=== PATIENT | female | born 1960 | race Caucasian/White ===

== ENCOUNTER → 2016-09-19 | Outpatient (CLI) | payer BC ==
[~2016-09-19] MED LIST: BUTACAP36 PO; CALC8.5C PO; CYAN100020 PO; FAMO20TA9 PO; LEVO75TA5 PO
--- NOTE | 2016-09-19 16:27 | MAMMOGRAPHY REPORT ---
BILATERAL DIGITAL SCREENING MAMMOGRAM TOMOSYNTHESIS WITH CAD: 09/19/2016 CLINICAL HISTORY: Routine screening. Patient has no complaints. TECHNIQUE: Breast tomosynthesis in addition to standard 2D mammography was performed. Current study was also evaluated with a Computer Aided Detection (CAD) system. COMPARISON: Comparison is made to exams dated: 09/17/2015 mammogram, 09/13/2014 ultrasound, 09/13/2014 mammogram, 03/30/2014 ultrasound, 03/30/2014 mammogram, and 09/12/2013 mammogram - [facility]. BREAST COMPOSITION: The tissue of both breasts is heterogeneously dense, which may obscure small ma sses. FINDINGS: No suspicious masses, calcifications, or areas of architectural distortion are noted in e ither breast. There has been no significant interval change compared to prior exams. Fluctuating be nign-appearing masses are again noted bilaterally, which likely represent cysts given that multiple cysts have been seen on prior ultrasound exams. Scattered bilateral benign appearing calcifications are also not significantly changed. IMPRESSION: ACR BI-RADS CATEGORY 2: BENIGN There is no mammographic evidence of malignancy. A 1 year screening mammogram is recommended. The p atient will receive written notification of the results. Approximately 10% of breast cancers are not detected with mammography. A negative mammographic repor t should not delay biopsy if a clinically suggestive mass is present. Daphne Crowley M.D. /:09/19/2016 16:07:55 Assembler Wire M[employer] Gate: Sherlyn Marquez, [facility] letter sent: Normal 1/2 BI-RADS Code: ACR BI-RADS Category 2: Benign
== END | disposition home or self-care (01) ==
LOC: C.MAMM 07:24
PROVIDERS: ATTEND Obstetrics & Gynecology
DX: Z12.31 Encounter for screening mammogram for malignant neoplasm of breast (principal)

== ENCOUNTER → 2017-02-24 | Outpatient (CLI) | payer BC | END | disposition home or self-care (01) | LOC: C.PAPS 17:59 | PROVIDERS: ATTEND Obstetrics & Gynecology | DX: Z01.419 Encounter for gynecological examination (general) (routine) without abnormal findings (principal) ==

== ENCOUNTER → 2017-09-24 | Outpatient (CLI) | payer OTHER ==
--- NOTE | 2017-09-24 13:44 | MAMMOGRAPHY REPORT ---
BILATERAL DIGITAL SCREENING MAMMOGRAM TOMOSYNTHESIS WITH CAD: 09/24/2017 CLINICAL HISTORY: Routine screening. Patient has no complaints. TECHNIQUE: Breast tomosynthesis in addition to standard 2D mammography was performed. Current study was also evaluated with a Computer Aided Detection (CAD) system. COMPARISON: Comparison is made to exams dated: 09/19/2016 mammogram, 09/17/2015 mammogram, 09/13/2014 u ltrasound, 09/13/2014 mammogram, 03/30/2014 ultrasound, and 03/30/2014 mammogram - [facility]. BREAST COMPOSITION: The tissue of both breasts is heterogeneously dense, which may obscure small mas ses. FINDINGS: No suspicious masses, calcifications, or areas of architectural distortion are noted in ei ther breast. There has been no significant interval change compared to prior exams. Scattered bilater al benign-appearing calcifications are not significantly changed. Circumscribed benign-appearing mas ses seen bilaterally are not significantly changed. IMPRESSION: ACR BI-RADS CATEGORY 2: BENIGN There is no mammographic evidence of malignancy. A 1 year screening mammogram is recommended. The pa tient will receive written notification of the results. Approximately 10% of breast cancers are not detected with mammography. A negative mammographic report should not delay biopsy if a clinically suggestive mass is present. Daphne Crowley M.D. /:09/24/2017 07:52:57 Loop Tacker: Elena EDWARDS(Xu)(Ramez), [facility] letter sent: Normal 1/2 BI-RADS Code: ACR BI-RADS Category 2: Benign
== END | disposition home or self-care (01) ==
LOC: C.MAMM 07:38
PROVIDERS: ATTEND Obstetrics & Gynecology
DX: Z12.31 Encounter for screening mammogram for malignant neoplasm of breast (principal)

== ENCOUNTER 2024-07-21 12:54 | Inpatient (IN) ==
[2024-07-21 13:47] LABS: iSTAT Creatinine 0.9 mg/dl (0.6-1.3); iSTAT Hemoglobin 14.3 g/dl (12.0-16.0); iSTAT Ionized Calcium 1.23 mmol/l (1.12-1.32); iSTAT Potassium 3.2 mmol/L (3.3-5.0)
[2024-07-21 13:50] LABS: Basophils # (auto) 0.03 K/uL (0.00-0.20); Basophils % (auto) 0.9 %; Eosinophils # (auto) 0.07 K/uL (0.00-0.50); Eosinophils % (auto) 2.2 %; Hemoglobin 13.9 g/dl (12.0-16.0); Immature Granulocytes # (auto) 0.01 K/uL (0.01-0.20); Immature Granulocytes % (auto) 0.3 %; Lymphocytes # (auto) 0.94 K/uL (1.20-3.40); Lymphocytes % (auto) 29.7 %; Mean Corpuscular Hemoglobin 31.3 pg (25.0-34.0); Mean Corpuscular Hgb Conc 33.1 g/dL (32.0-36.0); Mean Corpuscular Volume 94.6 fL (80.0-100.0); Mean Platelet Volume 9.8 fL (9.4-12.4); Monocytes # (auto) 0.36 K/uL (0.11-0.59); Monocytes % (auto) 11.4 %; Neutrophils # (auto) 1.75 K/uL (1.40-6.50); Neutrophils % (auto) 55.5 %; Platelet Count 181 K/uL (130-400); RDW Standard Deviation 45.3 fL (36.4-46.3); Red Blood Count 4.44 M/uL (4.20-5.40); White Blood Count 3.16 K/ul (4.8-10.8)
[2024-07-21] MEDS: OPTIRAY 320 100ml IV ONE (13:54)
[2024-07-21] MEDS: dexAMETHasone**PF** 10 MG/ML VIAL IV ONE (14:05)
[2024-07-21] MEDS: SODIUM CHLORIDE 0.9% 500 ML IV ONE (14:05)
[2024-07-21 14:07] LABS: Albumin Globulin Ratio 1.4 (0.9-2); BUN Creatinine Ratio 12.2 (10-20); Bilirubin,Total 0.4 mg/dl (0.2-1.0); Calcium 9.6 mg/dl (8.6-10.3); Creatinine Clr Calc Pharmacy 50.9 ml/min; Globulin 2.9 gm/dl (2.5-4.0); Magnesium 2.1 mg/dl (1.7-2.4); Potassium 3.4 mmol/L (3.5-5.1); Total Protein 6.9 gm/dl (6.0-8.3)
[2024-07-21 14:09] LABS: Troponin I High Sensitivity 3.8 pg/ml (0-14)
[2024-07-21 14:12] LABS: Prothrombin Time 10.7 Seconds (9.0-12.0)
--- NOTE | 2024-07-21 14:21 | CT Scan Report ---
CT OF THE CHEST WITH IV CONTRAST CLINICAL HISTORY: brain mets, eval for primary COMPARISON STUDY: No previous studies for comparison. TECHNIQUE: Following IV administration of 94 mL of Optiray, helical axial images of the chest were o btained. Sagittal and coronal reconstructions were viewed as well as maximal intensity projections o n an independent 3-D workstation. Automated exposure control was utilized for the study. A dose low ering technique was utilized adhering to the principles of ALARA. FINDINGS: Several mildly enlarged right hilar lymph nodes are present. Index right hilar lymph node on image 108 of 249 measures 1.4 x 1.2 cm. The size of the heart is normal there is no pericardial ef fusion. No pneumothorax or pleural effusion is present. There is no consolidation. There is a spicula gary 3.3 x 3.2 cm right upper lobe mass with several pleural tags. A 6 mm subpleural right middle lobe nodule on image 136 is also noted. There is no pneumothorax or pleural effusion. Multiple lytic lesi ons within the thoracic spine are noted. There is slight loss of height of the superior endplates of T6 and T10. No epidural extension of tumor is identified by CT. Please note that the CT of the abdome n and pelvis will be reported separately. IMPRESSION: 1. 3.3 x 3.2 cm spiculated right upper lobe mass consistent with a primary lung cancer. 2. Several mildly enlarged pathologic right hilar lymph nodes. 3. Multiple lytic thoracic spine metastases with subtle pathologic fractures of T6 and T10. ACT 112: Negative or not required by law. Electronically signed by: Wesley Kelly M.D. 07/21/2024 2:20 PM
--- NOTE | 2024-07-21 14:28 | CT Scan Report ---
CT head/brain wo con CLINICAL HISTORY: 64 years-old Female with brain mets. Intracranial metastasis. TECHNIQUE: Multiple axial CT images of the head were obtained without contrast. A dose lowering tech nique was utilized adhering to the principles of ALARA. CT DOSE: 1844.67 mGy.cm COMPARISON: Chest CT and brain MRI studies of same day FINDINGS: No large areas of acute intraparenchymal hemorrhage. No midline shift, hydrocephalus, acute territori al ischemia or abnormal extra-axial collection. Intracranial metastasis with surrounding vasogenic ed chung are better visualized on the same day brain MRI. The largest lesion is present in the inferior me dial right frontal lobe on image 7 series 2 measuring 1.6 cm . Scattered fluid calvarial metastasis. The paranasal sinuses, mastoid air cells, and middle ear cavities are clear. IMPRESSION: 1. Intracranial metastasis measuring up to 1.6 cm with mild surrounding vasogenic edema, better seen on the same-day brain MRI. 2. No midline shift, hydrocephalus or large intraparenchymal hemorrhage identified. 3. Foci of hemorrhage associated with the metastatic lesions better seen on MRI. 4. Lytic calvarial metastasis. ACT 112: Negative or not required by law. The above report was generated using voice recognition software. It may contain grammatical, syntax o r spelling errors. Electronically signed by: Bryn Rivas M.D. 07/21/2024 2:26 PM
--- NOTE | 2024-07-21 14:41 | CT Scan Report ---
ABDOMEN AND PELVIS CT WITH IV CONTRAST HISTORY: Lung cancer with metastatic disease. brain mets, eval for primary TECHNIQUE: Multiaxial CT images of the abdomen and pelvis were performed following the IV administrat ion of 94 cc of Optiray, A dose lowering technique was utilized adhering to the principles of ALARA. COMPARISON STUDY: Chest and head CT studies of same day FINDINGS: Chest CT is dictated separately. No pneumatosis or pneumoperitoneum. Unremarkable spleen, p ancreas, gallbladder and adrenal glands. Subcentimeter hypodense focus of the hepatic dome on image 1 6 series 6 is too small to characterize, likely benign. Similar-appearing lesion of the inferior righ t hepatic lobe on image 26 series 6 is indeterminate. Patency of the hepatic and portal veins. Mild cortical scarring of the mid pole left kidney. No hydronephrosis. The urinary bladder is within normal limits. Nonspecific heterogeneity of the uterus with apparent thickening of the fundal endomet rium measuring 7 mm. Possible fibroid of the uterine fundus. Atherosclerosis of the aorta. Nonspecifi c periportal lymph nodes measure up to approximately 10 mm. Distal esophageal wall thickening with small hiatal hernia. Colonic diverticulosis. Moderate colonic fecal retention. No bowel obstruction or bowel wall thickening. Noninflamed appendix. Scattered osteo lytic skeletal metastasis. Lumbar levoscoliosis. Subtle pathologic fractures noted at T10 and L1 with out significant vertebral body height loss. IMPRESSION: 1. Please refer to the same day chest CT for discussion of the primary bronchogenic carcinoma of the right upper lobe. 2. Nonspecific borderline enlarged periportal lymph nodes. 3. Multifocal osteolytic skeletal metastasis with subtle pathologic fractures at T10 and L1. No signi ficant vertebral body height loss or retropulsion. 4. Incidental findings as above. ACT 112: Negative or not required by law. The above report was generated using voice recognition software. It may contain grammatical, syntax o r spelling errors. Electronically signed by: Bryn Rivas M.D. 07/21/2024 2:40 PM
--- NOTE | 2024-07-21 15:11 | Emergency Department Note ---
Impression & Plan Metastasis to brain, Mass of right lung, Metastasis to bone, Vision changes, Daily headache ED Provider Note NAME: NATASHA WOODS AGE: 64 SEX: F : 1960 ARRIVES VIA: Walk-In INFORMANT: Patient ED PROVIDER(S): Guillermo Mcwilliams MD CHIEF COMPLAINT: Abnormal brain MRI, vision changes, referred. PLAN: Disposition: Admit MEDICAL DECISION MAKING: The patient is a pleasant 64-year-old woman with a past medical history of anxiety, GERD, hypothyroidism who presents to emergency department via walk-in coming by her referred by her PCP office after having outpatient MRI brain with and without contrast result with finalized report demonstrating metastatic lesions with vasogenic edema and some with hemorrhagic component but no midline shift. Appreciate report received from Dr. Wagner. Outpatient consult with Dr. Tra khan and recommended emergency department evaluation for CT imaging, IV steroids, admission for radiation oncology consultation and biopsy if primary site is identified and amenable. Patient's MRI of the brain was obtained in the setting of having a month of areas of peripheral vision loss where the patient had seen ophthalmology with unremarkable assessment per report and so MRI of the brain was obtained. The patient reports having a daily headache in the morning but that this is normal for her. Her was able to clarify that her headaches may have started in May as an estimate. She denies any headache at this time. She denies any imbalance, trouble speaking, extremity weakness or change in sensation. She is able to ambulate at baseline without difficulty. On evaluation patient is no distress, afebrile with stable vital signs. She appears clinically dry. There does appear to be subtle right eye superior- temporal field of vision deficit but otherwise no gross vision deficits noted. EOMI. No nystamgus. PEARRL. 5/5 strength and SILT x 4 extremities. Cerebellar function intact including [id number], alternating palms, [id number]-[id number]. IV fluid hydration and 10mg IV dexamethasone administered. EKG without overt acute ischemia. WBC 3.16K without neutrophilia or left shift. H/H and platelets within normal limits. Chemistry without metabolic acidosis. Potassium 3.4 and electrolytes otherwise unremarkable. Alk phos is mildly elevated in the 200s and LFTs otherwise unremarkable. Lipase is normal. CT of the head demonstrates recent identified intracranial metastases measuring up to 1.6 cm with mild surrounding vasogenic edema that is better seen on same- day MRI of the brain. No midline shift, hydrocephalus or large IPH. Foci of hemorrhage associated with metastatic lesions is better seen on MRI. Lytic calvarial metastases are also described. CT of the chest demonstrates a 3.3 x 3.2 spiculated right upper lobe mass consistent with primary lung cancer. Several mildly enlarged pathologic right hilar lymph nodes are noted. Multiple lytic thoracic spine metastases are present with subtle pathologic fracture of T6 and T10. CT abdomen pelvis describes borderline enlarged periportal lymph nodes. Case was discussed with MIRA Watson on-call. Appreciate consultation and recommendations. Agrees with plan in progress for admission per above. Case was discussed with ELEAZAR Montilla hospitalist, who will evaluate the patient for admission. Further management per admitting team. Triage Nursing notes reviewed and agree them. Prior/external medical records reviewed Vital Signs: reviewed Differential diagnosis: Infection, dehydration, metabolic abnormality, hypo/hyperglycemia, electrolyte disturbance, anemia, hypoxia, cardiac sources, intracerebral event, toxicologic, neurologic, as well as other pathologies. ER treatment provided: See below. Diagnostics interpreted by me: ECG: Normal sinus rhythm, 86 bpm, no ectopy. LVH, nonspecific ST and T wave abnormality, no overt ST elevation or depression, QTc 471, QRS 98. Cardiac Monitoring: An order for continuous cardiac monitoring was placed and demonstrated Normal sinus rhythm, 86 bpm, no ectopy. Laboratory studies: See below Imaging studies: See below Consultation(s): MIRA Watson Dr., [facility] hospitalist HPI: The patient is a pleasant 64-year-old woman with a past medical history of anxiety, GERD, hypothyroidism who presents to emergency department via walk-in coming by her referred by her PCP office after having outpatient MRI brain with and without contrast result with finalized report demonstrating metastatic lesions with vasogenic edema and some with hemorrhagic component but no midline shift. Appreciate report received from Dr. Wagner. Outpatient consult with Dr. Tra khan and recommended emergency department evaluation for CT imaging, IV steroids, admission for radiation oncology consultation and biopsy if primary site is identified and amenable. Patient's MRI of the brain was obtained in the setting of having a month of areas of peripheral vision loss where the patient had seen ophthalmology with unremarkable assessment per report and so MRI of the brain was obtained. The patient reports having a daily headache in the morning but that this is normal for her. Her was able to clarify that her headaches may have started in May as an estimate. She denies any headache at this time. She denies any imbalance, trouble speaking, extremity weakness or change in sensation. She is able to ambulate at baseline without difficulty. ROS: See above HPI for pertinent positives & negatives. A total of 10 systems reviewed and were otherwise negative. VITALS:See Below PHYSICAL EXAMINATION: GENERAL: Awake, alert, well-appearing, in no distress HENT: Normocephalic, atraumatic. Oropharynx with dry mucous membranes and otherwise unremarkable. EYES: Normal conjunctiva. Sclera non-icteric. EOMI. No nystamgus. PEARRL. Subtle right eye superior-temporal field of vision deficit but otherwise no gross vision deficits noted. NECK: Supple. No nuchal rigidity. FROM. No JVD. RESPIRATORY: Clear to auscultation. CARDIAC: Regular rate, normal rhythm. Extremities warm and well perfused. Pulses equal. ABDOMEN: Soft, non-distended. No tenderness to palpation. No rebound or guarding. No masses. MUSCULOSKELETAL: Chest examination reveals no tenderness. The back is symmetrical on inspection without obvious abnormality. There is no CVA tenderness to palpation. No joint edema. LOWER EXTREMITIES: Calves are equal size bilaterally and non-tender. No edema. No discoloration. NEURO: Face is symmetric. Speech is fluent. 5/5 strength and SILT x 4 extremities. Cerebellar function intact including bhroao-qq-[id number], alternating palms, zkvn-bj-nvtc. SKIN: No rash or jaundice noted. Guillermo Mcwilliams MD Past Med/Surg History Problem List Daily headache (Acute) Vision changes (Acute) Metastasis to bone (Acute) Mass of right lung (Acute) Metastasis to brain (Acute) Hyperglycemia Elevated LFTs Routine gynecological examination Hypothyroidism History of colon polyps Encounter for pre-operative examination Diverticulosis Esophageal reflux Hyperthyroidism Hyperlipidemia Leukopenia Migraine headache Postmenopause atrophic vaginitis B12 deficiency No pertinent past surgical history Medical History Osteoarthritis Hypothyroidism Migraine Hx of gastric ulcer REASON FOR DAILY PEPCID Anemia PT DENIES Surgical History History of esophagogastroduodenoscopy (EGD) History of colonoscopy History of tooth extraction Family History Other No family history of adverse response to anesthesia No pertinent family history Denies family history of Ovarian cancer Prostate cancer Diabetes Myocardial infarction Breast cancer Colorectal cancer Hypertension Social History Smoking Status: Never smoker Second Hand Exposure: No; Do You Dip or Chew Tobacco: No; Hx Alcohol Use: No Hx Substance Use: No Preferred Language: Citizen Of [place] Visual Impairment: No Limitations Hearing Ability: Normal Flatwork Presser Required: No Beliefs That Will Affect Care: None marital status: Current Living Situation: Spouse current occupational status: retired Feels Safe at Home: Yes Dental Care, Regularly: Yes Physical Activity Frequency: Does not Exercise Seatbelt Use: always Assistive Devices: Glasses Allergies Allergies Allergy/AdvReac Type Severity Reaction Status Date / Time No Known Allergies Allergy Verified 07/20/24 09:56 Home Meds Home Medications Medication Instructions Recorded Confirmed famotidine 20 mg tablet (Pepcid AC) 20 mg PO QAM 09/14/20 07/21/24 multivitamin 1 tab PO QAM 09/14/20 07/21/24 cholecalciferol (vitamin D3) 125 125 mcg PO QAM 06/04/21 07/21/24 mcg (5,000 unit) tablet (Vitamin D3) alprazolam 0.5 mg tablet (Xanax) 0.5 mg PO UD PRN procedure 07/21/24 07/21/24 levothyroxine 75 mcg tablet 75 mcg PO QAM 07/21/24 07/21/24 Previous Rx's Medication Instructions Recorded [id number] See Rx Instructions PO DAILY PRN 05/13/24 50 mg-325 mg-40 mg tablet pain #30 tabs fluticasone propionate 50 2 spray intranasal DAILY PRN 05/13/24 mcg/actuation nasal allergy symptoms #3 multiple units spray,suspension (Flonase Allergy Relief) Results & Data (ED) Vital Signs Vital Signs - 24 hr 07/21/24 13:05 07/21/24 15:00 07/21/24 15:00 Temperature 36.9 C Temperature Source Temporal Artery Scan Pulse Rate 91 H Pulse Rate [Finger] 89 Respiratory Rate 18 18 Respiratory Effort / Characteristics Non-Labored Spontaneous Non-Labored Spontaneous Respiratory Depth Normal Normal Respiratory Pattern Regular Blood Pressure 126/83 Blood Pressure [Right Arm] 127/86 Blood Pressure Mean 97 Blood Pressure Mean [Right Arm] 99 Pulse Oximetry 99 94 94 Oxygen Delivery Method Room Air Room Air Room Air Sepsis Recent Fever Within 48 Hours No Sepsis New/Unexplained Change in Mental Status No Sepsis Action Taken by Nursing No Action Required Laboratory Data Attestation: I reviewed the patient's lab results. 07/21/24 13:30 07/21/24 13:30 Lab Results 07/21/24 07/21/24 Range/Units 13:30 13:35 WBC 3.16 L (4.8-10.8) K/ul RBC 4.44 (4.20-5.40) M/uL Hgb 13.9 (12.0-16.0) g/dl POC Hgb 14.3 (12.0-16.0) g/dl Hct 42.0 (37.0-47.0) % POC Hct 42 (37-47) % MCV 94.6 (80.0-100.0) fL MCH 31.3 (25.0-34.0) pg MCHC 33.1 (32.0-36.0) g/dL RDW Std Deviation 45.3 (36.4-46.3) fL RDW Coeff of Melodie 13.0 (11.5-14.5) % Plt Count 181 (130-400) K/uL MPV 9.8 (9.4-12.4) fL Immature Gran % (Auto) 0.3 % Neut % (Auto) 55.5 % Lymph % (Auto) 29.7 % [place] % (Auto) 11.4 % Eos % (Auto) 2.2 % Baso % (Auto) 0.9 % Neut # (Auto) 1.75 (1.40-6.50) K/uL Lymph # (Auto) 0.94 L (1.20-3.40) K/uL [place] # (Auto) 0.36 (0.11-0.59) K/uL Eos # (Auto) 0.07 (0.00-0.50) K/uL Baso # (Auto) 0.03 (0.00-0.20) K/uL Immature Gran # (Auto) 0.01 (0.01-0.20) K/uL PT 10.7 (9.0-12.0) Seconds INR 1.0 (0.9-1.1) POC Sodium 141 (135-144) mmol/L Sodium 141 (136-145) mmol/L POC Potassium 3.2 L (3.3-5.0) mmol/L Potassium 3.4 L (3.5-5.1) mmol/L POC Chloride 102 (101-112) mmol/L Chloride 104 (98-107) mmol/L Carbon Dioxide 31 (21-32) mmol/L POC Total CO2 25 (24-31) mmol/L Anion Gap 6 (3-11) POC Anion Gap 18.0 (16-25) mmol/L POC BUN 11 (7-18) mg/dl BUN 11 (6-23) mg/dl Creatinine 0.90 (0.6-1.2) mg/dl POC Creatinine 0.9 (0.6-1.3) mg/dl Est Cr Clr Drug Dosing 50.9 ml/min eGFR 70.51 BUN/Creatinine Ratio 12.2 (10-20) Glucose 112 H (70-99(Fasting)) mg/dl POC Glucose (other) 111 H (70-99) mg/dl Calcium 9.6 (8.6-10.3) mg/dl POC Ioniz Calcium Jackie 1.23 (1.12-1.32) mmol/l Magnesium 2.1 (1.7-2.4) mg/dl Total Bilirubin 0.4 (0.2-1.0) mg/dl AST 36 (13-39) U/L ALT 39 (7-52) U/L Alkaline Phosphatase 221 H (34-104) U/L Troponin I High Sens 3.8 (0-14) pg/ml Total Protein 6.9 (6.0-8.3) gm/dl Albumin 4.0 (3.4-5.0) gm/dl Globulin 2.9 (2.5-4.0) gm/dl Albumin/Globulin Ratio 1.4 (0.9-2) Lipase 12 (11-82) U/L Administered Medications Discontinued Medications Dexamethasone Sodium Phosphate (DexamethasonePf 10 Mg/Ml Vial) 10 mg IV NOW ONE Stop: 07/21/24 13:16 Last Admin: 07/21/24 14:05 Dose: 10 mg Documented By: BRENDA Sodium Chloride (Nss) 500 mls @ 999 mls/hr IV .Q31M ONE Stop: 07/21/24 13:45 Last Infusion: 07/21/24 14:36 Dose: Infused Documented By: Admin: 07/21/24 14:05 Dose: 999 mls/hr Documented By: BRENDA Ioversol (Optiray 320 100ml) 94 ml IV ONCE ONE Stop: 07/21/24 13:55 Last Admin: 07/21/24 13:54 Dose: 94 ml Documented By: SAMPSON Potassium Chloride (Potassium Chloride Crtab 20 Meq Tabcr) 40 meq PO NOW STA Stop: 07/21/24 16:45 Last Admin: 07/21/24 17:11 Dose: 40 meq Documented By: BRENDA Imaging Data Radiologist's Impression: Abdomen/Pelvis CT 07/21/24 13:[address] WITH IV CONTRAST HISTORY: Lung cancer with metastatic disease. brain mets, eval for primary TECHNIQUE: Multiaxial CT images of the abdomen and pelvis were performed following the IV administration of 94 cc of Optiray, A dose lowering technique was utilized adhering to the principles of ALARA. COMPARISON STUDY: Chest and head CT studies of same day FINDINGS: Chest CT is dictated separately. No pneumatosis or pneumoperitoneum. Unremarkable spleen, pancreas, gallbladder and adrenal glands. Subcentimeter hypodense focus of the hepatic dome on image 16 series 6 is too small to characterize, likely benign. Similar-appearing lesion of the inferior right hepatic lobe on image 26 series 6 is indeterminate. Patency of the hepatic and portal veins. Mild cortical scarring of the mid pole left kidney. No hydronephrosis. The urinary bladder is within normal limits. Nonspecific heterogeneity of the uterus with apparent thickening of the fundal endometrium measuring 7 mm. Possible fibroid of the uterine fundus. Atherosclerosis of the aorta. Nonspecific periportal lymph nodes measure up to approximately 10 mm. Distal esophageal wall thickening with small hiatal hernia. Colonic diverticulosis. Moderate colonic fecal retention. No bowel obstruction or bowel wall thickening. Noninflamed appendix. Scattered osteolytic skeletal metastasis. Lumbar levoscoliosis. Subtle pathologic fractures noted at T10 and L1 without significant vertebral body height loss. IMPRESSION: 1. Please refer to the same day chest CT for discussion of the primary bronchogenic carcinoma of the right upper lobe. 2. Nonspecific borderline enlarged periportal lymph nodes. 3. Multifocal osteolytic skeletal metastasis with subtle pathologic fractures at T10 and L1. No significant vertebral body height loss or retropulsion. 4. Incidental findings as above. ACT 112: Negative or not required by law. The above report was generated using voice recognition software. It may contain grammatical, syntax or spelling errors. Electronically signed by: Bryn Rivas M.D. 07/21/2024 2:[address] 07/21/24 13:11 CT OF THE CHEST WITH IV CONTRAST CLINICAL HISTORY: brain mets, eval for primary COMPARISON STUDY: No previous studies for comparison. TECHNIQUE: Following IV administration of 94 mL of Optiray, helical axial images of the chest were obtained. Sagittal and coronal reconstructions were viewed as well as maximal intensity projections on an independent 3-D workstation. Automated exposure control was utilized for the study. A dose lowering technique was utilized adhering to the principles of ALARA. FINDINGS: Several mildly enlarged right hilar lymph nodes are present. Index right hilar lymph node on image 108 of 249 measures 1.4 x 1.2 cm. The size of the heart is normal there is no pericardial effusion. No pneumothorax or pleural effusion is present. There is no consolidation. There is a spiculated 3.3 x 3.2 cm right upper lobe mass with several pleural tags. A 6 mm subpleural right middle lobe nodule on image 136 is also noted. There is no pneumothorax or pleural effusion. Multiple lytic lesions within the thoracic spine are noted. There is slight loss of height of the superior endplates of T6 and T10. No epidural extension of tumor is identified by CT. Please note that the CT of the abdomen and pelvis will be reported separately. IMPRESSION: 1. 3.3 x 3.2 cm spiculated right upper lobe mass consistent with a primary lung cancer. 2. Several mildly enlarged pathologic right hilar lymph nodes. 3. Multiple lytic thoracic spine metastases with subtle pathologic fractures of T6 and T10. ACT 112: Negative or not required by law. Electronically signed by: Wesley Kelly M.D. 07/21/2024 2:[address] 07/21/24 13:14 CT head/brain wo con CLINICAL HISTORY: 64 years-old Female with brain mets. Intracranial metastasis. TECHNIQUE: Multiple axial CT images of the head were obtained without contrast. A dose lowering technique was utilized adhering to the principles of ALARA. CT DOSE: 1844.67 mGy.cm COMPARISON: Chest CT and brain MRI studies of same day FINDINGS: No large areas of acute intraparenchymal hemorrhage. No midline shift, hydrocephalus, acute territorial ischemia or abnormal extra-axial collection. Intracranial metastasis with surrounding vasogenic edema are better visualized on the same day brain MRI. The largest lesion is present in the inferior medial right frontal lobe on image 7 series 2 measuring 1.6 cm . Scattered fluid calvarial metastasis. The paranasal sinuses, mastoid air cells, and middle ear cavities are clear. IMPRESSION: 1. Intracranial metastasis measuring up to 1.6 cm with mild surrounding vasogenic edema, better seen on the same-day brain MRI. 2. No midline shift, hydrocephalus or large intraparenchymal hemorrhage identified. 3. Foci of hemorrhage associated with the metastatic lesions better seen on MRI. 4. Lytic calvarial metastasis. ACT 112: Negative or not required by law. The above report was generated using voice recognition software. It may contain grammatical, syntax or spelling errors. Electronically signed by: Bryn Rivas M.D. 07/21/2024 2:26 PM Discharge Plan Visit Data Chief Complaint: Visual Disturbance Stated Complaint: MRI THIS AM, LESIONS ON BRAIN, IMPAIRED VISION ED Provider: Guillermo Mcwilliams Discharge Problem: Metastasis to brain, Mass of right lung, Metastasis to bone, Vision changes, Daily headache Patient Disposition: Admitted As Inpatient Discharge Instructions Interventions: ED Discharge Assessment Last Done: 07/21/24 19:40
--- NOTE | 2024-07-21 15:50 | History & Physical Report ---
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 Otherwise has no focal deficits MRI outpatient showed multifocal lesions suspected for metastatic lesions with small amount of edema and hemorrhage CTA/P with evidence of suspected right lung primary. Lymphadenopathy is appreciated. Multiple spinal mets with associated pathologic fracture are noted. Oncology consulted, Dr. Santiago following. Reviewed findings by phone. Does have small amount of edema and hemorrhage however no mass effect and at rest she has no noticeable neurologic deficits at the bedside. Given this does not require emergent transfer or intervention, agree with steroid treatment and will continue steroids 4 mg q6h. Recommended MRI of whole spine for complete mets evaluation, C/T/L-spine ordered. Appreciate recommendations Pulmonology consulted for biopsy evaluation. Images reviewed, anticipate patient have bronchoscopic approach 07/22 n.p.o. at midnight. Anticipate patient will need radiation treatment for her brain metastasis. Radiation oncology consulted. Patient has no arrhythmogenic symptoms, has no focal deficits on admitting exam. Will follow on [facility] with neurochecks. No history of seizures. Presentation, imaging findings, and anticipated workup discussed with patient, her , and daughter at length at the bedside. In addition to review of above did discuss broad goals of care. Patient's and (2) Hypothyroidism: Plan: Continue Synthroid Plan Chronic stable issues: GERD: Pepcid/famotidine continued Hypothyroidism: Synthroid continued DVT prophylaxis: Pharmacal prophylaxis deferred pending endobronchial ultrasound and in the setting of a lots of metastatic hemorrhage. SCDs Diet: Regular, n.p.o. at midnight CODE STATUS: Full code Disposition: MSO History of Present Illness Primary Care Provider: MD Elise Magallanes her symptoms began with progressive small amounts of vision loss. She noticed she could not see words in some spots when reading. Was referred to Dr. Jenkins for an eye exam which was normal. Was recommended to have MRI to eval uate for stroke. MRI today had converning findings for brain lesions and was recommended to come into the emergency department for further testing. First noticed vision change in early May When she is not reading she does not notice any visual deficits or changes. Her reports beginning of May she has had much more word finding difficulty than usual. No confusion. No headaches. No fevers, chills, or sweats no chest pain, no chest pressure no cough, no shortness of breath Pt has been trying to lose weight before the winter, goal weight 132lbs. Currenly hitting her goal of 130. 135 several weeks ago. Dieting and walking every morning to do this. Denies unintentional weight loss. She reports some back and hip pain when caused her to stop walking as much in the last few weeks. She stopped walking about 2 weeks ago due to pain, started around 3 weeks prior to that. Endorses some mild but tolerable low back pain chronically. Reports this is intermittent and 'not all the time.' No falls or injuries. No hx heart or lung disease No tobacco product use, no etoh use. No secondary smoke exposure. No recreational drug use. NKDA. Takes pepcid for gerd, thryoid medicine levotyroxine 75mcg, d3, multivitamin, and an occasional B12 vitamin. No family history of cancer or blood clots Allergies Allergy/AdvReac Type Severity Reaction Status Date / Time No Known Allergies Allergy Verified 07/20/24 09:56 Home Medications Medication Instructions Recorded Confirmed Type famotidine 20 mg tablet (Pepcid AC) 20 mg PO QAM 09/14/20 07/21/24 History multivitamin 1 tab PO QAM 09/14/20 07/21/24 History cholecalciferol (vitamin D3) 125 125 mcg PO QAM 06/04/21 07/21/24 History mcg (5,000 unit) tablet (Vitamin D3) [id number] See Rx Instructions PO DAILY PRN 05/13/24 07/21/24 Rx 50 mg-325 mg-40 mg tablet pain #30 tabs fluticasone propionate 50 2 spray intranasal DAILY PRN 05/13/24 07/21/24 Rx mcg/actuation nasal allergy symptoms #3 multiple units spray,suspension (Flonase Allergy Relief) alprazolam 0.5 mg tablet (Xanax) 0.5 mg PO UD PRN procedure 07/21/24 07/21/24 History levothyroxine 75 mcg tablet 75 mcg PO QAM 07/21/24 07/21/24 History Past Med/Surg History Problem List Metastasis to brain Hyperglycemia Elevated LFTs Routine gynecological examination Hypothyroidism History of colon polyps Encounter for pre-operative examination Diverticulosis Esophageal reflux Hyperthyroidism Hyperlipidemia Leukopenia Migraine headache Postmenopause atrophic vaginitis B12 deficiency No pertinent past surgical history Medical History Osteoarthritis Hypothyroidism Migraine Hx of gastric ulcer REASON FOR DAILY PEPCID Anemia PT DENIES Surgical History History of esophagogastroduodenoscopy (EGD) History of colonoscopy History of tooth extraction Family History Other No family history of adverse response to anesthesia No pertinent family history Denies family history of Ovarian cancer Prostate cancer Diabetes Myocardial infarction Breast cancer Colorectal cancer Hypertension Social History Smoking Status: Never smoker Second Hand Exposure: No; Do You Dip or Chew Tobacco: No; Hx Alcohol Use: No Hx Substance Use: No Preferred Language: Qatari Visual Impairment: No Limitations Hearing Ability: Normal Director Employee Safety And Health Required: No Beliefs That Will Affect Care: None marital status: Current Living Situation: Spouse current occupational status: retired Feels Safe at Home: Yes Dental Care, Regularly: Yes Physical Activity Frequency: Does not Exercise Seatbelt Use: always Assistive Devices: Glasses Physical Exam Physical Exam: General: A&Ox3. NAD. Cooperative. HEENT: Atraumatic, normocephalic. Pupils equal and reactive to light and accommodation. Visual acuity grossly intact at the bedside. No significant peripheral or central field cut is appreciated at bedside exam. Vision and hearing are grossly intact at the bedside Pulm: CTAB A&P. -wheezes, -rales, -rhonchi. Symmetrical chest rise. No increased work of breathing. No respiratory distress. Cardiac: RRR, -mrg. Radial pulses intact and symmetrical. Abdominal: Nontender, nondistended, soft. BS present. Tool Repairer Bench strength, elbow flexion, ankle dorsiflexion/plantarflexion 5/5 bilaterally without asymmetry. Has Station soft touch in hands and feet intact and symmetrical. Results & Data Results & Data Vital Signs (Past 12 Hours) Vital Signs Temp Pulse Pulse Resp BP BP Pulse Ox 07/21/24 15:00 94 07/21/24 15:00 89 18 127/86 94 07/21/24 13:05 36.9 C 91 H 18 126/83 99 O2 Del Method 07/21/24 15:00 Room Air 07/21/24 15:00 Room Air 07/21/24 13:05 Room Air PG Care Time/CCT Total # of Minutes Spent Total Time Spent with Patient: Total time spent is greater than 50% in coordination of care (as documented) at patient's floor/unit and/or counseling patient: Coding Level of Care Code 54131 INT INP/OBS CARE 3/75MIN Diagnoses Metastasis to brain C79.31 Hypothyroidism E03.9
[2024-07-21] MEDS ORDERED: LORazepam 2 MG/1 ML VIAL IV PRN (16:35)
[2024-07-21] MEDS: POTASSIUM CHLORIDE CRTAB 20 MEQ TABCR PO STA (17:11)
[2024-07-21] MEDS: ACETAMINOPHEN 325 MG TAB PO PRN (20:55)
[2024-07-22] MEDS ORDERED: DEXAMETHASONE SOD INJ 4 MG/ML VIAL IV SCH
[2024-07-22] MEDS: GADOBUTROL 65ML VIAL IV ONE (00:19)
[2024-07-22] MEDS: dexAMETHasone 4 MG in SYRINGE 0 ML IV SCH (01:05)
--- NOTE | 2024-07-22 01:23 | Magnetic Resonance Report ---
EXAM: MR lumbar spine wo/w con CLINICAL HISTORY: dark spots in eyes since mid May. headaches. patient had brain MRI the morning of 07/21. patient has no spine complaints at this time. r/o metastatic disease. abnormal brain done 07/21. possible lung ca. used protocol labeled entire spine for mets. injected 6cc gadavist through existing iv uneventful at 0015. egfr 55.5 room 323-1. inpatient. 164 images TECHNIQUE: Multisequential and multiplanar images of the lumbar spine were submitted for review without and with contrast. COMPARISON: None. FINDINGS: The conus medullaris terminates at approximately L1 and demonstrates normal size and signal. Straightening of the lumbar spine is noted. Alignment of the lumbar spine is normal. Multiple, variable sized, enhancing T1 hypointense and STIR hyperintense lesions are noted involving all the lumbar and visualized thoracic and sacral vertebrae. Involvement of the posterior elements are also noted at few levels. All discs show degenerative changes. Marginal osteophytes, endplate irregularities, reduction in the disc heights are noted at multiple levels. L1-L2: No disc herniation. No central canal stenosis or neuroforaminal narrowing. L2-L3: No disc herniation. No central canal stenosis or neuroforaminal narrowing. L3-L4: Diffuse disc bulge is noted causing mild spinal canal, bilateral lateral recess and neural foraminal stenosis. L4-L5: Diffuse disc bulge is noted causing mild spinal canal, bilateral lateral recess and neural foraminal stenosis, more on right side. L5-S1: Left foraminal/extraforaminal protrusion is noted causing mild left lateral recess and neural foraminal stenosis. The visualized paraspinal soft tissues are grossly unremarkable. IMPRESSION: 1. Multiple, variable sized, enhancing lesions involving all lumbar and visualized thoracic and sacral vertebrae as described above. Likely metastases. 2. Degenerative changes as described above. 3. Posterior disc bulges at multiple levels the neural compression as described above. Electronically signed by Agusto Segovia 07-22-2024 01:22 AM
--- NOTE | 2024-07-22 01:43 | Magnetic Resonance Report ---
EXAM: MR cervical spine wo/w con CLINICAL HISTORY: dark spots in eyes since mid May. headaches. patient had brain MRI the morning of 07/21. patient has no spine complaints at this time. r/o metastatic disease. abnormal brain done 07/21. possible lung ca. used protocol labeled entire spine for mets. injected 6cc gadavist through existing iv uneventful at 0015. egfr 55.5 room 323-1. inpatient. 182 images TECHNIQUE: Multisequential and multiplanar images of the cervical spine were submitted for review with contrast. COMPARISON: None. FINDINGS: The normal cervical lordotic curvature is lost due to muscle spasm. Degenerative changes involving cervical spine in the form of multilevel marginal osteophytes, disc desiccation and facetal arthrosis. Mild retrolisthesis of C2 over C3, C3 over C4, C4 over C5 and C5 over C6 vertebra. The cord is normal in caliber and signal. There is no cerebellar ectopia. No abnormal bone marrow signal demonstrated throughout the cervical spine to suggest a fracture. T1 and T2 hypointense lesions seen in T2, T3 and T6 vertebral bodies, with enhancement post contrast. T1 and T2 hypointense lesion with enhancement also seen in spinous process of C3 vertebra.- likely metastatic. Approximately 9.3 x 3.8 mm size enhancing plaque like lesion is noted along the posterior part of thoracic spinal cord at the level of T4-T5 level. C2-C3: No disc herniation. No central canal stenosis or neuroforaminal narrowing. C3-C4: Diffuse disc bulge with uncovertebral arthrosis causes narrowing of right neural foramina and impinging right exiting nerve root. C4-C5: Diffuse disc bulge with peridiscal osteophyte causes narrowing of bilateral neural foramina and impinging bilateral exiting nerve root indenting ventral aspect of spinal cord. C5-C6: Diffuse disc bulge with left sided propensity and peridiscal osteophytes which indenting ventral thecal sac ventral aspect of cord and impinging left exiting nerve root. C6-C7: Disc osteophyte complex causing effacement of bilateral neural foramina and indenting bilateral exiting nerve root. C7-T1: No disc herniation. No central canal stenosis or neuroforaminal narrowing. The visualized paraspinal soft tissues are grossly unremarkable. IMPRESSION: 1. Cervical spondylosis changes with multilevel disc osteophyte complex and neural foraminal narrowing with nerve root impingement as described above. 2. Focal enhancing plaque like lesion is noted along the posterior part of thoracic spinal cord at the level of T4-T5 level. -Possibility of neoplastic lesion/metastasis. 3. T1 and T2 hypointense lesions seen in T2, T3 and T6 vertebral bodies, with enhancement post contrast. T1 and T2 hypointense lesion with enhancement also seen in spinous process of C3 vertebra.- likely metastatic. Electronically signed by Agusto Segovia 07-22-2024 01:42 AM
--- NOTE | 2024-07-22 02:01 | Magnetic Resonance Report ---
EXAM: MR thoracic spine wo/w con CLINICAL HISTORY: dark spots in eyes since mid May. headaches. patient had brain MRI the morning of 07/21. patient has no spine complaints at this time. r/o metastatic disease. abnormal brain done 07/21. possible lung ca. used protocol labeled entire spine for mets. injected 6cc gadavist through existing iv uneventful at 0015. egfr 55.5 room 323-1. inpatient. 173 images TECHNIQUE: Multisequential and multiplanar images of the thoracic spine were submitted for review with contrast. COMPARISON: None. FINDINGS: Nodular, intramedullary enhancing lesion of size 12 x 4.5 mm (CC x AP) is noted at T5/T6 vertebral levels. Cord edema is noted around the lesion. Nodular enhancement is noted along the surface of the distal spinal cord and conus medullaris. Multiple, variable sized, T1 hypointense, enhancing lesions are noted involving multiple thoracic vertebral bodies as well as their posterior elements. No pathological fracture is noted in the current study. Few of these are expansile in nature. The paravertebral soft tissues are unremarkable. 2.5 x 2.8 cm sized soft tissue is noted within the apical segment of the right upper lobe. Large perineural cyst of size 15 x 10 mm is noted at the right T6-T7 neural foramen. No significant disc bulge or compressive myelopathy changes secondary to disc bulges are noted involving the thoracic spinal cord. IMPRESSION: 1. Nodular, intramedullary enhancing lesion of size 12 x 4.5 mm (CC x AP) is noted at T5-T6 level. Cord edema is noted around the lesion. Findings likely suggestive of metastasis. 2. Nodular enhancement is noted along the surface of the distal spinal cord and conus medullaris. 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 3. Multiple, variable sized, enhancing lesions are noted involving multiple thoracic vertebrae as described, likely suggestive of metastasis. Electronically signed by Agusto Segovia 07-22-2024 02:01 AM
--- NOTE | 2024-07-22 05:36 | Electrocardiogram Report ---
Test Reason : Blood Pressure : */* mmHG Vent. Rate : 86 BPM Atrial Rate : 86 BPM P-R Int : 162 ms QRS Dur : 98 ms QT Int : 394 ms P-R-T Axes : 58 -8 42 degrees QTcB Int : 471 ms Normal sinus rhythm Moderate voltage criteria for LVH, may be normal variant ( R in aVL , [place] product ) Nonspecific ST and T wave abnormality Abnormal ECG When compared with ECG of 22-May-2021 12:31, Questionable change in QRS axis Confirmed by Robin Garcia ([id number]) on 07/22/2024 5:36:20 AM Referred By: Confirmed By: Robin Garcia
[2024-07-22] MEDS: LEVOTHYROXINE SODIUM 75 MCG TABLET PO SCH (06:07)
[2024-07-22 06:55] LABS: Hematocrit (blood only) 36.3 % (37.0-47.0); Hemoglobin 12.6 g/dl (12.0-16.0); Immature Granulocytes # (auto) 0.02 K/uL (0.01-0.20); Immature Granulocytes % (auto) 0.4 %; Lymphocytes # (auto) 0.58 K/uL (1.20-3.40); Lymphocytes % (auto) 10.9 %; Mean Corpuscular Hemoglobin 32.5 pg (25.0-34.0); Mean Corpuscular Hgb Conc 34.7 g/dL (32.0-36.0); Mean Corpuscular Volume 93.6 fL (80.0-100.0); Mean Platelet Volume 9.9 fL (9.4-12.4); Monocytes % (auto) 1.9 %; Neutrophils # (auto) 4.62 K/uL (1.40-6.50); Neutrophils % (auto) 86.8 %; Platelet Count 181 K/uL (130-400); RDW Coefficient of Variation 12.9 % (11.5-14.5); RDW Standard Deviation 44.1 fL (36.4-46.3); Red Blood Count 3.88 M/uL (4.20-5.40); White Blood Count 5.32 K/ul (4.8-10.8)
--- NOTE | 2024-07-22 07:16 | Pulmonary Consultation ---
Date of Consultation July 22, 2024 Assessment & Plan (1) Mass of right lung: (2) Metastasis to bone: Plan CT chest 07/21/2024 personally reviewed: Right upper lobe 3.2 cm x 3.3 cm lobulated nodule Right middle lobe peripheral 6 mm pulmonary nodule Minimal right hilar and subcarinal lymphadenopathy -- Right upper lobe mass with hilar lymphadenopathy 3.2 x 3.3 cm lobulated Patient is lifetime non-smoker but the probability of it being primary lung cancer with mets is high Bronchoscopy would be preferred for diagnostic approach as there is lower risk of pneumothorax and bleed Next option would be IR guided biopsy Recommend oncology as well as radiation oncology to be involved Plan: Metastatic disease, likely lung primary Does have mets to the brain, if the patient is deemed to be acceptable risk from anesthesia then we will proceed with bronchoscopy today All questions and queries of the patient were answered in depth PT/INR within normal limit, platelets within normal limit Patient will ultimately need a palliative care consult, I do think she is overwhelmed with the information as she was having no complaints other than blurry vision and living a normal life. Please note the above document was generated using voice recognition software. It may contain grammatical, syntax or spelling errors.Any formal questions or concerns about the content, text or information contained within the body of this dictation should be directly addressed to the provider for clarification. History of Present Illness Attending Physician: Dick Downing MD History of Present Illness 64-year-old female present to the hospital for changes in the vision, had an MRI of the brain as an outpatient which showed lesions and she came to the ER Past medical history: Hypothyroidism Pulmonary consulted for lung mass At the time of examination patient was not in any respiratory distress. Other than the blurry vision she denied any issues No shortness of breath, no chest pain No back pain No numbness or tingling sensation anywhere. No fever or chills in the recent past Denies any cough No dysuria or diarrhea. Denies any history of lung cancer in the family. Please make note patient was emotional at the end of the visit after giving her all the explanation. Emotional support was given to the patient Social history: Lifetime non-smoker Allergies Allergy/AdvReac Type Severity Reaction Status Date / Time No Known Allergies Allergy Verified 07/20/24 09:56 Home Medications Medication Instructions Recorded Confirmed Type famotidine 20 mg tablet (Pepcid AC) 20 mg PO QAM 09/14/20 07/21/24 History multivitamin 1 tab PO QAM 09/14/20 07/21/24 History cholecalciferol (vitamin D3) 125 125 mcg PO QAM 06/04/21 07/21/24 History mcg (5,000 unit) tablet (Vitamin D3) [id number] See Rx Instructions PO DAILY PRN 05/13/24 07/21/24 Rx 50 mg-325 mg-40 mg tablet pain #30 tabs fluticasone propionate 50 2 spray intranasal DAILY PRN 05/13/24 07/21/24 Rx mcg/actuation nasal allergy symptoms #3 multiple units spray,suspension (Flonase Allergy Relief) alprazolam 0.5 mg tablet (Xanax) 0.5 mg PO UD PRN procedure 07/21/24 07/21/24 History levothyroxine 75 mcg tablet 75 mcg PO QAM 07/21/24 07/21/24 History Patient History Medical History Osteoarthritis Hypothyroidism Migraine Hx of gastric ulcer REASON FOR DAILY PEPCID Anemia PT DENIES Surgical History History of esophagogastroduodenoscopy (EGD) History of colonoscopy History of tooth extraction Family History Other No family history of adverse response to anesthesia No pertinent family history Denies family history of Ovarian cancer Prostate cancer Diabetes Myocardial infarction Breast cancer Colorectal cancer Hypertension Social History Smoking Status: Never smoker Second Hand Exposure: No; Do You Dip or Chew Tobacco: No; Hx Alcohol Use: No Hx Substance Use: No Preferred Language: Ukrainian Communication Ability: Effective Visual Impairment: No Limitations Hearing Ability: Normal Scrap Crane Operator Required: No Beliefs That Will Affect Care: None marital status: Current Living Situation: Spouse current occupational status: retired Other Information That Helps Us Care for You: No Feels Safe at Home: Yes Safety Concerns: Feels Safe At This Time Dental Care, Regularly: Yes Physical Activity Frequency: Does not Exercise Seatbelt Use: always Assistive Devices: Glasses Review of Systems 2 Review of Systems: All systems reviewed & are unremarkable except as noted in HPI & below Physical Exam 2 Physical Exam: Constitutional: No acute distress HEENT: EOMI, PERRLA Respiratory system: Good air entry bilaterally, no wheeze, no rhonchi, no crackles CVS: S1-S2 positive, no murmurs or gallops Abdomen: Soft, nontender, nondistended, positive bowel sounds x4 Extremities: +2 pulses bilaterally radialis/ dorsalis pedis, no cyanosis, no edema Neuro: Awake alert oriented x3, cranial nerves II through XII grossly intact Psych: Normal mood and affect G/U: No Munoz Skin: no rashes, warm and dry Lymphatic: no cervical or axillary lymphadenopathy Results & Data Results & Data Vital Signs (Past 12 Hours) Vital Signs Temp Pulse Resp BP Pulse Ox O2 Del Method 07/21/24 20:56 37 C 90 17 128/85 96 Room Air 07/21/24 19:36 91 H 18 135/82 95 Room Air Laboratory Results 07/22/24 06:33 PG Care Time/CCT Total # of Minutes Spent Total Time Spent with Patient: Total time spent is greater than 50% in coordination of care (as documented) at patient's floor/unit and/or counseling patient: [place] [address] INT INP/OBS CARE 3/75MIN Patient Type New Diagnoses Mass of right lung R91.8 Metastasis to bone C79.51
[2024-07-22 07:38] LABS: BUN Creatinine Ratio 21.2 (10-20); Calcium 9.3 mg/dl (8.6-10.3); Creatinine Clr Calc Pharmacy 53.9 ml/min; Potassium 4.1 mmol/L (3.5-5.1)
[2024-07-22] MEDS: CHOLECALCIFEROL 125 MCG (5,000 UNITS) TAB PO SCH (08:05)
--- NOTE | 2024-07-22 09:28 | Hospitalist Progress Note ---
Date of Service July 22, 2024 Assessment & Plan (1) Metastatic lung cancer (metastasis from lung to other site): (2) Hypothyroidism: (3) Metastasis to bone: (4) Metastasis to brain: (5) Vision changes: Plan: 1) Metastatic lung cancer: Right Upper lobe spiculated mass with multiple mets to brain and spines. Presented with visual changes; spots of vision loss, no other deficit. No family history, lifelong non smoker No pain per patient; Acetaminophen/ Ativan PRN ongoing. Vitals: Stable Lab work : PT/INR, Platelets: WNL, CBC/CMP: WNL Imaging: MRI Brain: Multifocal lesions suspected for metastatic lesions. CT Chest: Right upper lobe 3.2 cm x 3.3 cm lobulated nodule Right middle lobe peripheral 6 mm pulmonary nodule Minimal right hilar and subcarinal lymphadenopathy CT Spine: Multiple spinal mets from cervical to sacral spine. Oncology: Recs steroid; Dexamethasone 4 mg q6h. Pulmonology: Recs IR guided biopsy Patient emotional after our conversation; supported emotionally. She sounds motivated after counselling She will need radiation at some point Radiation Onc: Plan for whole brain EBRT on Out-patient basis May start her first session this Thursday. Medical Oncology: Pending (2) Hypothyroidism TSH: 3.6 Continue Synthroid Plan DVT prophylaxis: Pharmacal prophylaxis deferred pending endobronchial ultrasound and in the setting of a lots of metastatic hemorrhage. SCDs Diet: n.p.o. since midnight CODE STATUS: Full code Disposition: Med/Surg Admission and Anticipated Discharge Date Admission Date: July 21, 2024 Supervising Physician Co-Signing Physician Notes I personally examined the patient and verified all [place] points of history and exam, discussed case, and agree with decision making with Dr Peña see discharge summary Subjective 64 years with P/M/H of hypothyroidism, B12 deficiency and colonic polyp, admitted here for Metastatic Lung cancer (Multiple mets to Brain and spinal cord), here for IV steroids and pulmonology evaluation for Bronchoscopy and guided biopsy. She endorses vision problem since early May, mentions she noticed missing some words in between reading book, along with random black spots. Visited her PCP first, she was said she was fine on external exam and referred to Oph doc. Oph did examine her eye, said it was fine on exam however suggested MRI, which she did yesterday. She was advised to visit ED after MRI and hence she is here. She mentions some hip pain on right side and back pain, which she supposed to be because of Osteoarthitis No SOB, Chest pain, cough, unintentional weight loss, no weakness She can walk around and runs on daily basis as well. She does not feel overall weak either, no headache, no fever, no LOC. No family history of lung cancer and she is a lifelong non smoker This AM Elise says she is fine. Her sleep was broken last night because of transfer, imaging and all. She seems motivated with sound state of mind. She shared she is living with family with her and daughter together. She retired from [employer] Review of Systems Review of Systems: As per HPI Physical Exam Physical Exam: Constitutional: Well appearing, No acute distress. HEENT: Atraumatic, Normocephalic, No conjunctival injection. External ocular movement normal. CVS: S1 S2 no murmur, Regular Rhythm, no LE edema Respiratory: Decreased air entry on left middle lung. No rhonchi, wheezes, or crackles. No increased work of breathing GI: Soft, Nondistended, Nontender, Normal Bowel sounds + MSK: No gross deformities noted Skin: Warm, Dry, No rashes Neuro: Alert, Oriented to TPP, No Focal deficit Psych: Mood and Affect congruent, Cooperative on exam Results & Data Results & Data Vital Signs (Past 12 Hours) Vital Signs Temp Pulse Resp BP Pulse Ox O2 Del Method 07/22/24 07:45 37.4 C 90 17 142/89 H 95 Room Air Resident Activity Tracking Resident Involvement: Resident Care Provided Care Provided: Adult Hospital Medicine
[2024-07-22] MEDS ORDERED: PROPOFOL IV EMULSION 10 MG/ML 20 ML VIAL IV ONE (11:03)
[2024-07-22] MEDS ORDERED: LIDOCAINE 2% 2 ML VIAL/AMP(20MG/ML) INFIL ONE (11:03)
[2024-07-22] MEDS ORDERED: fentaNYL citrate PF 100 MCG/2 ML VIAL ONE ×2 (11:03→14:04)
[2024-07-22] MEDS ORDERED: ONDANSETRON INJ 2 MG/ML 2 ML VIAL ONE (11:03)
[2024-07-22] MEDS ORDERED: MIDAZOLAM HCL 1 MG/ML 2ML VIAL ONE (11:03)
[2024-07-22] MEDS ORDERED: DEXAMETHASONE SOD INJ 4 MG/ML VIAL ONE (11:03)
[2024-07-22] MEDS ORDERED: ROCURONIUM BROMIDE 10 MG/ML 5 ML VIAL IV ONE (11:06)
--- NOTE | 2024-07-22 11:15 | Radiation OncologyConsultation ---
Date of Consultation July 22, 2024 Assessment & Plan (1) Metastasis to brain: Plan Assessment: Ms. Schumacher is a 64-year-old female with no smoking history who now presents with likely metastatic lung cancer to bone and brain. The patient initially presented with neurologic symptoms including blurry vision. The patient did present to the emergency room and was admitted for further workup and evaluation. The patient did have an MRI of the brain which does show wid espread metastatic disease including leptomeningeal enhancement. The patient is scheduled to undergo a bronchoscopy by Dr. Bright today to establish a tissue diagnosis. I have been asked to evaluate the patient regarding the role of radiation therapy. Treatment Options: 1. Palliative whole brain radiation therapy. 2. The supportive care. Recommendation: Whole brain radiation therapy. 10 fractions. Plan: 1. Confirm preliminary tissue diagnosis after bronchoscopy complete. Molecular diagnostic studies may need to be completed as per medical oncology. 2. Plan for whole brain radiation therapy to start next week. Patient could start treatment on Thursday given adjusted treatment schedule for holidays. Agueda ent can be treated in the outpatient setting. 3. CT simulation for treatment planning for radiation therapy. Patient will be brought down for simulation today. 4. Patient should remain on dexamethasone patient should remain on dexamethasone in the outpatient setting. 5. Continue staging workup in the outpatient setting including PET/CT scan. 6. Medical oncology consultation pending. 7. Palliative care consultation in the inpatient or outpatient setting would be beneficial for the patient. 8. Patient and family encouraged to call us with any further questions or concerns. Rationale/Explanation of Treatment: I explained the indications, alternatives, benefits, risks and side effects of external beam radiation therapy. I explain the most common side effects including but not limited to skin erythema, skin break down, hair loss, radiation necrosis, fatigue, short-term memory loss, decreased neurocognitive performance, cerebral edema, hearing loss, damage to cochlea structures, seizures, damage to vision, loss of sensory and or motor function. I explained the treatment planning process and what to expect before during and after treatment. History of Present Illness Attending Physician: Dao Booker DO History of Present Illness May to July 2024. Patient has dark spots in her vision. 07/21/2024. Patient presents emergency room due to changes in vision. Patient admitted to hospital for further workup and evaluation. 07/21/2024. MRI brain. 1. Numerous enhancing parenchymal lesions which measure up to 1.6 cm with mild associated vasogenic edema. The findings are consistent with metastatic disease, several of which are hemorrhagic with a small amount of blood products. Oncology consultation is recommended. 2. 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 3. Several enhancing calvarial metastases. 07/21/2024. CT chest. 1. 3.3 x 3.2 cm spiculated right upper lobe mass consistent with a primary lung cancer. 2. Several mildly enlarged pathologic right hilar lymph nodes. 3. Multiple lytic thoracic spine metastases with subtle pathologic fractures of T6 and T10. 07/21/2024. CT of abdomen/pelvis. 1. Please refer to the same day chest CT for discussion of the primary bronchogenic carcinoma of the right upper lobe. 2. Nonspecific borderline enlarged periportal lymph nodes. 3. Multifocal osteolytic skeletal metastasis with subtle pathologic fractures at T10 and L1. No significant vertebral body height loss or retropulsion. 4. Incidental findings as above. 07/21/2024. CT head without contrast. 1. Intracranial metastasis measuring up to 1.6 cm with mild surrounding vasogenic edema, better seen on the same-day brain MRI. 2. No midline shift, hydrocephalus or large intraparenchymal hemorrhage identified. 3. Foci of hemorrhage associated with the metastatic lesions better seen on MRI. 4. Lytic calvarial metastasis. 07/21/2024. MRI cervical spine. 1. Cervical spondylosis changes with multilevel disc osteophyte complex and neural foraminal narrowing with nerve root impingement as described above. 2. Focal enhancing plaque like lesion is noted along the posterior part of thoracic spinal cord at the level of T4-T5 level. -Possibility of neoplastic lesion/metastasis. 3. T1 and T2 hypointense lesions seen in T2, T3 and T6 vertebral bodies, with enhancement post contrast. T1 and T2 hypointense lesion with enhancement also seen in spinous process of C3 vertebra.- likely metastatic. 07/21/2024. MRI thoracic spine. 1. Nodular, intramedullary enhancing lesion of size 12 x 4.5 mm (CC x AP) is noted at T5-T6 level. Cord edema is noted around the lesion. Findings likely suggestive of metastasis. 2. Nodular enhancement is noted along the surface of the distal spinal cord and conus medullaris. 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 3. Multiple, variable sized, enhancing lesions are noted involving multiple thoracic vertebrae as described, likely suggestive of metastasis. 07/21/2024. MRI of lumbar spine. 1. Multiple, variable sized, enhancing lesions involving all lumbar and visualized thoracic and sacral vertebrae as described above. Likely metastases. 2. Degenerative changes as described above. 3. Posterior disc bulges at multiple levels the neural compression as described above. 07/22/2024. Pulmonary consultation. Dr. Bright. Recommendation is to proceed with biopsy to confirm tissue diagnosis. 07/22/2024. Radiation oncology consultation. Complete staging workup. Recommend palliative whole brain radiation therapy. Allergies Allergy/AdvReac Type Severity Reaction Status Date / Time No Known Allergies Allergy Verified 07/20/24 09:56 Home Medications Medication Instructions Recorded Confirmed Type famotidine 20 mg tablet (Pepcid AC) 20 mg PO QAM 09/14/20 07/21/24 History multivitamin 1 tab PO QAM 09/14/20 07/21/24 History cholecalciferol (vitamin D3) 125 125 mcg PO QAM 06/04/21 07/21/24 History mcg (5,000 unit) tablet (Vitamin D3) [id number] See Rx Instructions PO DAILY PRN 05/13/24 07/21/24 Rx 50 mg-325 mg-40 mg tablet pain #30 tabs fluticasone propionate 50 2 spray intranasal DAILY PRN 05/13/24 07/21/24 Rx mcg/actuation nasal allergy symptoms #3 multiple units spray,suspension (Flonase Allergy Relief) alprazolam 0.5 mg tablet (Xanax) 0.5 mg PO UD PRN procedure 07/21/24 07/21/24 History levothyroxine 75 mcg tablet 75 mcg PO QAM 07/21/24 07/21/24 History Patient History Medical History Osteoarthritis Hypothyroidism Migraine Hx of gastric ulcer REASON FOR DAILY PEPCID Anemia PT DENIES Surgical History History of esophagogastroduodenoscopy (EGD) History of colonoscopy History of tooth extraction Family History Other No family history of adverse response to anesthesia No pertinent family history Denies family history of Ovarian cancer Prostate cancer Diabetes Myocardial infarction Breast cancer Colorectal cancer Hypertension Social History Smoking Status: Never smoker Second Hand Exposure: No; Do You Dip or Chew Tobacco: No; Hx Alcohol Use: No Hx Substance Use: No Preferred Language: Sinhala Communication Ability: Effective Visual Impairment: No Limitations Hearing Ability: Normal Liquid [employer] Operator Required: No Beliefs That Will Affect Care: None marital status: Current Living Situation: Spouse current occupational status: retired Feels Safe at Home: Yes Dental Care, Regularly: Yes Physical Activity Frequency: Does not Exercise Seatbelt Use: always Assistive Devices: Glasses Radiation History Diagnosis: 07/2024. Unknown primary. Metastatic cancer. Favor lung primary. Treatment: None so far. Review of Systems Review of Systems: Patient has difficulty with word finding. Patient also has some difficulty with vision as well. She complains of blurry vision. She denies any significant headaches. Physical Exam Constitutional: WD/WN, vitals as above Psychiatric: A+Ox3, euthymic affect Time Spent Attending I spent 20 minutes in preparation for this consultation including reviewing all the clinical records, reviewing laboratory studies, pathology reports and imaging results. I spent 30 minutes with direct face to face interaction with the patient and/or family including performing a physical exam and answering all questions. I spent 20 minutes documenting this patient's visit. PG Care Time/CCT Total # of Minutes Spent Total Time Spent with Patient: Total time spent is greater than 50% in coordination of care (as documented) at patient's floor/unit and/or counseling patient: [place] [address] IN/OBS CONSULT LVL 5,80M Patient Type New History Problem Focused Exam Problem Focused Medical Decision Making Low Complexity Diagnoses Metastasis to brain C79.31
--- NOTE | 2024-07-22 11:48 | Anesthesiology Consultation ---
Date of Service July 22, 2024 Assessment & Plan Chart Review Chart Review: Acceptable Risk for Surgery and Patient NOT seen in Pre Admission Testing Consults Requested none ASA ASA4 Proposed Anesthesia Anesthesia Type: General History Surgery Operation Date: 07/22/24 08:20 Proposed Procedures p Robotic Navigational Bronchoscopy - Marco Antonio Bright MD, [facility] s Endobronchial Ultrasound - Marco Antonio Bright MD, [facility] Height/Weight Height: 5 ft 3 in Weight: 60.9 kg Allergies Allergy/AdvReac Type Severity Reaction Status Date / Time No Known Allergies Allergy Verified 07/20/24 09:56 Medications Home Medications Medication Instructions Recorded Confirmed Last Taken famotidine 20 mg tablet (Pepcid AC) 20 mg PO QAM 09/14/20 07/21/24 07/21/24 multivitamin 1 tab PO QAM 09/14/20 07/21/24 07/21/24 cholecalciferol (vitamin D3) 125 125 mcg PO QAM 06/04/21 07/21/24 07/21/24 mcg (5,000 unit) tablet (Vitamin D3) [id number] See Rx Instructions PO DAILY PRN 05/13/24 07/21/24 Unknown 50 mg-325 mg-40 mg tablet pain #30 tabs fluticasone propionate 50 2 spray intranasal DAILY PRN 05/13/24 07/21/24 Unknown mcg/actuation nasal allergy symptoms #3 multiple units spray,suspension (Flonase Allergy Relief) alprazolam 0.5 mg tablet (Xanax) 0.5 mg PO UD PRN procedure 07/21/24 07/21/24 07/21/24 levothyroxine 75 mcg tablet 75 mcg PO QAM 07/21/24 07/21/24 07/21/24 Active Medications Generic Name Dose Route Start Last Admin Trade Name Freq PRN Reason Stop Dose Admin Acetaminophen 650 mg 07/21/24 16:35 07/22/24 06:06 Acetaminophen 325 Mg Tab PO 08/20/24 16:34 650 mg Q4H PRN Administration Pain or Fever Dexamethasone 4 mg/ Syringe 1 mls @ 1 mls/min 07/22/24 00:00 07/22/24 06:07 IV 08/21/24 00:00 1 mls/min Q6H ROQUE Administration Levothyroxine Sodium 75 mcg 07/22/24 06:30 07/22/24 06:07 Levothyroxine Sodium 75 Mcg Tablet PO 08/21/24 06:29 75 mcg DAILYBB ROQUE Administration Vitamin D 125 mcg 07/22/24 09:00 07/22/24 08:05 Cholecalciferol 125 Mcg (5,000 Units) Tab PO 08/21/24 08:59 125 mcg QAM ROQUE Administration Past Medical History Medical History Osteoarthritis Hypothyroidism Migraine Hx of gastric ulcer REASON FOR DAILY PEPCID Anemia PT DENIES Lung cancer w/ metastases to brain,abdomen and spine Exercise / Class Metabolic Activity II 4-5 Yardwork/Stairs/Walk up hill Past Family History Family History Other No family history of adverse response to anesthesia No pertinent family history Denies family history of Ovarian cancer Prostate cancer Diabetes Myocardial infarction Breast cancer Colorectal cancer Hypertension Past Surgical History Surgical History History of esophagogastroduodenoscopy (EGD) History of colonoscopy History of tooth extraction Past Anesthesia History No Hx of Anesthesia Complications and No Family Hx of Anesthesia Complications History of PONV No Hx of PONV and No Hx of Motion Sickness Social History Smoking Status: Never smoker Do You Dip or Chew Tobacco: No Hx Alcohol Use: No Hx Substance Use: No substance use type: does not use Physical Exam Vital Signs Last Vital Signs Temp 37.4 C 07/22/24 07:45 Pulse 90 07/22/24 07:45 Resp 17 07/22/24 07:45 BP 142/89 H 07/22/24 07:45 Pulse Ox 95 07/22/24 07:45 O2 Del Method Room Air 07/22/24 07:45 Testing Laboratory Results 07/22/24 06:33 07/22/24 06:33 PT 10.7 Seconds (9.0-12.0) 07/21/24 13:30 INR 1.0 (0.9-1.1) 07/21/24 13:30 Electrocardiogram Date: 07/21/24 Findings: + NSR @ (@ 86), + LVH and + NSST changes
[2024-07-22] MEDS ORDERED: FLUMAZENIL 0.1 MG/1 ML 10 ML VIAL IV PRN (13:15)
[2024-07-22] MEDS ORDERED: LABETALOL HCL IV 5 MG/ML 20ML IV PRN (13:15)
[2024-07-22] MEDS ORDERED: fentaNYL citrate PF 100 MCG/2 ML VIAL IV PRN (13:15)
[2024-07-22] MEDS ORDERED: ATROPINE SULFATE 0.1 MG/ML 10ML SYR IV PRN (13:15)
[2024-07-22] MEDS ORDERED: ePHEDrine sulfate 50 MG/ML AMP IV PRN (13:15)
[2024-07-22] MEDS ORDERED: PROMETHAZINE HCL 6.25 MG in SODIUM CHLORIDE 0.9% 50 ML IV PRN (13:15)
[2024-07-22] MEDS ORDERED: ONDANSETRON INJ 2 MG/ML 2 ML VIAL IV PRN (13:15)
[2024-07-22] MEDS ORDERED: NALOXONE HCL 0.4 MG/1 ML VIAL/CARP IV PRN (13:15)
[2024-07-22] MEDS: DEXAMETHASONE SOD INJ 4 MG/ML VIAL IV ONE ×2 (14:00→16:15)
[2024-07-22] MEDS ORDERED: PHENYLEPHRINE HCL 10 MG/ML VIAL ONE (14:11)
[2024-07-22] MEDS ORDERED: SUGAMMADEX SODIUM 200 MG/2 ML VIAL IV ONE (14:27)
--- NOTE | 2024-07-22 15:17 | Procedure Note ---
Procedure Note: Bronchoscopy Procedure PREOPERATIVE DIAGNOSIS: Right upper lobe mass with mediastinal lymphadenopathy POSTOPERATIVE DIAGNOSIS: Right upper lobe mass with mediastinal lymphadenopathy, preliminary diagnosis adenocarcinoma PROCEDURE PERFORMED: Flexible fiberoptic bronchoscopy with bronchoalveolar lavage, transbronchial biopsies and navigational bronc with EBUS COMPLICATIONS: None. INDICATION: Rule out malignancy PROCEDURE: After obtaining an informed consent, the patient was brought to the OR. The patient had appropriate oxygen, blood pressure, heart rate, and respiratory rate monitoring applied and monitored continuously throughout the procedure. Sedation was managed by anesthesia, please refer to the notes The trachea appeared normal.The bronchoscope was then advanced through the frederick, which was sharp. The scope was then advanced into the right main stem which showed main bifurcation but the posterior segment had a small apical entrance. The entrance of the posterior segment seem to be narrow. There was shiny lobulated nodule at the entrance of the apical segment, each segment, subsegement in the right upper lobe, right middle lobe and right lower lobe were visualized. Minimal amount of clear secretion which was suctioned out. The bronchoscope was subsequently withdrawn and advanced into the left mainstem. Again, each segment and subsegment was well visualized. No specific masses or other lesions were identified throughout the tracheobronchial tree on the left. There was minimal amount of clear secretion which was suctioned out Flexible bronchoscope was withdrawn and galaxy robotic bronc was introduced The bronchoscope was navigated with the help of the software. When the scope was to the proximity of 2.5 cm TiLT was initiated. Under the guidance of fluoroscopy as well as TiLT multiple needle biopsies were taken. CHIOMA was positive for adenocarcinoma This was followed by total of 7 transbronchial forceps biopsy, rapid onsite was positive for adenocarcinoma Robotic bronchoscope was discontinued and EBUS was introduced Station 7, station 10R were visualized Station 10R: 3 passes with multiple sweeps, positive for adenocarcinoma Station 7: 3 passes with multiple sweeps EBUS was withdrawn and flexible bronchoscope was reintroduced The bronchoscope was then wedged in the right upper lobe, apical and posterior segment and bronchoalveolar lavage samples were obtained. 120 ml of saline was instilled and 40 ml of fluid was aspirated back.The bronchoscope was withdrawn and the area was suctioned clear. Minimal hemorrhage was identified and suctioned clear without difficulty. The bronchoscope was then withdrawn to the mainstem. The area was suctioned clear. The bronchoscope was then withdrawn. The patient tolerated the procedure well without evidence of desaturation or complications. Bronchoalveolar lavage samples were sent for cell count and cytology. Transbronchial biopsies were sent for pathology. Recommendations: Follow-up cytology and pathology Follow-up chest x-ray Please note the above document was generated using voice recognition software. It may contain grammatical, syntax or spelling errors.Any formal questions or concerns about the content, text or information contained within the body of this dictation should be directly addressed to the provider for clarification. [facility] [place] Codes (Charges) Pulmonary/Thoracic Procedure 1: Pulmonary and Thoracic: 99187 Navigational Bronchoscopy Procedure 2: Pulmonary and Thoracic: 48643 Bronchoscopy w/ needle bx Procedure 3: Pulmonary and Thoracic: 01036 Bronchoscopy w/ transbronchial lung bx Procedure 4: Pulmonary and Thoracic: 22642 Dx bronchoscopy/BAL Procedure 5: Pulmonary and Thoracic: 95720 Bronchoscopy, w/EBUS 1 or 2 mediastinal
--- NOTE | 2024-07-22 15:43 | XRay Report ---
XR chest 1V portable CLINICAL HISTORY: Post Bronchoscopy COMPARISON STUDY: Chest CT July 21, 2024. FINDINGS: There is no pneumothorax status post bronchoscopy. The right upper lobe mass is again noted . Cardiomediastinal silhouette is stable. There is no radiographic evidence for pulmonary edema. IMPRESSION: 1. No pneumothorax status post bronchoscopy. 2. Right upper lobe mass, as shown on prior chest CT. ACT 112: Negative or not required by law. Electronically signed by: Wesley Kelly M.D. 07/22/2024 3:41 PM
--- NOTE | 2024-07-22 15:59 | Anesthesiology Progress Note ---
Date of Service July 22, 2024 Anesthesia Post Procedure Vital Signs Vital Signs: Temp Pulse Pulse Resp BP Pulse Ox O2 Del Method 07/22/24 15:55 95 H 16 130/85 96 Nasal Cannula 07/22/24 15:45 36.8 C 94 H 18 133/72 94 Nasal Cannula 07/22/24 15:35 92 H 16 125/83 95 Oxymask 07/22/24 15:25 90 16 122/85 96 Oxymask 07/22/24 15:17 36.1 C L 96 H 18 129/87 97 Oxymask 07/22/24 13:05 36.8 C 85 20 144/93 H 98 Room Air 07/22/24 07:45 37.4 C 90 17 142/89 H 95 Room Air 07/21/24 20:56 37 C 90 17 128/85 96 Room Air 07/21/24 19:36 91 H 18 135/82 95 Room Air 07/21/24 17:00 98 H 18 141/100 H 98 Room Air O2 Flow Rate 07/22/24 15:55 2 07/22/24 15:45 2 07/22/24 15:35 4 07/22/24 15:25 8 07/22/24 15:17 10 07/22/24 13:05 07/22/24 07:45 07/21/24 20:56 07/21/24 19:36 07/21/24 17:00 Pain Intensity Head: Pain Intensity: 5 Transfer of Care Handoff Completed per policy Notes Mental Status: alert / awake / arousable Patient Amnestic to Procedure: Yes Nausea / Vomiting: adequately controlled Pain: adequately controlled Airway Patency, RR, SpO2: stable & adequate BP & HR: stable & adequate Hydration State: stable & adequate Anesthetic Complications: no major complications apparent
--- NOTE | 2024-07-22 16:52 | Oncology Consultation ---
Date of Consultation July 22, 2024 Assessment & Plan (1) Metastatic lung cancer (metastasis from lung to other site): She obviously needs a tissue diagnosis, will recommend a biopsy, biopsy can be obtained either from the lung or any of the skeletal foci to confirm that she has metastatic cancer. the patient underwent a bronchoscopy on 07/21/2024, positive for adenocarcinoma. She will need further workup on discharge including a PET CT scan, next generation gene sequencing, institution of palliative systemic therapy (2) Metastasis to brain: . I see that my radiation oncology colleagues are already on board, given the multifocality nature of her disease she may be a candidate for whole brain radiation therapy. she is already been started on dexamethasone, no clear-cut symptoms of vasogenic edema/mass effect Plan Thank you for this interesting oncological consult. Medical oncology will continue to follow the patient make appropriate recommendations. History of Present Illness Reason for Consultation: intracranial metastatic disease ? brain mets Attending Physician: Dao Booker, DO History of Present Illness Brain MRI, 07/21/2024: IMPRESSION: 1. Numerous enhancing parenchymal lesions which measure up to 1.6 cm with mild associated vasogenic edema. The findings are consistent with metastatic disease, several of which are hemorrhagic with a small amount of blood products. Oncology consultation is recommended. 2. 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 3. Several enhancing calvarial metastases. CT chest abdomen pelvis, 07/21/2024: IMPRESSION: 1. Please refer to the same day chest CT for discussion of the primary bronchogenic carcinoma of the right upper lobe. 2. Nonspecific borderline enlarged periportal lymph nodes. 3. Multifocal osteolytic skeletal metastasis with subtle pathologic fractures at T10 and L1. No significant vertebral body height loss or retropulsion. 4. Incidental findings as above. CT chest, 07/21/2024: 1. 3.3 x 3.2 cm spiculated right upper lobe mass consistent with a primary lung cancer. 2. Several mildly enlarged pathologic right hilar lymph nodes. 3. Multiple lytic thoracic spine metastases with subtle pathologic fractures of T6 and T10. cervical spine MRI, 07/21/2024: IMPRESSION: 1. Cervical spondylosis changes with multilevel disc osteophyte complex and neural foraminal narrowing with nerve root impingement as described above. 2. Focal enhancing plaque like lesion is noted along the posterior part of thoracic spinal cord at the level of T4-T5 level. -Possibility of neoplastic lesion/metastasis. 3. T1 and T2 hypointense lesions seen in T2, T3 and T6 vertebral bodies, with enhancement post contrast. T1 and T2 hypointense lesion with enhancement also seen in spinous process of C3 vertebra.- likely metastatic. lumbar spine MRI, 07/21/2024: IMPRESSION: 1. Multiple, variable sized, enhancing lesions involving all lumbar and visualized thoracic and sacral vertebrae as described above. Likely metastases. 2. Degenerative changes as described above. 3. Posterior disc bulges at multiple levels the neural compression as described above. thoracic spine MRI, 07/21/2024: IMPRESSION: 1. Nodular, intramedullary enhancing lesion of size 12 x 4.5 mm (CC x AP) is noted at T5-T6 level. Cord edema is noted around the lesion. Findings likely suggestive of metastasis. 2. Nodular enhancement is noted along the surface of the distal spinal cord and conus medullaris. 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 3. Multiple, variable sized, enhancing lesions are noted involving multiple thoracic vertebrae as described, likely suggestive of metastasis. patient is a very pleasant 64-year-old woman who recently noted small amount of vision loss, subsequently had a brain MRI, recommended intracranial lesions. She was evaluated by Dr. Wagner from internal medicine who recommended evaluation in the ER. Her brain MRI revealed multiple intracranial lesions, CT of the chest abdomen pelvis as well as MRI spine reveals multiple likely metastatic foci. Medical oncology has been consulted to assist in management of this patient with possible lung cancer with mets to the brain as there is a 3.3 x 3.2 cm spiculated right upper lobe mass. Of note the patient is a never smoker Allergies Allergy/AdvReac Type Severity Reaction Status Date / Time No Known Allergies Allergy Verified 07/20/24 09:56 Home Medications Medication Instructions Recorded Confirmed Type famotidine 20 mg tablet (Pepcid AC) 20 mg PO QAM 09/14/20 07/21/24 History multivitamin 1 tab PO QAM 09/14/20 07/21/24 History cholecalciferol (vitamin D3) 125 125 mcg PO QAM 06/04/21 07/21/24 History mcg (5,000 unit) tablet (Vitamin D3) [id number] See Rx Instructions PO DAILY PRN 05/13/24 07/21/24 Rx 50 mg-325 mg-40 mg tablet pain #30 tabs fluticasone propionate 50 2 spray intranasal DAILY PRN 05/13/24 07/21/24 Rx mcg/actuation nasal allergy symptoms #3 multiple units spray,suspension (Flonase Allergy Relief) alprazolam 0.5 mg tablet (Xanax) 0.5 mg PO UD PRN procedure 07/21/24 07/21/24 History levothyroxine 75 mcg tablet 75 mcg PO QAM 07/21/24 07/21/24 History Patient History Medical History Osteoarthritis Hypothyroidism Migraine Hx of gastric ulcer REASON FOR DAILY PEPCID Anemia PT DENIES Surgical History History of esophagogastroduodenoscopy (EGD) History of colonoscopy History of tooth extraction Family History Other No family history of adverse response to anesthesia No pertinent family history Denies family history of Ovarian cancer Prostate cancer Diabetes Myocardial infarction Breast cancer Colorectal cancer Hypertension Social History Smoking Status: Never smoker Second Hand Exposure: No; Do You Dip or Chew Tobacco: No; Hx Alcohol Use: No Hx Substance Use: No Preferred Language: Nigerian Communication Ability: Effective Visual Impairment: No Limitations Hearing Ability: Normal Compliance Mgr Required: No Beliefs That Will Affect Care: None marital status: Current Living Situation: Spouse current occupational status: retired Other Information That Helps Us Care for You: No Feels Safe at Home: Yes Safety Concerns: Feels Safe At This Time Dental Care, Regularly: Yes Physical Activity Frequency: Does not Exercise Seatbelt Use: always Assistive Devices: None Review of Systems Review of Systems: All systems reviewed & are unremarkable except as noted in HPI & below Constitutional: as per Subjective / HPI Eyes: as per Subjective / HPI Ear, Nose, Mouth, Throat: as per Subjective / HPI Respiratory: as per Subjective / HPI Cardiovascular: as per Subjective / HPI Gastrointestinal: as per Subjective / HPI Genitourinary: as per Subjective / HPI Musculoskeletal: as per Subjective / HPI Integumentary: as per Subjective / HPI Neurologic: as per Subjective / HPI Physical Exam Constitutional: WD/WN, vitals as above Eyes: PERRL, conjunctivae normal, anicteric sclerae ENMT: external ear and nose normal, oropharynx normal Neck: trachea midline, no thyromegaly Respiratory: normal respiratory effort, lungs clear to auscultation Cardiovascular: RRR, no murmur, no edema Gastrointestinal (Abdomen): normal bowel sounds, soft, nontender, no hepatosplenomegaly Musculoskeletal: no cyanosis or clubbing, extremities motor strength 5/5 Skin: no rashes, warm and dry Neurologic: patellar DTR's 2+ bilat, sensation intact Results & Data Vital Signs (Past 12 Hours) Vital Signs Temp Pulse Pulse Resp BP Pulse Ox O2 Del Method 07/22/24 16:37 36.6 C 97 H 138/88 95 Nasal Cannula 07/22/24 16:05 36.8 C 97 H 16 130/81 92 Nasal Cannula 07/22/24 16:04 Other 07/22/24 15:55 95 H 16 130/85 96 Nasal Cannula 07/22/24 15:45 36.8 C 94 H 18 133/72 94 Nasal Cannula 07/22/24 15:35 92 H 16 125/83 95 Oxymask 07/22/24 15:25 90 16 122/85 96 Oxymask 07/22/24 15:17 36.1 C L 96 H 18 129/87 97 Oxymask 07/22/24 13:05 36.8 C 85 20 144/93 H 98 Room Air 07/22/24 07:45 37.4 C 90 17 142/89 H 95 Room Air O2 Flow Rate 07/22/24 16:37 1 07/22/24 16:05 2 07/22/24 16:04 07/22/24 15:55 2 07/22/24 15:45 2 07/22/24 15:35 4 07/22/24 15:25 8 07/22/24 15:17 10 07/22/24 13:05 07/22/24 07:45
[2024-07-22 17:07] LABS: Fluid Mono/Macrophage 83 %; Lymphocyte Body Fluid Man 4 %; Neutrophil Body Fluid Man 13 %
[2024-07-22 18:06] VITALS: O2SAT 94
--- NOTE | 2024-07-22 18:42 | Billing Data ---
Date of Service July 22, 2024 Coding Level of Care Code 47730 IN/OBS DISCH 30 MIN/LESS
--- NOTE | 2024-07-22 18:45 | Billing Data ---
Date of Service July 22, 2024 Coding Level of Care Code 27555 IN/OBS DISCH 30 MIN/LESS
--- NOTE | 2024-07-22 18:45 | Discharge Summary ---
Discharge Summary Date of Service July 22, 2024 Principal Dx & Hospital Course #1 = Principal Diagnosis (1) Metastatic lung cancer (metastasis from lung to other site): (2) Hypothyroidism: (3) Metastasis to bone: (4) Metastasis to brain: (5) Vision changes: 1) Metastatic lung cancer: CT with lung mass - bronch/bx done, pathology pending, Dr Dutta oncology saw pt in house and will arrange f/u for chemo/immunotherapy as path dictates MRIs with numerous brain/spine mets -> dexamethasone, XRT (Dr Michael) to start this weekend; anticipate ability to wean dexamethasone as XRT improves [employer] mets -pt feeling ok/recovered from bronch well and would like to go home - safe/stable for home -extensive discussion with pt/, d/w medical oncology in the room with pt/ as well Notes For Next Care Provider Medication Changes From Visit dexamethasone 4mg qid for now, wean as directed per radiation oncology Admission HPI Per Admitting Provider Elise granado her symptoms began with progressive small amounts of vision loss. She noticed she could not see words in some spots when reading. Was referred to Dr. Jenkins for an eye exam which was normal. Was recommended to have MRI to evaluate for stroke. MRI today had converning findings for brain lesions and was recommended to come into the emergency department for further testing. First noticed vision change in early May When she is not reading she does not notice any visual deficits or changes. Her reports beginning of May she has had much more word finding difficulty than usual. No confusion. No headaches. No fevers, chills, or sweats no chest pain, no chest pressure no cough, no shortness of breath Pt has been trying to lose weight before the winter, goal weight 132lbs. Currenly hitting her goal of 130. 135 several weeks ago. Dieting and walking every morning to do this. Denies unintentional weight loss. She reports some back and hip pain when caused her to stop walking as much in the last few weeks. She stopped walking about 2 weeks ago due to pain, started around 3 weeks prior to that. Endorses some mild but tolerable low back pain chronically. Reports this is intermittent and 'not all the time.' No falls or injuries. No hx heart or lung disease No tobacco product use, no etoh use. No secondary smoke exposure. No recreational drug use. NKDA. Takes pepcid for gerd, thryoid medicine levotyroxine 75mcg, d3, multivitamin, and an occasional B12 vitamin. No family history of cancer or blood clots Discharge Exam aao pleasant [place] heent nc at mmm breathing unlabored no accessory muscles good effort skin no rashes no pallor or icterus Updated Medication List Medication Instructions Recorded Confirmed Type famotidine 20 mg tablet (Pepcid AC) 20 mg PO QAM 09/14/20 07/21/24 History multivitamin 1 tab PO QAM 09/14/20 07/21/24 History cholecalciferol (vitamin D3) 125 125 mcg PO QAM 06/04/21 07/21/24 History mcg (5,000 unit) tablet (Vitamin D3) [id number] See Rx Instructions PO DAILY PRN 05/13/24 07/21/24 Rx 50 mg-325 mg-40 mg tablet pain #30 tabs fluticasone propionate 50 2 spray intranasal DAILY PRN 05/13/24 07/21/24 Rx mcg/actuation nasal allergy symptoms #3 multiple units spray,suspension (Flonase Allergy Relief) alprazolam 0.5 mg tablet (Xanax) 0.5 mg PO UD PRN procedure 07/21/24 07/21/24 History levothyroxine 75 mcg tablet 75 mcg PO QAM 07/21/24 07/21/24 History dexamethasone 4 mg tablet 4 mg PO QID #120 tabs 07/22/24 Rx Hospital Stay Data Consultations 07/21/24 15:53 ED Decision to Admit Stat 07/21/24 16:35 Consult Oncology Routine Consult Pulmonology Routine Consult Radiation Oncology Routine Procedures Performed Operation Date: 07/22/24 08:20 Actual Procedures p Robotic Navigational Bronchoscopy(Not Applicable) - [facility] Endobronchial Ultrasound, transbronchial needle aspiration, transbronchial biopsy with fluoroscopy(Not Applicable) - Marco Antonio Bright MD, [facility] Diagnostic Imagining Performed 07/21/24 13:11 CT abd pelvis IV con only Stat CT chest diagnostic w con Stat 07/21/24 13:14 CT head/brain wo con Stat 07/21/24 16:47 MR cervical spine wo/w con Routine MR lumbar spine wo/w con Routine MR thoracic spine wo/w con Routine 07/22/24 [place] bronchoscopy Routine 07/22/24 12:15 CT guide rad therapy head Routine Pending Results Patient Have Any Pending Studies at Discharge: Yes (pathology report on biopsy) Discharge Instructions Given to Patient (Per Discharging Provider) new diagnosis lung cancer -unfortunately everything fits with a new diagnosis of stage 4 adenocarcinoma of the lung -the biopsy has been done by the bronchoscopy today - and the pathology findings (that will take about a week to fully come back) will be what helps Dr Dutta (medical oncology) determine what best to do as far as treatment (chemotherapy, immunotherapy, etc) -Dr Michael in radiation oncology will start treatment for the brain metastases this weekend -for now we'll have you on steroids, dexamethasone 4mg four times a day, to reduce swelling around the metastases; as treatment progresses, Dr Michael will direct you on weaning down the steroid dosing (so as we discussed, i'm sending the Rx as though you'll be on it 4 times a day indefinitely but that's absolutely not the case - it's just since i won't be able to predict the weaning i'm sending it like that so you're not left hanging/run out/etc) track your nutrition and make sure you're always at goal -- the math we did at the bedside together calculates a "basal energy expenditure" (base number of calories you need to "break even") of about 1200 calories a day, ideally get to 1500 calories. basically track it the same way you have been doing with nutrasystem, but "do it backwards" (ie nutrasystem would want you to come in lower than your calorie target, but to keep you from getting weaker/wasting away we'll want you to get to the target or higher every day) -there is a benefit in a cancer journey to eating more plant based diet, but at the same time, in my experience, it's more important for someone to get to their calorie goal at all than to eat healthier foods and not get to goal (ie i'd rather see you get to 1500 calories with Boost and ice cream than get to 900 calories of fish and broccoli) -stay well hydrated as well - target 60-80 ounces of fluid a day, plus about another 5-10 ounces per hour of exercise. if you end up being treated with a chemotherapy course of treatment, i'd also recommend going for more like 80-100 ounces the day or two before chemo follow up with your PCP about once a month as well. as we discussed, the oncologist are great at what they do, but your PCP will then be able to be laser focused on the things that happen as part of a cancer journey - making sure you're not getting malnourished/dehydrated, looking after bad symptoms like pain/nausea, following/helping if there's any depression/etc Total Time Total Time Spent Total Time Spent (In Minutes): <30
[2024-07-22 19:08] VITALS: BP 135/83; PULSE 88; RESP 18; TEMP 98.6
== END 2024-07-22 19:45 | disposition home or self-care (01) | DRG 166 ==
LOC: ED 12:54 → 3E 16:37 → SUATTDRO 16:37 → 3E 19:40

== ENCOUNTER 2024-08-18 15:36 | Inpatient (IN) ==
--- NOTE | 2024-08-18 15:44 | ED Triage Note ---
Date of Service August 18, 2024 Provider in Triage Author: Anisa Haines History of Present Illness This patient was briefly evaluated while in triage. An abbreviated physical exam was performed. This patient is a 64-year-old Female, history of lung cancer, who was referred t o the ED for evaluation of a possible bowel perforation. The patient underwent a PET scan approximately 2 hours prior to arrival. The patient currently denies any discomfort, including abdominal pain, nausea, fever or chills. Vital signs does show a hypotension of 89/58, and tachycardia 124 bpm. The patient is not febrile or hypoxic. Physical Exam CONSTITUTIONAL: Healthy and well nourished. Alert and oriented X 3. HEENT: Normocephalic, atraumatic. Pupils equal, round and reactive. NECK: Full active range of motion without discomfort. LYMPHATICS: No cervical chain adenopathy. RESPIRATORY: Clear to auscultation bilaterally with no wheezing, crackles, rhonchi or stridor. CARDIOVASCULAR: Regular rate and rhythm with no murmurs, rubs or gallops. GASTROINTESTINAL: Bowel sounds present in all quadrants. Patient has generalized abdominal tenderness to palpation. MUSCULOSKELETAL: Full range of motion of all joints without discomfort. INTEGUMENTARY: No rash or other significant dermatologic conditions noted. HEMATOLOGIC: No ecchymosis or petechiae. PSYCHIATRIC: Positive affect. NEUROLOGIC: No focal neurologic deficits noted. Initial orders for labs and / or imaging were placed and patient was placed in the waiting area until a bed is available. Please see further documentation for the full ED course.
--- NOTE | 2024-08-18 16:03 | Emergency Department Note ---
Impression & Plan Pneumoperitoneum, Perforated bowel, Elevated lactic acid level ED Provider Note HISTORY OF PRESENT ILLNESS: Patient is a 64-year-old female presenting with abdominal pain. Patient had a PET scan earlier today as workup for her lung cancer and was called today that her PET scan showed concern for bowel perforation and she is to present to the emergency department. Patient reports has been having intermittent abdominal pain for the last 5 days but worse in the last 48 hours. Denies any history of abdominal surgery. She is currently diagnosed with lung cancer and just finished radiation therapy on 08/08/2024. She is getting prepared to start chemotherapy. Denies any fevers. Denies any significant nausea or vomiting. Locates the pain diffusely across her abdomen. ROS: as above PHYSICAL EXAM: Constitutional: Patient appears in no acute distress. HENT: Head: Normocephalic and atraumatic. Eyes: EOMI, PERRL Mouth/Throat: Mucous membranes moist. Neck: Trachea midline. Neck supple. Cardiovascular: Tachycardic with regular rhythm. No murmurs, rubs or gallops. Intact distal pulses. Pulmonary/Chest: No respiratory distress. Breath sounds clear and equal bilaterally. No wheezes or rales. Abdominal: Abdomen soft, no rebound or guarding. Diffuse TTP Musculoskeletal: No edema, tenderness or deformity noted. Skin: Warm and dry. No rash, erythema, pallor or cyanosis Psychiatric: Appropriate mood and affect for situation. Neurological: Alert and keenly responsive. CN II-XII grossly intact, moving all extremities equally and fully. MDM: - Vitals signs showed hypotension and tachycardia. IV access was obtained and patient given 1 L normal saline and empirically started on IV Zosyn for her PET scan imaging showing free air in the abdomen. Patient's blood pressure improved with antibiotics and fluid resuscitation. - History obtained via patient. History as above. - Chronic conditions affecting care: showed metastatic adenocarcinoma of lung (mets to brain and lungs); hypothyroidism - Differential diagnoses include, but are not limited to: small bowel obstruction; perforated bowel; UTI; sepsis - Order placed for continuous cardiac monitoring. At this time, monitor showed rate of 107 bpm with normal sinus rhythm, per my interpretation. - External medical records reviewed. Pulmonary office visit note dated 08/16/2024 was reviewed. Patient follows in their clinic for her metastatic lung cancer. - EKG interpreted by myself showed normal sinus rhythm. Rate tachycardic at 114 bpm. QT 296. No acute ischemic changes. - PET scan from earlier today was reviewed and showed findings compatible with perforated hollow viscus with the air and fluid-filled collections within the lower abdominal and pelvic mesentery. Noted to have dilated air and fluid- filled small bowel loops which may represent ileus versus small bowel obstruction. - Discussed case with general surgeon personal secretary, Dr. Conteh, at 15:45. Plans to come see patient. Initially requested CT scan of abdomen/pelvis, but reviewed PET scan imaging and cancelled CT request. Did recommend that IR at a tertiary care facility be consulted to see if the patient's pathology is amendable to percutaneous drainage. - Laboratory workup interpreted by myself normal WBC; normal PT/INR; hyponatremia (Na 134); elevated anion gap (12); elevated BUN (46); elevated lactate (2.8); hyperglycemia (glucose 215); elevated troponin (14.5); normal lipase - CXR negative for pneumoperitoneum - Discussed case with IR at [facility], Dr. Redd, at 18:31. Delay in contacting the IR provider, given that she was in a case. When she was able to call back at 1831, she reports that this case would not be amendable to IR drainage and that the patient's perforated hollow viscus would need to be addressed by general surgery. - Discussed IR's recommendations again with Dr. Conteh at 18:39. Recommended that the patient have a Munoz catheter, an NG tube placed and patient be admitted to medicine. Will plan for OR when or staff can be organized. - Discussion was had with sample case porter about patient's case and need for admission - Hospitalist, Dr. Ramey, consulted for admission after operating room. He requested the patient also receive a dose of daptomycin which was ordered. - Patient admitted [facility] for further evaluation and management. I have personally spent 36 minutes of critical care time in the direct management of this patient. This includes bedside care, interpretation of diagnostic studies, and testing, discussion with consultants, patient, and family members, and other required patient management activities. This 36 minutes is in excess of all separately billable procedures. ASSESSMENT AND PLAN: Diagnosis: Pneumoperitoneum; perforated bowel; elevated lactic acid Plan: to OR then admit Past Med/Surg History Problem List Elevated lactic acid level (Acute) Perforated bowel (Acute) Pneumoperitoneum (Acute) Hyperglycemia Elevated LFTs Routine gynecological examination Hypothyroidism History of colon polyps Encounter for pre-operative examination Diverticulosis Esophageal reflux Hyperthyroidism Hyperlipidemia Leukopenia Migraine headache Postmenopause atrophic vaginitis B12 deficiency No pertinent past surgical history Medical History (Updated 08/18/24 @ 19:25 by Anisa Haines MD) Free intraperitoneal air Metastatic lung cancer (metastasis from lung to other site) Daily headache Vision changes Metastasis to bone Mass of right lung Metastasis to brain Osteoarthritis Hypothyroidism Migraine Hx of gastric ulcer REASON FOR DAILY PEPCID Anemia PT DENIES Surgical History History of esophagogastroduodenoscopy (EGD) History of colonoscopy History of tooth extraction Family History Other No family history of adverse response to anesthesia No pertinent family history Denies family history of Ovarian cancer Prostate cancer Diabetes Myocardial infarction Breast cancer Colorectal cancer Hypertension Social History Smoking Status: Former smoker Second Hand Exposure: No; Do You Dip or Chew Tobacco: No; Hx Alcohol Use: No Hx Substance Use: No Preferred Language: Mongolian Communication Ability: Effective Visual Impairment: No Limitations Hearing Ability: Normal [place] Required: No Beliefs That Will Affect Care: None marital status: Current Living Situation: Spouse current occupational status: retired Feels Safe at Home: Yes Dental Care, Regularly: Yes Physical Activity Frequency: Does not Exercise Seatbelt Use: always Assistive Devices: None Allergies Allergies Allergy/AdvReac Type Severity Reaction Status Date / Time No Known Allergies Allergy Verified 08/12/24 09:40 Home Meds Home Medications Medication Instructions Recorded Confirmed famotidine 20 mg tablet (Pepcid AC) 20 mg PO QAM 09/14/20 08/18/24 multivitamin 1 tab PO QAM 09/14/20 08/18/24 cholecalciferol (vitamin D3) 125 125 mcg PO QAM 06/04/21 08/18/24 mcg (5,000 unit) tablet (Vitamin D3) levothyroxine 75 mcg tablet 75 mcg PO QAM 07/21/24 08/18/24 dexamethasone 4 mg tablet 4 mg PO UD 08/18/24 08/18/24 Previous Rx's Medication Instructions Recorded eztzyvosiq-zimmuzjypxsjd-pxyibffe See Rx Instructions PO DAILY PRN 05/13/24 50 mg-325 mg-40 mg tablet pain #30 tabs fluticasone propionate 50 2 spray intranasal DAILY PRN 05/13/24 mcg/actuation nasal allergy symptoms #3 multiple units spray,suspension (Flonase Allergy Relief) omeprazole 20 mg capsule,delayed 20 mg PO DAILY #30 caps 07/24/24 release Results & Data (ED) Vital Signs Vital Signs - 24 hr 08/18/24 15:40 08/18/24 15:59 08/18/24 16:18 Temperature 36.4 C L Temperature Source Temporal Artery Scan Pulse Rate 124 H Pulse Rate [Apical] 107 H Respiratory Rate 14 17 Respiratory Effort / Characteristics Non-Labored Respiratory Depth Normal Blood Pressure 89/58 L Blood Pressure [Right Arm] 125/97 Blood Pressure Mean 68 Blood Pressure Mean [Right Arm] 106 Pulse Oximetry 96 93 95 Oxygen Delivery Method Room Air Room Air Room Air Sepsis Recent Fever Within 48 Hours No Sepsis New/Unexplained Change in Mental Status N/A Sepsis Action Taken by Nursing Physician Notified 08/18/24 16:32 08/18/24 17:30 08/18/24 18:00 Temperature Temperature Source Pulse Rate 102 H Pulse Rate [Apical] 101 H 108 H Respiratory Rate 18 15 Respiratory Effort / Characteristics Respiratory Depth Blood Pressure Blood Pressure [Right Arm] 119/85 109/80 Blood Pressure Mean Blood Pressure Mean [Right Arm] 96 89 Pulse Oximetry 95 95 Oxygen Delivery Method Room Air Room Air Sepsis Recent Fever Within 48 Hours Sepsis New/Unexplained Change in Mental Status Sepsis Action Taken by Nursing Laboratory Data 08/18/24 16:04 08/18/24 16:04 Lab Results 08/18/24 Range/Units 16:04 WBC 10.58 (4.8-10.8) K/ul RBC 4.53 (4.20-5.40) M/uL Hgb 14.4 (12.0-16.0) g/dl Hct 42.5 (37.0-47.0) % MCV 93.8 (80.0-100.0) fL MCH 31.8 (25.0-34.0) pg MCHC 33.9 (32.0-36.0) g/dL RDW Std Deviation 49.2 H (36.4-46.3) fL RDW Coeff of Melodie 14.4 (11.5-14.5) % Plt Count 228 (130-400) K/uL MPV 10.4 (9.4-12.4) fL Immature Gran % (Auto) 2.2 % Neut % (Auto) 93.2 % Lymph % (Auto) 3.0 % [place] % (Auto) 1.3 % Eos % (Auto) 0.2 % Baso % (Auto) 0.1 % Neut # (Auto) 9.86 H (1.40-6.50) K/uL Lymph # (Auto) 0.32 L (1.20-3.40) K/uL [place] # (Auto) 0.14 (0.11-0.59) K/uL Eos # (Auto) 0.02 (0.00-0.50) K/uL Baso # (Auto) 0.01 (0.00-0.20) K/uL Immature Gran # (Auto) 0.23 H (0.01-0.20) K/uL Absolute Nucleated RBC 0.03 (0.00-0.12) K/uL Nucleated RBC % (auto) 0.3 % Toxic Granulation 2+ Toxic Vacuolation 1+ Dohle Bodies 1+ PT 11.0 (9.0-12.0) Seconds INR 1.0 (0.9-1.1) Sodium 134 L (136-145) mmol/L Potassium 5.1 (3.5-5.1) mmol/L Chloride 101 (98-107) mmol/L Carbon Dioxide 21 (21-32) mmol/L Anion Gap 12 H (3-11) BUN 46 H (6-23) mg/dl Creatinine 0.79 (0.6-1.2) mg/dl Est Cr Clr Drug Dosing 57.9 ml/min eGFR 82.45 BUN/Creatinine Ratio 58.2 H (10-20) Glucose 215 H (70-99(Fasting)) mg/dl Lactate 2.8 H* (0.4-2.0) mmol/L Calcium 9.6 (8.6-10.3) mg/dl Total Bilirubin 1.2 H (0.2-1.0) mg/dl AST 19 (13-39) U/L ALT 48 (7-52) U/L Alkaline Phosphatase 192 H (34-104) U/L Troponin I High Sens 14.5 H (0-14) pg/ml Total Protein 6.1 (6.0-8.3) gm/dl Albumin 2.9 L (3.4-5.0) gm/dl Globulin 3.2 (2.5-4.0) gm/dl Albumin/Globulin Ratio 0.9 (0.9-2) Lipase 3 L (11-82) U/L Administered Medications Discontinued Medications Sodium Chloride (Nss) 1,000 mls @ 999 mls/hr IV .Q1H1M ONE Stop: 08/18/24 16:44 Last Infusion: 08/18/24 18:24 Dose: Infused Documented By: Admin: 08/18/24 16:15 Dose: 999 mls/hr Documented By: FABIAN Piperacillin Sod/Tazobactam Sod (Zosyn) 4.5 gm in 100 mls @ 200 mls/hr IV NOW ONE; Protocol Stop: 08/18/24 16:13 Last Infusion: 08/18/24 16:48 Dose: Infused Documented By: Admin: 08/18/24 16:18 Dose: 200 mls/hr Documented By: FABIAN Imaging Data Radiologist's Impression: Chest X-Ray 08/18/24 15:44 EXAM: X-ray chest one-view portable CLINICAL HISTORY: Concern for free air in abdomen PRIORS: Chest radiograph 07/22/2024, chest CT 07/21/2024 TECHNIQUE: AP upright chest FINDINGS: The chest is well-expanded. No subdiaphragmatic gas. The right upper lobe mass is less conspicuous on today's examination measuring approximately 3.5 cm allowing for its irregular shape. No airspace consolidation, effusion or congestive changes. Heart size is normal. No pneumothorax. Trachea is patent. Osseous structures demonstrate no acute abnormality. No radiopaque foreign body. IMPRESSION: No subdiaphragmatic gas identified on the current examination. Electronically signed by Dora Simms 08-18-2024 5:42 PM Discharge Plan Visit Data Chief Complaint: Abnormal Labs/Diagnostic Testing Stated Complaint: SCAN SHOWED A BOWEL PERFERATION ED Provider: Anisa Haines Discharge Problem: Pneumoperitoneum, Perforated bowel, Elevated lactic acid level Forms Stand Alone Forms: My [facility] [employer] Prescriptions Prescriptions: No Action [id number]-nhzyocobxvddu-[id number] 50-325-40 mg tablet See Rx Instructions PO DAILY PRN (Reason: pain) Qty: 30 0RF Rx Instructions: 1-2 tablets PO daily PRN; fluticasone propionate [Flonase Allergy Relief] 50 mcg/actuation spray,suspension 2 spray intranasal DAILY PRN (Reason: allergy symptoms) Qty: 3 3RF Rx Instructions: administer into each nostril omeprazole 20 mg capsule,delayed release(DR/EC) 20 mg PO DAILY Qty: 30 2RF famotidine [Pepcid AC] 20 mg tablet 20 mg PO QAM multivitamin Tablet 1 tab PO QAM cholecalciferol (vitamin D3) [Vitamin D3] 125 mcg (5,000 unit) Tablet 125 mcg PO QAM levothyroxine 75 mcg tablet 75 mcg PO QAM Patient Comments: QAM dexamethasone 4 mg tablet 4 mg PO UD Rx Instructions: original: 4 mg po qid. per they're weaning her off medication. Referrals Referrals: Pro,Manjit Fischer MD [Primary Care Provider] -
[2024-08-18] MEDS: SODIUM CHLORIDE 0.9% 1,000 ML IV ONE (16:15)
[2024-08-18] MEDS: PIPERACILLIN/TAZOBACTAM 4.5 GM/100 ML BAG IV ONE (16:18)
--- NOTE | 2024-08-18 16:24 | Surgery Consultation ---
Date of Consultation August 18, 2024 Assessment & Plan (1) Free intraperitoneal air: This is a 64yF with a recent diagnosis of lung cancer dx'd in july with mets to the brain & bones, HLD, h/o gastric ulcer years ago, who presents to the [facility] ED on 08/18/24 after undergoing a PET scan today that shows confirm of free air in the abdomen. Report showed findings compatible with perforated hollow viscus with air and fluid filled collections within the lower abdominal and pelvic mese ntery. This is associated with an ileus vs SBO. Patient reports she does note pain in her bilateral abdomen over the past week. She thinks maybe it has gotten worse over the last week. She said it is intermittent and comes and goes based on her movements. Eating does not make it better nor worse. She recently completed radiation to the brain and has not yet started chemotherapy. PET scan performed today for general evaluation. She denies much appetite lately, but did eat some eggs this AM. Cannot recall the last time she's passed gas or had a BM. Denies fevers/chills, CP/SOB, lightheadedness or dizziness. Feels a little bloated. No prior abdominal surgical history. Was diagnosed with a gastric ulcer many years ago by EGD, but this does not feel the same to her. She feels better lying flat. Today's blood work is pending. Her vitals show she is tachycardic to the 120s' with last documented BP 89/58, afebrile. Abdomen is distended in the lower portions with bilateral tenderness to palpation, more firm and tender in the right lower regions. Given patient's history/exam/imaging it is concerning for an intraabdominal perforation of some sort. This seems to have been brewing over the last week and patient came in to the hospital from home after PET/CT was formally read. For now we recommend stabilizing the patient with IVF and starting IV abx. We will be by in short order to evaluate the patient with the surgeon to determine whether or not patient will have emergent surgery vs consider transfer to tertiary center for consideration of percutaneous drainage given significant oncologic history. Supervising Physician Co-Signing Physician Notes I have seen and examined this patient with the surgical team. Pt with perforated viscus. This is not drainable and the patient will be taken to the OR for laparoscopy, possible laparotomy. The details of the procedure have been explained to her including the risks and benefits. Consent has been obtained. Awaiting OR availability. NGT, Munoz IVF, IV abx. She received a 4.5 gram dose of Zosyn at 1648. History of Present Illness History of Present Illness This is a 64yF with a recent diagnosis of lung cancer dx'd in july with mets to the brain & bones, HLD, h/o gastric ulcer years ago, who presents to the [facility] ED on 08/18/24 after undergoing a PET scan today that shows confirm of free air in the abdomen. Report showed findings compatible with perforated hollow viscus with air and fluid filled collections within the lower abdominal and pelvic mesentery. This is associated with an ileus vs SBO. Patient reports she does note pain in her bilateral abdomen over the past week. She thinks maybe it has gotten worse over the last week. She said it is intermittent and comes and goes based on her movements. Eating does not make it better nor worse. She recently completed radiation to the brain and has not yet started chemotherapy. PET scan performed today for general evaluation. She denies much appetite lately, but did eat some eggs this AM. Cannot recall the last time she's passed gas or had a BM. Denies fevers/chills, CP/SOB, lightheadedness or dizziness. Feels a little bloated. No prior abdominal surgical history. Was diagnosed with a gastric ulcer many years ago by EGD, but this does not feel the same to her. She feels better lying flat. Allergies Allergy/AdvReac Type Severity Reaction Status Date / Time No Known Allergies Allergy Verified 08/12/24 09:40 Home Medications Medication Instructions Recorded Confirmed Type famotidine 20 mg tablet (Pepcid AC) 20 mg PO QAM 09/14/20 08/18/24 History multivitamin 1 tab PO QAM 09/14/20 08/18/24 History cholecalciferol (vitamin D3) 125 125 mcg PO QAM 06/04/21 08/18/24 History mcg (5,000 unit) tablet (Vitamin D3) [id number]-mfvagiqv See Rx Instructions PO DAILY PRN 05/13/24 08/18/24 Rx 50 mg-325 mg-40 mg tablet pain #30 tabs fluticasone propionate 50 2 spray intranasal DAILY PRN 05/13/24 08/18/24 Rx mcg/actuation nasal allergy symptoms #3 multiple units spray,suspension (Flonase Allergy Relief) levothyroxine 75 mcg tablet 75 mcg PO QAM 07/21/24 08/18/24 History omeprazole 20 mg capsule,delayed 20 mg PO DAILY #30 caps 07/24/24 08/18/24 Rx release dexamethasone 4 mg tablet 4 mg PO UD 08/18/24 08/18/24 History Patient History Medical History (Updated 08/18/24 @ 19:25 by Anisa Haines MD) Free intraperitoneal air Metastatic lung cancer (metastasis from lung to other site) Daily headache Vision changes Metastasis to bone Mass of right lung Metastasis to brain Osteoarthritis Hypothyroidism Migraine Hx of gastric ulcer REASON FOR DAILY PEPCID Anemia PT DENIES Surgical History History of esophagogastroduodenoscopy (EGD) History of colonoscopy History of tooth extraction Family History Other No family history of adverse response to anesthesia No pertinent family history Denies family history of Ovarian cancer Prostate cancer Diabetes Myocardial infarction Breast cancer Colorectal cancer Hypertension Social History Smoking Status: Former smoker Second Hand Exposure: No; Do You Dip or Chew Tobacco: No; Hx Alcohol Use: No Hx Substance Use: No Preferred Language: Cameroonian Communication Ability: Effective Visual Impairment: No Limitations Hearing Ability: Normal Marketing Finance 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: No Beliefs That Will Affect Care: None marital status: Current Living Situation: Spouse current occupational status: retired Feels Safe at Home: Yes Dental Care, Regularly: Yes Physical Activity Frequency: Does not Exercise Seatbelt Use: always Assistive Devices: None Review of Systems Constitutional: + anorexia; no fever and no chills Respiratory: no dyspnea Cardiovascular: no chest pain Gastrointestinal: + abdominal pain and + bloating; no naus ea, no vomiting and no constipation Genitourinary: no problem reported Physical Exam Physical Exam: awake, alert, no obvious distress Respiratory: normal respiratory effort (on room air) Cardiovascular: Rate/Rhythm: + tachycardic Gastrointestinal (Abdomen): Inspection/Auscultation: + abdomen distended Percussion/Palpation: + abdomen tender (tender across bilateral lower abdomen) Results & Data Vital Signs (Past 12 Hours) Vital Signs Temp Pulse Resp BP Pulse Ox O2 Del Method 08/18/24 15:59 93 Room Air 08/18/24 15:40 97.5 F L 124 H 14 89/58 L 96 Room Air Diagnostic Findings PET/CT HISTORY: Metastatic lung cancer with spiculated 3.3 cm right upper lobe mass and enlarged lymph nodes. NON SMALL CELL LUNG CANCER TECHNIQUE: PET/CT was performed from the base of the skull through the pelvis following the intravenous administration of 13.61 mCi of F18-FDG. Non-contrast CT imaging was performed over the same range without breath-hold for attenuation correction of PET images and anatomic correlation, but not for primary interpretation as it is not of standard diagnostic quality. COMPARISON: MRI spine studies from 07/21/2024, CT chest, abdomen and pelvis 07/21/2024 FINDINGS: HEAD AND NECK: Intracranial metastasis redemonstrated, better seen on comparison brain MRI. There is mildly increased tracer uptake within the left temporal calvarial lesion, SUV max of 4.5. Subcentimeter right cervical chain lymph node on image 70 of series 117 demonstrates mildly increased tracer uptake with SUV max of 2.1. CHEST: Spiculated mass of the right upper lobe previously measured at 3.3 cm and measures similar in size and is hypermetabolic, SUV max of 6.4. Metastatic right hilar lymph nodes are stable in size with SUV max measuring up to 6.5. Metastatic subcarinal lymph node, SUV max of 4.3. Nonspecific mildly increased tracer uptake within the mid to distal esophagus. No pleural effusion. Ectasia of the ascending thoracic aorta, 3.7 cm. ABDOMEN/PELVIS: Small hiatal hernia. Small amount of upper abdominal pneumoperitoneum. Air and fluid filled collections within the lower abdominal and pelvic mesentery include a 10 cm collection on image 249 with a 7.4 cm fluid-filled collection within the right hemipelvis on image 259. Air is also noted within the space of Retzius. Colonic diverticulosis without acute diverticulitis. Dilated air and fluid-filled loops of small bowel are noted measuring up to 4.3 cm with transition to narrow loops of bowel noted near the aforementioned fluid collections. There is increased tracer uptake within the mid to lower abdominal mesentery associated with the fluid collections, SUV max measuring up to 7.0. Mild endometrial thickening. Small volume of abdominal pelvic ascites. No hydronephrosis. MUSCULOSKELETAL: Multifocal diffuse mixed osteolytic and osteoblastic skeletal metastasis redemonstrated with increased tracer uptake within the lesions measuring up to approximately 5-6. No definite acute pathologic fracture identified. IMPRESSION: 1. Findings compatible with perforated hollow viscus with air and fluid filled collections within the lower abdominal and pelvic mesentery. None of these are amenable to a percutaneous drainage at this time. Urgent surgical consultation advised. 2. Dilated air and fluid-filled small bowel loops may represent a reactive ileus secondary to the aforementioned perforation or may represent a small bowel obstruction. 3. Primary bronchogenic carcinoma of the right upper lobe demonstrates hypermetabolic activity. 4. Metastatic mediastinal and right hilar lymphadenopathy. 5. Diffuse osteolytic skeletal metastasis. 6. Intracranial metastatic lesions are better seen on the comparison brain MRI. Findings were discussed with Dr. Santiago on 08/18/2024 at 3:20 PM. ACT 112: Negative or not required by law. Dictated: 08/18/2024 2:18 PM Transcribed: 08/18/2024 3:21 PM Derrick [id number] [id number] Electronically signed by: Bryn Rivas M.D. 08/18/2024 3:28 PM PG Care Time/CCT Total # of Minutes Spent Total Time Spent with Patient: Total time spent is greater than 50% in coordination of care (as documented) at patient's floor/unit and/or counseling patient: Coding Level of Care Code 98863 OP VST NEW MOD 45 MIN Diagnoses Free intraperitoneal air K66.8
[2024-08-18 16:40] LABS: Albumin Globulin Ratio 0.9 (0.9-2); Albumin Level 2.9 gm/dl (3.4-5.0); BUN Creatinine Ratio 58.2 (10-20); Bilirubin,Total 1.2 mg/dl (0.2-1.0); Calcium 9.6 mg/dl (8.6-10.3); Creatinine Clr Calc Pharmacy 57.9 ml/min; Globulin 3.2 gm/dl (2.5-4.0); Potassium 5.1 mmol/L (3.5-5.1); Total Protein 6.1 gm/dl (6.0-8.3)
[2024-08-18 16:47] LABS: Troponin I High Sensitivity 14.5 pg/ml (0-14)
[2024-08-18 16:55] LABS: Hematocrit (blood only) 42.5 % (37.0-47.0); Hemoglobin 14.4 g/dl (12.0-16.0); Mean Corpuscular Hemoglobin 31.8 pg (25.0-34.0); Mean Corpuscular Hgb Conc 33.9 g/dL (32.0-36.0); Mean Corpuscular Volume 93.8 fL (80.0-100.0); Mean Platelet Volume 10.4 fL (9.4-12.4); Nucleated RBC # (auto) 0.03 K/uL (0.00-0.12); Nucleated RBC % (auto) 0.3 %; Platelet Count 228 K/uL (130-400); RDW Coefficient of Variation 14.4 % (11.5-14.5); RDW Standard Deviation 49.2 fL (36.4-46.3); Red Blood Count 4.53 M/uL (4.20-5.40); White Blood Count 10.58 K/ul (4.8-10.8)
[2024-08-18 17:02] LABS: Basophils # (auto) 0.01 K/uL (0.00-0.20); Basophils % (auto) 0.1 %; Dohle Bodies 1+; Eosinophils # (auto) 0.02 K/uL (0.00-0.50); Eosinophils % (auto) 0.2 %; Immature Granulocytes # (auto) 0.23 K/uL (0.01-0.20); Immature Granulocytes % (auto) 2.2 %; Lymphocytes # (auto) 0.32 K/uL (1.20-3.40); Monocytes # (auto) 0.14 K/uL (0.11-0.59); Monocytes % (auto) 1.3 %; Neutrophils # (auto) 9.86 K/uL (1.40-6.50); Neutrophils % (auto) 93.2 %; Toxic Granulation 2+; Toxic Vacuolation 1+
--- NOTE | 2024-08-18 17:42 | XRay Report ---
EXAM: X-ray chest one-view portable CLINICAL HISTORY: Concern for free air in abdomen PRIORS: Chest radiograph 07/22/2024, chest CT 07/21/2024 TECHNIQUE: AP upright chest FINDINGS: The chest is well-expanded. No subdiaphragmatic gas. The right upper lobe mass is less conspicuous on today's examination measuring approximately 3.5 cm allowing for its irregular shape. No airspace consolidation, effusion or congestive changes. Heart size is normal. No pneumothorax. Trachea is patent. Osseous structures demonstrate no acute abnormality. No radiopaque foreign body. IMPRESSION: No subdiaphragmatic gas identified on the current examination. Electronically signed by Dora Simms 08-18-2024 5:42 PM
--- NOTE | 2024-08-18 19:09 | Anesthesiology Consultation ---
Date of Service August 18, 2024 Assessment & Plan (1) Encounter for pre-operative examination: Chart Review Chart Review: Acceptable Risk for Surgery (emergent) and Patient NOT seen in Pre Admission Testing Consults Requested none History Surgery Operation Date: 08/18/24 20:00 Proposed Procedures p Exploratory Laparotomy - Aaron Conteh DO Height/Weight Height: 5 ft 3 in Weight: 57.4 kg Allergies Allergy/AdvReac Type Severity Reaction Status Date / Time No Known Allergies Allergy Verified 08/12/24 09:40 Medications Home Medications Medication Instructions Recorded Confirmed Last Taken famotidine 20 mg tablet (Pepcid AC) 20 mg PO QAM 09/14/20 08/18/24 08/18/24 multivitamin 1 tab PO QAM 09/14/20 08/18/24 08/18/24 cholecalciferol (vitamin D3) 125 125 mcg PO QAM 06/04/21 08/18/24 08/18/24 mcg (5,000 unit) tablet (Vitamin D3) [id number] See Rx Instructions PO DAILY PRN 05/13/24 08/18/24 Unknown 50 mg-325 mg-40 mg tablet pain #30 tabs fluticasone propionate 50 2 spray intranasal DAILY PRN 05/13/24 08/18/24 Unknown mcg/actuation nasal allergy symptoms #3 multiple units spray,suspension (Flonase Allergy Relief) levothyroxine 75 mcg tablet 75 mcg PO QAM 07/21/24 08/18/24 08/18/24 omeprazole 20 mg capsule,delayed 20 mg PO DAILY #30 caps 07/24/24 08/18/24 Unknown release dexamethasone 4 mg tablet 4 mg PO UD 08/18/24 08/18/24 Unknown Active Medications Generic Name Dose Route Start Last Admin Trade Name Freq PRN Reason Stop Dose Admin Daptomycin 325 mg/ Syringe 6.5 mls @ 3.25 mls/min 08/18/24 19:30 08/18/24 20:30 IV 08/22/24 19:29 3.25 mls/min Q24H ROQUE Administration Protocol Past Medical History Medical History Free intraperitoneal air Metastatic lung cancer (metastasis from lung to other site) Daily headache Vision changes Metastasis to bone Mass of right lung Metastasis to brain Osteoarthritis Hypothyroidism Migraine Hx of gastric ulcer REASON FOR DAILY PEPCID Anemia PT DENIES Exercise / Class Metabolic Activity II 4-5 Yardwork/Stairs/Walk up hill Past Family History Family History Other No family history of adverse response to anesthesia No pertinent family history Denies family history of Ovarian cancer Prostate cancer Diabetes Myocardial infarction Breast cancer Colorectal cancer Hypertension Past Surgical History Surgical History History of esophagogastroduodenoscopy (EGD) History of colonoscopy History of tooth extraction Social History Smoking Status: Former smoker Do You Dip or Chew Tobacco: No Hx Alcohol Use: No Hx Substance Use: No substance use type: does not use Physical Exam Vital Signs Last Vital Signs Temp 36.4 C L 08/18/24 15:40 Pulse 105 H 08/18/24 20:32 Resp 18 08/18/24 20:00 BP 128/94 08/18/24 20:00 Pulse Ox 95 08/18/24 20:00 O2 Del Method Room Air 08/18/24 20:00 Testing Laboratory Results 08/18/24 16:04 08/18/24 16:04 PT 11.0 Seconds (9.0-12.0) 08/18/24 16:04 INR 1.0 (0.9-1.1) 08/18/24 16:04 Electrocardiogram Date: 08/18/24 Findings: + ST @ (114) Sinus tachycardia. Possible LAE. Borderline LVH. Chest X-Ray Date: 08/18/24 EXAM: X-ray chest one-view portable CLINICAL HISTORY: Concern for free air in abdomen PRIORS: Chest radiograph 07/22/2024, chest CT 07/21/2024 TECHNIQUE: AP upright chest FINDINGS: The chest is well-expanded. No subdiaphragmatic gas. The right upper lobe mass is less conspicuous on today's examination measuring approximately 3.5 cm allowing for its irregular shape. No airspace consolidation, effusion or congestive changes. Heart size is normal. No pneumothorax. Trachea is patent. Osseous structures demonstrate no acute abnormality. No radiopaque foreign body. IMPRESSION: No subdiaphragmatic gas identified on the current examination. Other Testing 07/21/24: CT head/brain wo con CLINICAL HISTORY: 64 years-old Female with brain mets. Intracranial metastasis. TECHNIQUE: Multiple axial CT images of the head were obtained without contrast. A dose lowering technique was utilized adhering to the principles of ALARA. CT DOSE: 1844.67 mGy.cm COMPARISON: Chest CT and brain MRI studies of same day FINDINGS: No large areas of acute intraparenchymal hemorrhage. No midline shift, hydrocephalus, acute territorial ischemia or abnormal extra-axial collection. Intracranial metastasis with surrounding vasogenic edema are better visualized on the same day brain MRI. The largest lesion is present in the inferior medial right frontal lobe on image 7 series 2 measuring 1.6 cm . Scattered fluid calvarial metastasis. The paranasal sinuses, mastoid air cells, and middle ear cavities are clear. IMPRESSION: 1. Intracranial metastasis measuring up to 1.6 cm with mild surrounding vasogenic edema, better seen on the same-day brain MRI. 2. No midline shift, hydrocephalus or large intraparenchymal hemorrhage identified. 3. Foci of hemorrhage associated with the metastatic lesions better seen on MRI. 4. Lytic calvarial metastasis. - PET scan from earlier today was reviewed and showed findings compatible with perforated hollow viscus with the air and fluid-filled collections within the lower abdominal and pelvic mesentery. Noted to have dilated air and fluid- filled small bowel loops which may represent ileus versus small bowel obstruction.
[2024-08-18] MEDS ORDERED: ALBUMIN HUMAN 5% 12.5 GM/250 ML VIAL IV ONE (19:35)
[2024-08-18] MEDS: DAPTOmycin 325 MG in SYRINGE 0 ML IV SCH (20:30)
[2024-08-18] MEDS ORDERED: fentaNYL citrate PF 100 MCG/2 ML VIAL ONE (21:08)
[2024-08-18] MEDS ORDERED: LIDOCAINE 2% 2 ML VIAL/AMP(20MG/ML) INFIL ONE (21:12)
[2024-08-18] MEDS ORDERED: PROPOFOL IV EMULSION 10 MG/ML 20 ML VIAL IV ONE (21:12)
[2024-08-18] MEDS ORDERED: ONDANSETRON INJ 2 MG/ML 2 ML VIAL ONE ×2 (21:12→21:48)
[2024-08-18] MEDS ORDERED: DEXAMETHASONE SOD INJ 4 MG/ML VIAL ONE (21:12)
[2024-08-18] MEDS ORDERED: SUCCINYLCHOLINE 100MG/5ML SYR IV ONE (21:12)
[2024-08-18] MEDS ORDERED: ROCURONIUM BROMIDE 10 MG/ML 5 ML VIAL IV ONE (21:12)
[2024-08-18] MEDS ORDERED: ETOMIDATE 2 MG/ML 20 ML VIAL IV ONE (21:13)
[2024-08-18] MEDS ORDERED: PROMETHAZINE HCL 6.25 MG in SODIUM CHLORIDE 0.9% 50 ML IV PRN (21:21)
[2024-08-18] MEDS ORDERED: ATROPINE SULFATE 0.1 MG/ML 10ML SYR IV PRN (21:21)
[2024-08-18] MEDS ORDERED: HYDROmorphone INJ 1 MG/ML SYRINGE IV PRN (21:21)
[2024-08-18] MEDS ORDERED: ACETAMINOPHEN 1000 MG/100 ML IV IV ONE (21:59)
[2024-08-18] MEDS ORDERED: SUGAMMADEX SODIUM 200 MG/2 ML VIAL IV ONE (21:59)
--- NOTE | 2024-08-18 23:52 | XRay Report ---
Exam(s): XR CXR 1 VIEW EXAM: XR Chest, 1 View CLINICAL HISTORY: Reason for exam: s/p NGT placement. TECHNIQUE: Frontal view of the chest. COMPARISON: No relevant prior studies available. FINDINGS: Nasogastric tube is noted with its tip in the region of the stomach. Lungs: There is a 3 cm nodule noted at the right lung apex.. Pleural space: No pleural effusion is seen. No pneumothorax. Heart: Heart is normal in size.. Mediastinum: There is uncoiling of thoracic aorta.. IMPRESSION: Nasogastric tube is noted with its tip in the region of the stomach. Electronically signed by: Julián Quarles MD 08/18/24 23:51 PM
[2024-08-19] MEDS ORDERED: fentaNYL citrate PF 100 MCG/2 ML VIAL ONE (00:02)
[2024-08-19] MEDS: BUPIVACAINE/EPINEPHRINE 0.5% MPF 1:200,000 30 ML VIAL ONE (00:13)
[2024-08-19] MEDS: FLOSEAL HEMOSTATIC MATRIX 5ML TOP ONE (00:13)
--- NOTE | 2024-08-19 00:58 | Anesthesiology Progress Note ---
Date of Service August 19, 2024 Anesthesia Post Procedure Vital Signs Vital Signs: Temp Pulse Pulse Resp BP BP Pulse Ox 08/19/24 00:52 36.7 C 101 H 18 116/78 94 08/19/24 00:42 36.8 C 101 H 16 115/74 95 08/18/24 20:32 105 H 08/18/24 20:00 108 H 18 128/94 95 08/18/24 18:00 108 H 15 109/80 95 08/18/24 17:30 101 H 18 119/85 95 08/18/24 16:32 102 H 08/18/24 16:18 107 H 17 125/97 95 08/18/24 15:59 93 08/18/24 15:40 36.4 C L 124 H 14 89/58 L 96 O2 Del Method 08/19/24 00:52 Room Air 08/19/24 00:42 Room Air 08/18/24 20:32 08/18/24 20:00 Room Air 08/18/24 18:00 Room Air 08/18/24 17:30 Room Air 08/18/24 16:32 08/18/24 16:18 Room Air 08/18/24 15:59 Room Air 08/18/24 15:40 Room Air Transfer of Care Handoff Completed per policy Notes Mental Status: alert / awake / arousable and participated in evaluation Patient Amnestic to Procedure: Yes Nausea / Vomiting: adequately controlled Pain: adequately controlled Airway Patency, RR, SpO2: stable & adequate BP & HR: stable & adequate Hydration State: stable & adequate Anesthetic Complications: no major complications apparent and Pt Satisfied with anesthetic care
--- NOTE | 2024-08-19 01:00 | Operative Report ---
PG Post Operative Report Pre & Post Diagnosis Operation Date: 08/18/24 20:00 Pre-Op Diagnosis: Free intraperitoneal air Post-Op Diagnosis: Free intraperitoneal fluid collection I identified the patient and participated in the time-out.: Yes Procedure Operation Date: 08/18/24 20:00 Actual Procedures p Diagnostic laparoscopy, laparoscopic appendectomy, intra-abdominal and pelvic washout (Not Applicable) - Aaron Conteh DO Surgeon Aaron Conteh DO Pharmacovigilance Specialist YEN Brock Estimated Blood Loss 20 Findings See Below Abscess Specimens Appendix Drains 19F DAVID drain Anesthesia Type General Complications None Indications Pneumoperitoneum with intra-abdominal fluid collections Description of Procedure The patient was brought back to the operating room and placed on the operating table in supine position. She was connected to cardiac and oxygen monitoring, supplemental O2 was provided and SCDs were applied to bilateral lower extremities. The patient was administered general anesthesia and a secure airway was established. The abdomen was prepped and draped in typical sterile fashion and a timeout was conducted. Local anesthetic was used anesthetize the skin and subcutaneous tissues prior to all incisions. All incisions were made with an 11 blade. Intra-abdominal access was gained at the supraumbilical region under direct visualization and an 11 mm trocar was inserted. CO2 insufflation was initiated and pneumoperitoneum was established to a goal pressure 15 mmHg. A 5 mm laparoscope was inserted initially inspecting the upper abdomen. A distended but normal-appearing gallbladder was seen at the right upper quadrant. There was then yellow purulent fluid over the superior fold between the liver and the gallbladder. This was suctioned away. The surrounding tissues were very soft, without fibrinous exudate or other purulent fluid and no inflammation. The stomach and transverse colon were inspected. These tissues were not compromised at all. As the camera was maneuvered towards the lower abdomen, fibrinous exudate began to be encountered over the bowels. A distended loop of bowel ran down the middle of the abdomen and this was becoming adhesed to the anterior abdominal wall. This was gently mobilized using gentle blunt dissection with the laparoscope. Seeing as though this extended towards the deep pelvis, two 5 mm trocars were inserted under direct visualization along the left lower quadrant and suprapubic area. The OR table was positioned and Trendelenburg and left side down. The bowel was carefully mobilized this was adhesed to several other loops of bowel at the anterior aspect of the abdomen including along the cecum and more heavily into the pelvis behind the uterus. As additional mobilized cessation took place, thick purulent fluid was finally encountered along the right lower quadrant. This was captured for culture. A copious amount of thick purulent greenish-yellow purulent fluid was suctioned away from this area. As more bowel was mobilized, inspection continued to the pelvis where additional thick purulent fluid was encountered behind and inferior to the right ovary and extending deep into the pelvis. There were no perforations of bowel identified. Copious amounts of purulent fluid was suctioned away from the pelvis. The bowel was inspected in this area. There was overall secondary inflammation over the bowels without any specific firm areas or areas suspicious for perforation on any of the bowel loops. The cecum was eventually mobilized. The cecum was heavily filled with compressible stool. There were no perforations of the cecum. A short and very thickened appendix was identified extending to the retrocecal area. The associated mesoappendix was also very thickened. The appendix was further mobilized to for inspection. While the appendix did appear to be significantly thickened with inflammation, there was no perforation identified. The mesoappendix was transected using a LigaSure. There was bleeding of the fatty tissue surrounding the this area. A 5 mm clip was used to control this. The base of the appendix was cleared and was normal very different from the mid to distal appendix. The appendix was then ligated and transected from the base of the cecum using a purple loaded, 45 mm Endo KAREN stapler. The appendix was placed in an Endo Catch bag and removed. The appendix was then placed in a label container sent to pathology for further analysis. There was mild bloody oozing of the serosal tissues immediately adjacent to the transection line. This would not be amenable to clipping or cautery based on its association to the cecum. The area was irrigated copiously and inspected for bleeding. The bleeding seemed to cease but was easily re- exacerbated with inspection and testing with suction. The small amount of oozing subsided again on its own. At this point the area was treated with Floseal. The remainder of the abdomen was copiously irrigated and the irrigant was suctioned away. The irrigant had run a very clear. A 19 [place] DAVID drain was inserted which extended deep into the pelvis posterior to the uterus and towards the right lower quadrant. The OR table was returned to the neutral position. An additional irrigant was suctioned away from the right upper, right lower quadrants and the pelvis. The DAVID drain was secured in place with Nylon suture. The fascia at the supraumbilical incision was closed with 0-Vicryl suture. The deep dermis was approximated with 2-0 Vicryl suture. Subcuticular 4-0 Monocryl sutures were placed at the supraumbilical and LLQ incisions. The abdomen was wiped clean with a saline soaked lap pad and dried. A drain sponge was placed around the DAVID drain site. Dermabond was used at the two remaining incision sites. An abdominal binder was placed. The patient tolerated the procedure very well. She was awakened from anesthesia, the secure airway was removed and she was transferred to recovery in stable condition. I attest to the content of the Intraoperative Record and any orders documented therein. Any exceptions are noted below.
--- NOTE | 2024-08-19 01:13 | History & Physical Report ---
Date of Service August 19, 2024 Assessment & Plan (1) Free intraperitoneal air: (2) Perforated bowel: (3) Pneumoperitoneum: (4) Mass of right lung: (5) Hx of gastric ulcer: (6) Elevated lactic acid level: Plan Perforated bowel/free intraperitoneal air/pneumoperitoneum- N.p.o. Status post NSS 1 L bolus in ED Patient was relatively hypotensive with lowest blood pressure 89/58 preoperatively, responded to IV fluids Taken emergently to the OR, admission postsurgery to medical telemetry Continue daptomycin IV and Zosyn IV begun in the ED Acetaminophen 1 g IV every 8 hours as needed for mild pain or fever Dilaudid 0.25 mg IV every 3 hours as needed for moderate pain Dilaudid 0.5 mg IV every 3 hours as needed for severe pain Zofran 4 mg IV every 6 hours as needed NSS at 125 mL/h x 2 L Lung cancer with metastases- Status post whole brain radiation therapy Systemic chemotherapy with carboplatin, pemetrexed and pembrolizumab Following with oncology Dr. Dutta Status post navigational bronchoscopy 07/22/2024 Has been on dexamethasone 4 mg p.o. 4 times daily If Declining blood pressure, would start stress dose hydrocortisone 100 mg IV every 8 hours GERD/history of gastric ulcer- Pantoprazole 40 mg IV daily History of Present Illness Chief Complaint: The patient had a PET scan earlier in the day, as workup for her lung cancer, and had been called that there was concern for a bowel perforation and was advised to come to the emergency department for assessment. Primary Care Provider: Manjit Davis MD The patient is a 64-year-old female with a past medical history including hypothyroidism, GERD, hyperlipidemia, migraine, B12 deficiency, lung cancer, and outpatient testing concerning for possible bowel perforation. Further imaging in the ED this evening showed pneumoperitoneum, perforated bowel, elevated lactic acid, and leukocytosis. Patient was taken emergently to the OR by Dr. Conteh, with plans to admit to medical telemetry postsurgery. Allergies Allergy/AdvReac Type Severity Reaction Status Date / Time No Known Allergies Allergy Verified 08/12/24 09:40 Home Medications Medication Instructions Recorded Confirmed Type famotidine 20 mg tablet (Pepcid AC) 20 mg PO QAM 09/14/20 08/18/24 History multivitamin 1 tab PO QAM 09/14/20 08/18/24 History cholecalciferol (vitamin D3) 125 125 mcg PO QAM 06/04/21 08/18/24 History mcg (5,000 unit) tablet (Vitamin D3) [id number] See Rx Instructions PO DAILY PRN 05/13/24 08/18/24 Rx 50 mg-325 mg-40 mg tablet pain #30 tabs fluticasone propionate 50 2 spray intranasal DAILY PRN 05/13/24 08/18/24 Rx mcg/actuation nasal allergy symptoms #3 multiple units spray,suspension (Flonase Allergy Relief) levothyroxine 75 mcg tablet 75 mcg PO QAM 07/21/24 08/18/24 History omeprazole 20 mg capsule,delayed 20 mg PO DAILY #30 caps 07/24/24 08/18/24 Rx release dexamethasone 4 mg tablet 4 mg PO UD 08/18/24 08/18/24 History Past Med/Surg History Problem List Hx of gastric ulcer REASON FOR DAILY PEPCID Mass of right lung Free intraperitoneal air Elevated lactic acid level (Acute) Perforated bowel (Acute) Pneumoperitoneum (Acute) Hyperglycemia Elevated LFTs Routine gynecological examination Hypothyroidism History of colon polyps Encounter for pre-operative examination Diverticulosis Esophageal reflux Hyperthyroidism Hyperlipidemia Leukopenia Migraine headache Postmenopause atrophic vaginitis B12 deficiency No pertinent past surgical history Medical History Free intraperitoneal air Metastatic lung cancer (metastasis from lung to other site) Daily headache Vision changes Metastasis to bone Mass of right lung Metastasis to brain Osteoarthritis Hypothyroidism Migraine Hx of gastric ulcer REASON FOR DAILY PEPCID Anemia PT DENIES Surgical History History of esophagogastroduodenoscopy (EGD) History of colonoscopy History of tooth extraction Family History Other No family history of adverse response to anesthesia No pertinent family history Denies family history of Ovarian cancer Prostate cancer Diabetes Myocardial infarction Breast cancer Colorectal cancer Hypertension Social History Smoking Status: Unknown if ever smoked Second Hand Exposure: No; Do You Dip or Chew Tobacco: No; Hx Alcohol Use: No Hx Substance Use: No Preferred Language: Croatian Communication Ability: Effective Visual Impairment: No Limitations Hearing Ability: Normal 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 Beliefs That Will Affect Care: None marital status: Current Living Situation: Spouse current occupational status: retired Feels Safe at Home: Yes Dental Care, Regularly: Yes Physical Activity Frequency: Does not Exercise Seatbelt Use: always Assistive Devices: Glasses and Walker Review of Systems Review of Systems: The patient denies chest pain, palpitations, lower extremity swelling, sore throat, fevers, chills, sweats, blood in urine or stool, dysuria, urinary frequency or urgency, lightheadedness, dizziness, headache, memory loss, loss of consciousness, imbalance, focal weakness, numbness or tingling in arms or legs, or night sweats. The review of systems is otherwise negative other than for that already noted above, and at least 10 systems have been reviewed. Physical Exam Physical Exam: The patient is awake, alert, oriented, normocephalic and atraumatic, lying in bed and in no acute distress. HEENT--PERRL, EOMI, mucous membranes and oropharynx dry. Neck--supple. No JVD. No bruits. Thyroid normal, trachea midline, no adenopathy. Heart--normal S1 and S2. No murmurs, rubs or gallops. Lungs--clear bilaterally, no respiratory distress, no accessory muscle use. Abdomen--decreased bowel sounds and soft. Mildly distended and tympanitic. Mildly tender Extremities--no cyanosis or clubbing. No edema. Dermatologic--normal skin turgor, normal color, no abnormal lymph nodes, no rash. Neurologic--cranial nerves II through XII grossly intact. Rheumatologic--normal range of motion. Psychiatric--normal affect. Results & Data Results & Data Vital Signs (Past 12 Hours) Vital Signs Temp Pulse Pulse Resp BP BP Pulse Ox 08/19/24 01:02 36.9 C 100 H 16 119/78 94 08/19/24 00:52 36.7 C 101 H 18 116/78 94 08/19/24 00:42 36.8 C 101 H 16 115/74 95 08/18/24 20:32 105 H 08/18/24 20:00 108 H 18 128/94 95 08/18/24 18:00 108 H 15 109/80 95 08/18/24 17:30 101 H 18 119/85 95 08/18/24 16:32 102 H 08/18/24 16:18 107 H 17 125/97 95 08/18/24 15:59 93 08/18/24 15:40 36.4 C L 124 H 14 89/58 L 96 O2 Del Method 08/19/24 01:02 Room Air 08/19/24 00:52 Room Air 08/19/24 00:42 Room Air 08/18/24 20:32 08/18/24 20:00 Room Air 08/18/24 18:00 Room Air 08/18/24 17:30 Room Air 08/18/24 16:32 08/18/24 16:18 Room Air 08/18/24 15:59 Room Air 08/18/24 15:40 Room Air Laboratory Results Laboratory Results WBC 10.58 K/ul (4.8-10.8) 08/18/24 16:04 RBC 4.53 M/uL (4.20-5.40) 08/18/24 16:04 Hgb 14.4 g/dl (12.0-16.0) 08/18/24 16:04 Hct 42.5 % (37.0-47.0) 08/18/24 16:04 MCV 93.8 fL (80.0-100.0) 08/18/24 16:04 MCH 31.8 pg (25.0-34.0) 08/18/24 16:04 MCHC 33.9 g/dL (32.0-36.0) 08/18/24 16:04 RDW Std Deviation 49.2 fL (36.4-46.3) H 08/18/24 16:04 RDW Coeff of Melodie 14.4 % (11.5-14.5) 08/18/24 16:04 Plt Count 228 K/uL (130-400) 08/18/24 16:04 MPV 10.4 fL (9.4-12.4) 08/18/24 16:04 Immature Gran % (Auto) 2.2 % 08/18/24 16:04 Neut % (Auto) 93.2 % 08/18/24 16:04 Lymph % (Auto) 3.0 % 08/18/24 16:04 [place] % (Auto) 1.3 % 08/18/24 16:04 Eos % (Auto) 0.2 % 08/18/24 16:04 Baso % (Auto) 0.1 % 08/18/24 16:04 Neut # (Auto) 9.86 K/uL (1.40-6.50) H 08/18/24 16:04 Lymph # (Auto) 0.32 K/uL (1.20-3.40) L 08/18/24 16:04 [place] # (Auto) 0.14 K/uL (0.11-0.59) 08/18/24 16:04 Eos # (Auto) 0.02 K/uL (0.00-0.50) 08/18/24 16:04 Baso # (Auto) 0.01 K/uL (0.00-0.20) 08/18/24 16:04 Immature Gran # (Auto) 0.23 K/uL (0.01-0.20) H 08/18/24 16:04 Absolute Nucleated RBC 0.03 K/uL (0.00-0.12) 08/18/24 16:04 Nucleated RBC % (auto) 0.3 % 08/18/24 16:04 Toxic Granulation 2+ 08/18/24 16:04 Toxic Vacuolation 1+ 08/18/24 16:04 Dohle Bodies 1+ 08/18/24 16:04 PT 11.0 Seconds (9.0-12.0) 08/18/24 16:04 INR 1.0 (0.9-1.1) 08/18/24 16:04 Sodium 134 mmol/L (136-145) L 08/18/24 16:04 Potassium 5.1 mmol/L (3.5-5.1) 08/18/24 16:04 Chloride 101 mmol/L (98-107) 08/18/24 16:04 Carbon Dioxide 21 mmol/L (21-32) 08/18/24 16:04 Anion Gap 12 (3-11) H 08/18/24 16:04 BUN 46 mg/dl (6-23) H 08/18/24 16:04 Creatinine 0.79 mg/dl (0.6-1.2) 08/18/24 16:04 Est Cr Clr Drug Dosing 57.9 ml/min 08/18/24 16:04 eGFR 82.45 08/18/24 16:04 BUN/Creatinine Ratio 58.2 (10-20) H 08/18/24 16:04 Glucose 215 mg/dl (70-99(Fasting)) H 08/18/24 16:04 POC Glucose 168 mg/dl (70-99) H 08/19/24 01:52 Lactate 2.8 mmol/L (0.4-2.0) H* 08/18/24 16:04 Calcium 9.6 mg/dl (8.6-10.3) 08/18/24 16:04 Total Bilirubin 1.2 mg/dl (0.2-1.0) H 08/18/24 16:04 AST 19 U/L (13-39) 08/18/24 16:04 ALT 48 U/L (7-52) 08/18/24 16:04 Alkaline Phosphatase 192 U/L (34-104) H 08/18/24 16:04 Troponin I High Sens 14.5 pg/ml (0-14) H 08/18/24 16:04 Total Protein 6.1 gm/dl (6.0-8.3) 08/18/24 16:04 Albumin 2.9 gm/dl (3.4-5.0) L 08/18/24 16:04 Globulin 3.2 gm/dl (2.5-4.0) 08/18/24 16:04 Albumin/Globulin Ratio 0.9 (0.9-2) 08/18/24 16:04 Lipase 3 U/L (11-82) L 08/18/24 16:04 Impressions Chest X-Ray 08/18/24 20:08 Exam(s): XR CXR 1 VIEW EXAM: XR Chest, 1 View CLINICAL HISTORY: Reason for exam: s/p NGT placement. TECHNIQUE: Frontal view of the chest. COMPARISON: No relevant prior studies available. FINDINGS: Nasogastric tube is noted with its tip in the region of the stomach. Lungs: There is a 3 cm nodule noted at the right lung apex.. Pleural space: No pleural effusion is seen. No pneumothorax. Heart: Heart is normal in size.. Mediastinum: There is uncoiling of thoracic aorta.. IMPRESSION: Nasogastric tube is noted with its tip in the region of the stomach. Electronically signed by: Julián Quarles MD 08/18/24 23:51 PM Code Status & VTE Plan Code Status Full code VTE Prophylaxis Plan VTE Prophylaxis will be ordered: Yes PG Care Time/CCT Total # of Minutes Spent Total Time Spent with Patient: Total time spent is greater than 50% in coordination of care (as documented) at patient's floor/unit and/or counseling patient: Coding Level of Care Code 68491 INT INP/OBS CARE 3/75MIN Diagnoses Free intraperitoneal air K66.8 Perforated bowel K63.1 Mass of right lung R91.8 Hx of gastric ulcer Z87.11 Elevated lactic acid level R79.89
[2024-08-19] MEDS ORDERED: ONDANSETRON INJ 2 MG/ML 2 ML VIAL IV PRN ×2 (01:41)
[2024-08-19] MEDS ORDERED: ACETAMINOPHEN 1,000 MG/100 ML VIAL IV PRN ×2 (01:41)
[2024-08-19] MEDS ORDERED: HYDROmorphone INJ 0.5 MG/0.5 ML SYR IV PRN ×2 (01:41)
[2024-08-19] MEDS ORDERED: SODIUM CHLORIDE 0.9% 1,000 ML IV SCH (01:41)
[2024-08-19] MEDS: PHENYLEPHRINE HCL 25 MG/250 ML NSS IV ONE (01:56)
[2024-08-19] MEDS: SODIUM CHLORIDE 0.9% 1,000 ML IV SCH (02:00)
[2024-08-19 02:07] LABS: Appearance Urine Cloudy (Clear); Bacteria Urine Automated 4+ (None Seen); Bilirubin Urine 1+ (Negative); Blood Urine Trace (Negative); Calcium Oxalate Crystals Urine Present (None Prsent); Cast Urine Automated >20 /lpf (0-2); Color Urine Dark Yellow; Glucose Urine UA Negative (Negative); Hyaline Casts Urine Present /lpf (None Presnt); Ketones Urine Negative (Negative); Leukocyte Esterase Urine Trace (Negative); Nitrite Urine Positive (Negative); Protein Urine 1+ (Negative); Specific Gravity Urine 1.025 (1.000-1.030); Urobilinogen Urine Positive (Negative); pH Urine 5.5 (4.5-7.5)
[2024-08-19] MEDS: PIPERACILLIN/TAZOBACTAM 4.5 GM/100 ML BAG IV SCH (02:28)
[2024-08-19 05:22] LABS: Albumin Level 2.2 gm/dl (3.4-5.0); BUN Creatinine Ratio 52.5 (10-20); Bilirubin,Total 1.5 mg/dl (0.2-1.0); Calcium 7.7 mg/dl (8.6-10.3); Creatinine Clr Calc Pharmacy 77.6 ml/min; Globulin 2.3 gm/dl (2.5-4.0); Potassium 3.8 mmol/L (3.5-5.1); Total Protein 4.5 gm/dl (6.0-8.3)
[2024-08-19 05:25] LABS: Hematocrit (blood only) 32.3 % (37.0-47.0); Hemoglobin 10.7 g/dl (12.0-16.0); Mean Corpuscular Hemoglobin 31.8 pg (25.0-34.0); Mean Corpuscular Hgb Conc 33.1 g/dL (32.0-36.0); Mean Corpuscular Volume 96.1 fL (80.0-100.0); Mean Platelet Volume 10.2 fL (9.4-12.4); Nucleated RBC # (auto) 0.02 K/uL (0.00-0.12); Nucleated RBC % (auto) 0.3 %; Platelet Count 189 K/uL (130-400); RDW Coefficient of Variation 14.5 % (11.5-14.5); RDW Standard Deviation 50.4 fL (36.4-46.3); Red Blood Count 3.36 M/uL (4.20-5.40); White Blood Count 6.34 K/ul (4.8-10.8)
[2024-08-19 05:33] LABS: Basophils # (auto) 0.07 K/uL (0.00-0.20); Basophils % (auto) 1.1 %; Eosinophils # (auto) 0.01 K/uL (0.00-0.50); Eosinophils % (auto) 0.2 %; Immature Granulocytes # (auto) 0.24 K/uL (0.01-0.20); Immature Granulocytes % (auto) 3.8 %; Lymphocytes % (auto) 3.2 %; Monocytes # (auto) 0.08 K/uL (0.11-0.59); Monocytes % (auto) 1.3 %; Neutrophils # (auto) 5.74 K/uL (1.40-6.50); Neutrophils % (auto) 90.4 %; Polychromasia 1+; Toxic Granulation 1+
[2024-08-19] MEDS: PANTOprazole 40 MG/10 ML SYR IV SCH ×2 (09:37→21:36)
--- NOTE | 2024-08-19 19:20 | Hospitalist Progress Note ---
Date of Service August 19, 2024 Assessment & Plan (1) Pneumoperitoneum: Plan: s/p diagnostic laparoscopy, laparoscopic appendectomy, intra-abdominal and pelvic washout (multiple purulent fluid collections found during the surgery) - by Dr Conteh source for free air not found no gastric perforation or bowel perforation discovered appendix was inflamed during the surgery, and there was a portion of small bowel that was adhesed (adhesions taken down) defer management to gen surg (NG tube, diet initiation, etc) cont pain meds, IV fluids, etc. 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, spine, lymph nodes s/p whole brain radiation is on dexamethasone 4mg QID at home resume such IV did receive 8mg of stress dose dexamethasone vernell-operatively high risk of DVT - add DVT Proph when ok with gen surg Admission and Anticipated Discharge Date Admission Date: August 19, 2024 Subjective events of last 12-24 hours noted patient resting comfortably in bed c/o mild abd discomfort but no vomiting or nausea she did confirm she indeed takes dexamethasone 4mg QID but that she was about to start to taper it soon as outpatient Physical Exam Physical Exam: gen - looks very tired, but NAD head - alopecia mouth - MM dry nose - NG tube in place neck - no JVD heart - tachy, s1 s2 lungs - CTA b/l abd - abd binder in place; distended; BS+ but reduced; drain in place ext - no edema, pulses 2+ b/l feet Results & Data Results & Data Vital Signs (Past 12 Hours) Vital Signs Temp Pulse Pulse Resp BP BP Pulse Ox 08/19/24 15:00 36.5 C 103 H 18 103/71 94 08/19/24 11:44 37.1 C 08/19/24 11:21 106 H 22 95 08/19/24 11:10 111/75 08/19/24 10:57 105 H 23 95 08/19/24 08:20 36.8 C 08/19/24 08:00 08/19/24 08:00 111/69 08/19/24 07:41 101 H O2 Del Method 08/19/24 15:00 Room Air 08/19/24 11:44 08/19/24 11:21 08/19/24 11:10 08/19/24 10:57 08/19/24 08:20 08/19/24 08:00 Room Air 08/19/24 08:00 08/19/24 07:41 Laboratory Results Microbiology 08/18/24 22:02 Abdomen Gram Stain - Final 08/18/24 22:02 Abdomen Aerobic and Anaerobic Culture - Pending 08/19/24 01:40 Urine,Clean Catch Urine Culture - Pending Labs 08/18/24 08/19/24 08/19/24 16:04 01:38 01:40 WBC 10.58 RBC 4.53 Hgb 14.4 Hct 42.5 MCV 93.8 MCH 31.8 MCHC 33.9 RDW Std Deviation 49.2 H RDW Coeff of Melodie 14.4 Plt Count 228 MPV 10.4 Immature Gran % (Auto) 2.2 Neut % (Auto) 93.2 Lymph % (Auto) 3.0 [place] % (Auto) 1.3 Eos % (Auto) 0.2 Baso % (Auto) 0.1 Neut # (Auto) 9.86 H Lymph # (Auto) 0.32 L [place] # (Auto) 0.14 Eos # (Auto) 0.02 Baso # (Auto) 0.01 Immature Gran # (Auto) 0.23 H Absolute Nucleated RBC 0.03 Nucleated RBC % (auto) 0.3 Toxic Granulation 2+ Toxic Vacuolation 1+ Dohle Bodies 1+ Polychromasia PT 11.0 INR 1.0 Sodium 134 L Potassium 5.1 Chloride 101 Carbon Dioxide 21 Anion Gap 12 H BUN 46 H Creatinine 0.79 Est Cr Clr Drug Dosing 57.9 eGFR 82.45 BUN/Creatinine Ratio 58.2 H Glucose 215 H POC Glucose Lactate 2.8 H* Calcium 9.6 Total Bilirubin 1.2 H AST 19 ALT 48 Alkaline Phosphatase 192 H Troponin I High Sens 14.5 H Total Protein 6.1 Albumin 2.9 L Globulin 3.2 Albumin/Globulin Ratio 0.9 Lipase 3 L Urine Color Dark Yellow Urine Appearance Cloudy A Urine pH 5.5 Ur Specific [place] 1.025 Urine Protein 1+ H Urine Glucose (UA) Negative Urine Ketones Negative Urine Blood Trace H Urine Nitrite Positive A Urine Bilirubin 1+ H Urine Urobilinogen Positive H Ur Leukocyte Esterase Trace H Urine WBC (Auto) 6-10 H Urine RBC (Auto) 3-5 H U Hyaline Cast (Auto) >20 H U Epithel Cells (Auto) 6-10 H Urine Bacteria (Auto) 4+ H Calcium Oxalate Crystal Present A Hyaline Casts Present A Nasal Screen MRSA (PCR) Negative 08/19/24 08/19/24 01:52 04:14 WBC 6.34 RBC 3.36 L Hgb 10.7 L D Hct 32.3 L MCV 96.1 MCH 31.8 MCHC 33.1 RDW Std Deviation 50.4 H RDW Coeff of Melodie 14.5 Plt Count 189 MPV 10.2 Immature Gran % (Auto) 3.8 Neut % (Auto) 90.4 Lymph % (Auto) 3.2 [place] % (Auto) 1.3 Eos % (Auto) 0.2 Baso % (Auto) 1.1 Neut # (Auto) 5.74 Lymph # (Auto) 0.20 L [place] # (Auto) 0.08 L Eos # (Auto) 0.01 Baso # (Auto) 0.07 Immature Gran # (Auto) 0.24 H Absolute Nucleated RBC 0.02 Nucleated RBC % (auto) 0.3 Toxic Granulation 1+ Toxic Vacuolation Dohle Bodies Polychromasia 1+ PT INR Sodium 138 Potassium 3.8 D Chloride 110 H Carbon Dioxide 19 L Anion Gap 9 BUN 31 H Creatinine 0.59 L Est Cr Clr Drug Dosing 77.6 eGFR 99.33 BUN/Creatinine Ratio 52.5 H Glucose 189 H POC Glucose 168 H Lactate Calcium 7.7 L Total Bilirubin 1.5 H AST 15 ALT 28 Alkaline Phosphatase 140 H Troponin I High Sens Total Protein 4.5 L D Albumin 2.2 L Globulin 2.3 L Albumin/Globulin Ratio 1.0 Lipase Urine Color Urine Appearance Urine pH Ur Specific [place] Urine Protein Urine Glucose (UA) Urine Ketones Urine Blood Urine Nitrite Urine Bilirubin Urine Urobilinogen Ur Leukocyte Esterase Urine WBC (Auto) Urine RBC (Auto) U Hyaline Cast (Auto) U Epithel Cells (Auto) Urine Bacteria (Auto) Calcium Oxalate Crystal Hyaline Casts Nasal Screen MRSA (PCR) PG Care Time/CCT Total # of Minutes Spent Total Time Spent with Patient: Total time spent is greater than 50% in coordination of care (as documented) at patient's floor/unit and/or counseling patient: Coding Level of Care Code None Diagnoses Pneumoperitoneum K66.8 Hypothyroidism E03.9 Hx of gastric ulcer Z87.11 Metastatic lung cancer (metastasis from lung to other site) C34.90
[2024-08-19] MEDS: dexAMETHasone 4 MG in SYRINGE 0 ML IV SCH (21:39)
--- NOTE | 2024-08-20 05:36 | Surgery Progress Note ---
Date of Service August 20, 2024 Assessment & Plan (1) Free intraperitoneal air: Plan: Patient is status post exploratory laparoscopy, appendectomy, and abdominal washout on 08/18/2024 (postop day #2) Surgical pathology is pending Continue analgesics as needed Provide antiemetics as needed As patient is n.p.o., she will require intravenous fluids for hydration which have been reordered Check a.m. labs when available Continue antibiotics in form of daptomycin and Zosyn Increase activity/mobilize as able Maintain NG tubewill consider removing once patient has some return of bowel function The patient's labs are stable this morning consideration may be given to initiating DVT prophylaxis as above. doing very well denies pain or nausea zero out of ngt..will remove and allow some clears OOB Admission and Anticipated Discharge Date Admission Date: August 19, 2024 Subjective Patient is currently resting comfortably in bed. She notes her pain is well- controlled. She denies any nausea or vomiting. She has not passed any flatus or had any bowel movement since surgery. She denies shortness of breath. I discussed with nursing staff attending the patient did not note any immediate concerns at this time or any issues overnight. Physical Exam Gastrointestinal (Abdomen): Abdomen is soft and nondistended. Bowel sounds are hypoactive. Surgical incisions are clean, dry, and intact without signs of infection. NG tube is in place. Patient also has a DAVID drain in place which is draining serosanguineous fluid. Results & Data Vital Signs (Past 12 Hours) Vital Signs Temp Pulse Pulse Resp BP Pulse Ox O2 Del Method 08/20/24 03:14 36.6 C 98 H 18 112/76 95 Room Air 08/19/24 22:38 36.6 C 101 H 16 108/73 94 Room Air 08/19/24 21:50 93 H 08/19/24 20:10 Room Air 08/19/24 19:28 36.8 C 101 H 18 109/74 94 Room Air PG Care Time/CCT Total # of Minutes Spent Total Time Spent with Patient: Total time spent is greater than 50% in coordination of care (as documented) at patient's floor/unit and/or counseling patient: Coding Level of Care Code 34473 Post Operative Follow-Up Diagnoses Free intraperitoneal air K66.8
[2024-08-20] MEDS: SODIUM CHLORIDE 0.9% 1,000 ML IV SCH (07:06)
[2024-08-20 07:31] LABS: Hematocrit (blood only) 31.7 % (37.0-47.0); Hemoglobin 10.3 g/dl (12.0-16.0); Mean Corpuscular Hemoglobin 31.4 pg (25.0-34.0); Mean Corpuscular Hgb Conc 32.5 g/dL (32.0-36.0); Mean Corpuscular Volume 96.6 fL (80.0-100.0); Platelet Count 225 K/uL (130-400); RDW Coefficient of Variation 14.8 % (11.5-14.5); RDW Standard Deviation 51.9 fL (36.4-46.3); Red Blood Count 3.28 M/uL (4.20-5.40); White Blood Count 8.81 K/ul (4.8-10.8)
[2024-08-20 07:35] LABS: Basophils # (auto) 0.09 K/uL (0.00-0.20); Dohle Bodies 1+; Eosinophils # (auto) 0.02 K/uL (0.00-0.50); Eosinophils % (auto) 0.2 %; Immature Granulocytes % (auto) 7.9 %; Lymphocytes % (auto) 2.3 %; Monocytes # (auto) 0.14 K/uL (0.11-0.59); Monocytes % (auto) 1.6 %; Neutrophils # (auto) 7.66 K/uL (1.40-6.50); Toxic Granulation 1+
[2024-08-20 07:38] LABS: Albumin Globulin Ratio 0.9 (0.9-2); Albumin Level 2.2 gm/dl (3.4-5.0); BUN Creatinine Ratio 38.6 (10-20); Bilirubin,Total 0.6 mg/dl (0.2-1.0); Calcium 8.1 mg/dl (8.6-10.3); Creatinine Clr Calc Pharmacy 86.9 ml/min; Globulin 2.5 gm/dl (2.5-4.0); Magnesium 2.1 mg/dl (1.7-2.4); Potassium 3.6 mmol/L (3.5-5.1); Total Protein 4.7 gm/dl (6.0-8.3)
--- NOTE | 2024-08-20 07:45 | Electrocardiogram Report ---
Test Reason : Blood Pressure : */* mmHG Vent. Rate : 114 BPM Atrial Rate : 114 BPM P-R Int : 126 ms QRS Dur : 88 ms QT Int : 296 ms P-R-T Axes : 43 -8 59 degrees QTcB Int : 407 ms Sinus tachycardia Possible Left atrial enlargement Minimal voltage criteria for LVH, may be normal variant ( [place] product ) Borderline ECG When compared with ECG of 21-Jul-2024 13:25, Nonspecific T wave abnormality, improved in Anterior leads Confirmed by Robin Garcia ([id number]) on 08/20/2024 7:44:40 AM Referred By: Confirmed By: Robin Garcia
[2024-08-20 07:51] LABS: Thyroid Stimulating Hormone 0.897 uIu/ml (0.300-4.500)
[2024-08-20] MEDS: HEPARIN SOD 5,000 UNIT/0.5 ML VIAL SQ SCH (16:17)
--- NOTE | 2024-08-20 18:19 | Hospitalist Progress Note ---
Date of Service August 20, 2024 Assessment & Plan (1) Pneumoperitoneum: Plan: s/p diagnostic laparoscopy, laparoscopic appendectomy, intra-abdominal and pelvic washout (multiple purulent fluid collections found during the surgery) - by Dr Conteh - POD #1 stable from gen surg standpoint source for free air was not found during the operation --> no gastric perforation or bowel perforation discovered appendix was inflamed during the surgery, and there was a portion of small bowel that was adhesed (adhesions taken down) NG tube discontinued today clear liquid diet initiated cont pain meds, IV fluids, etc. 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, spine, lymph nodes s/p whole brain radiation is on dexamethasone 4mg QID at home --> continue such IV did receive 8mg of stress dose dexamethasone vernell-operatively Plan DVT proph - add heparin 5000 SC TID PT/OT evals requested Admission and Anticipated Discharge Date Admission Date: August 19, 2024 Subjective lying comfortably in bed NG tube was removed by gen surg earlier today and clear liquids begun tolerated the clears without N/V minimal abd pain denies dyspnea she got OOB to chair today and she felt weak Review of Systems Review of Systems: CV - no orthopnea, no chest pain pulm - no dyspnea GI - denies flatus or stool Physical Exam Physical Exam: gen - looks better today, pleasant, NAD mouth - MMM nose - NG tube has been d/c neck - no JVD heart - RRR, s1 s2, no murmur lungs - CTA b/l abd - abd binder in place; distended; BS+ but reduced; drain in place ext - no edema, pulses 2+ b/l feet Results & Data Results & Data Vital Signs (Past 12 Hours) Vital Signs Temp Pulse Pulse Resp BP Pulse Ox O2 Del Method 08/20/24 15:13 36.4 C L 104 H 20 115/78 96 Room Air 08/20/24 14:00 98 H 08/20/24 11:30 36.7 C 92 H 18 132/80 95 Room Air 08/20/24 07:47 Room Air 08/20/24 07:36 36.4 C L 91 H 18 124/82 95 Room Air 08/20/24 07:00 93 H Laboratory Results Laboratory Results - last 24 hr 08/20/24 06:09 WBC 8.81 RBC 3.28 L Hgb 10.3 L Hct 31.7 L MCV 96.6 MCH 31.4 MCHC 32.5 RDW Std Deviation 51.9 H RDW Coeff of Melodie 14.8 H Plt Count 225 MPV 10.0 Immature Gran % (Auto) 7.9 Neut % (Auto) 87.0 Lymph % (Auto) 2.3 [place] % (Auto) 1.6 Eos % (Auto) 0.2 Baso % (Auto) 1.0 Neut # (Auto) 7.66 H Lymph # (Auto) 0.20 L [place] # (Auto) 0.14 Eos # (Auto) 0.02 Baso # (Auto) 0.09 Immature Gran # (Auto) 0.70 H Toxic Granulation 1+ Dohle Bodies 1+ Sodium 142 Potassium 3.6 Chloride 112 H Carbon Dioxide 19 L Anion Gap 11 BUN 22 Creatinine 0.57 L Est Cr Clr Drug Dosing 86.9 eGFR 100.16 BUN/Creatinine Ratio 38.6 H Glucose 162 H Calcium 8.1 L Magnesium 2.1 Total Bilirubin 0.6 D AST 12 L ALT 21 Alkaline Phosphatase 150 H Total Protein 4.7 L Albumin 2.2 L Globulin 2.5 Albumin/Globulin Ratio 0.9 TSH 0.897 PG Care Time/CCT Total # of Minutes Spent Total Time Spent with Patient: Total time spent is greater than 50% in coordination of care (as documented) at patient's floor/unit and/or counseling patient: Coding Level of Care Code 04482 SUB INP/OBS CARE 2/35MIN Diagnoses Pneumoperitoneum K66.8 Hypothyroidism E03.9 Hx of gastric ulcer Z87.11 Metastatic lung cancer (metastasis from lung to other site) C34.90
[2024-08-21] MEDS: HEPARIN SOD 5,000 UNIT/0.5 ML VIAL SQ SCH (01:22)
--- NOTE | 2024-08-21 05:30 | Surgery Progress Note ---
Date of Service August 21, 2024 Assessment & Plan (1) Free intraperitoneal air: Plan: Patient is status post exploratory laparoscopy, appendectomy, and abdominal washout on 08/18/2024 (postop day #3) Surgical pathology is pending Provide analgesics as needed Continue antiemetics as needed Diet was advanced to clear liquid yesterday which patient tolerated. Continue IV fluids until certain oral intake will be adequate Continue antibiotics in form of daptomycin and Zosyn As nursing staff noted patient is markedly weak requiring assistance of 2PT and OT evaluations have been requested/ordered; will continue to mobilize as able Check a.m. labs when available Subcutaneous heparin has been added for DVT prophylaxis as above. doing well. minimal pain. drain serous requesting more to eat...will advance to full liquids. recovery nicely Admission and Anticipated Discharge Date Admission Date: August 19, 2024 Subjective Patient is resting in bedside chair at the time of my interview this morning. She notes her pain is well-controlled. She notes that she has tolerated clear liquids without exacerbating abdominal pain or any nausea or vomiting. She denies shortness of breath I discussed with the nurse attending to the patient and they note/confirm above that there are no issues overnight but they did note the patient appears markedly weak and was requiring the assistance of 2 people to get out of bed to chair. Physical Exam Gastrointestinal (Abdomen): Abdomen is soft and nondistended. There is minimal pain with palpation. Her incisions are clean, dry, and intact. DAVID drain is draining serous/straw-colored fluid. Results & Data Vital Signs (Past 12 Hours) Vital Signs Temp Pulse Pulse Pulse Resp BP Pulse Ox 08/21/24 03:25 36.8 C 79 79 16 116/81 97 08/21/24 00:00 36.6 C 81 18 124/78 94 08/20/24 22:44 08/20/24 21:45 85 08/20/24 20:00 36.6 C 86 18 130/84 96 O2 Del Method 08/21/24 03:25 Room Air 08/21/24 00:00 Room Air 08/20/24 22:44 Room Air 08/20/24 21:45 08/20/24 20:00 Room Air PG Care Time/CCT Total # of Minutes Spent Total Time Spent with Patient: Total time spent is greater than 50% in coordination of care (as documented) at patient's floor/unit and/or counseling patient: Coding Level of Care Code 77239 Post Operative Follow-Up Diagnoses Free intraperitoneal air K66.8
[2024-08-21] MEDS: LEVOTHYROXINE SODIUM 75 MCG TABLET PO SCH (06:25)
[2024-08-21 07:16] LABS: Hematocrit (blood only) 29.9 % (37.0-47.0); Mean Corpuscular Hemoglobin 32.1 pg (25.0-34.0); Mean Corpuscular Hgb Conc 33.4 g/dL (32.0-36.0); Mean Corpuscular Volume 95.8 fL (80.0-100.0); Mean Platelet Volume 9.9 fL (9.4-12.4); Platelet Count 243 K/uL (130-400); RDW Coefficient of Variation 14.7 % (11.5-14.5); RDW Standard Deviation 51.2 fL (36.4-46.3); Red Blood Count 3.12 M/uL (4.20-5.40); White Blood Count 10.29 K/ul (4.8-10.8)
[2024-08-21 07:33] LABS: BUN Creatinine Ratio 36.2 (10-20); Creatinine Clr Calc Pharmacy 105.4 ml/min; Potassium 3.4 mmol/L (3.5-5.1)
[2024-08-21 07:36] LABS: ANC (manual) 9.26 K/uL (1.4-6.5); Lymphocytes % (manual) 1 %; Metamyelocytes # (manual) 0.62 K/uL (0-0); Metamyelocytes % (manual) 6 %; Monocytes # (manual) 0.21 K/uL (0.11-0.59); Monocytes % (manual) 2 %; Myelocytes % (manual) 1 %; Neutrophils # (manual) 9.26 K/uL (1.40-6.50); Neutrophils % (manual) 90 %
[2024-08-21 07:38] LABS: Toxic Granulation 1+
[2024-08-21] MEDS: FAMOTIDINE 20 MG TAB PO SCH (08:28)
[2024-08-21] MEDS: CHOLECALCIFEROL 125 MCG (5,000 UNITS) TAB PO SCH (08:28)
[2024-08-21] MEDS: MULTIVITAMIN TAB PO SCH (08:28)
[2024-08-21] MEDS: POTASSIUM CHLORIDE 10 MEQ TABCR PO SCH (08:35)
--- NOTE | 2024-08-21 13:14 | Hospitalist Progress Note ---
Date of Service August 21, 2024 Assessment & Plan (1) Pneumoperitoneum: Plan: s/p diagnostic laparoscopy, laparoscopic appendectomy, intra-abdominal and pelvic washout (multiple purulent fluid collections found during the surgery) - by Dr Conteh - POD #2 stable from gen surg standpoint and progressing nicely source for free air was not found during the operation --> no gastric perforation or bowel perforation discovered appendix was inflamed during the surgery, and there was a portion of small bowel that was adhesed (adhesions taken down) NG tube discontinued 08/20 clear liquid diet started 08/20 full liquids to start today cont pain meds cont IV zosyn (2) Intra-abdominal fluid collection: Plan: infected fluid collections found intra-operatively intra-op culture has grown e.coli along with klebsiella e.coli is pansensitive sensi's pending for klebsiella cont IV zosyn can likely stop daptomycin if enterococcus or MRSA is not found (3) Hypothyroidism: Plan: TSH wnl cont synthroid (4) Hx of gastric ulcer: Plan: noted no gastric abnormalities found during the surgery cont PPI IV twice daily - can possibly convert to PO PPI tomorrow if still tolerating PO cont pepcid (5) Metastatic lung cancer (metastasis from lung to other site): Plan: 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, spine, lymph nodes s/p whole brain radiation is on dexamethasone 4mg QID at home --> continue such IV did receive 8mg of stress dose dexamethasone vernell-operatively (6) UTI (urinary tract infection): Plan: 2nd e.coli, pansensitive zosyn will suffice Plan DVT proph - heparin 5000 SC TID Mild hypokalemia - replace repeat BMP with mag in am PT/OT evals requested OT eval done today - rehab advised will update family later today can d/c tele move to med/surg Admission and Anticipated Discharge Date Admission Date: August 19, 2024 Subjective tele overnight wnl patient denies abd pain +flatus no stool yet however no nausea/emesis tolerating clears advanced to full liquids by gen surg today denies new complaints she admits to feeling very weak, however Review of Systems Review of Systems: cv - no cp, no orthopnea pulm - no dyspnea, no cough GI - no pain/nausea/emesis - quev[place] in place Physical Exam Physical Exam: gen - looks well, in good spirits; pleasant, NAD mouth - MMM, no thrush neck - no JVD heart - RRR, s1 s2, no murmur lungs - CTA b/l abd - abd binder in place; distension mildly improved; BS+ and improved today; drain in place ext - no edema, pulses 2+ b/l feet Results & Data Results & Data Vital Signs (Past 12 Hours) Vital Signs Temp Pulse Pulse Pulse Resp BP Pulse Ox 08/21/24 11:18 36.3 C L 74 18 129/87 95 08/21/24 08:30 08/21/24 07:34 36.7 C 72 16 133/86 96 08/21/24 07:00 71 08/21/24 03:25 36.8 C 79 79 16 116/81 97 O2 Del Method 08/21/24 11:18 Room Air 08/21/24 08:30 Room Air 08/21/24 07:34 Room Air 08/21/24 07:00 08/21/24 03:25 Room Air Laboratory Results Laboratory Results - last 24 hr 08/21/24 06:38 WBC 10.29 RBC 3.12 L Hgb 10.0 L Hct 29.9 L MCV 95.8 MCH 32.1 MCHC 33.4 RDW Std Deviation 51.2 H RDW Coeff of Melodie 14.7 H Plt Count 243 MPV 9.9 Neutrophils % (Manual) 90 Lymphocytes % (Manual) 1 Monocytes % (Manual) 2 Metamyelocytes % (Man) 6 Myelocytes % (Man) 1 Neutrophils # (Manual) 9.26 H Total Absolute Neuts 9.26 H Lymphocytes # (Manual) 0.10 L Total Abs Lymphocytes 0.10 L Monocytes # (Manual) 0.21 Metamyelocytes # (Man) 0.62 H Myelocytes # (Manual) 0.10 H Toxic Granulation 1+ Sodium 139 Potassium 3.4 L Chloride 110 H Carbon Dioxide 24 Anion Gap 5 BUN 17 Creatinine 0.47 L Est Cr Clr Drug Dosing 105.4 eGFR 104.93 BUN/Creatinine Ratio 36.2 H Glucose 198 H Calcium 8.0 L Diagnostic Findings Microbiology 08/18/24 22:02 Abdomen Gram Stain - Final 08/18/24 22:02 Abdomen Aerobic and Anaerobic Culture - Preliminary Escherichia coli Klebsiella oxytoc/Quinn ornith 08/19/24 01:40 Urine,Clean Catch Urine Culture - Final Escherichia coli PG Care Time/CCT Total # of Minutes Spent Total Time Spent with Patient: Total time spent is greater than 50% in coordination of care (as documented) at patient's floor/unit and/or counseling patient: Coding Level of Care Code 63236 SUB INP/OBS CARE 2/35MIN Diagnoses Pneumoperitoneum K66.8 Intra-abdominal fluid collection R18.8 Hypothyroidism E03.9 Hx of gastric ulcer Z87.11 Metastatic lung cancer (metastasis from lung to other site) C34.90 UTI (urinary tract infection) N39.0
[2024-08-21] MEDS ORDERED: HYDROCODONE/ACETAMOPHEN 5/325MG TAB PO PRN (14:39)
[2024-08-22 06:23] LABS: Hematocrit (blood only) 28.3 % (37.0-47.0); Hemoglobin 9.7 g/dl (12.0-16.0); Mean Corpuscular Hemoglobin 32.3 pg (25.0-34.0); Mean Corpuscular Hgb Conc 34.3 g/dL (32.0-36.0); Mean Corpuscular Volume 94.3 fL (80.0-100.0); Mean Platelet Volume 9.8 fL (9.4-12.4); Nucleated RBC # (auto) 0.03 K/uL (0.00-0.12); Nucleated RBC % (auto) 0.3 %; Platelet Count 250 K/uL (130-400); RDW Coefficient of Variation 14.2 % (11.5-14.5); RDW Standard Deviation 49.1 fL (36.4-46.3)
[2024-08-22 06:37] LABS: BUN Creatinine Ratio 32.6 (10-20); Calcium 8.1 mg/dl (8.6-10.3); Creatinine Clr Calc Pharmacy 107.7 ml/min; Magnesium 1.9 mg/dl (1.7-2.4); Potassium 3.6 mmol/L (3.5-5.1)
--- NOTE | 2024-08-22 08:50 | Surgery Progress Note ---
Date of Service August 22, 2024 Assessment & Plan (1) Free intraperitoneal air: Plan: Patient is status post exploratory laparoscopy, appendectomy, and abdominal washout on 08/18/2024 (postop day #4) VSS advanced to low fiber , denies n/v Continue antibiotics PT and OT , OOB as able. May benefit from rehab on d/c DAVID drain serous Admission and Anticipated Discharge Date Admission Date: August 19, 2024 Supervising Physician Co-Signing Physician Notes Advance to low fiber diet Keep drain in place until discharge Tentatively plan on discharge tomorrow from a surgical standpoint Subjective denies n/v , pain, cp , sob +weakness Review of Systems Constitutional: no fever and no chills Respiratory: no dyspnea Cardiovascular: no chest pain Gastrointestinal: no abdominal pain, no nausea and no vomiting Musculoskeletal: + muscle weakness Psychiatric: no confusion Physical Exam Constitutional: cooperative and comfortable; no acute distress Respiratory: normal respiratory effort and able to speak in complete sentences; no respiratory distress Cardiovascular: Rate/Rhythm: regular rate Gastrointestinal (Abdomen): Inspection/Auscultation: + abdominal surgical incision (dermabond CDI ) and + abdominal surgical drain present Psychiatric: Orientation: alert and oriented x 3 Results & Data Vital Signs (Past 12 Hours) Vital Signs Temp Pulse Resp BP BP Pulse Ox O2 Del Method 08/22/24 07:31 98.6 F 79 18 135/82 95 Room Air 08/21/24 23:44 97.9 F 85 20 128/76 95 Room Air 08/21/24 23:17 Room Air Results CBC w Diff Results: RBC 3.00 M/uL (4.20-5.40) L 08/22/24 WBC 9.90 K/ul (4.8-10.8) 08/22/24 Hgb 9.7 g/dl (12.0-16.0) L 08/22/24 Hct 28.3 % (37.0-47.0) L 08/22/24 MCV 94.3 fL (80.0-100.0) 08/22/24 MCH 32.3 pg (25.0-34.0) 08/22/24 MCHC 34.3 g/dL (32.0-36.0) 08/22/24 RDW Standard Deviation 49.1 fL (36.4-46.3) H 08/22/24 RDW Coefficient of Variation 14.2 % (11.5-14.5) 08/22/24 Plt Count 250 K/uL (130-400) 08/22/24 MPV 9.8 fL (9.4-12.4) 08/22/24 Nucleated Red Blood Cells % (auto) 0.3 % 08/22 Nucleated RBC Absolute Count (auto) 0.03 K/uL (0.00-0.12) 1 10/23/23 Neutrophils (%) (Auto) 87.0 % 08/20/24 Lymphocytes (%) (Auto) 2.3 % 08/20/24 Monocytes # (Auto) 0.14 K/uL (0.11-0.59) 08/20/24 Eosinophils # (Auto) 0.02 K/uL (0.00-0.50) 08/20/24 Immature Granulocyte % (Auto) 7.9 % 08/20/24 Neutrophils # (Auto) 7.66 K/uL (1.40-6.50) H 08/20/24 Lymphocytes # (Auto) 0.20 K/uL (1.20-3.40) L 08/20/24 Monocytes # (Auto) 0.14 K/uL (0.11-0.59) 08/20/24 Eosinophils # (Auto) 0.02 K/uL (0.00-0.50) 08/20/24 Basophils # (Auto) 0.09 K/uL (0.00-0.20) 08/20/24 Immature Granulocyte # (Auto) 0.70 K/uL (0.01-0.20) H 08/20 ANC 9.26 K/uL (1.4-6.5) H 08/21/24 ALC 0.10 K/uL (1.2-3.4) L 08/21/24 Neutrophils % (Manual) 90 % 08/21/24 Lymphocytes % (Manual) 1 % 08/21/24 Monocytes % (Manual) 2 % 08/21/24 Metamyelocytes % (manual) 6 % 08/21/24 Myelocytes % (Manual) 1 % 08/21/24 Neutrophils # (Manual) 9.26 K/uL (1.40-6.50) H 08/21/24 Lymphocytes # (Manual) 0.10 K/uL (1.2-3.4) L 08/21/24 Monocytes # (Manual) 0.21 K/uL (0.11-0.59) 08/21/24 Metamyelocytes # (Manual) 0.62 K/uL (0-0) H 08/21/24 Myelocytes # (Manual) 0.10 K/uL (0-0) H 08/21/24 Polychromasia 1+ 08/19/24 Toxic Granulation 1+ 08/21/24 Toxic Vacuolation 1+ 08/18/24 Dohle Bodies 1+ 08/20/24 PG Care Time/CCT Total # of Minutes Spent Total Time Spent with Patient: Total time spent is greater than 50% in coordination of care (as documented) at patient's floor/unit and/or counseling patient: Coding Level of Care Code 03181 Post Operative Follow-Up Diagnoses Free intraperitoneal air K66.8
[2024-08-22] MEDS: LANTUS PER UNIT CHARGE SQ SCH (08:53)
--- NOTE | 2024-08-22 10:16 | Hospitalist Progress Note ---
Date of Service August 22, 2024 Assessment & Plan (1) Peritonitis: Plan: patient presented after outpatient imaging showed signs of macroperforation and multiple intra-abdominal fluid collections along with bowel dilatation she was admitted and brought immediately to the OR by Dr Conteh there was gross purulence in the abdomen - see below peritonitis is resolved exact etiology of this episode is uncertain (2) Pneumoperitoneum: Plan: s/p diagnostic laparoscopy, laparoscopic appendectomy, intra-abdominal and pelvic washout (multiple purulent fluid collections found during the surgery) - by Dr Conteh - POD #3 stable from gen surg standpoint and progressing nicely source for free air was not found during the operation --> no gastric perforation or bowel perforation discovered appendix was inflamed during the surgery, and there was a portion of small bowel that was adhesed (adhesions taken down) however there was no perforation of the appendix either NG tube discontinued 08/20 clear liquid diet started 08/20 full liquids 08/21 low fiber 08/22 cont pain meds cont IV zosyn for e.coli & klebsiella along with anaerobes growing from intra-op peritoneal fluid culture (3) Intra-abdominal fluid collection: Plan: infected fluid collections found intra-operatively intra-op culture has grown e.coli along with klebsiella - latter sensitivities pending e.coli is pansensitive cont IV zosyn can stop daptomycin - no enterococcus or MRSA has grown on culture (4) Periappendicitis: Plan: pathology resulted from her appendectomy path c/w periappendicitis (see path report) (5) Hypothyroidism: Plan: TSH wnl cont synthroid (6) Hx of gastric ulcer: Plan: noted no gastric abnormalities found during the surgery cont PPI wwice daily - can convert to PO PPI from IV cont pepcid (7) Metastatic lung cancer (metastasis from lung to other site): Plan: 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, spine, lymph nodes s/p whole brain radiation had been on dexamethasone 4mg QID at home in the midst of her vasogenic edema & whole brain radiation was tapering in the weeks leading up to admission - had been weaned down to BID dosing received 8mg of stress dose dexamethasone vernell-operatively then 4mg QID IV will cut to 4mg TID today would use 4mg TID for a few days, then resume BID dosing thereafter, and then continue taper per previous outpatient instruction (8) UTI (urinary tract infection): Plan: 2nd e.coli, pansensitive zosyn will more than suffice (9) Prediabetes: Plan: a1c 6% in 07/2024 with ongoing steroid use and perioperative stress her BSGs have been high add lantus add novolog SSI hopefully at discharge will not need any therapy Plan DVT proph - heparin 5000 SC TID Mild hypokalemia - replaced and resolved would continue K supplement for a few more days then stop PT/OT evals -- both advising rehab patient agreeable to rehab updated 08/21 by phone progressing Admission and Anticipated Discharge Date Admission Date: August 19, 2024 Subjective patient w/o any new complaints although she was very tearful during the visit today admits to ongoing weakness and she is agreeable to rehab to get stronger no abd pain or N/V tolerating full liquids - diet to be advanced by gen surg today +flatus no stool yet no dyspnea she reports her steroids had been weaned recently; a couple of weeks ago she went from QID to TID dosing; did such for a week and right before admission had been down to BID dosing she was going to do BID for 1 week, then QD for 1 week, then off Review of Systems Review of Systems: cv - no chest pain pulm - no dyspnea Physical Exam Physical Exam: gen - looks well, pleasant, NAD mouth - MMM, no thrush neck - no JVD heart - RRR, s1 s2, no murmur lungs - CTA b/l abd - abd binder in place; distension again improved; BS+; drain in place ext - no edema, pulses 2+ b/l feet Results & Data Results & Data Vital Signs (Past 12 Hours) Vital Signs Temp Pulse Resp BP BP Pulse Ox O2 Del Method 08/22/24 07:31 37.0 C 79 18 135/82 95 Room Air 08/21/24 23:44 36.6 C 85 20 128/76 95 Room Air 08/21/24 23:17 Room Air Laboratory Results Laboratory Results - last 24 hr 08/21/24 08/21/24 08/22/24 16:49 20:11 05:59 WBC 9.90 RBC 3.00 L Hgb 9.7 L Hct 28.3 L MCV 94.3 MCH 32.3 MCHC 34.3 RDW Std Deviation 49.1 H RDW Coeff of Melodie 14.2 Plt Count 250 MPV 9.8 Absolute Nucleated RBC 0.03 Nucleated RBC % (auto) 0.3 Sodium 138 Potassium 3.6 Chloride 106 Carbon Dioxide 24 Anion Gap 8 BUN 15 Creatinine 0.46 L Est Cr Clr Drug Dosing 107.7 eGFR 105.47 BUN/Creatinine Ratio 32.6 H Glucose 182 H POC Glucose 168 H 216 H Calcium 8.1 L Magnesium 1.9 08/22/24 07:45 WBC RBC Hgb Hct MCV MCH MCHC RDW Std Deviation RDW Coeff of Melodie Plt Count MPV Absolute Nucleated RBC Nucleated RBC % (auto) Sodium Potassium Chloride Carbon Dioxide Anion Gap BUN Creatinine Est Cr Clr Drug Dosing eGFR BUN/Creatinine Ratio Glucose POC Glucose 153 H Calcium Magnesium PG Care Time/CCT Total # of Minutes Spent Total Time Spent with Patient: Total time spent is greater than 50% in coordination of care (as documented) at patient's floor/unit and/or counseling patient: Coding Level of Care Code 05197 SUB INP/OBS CARE 3/50MIN Diagnoses Peritonitis K65.9 Pneumoperitoneum K66.8 Intra-abdominal fluid collection R18.8 Periappendicitis K37 Hypothyroidism E03.9 Hx of gastric ulcer Z87.11 Metastatic lung cancer (metastasis from lung to other site) C34.90 UTI (urinary tract infection) N39.0 Prediabetes R73.03
[2024-08-22] MEDS: dexAMETHasone 4 MG in SYRINGE 0 ML IV SCH (14:03)
[2024-08-22] MEDS: PANTOprazole 40 MG TAB PO SCH (20:37)
[2024-08-23] MEDS ORDERED: DEXTROSE 50% 50 ML SYRINGE IV PRN (05:00)
[2024-08-23] MEDS ORDERED: GLUCAGON FOR INJ 1 MG VIAL SQ PRN (05:00)
[2024-08-23] MEDS ORDERED: CARBOHYDRATES FOR HYPOGLYCEMIA PO PRN (05:00)
[2024-08-23] MEDS ORDERED: GLUCOSE 10 TAB/TUBE PO PRN (05:00)
[2024-08-23] MEDS ORDERED: GLUCOSE 40% GEL 15 GM TUBE PO PRN (05:00)
[2024-08-23 06:25] LABS: BUN Creatinine Ratio 28.6 (10-20); Calcium 8.5 mg/dl (8.6-10.3); Creatinine Clr Calc Pharmacy 88.5 ml/min; Potassium 3.5 mmol/L (3.5-5.1)
[2024-08-23] MEDS: INSULIN ASPART PER UNIT CHARGE SC SCH (09:06)
--- NOTE | 2024-08-23 12:00 | Surgery Progress Note ---
Date of Service August 23, 2024 Assessment & Plan (1) Free intraperitoneal air: Plan: Patient is status post exploratory laparoscopy, appendectomy, and abdominal washout on 08/18/2024 (postop day #5) VSS tolerating diet , +BM Continue antibiotics for next 2 weeks PT and OT , OOB as able. May benefit from rehab on d/c DAVID drain serous 115ml /24hr. keep until less then 30ml in 24 hr , may need to be discharged with drain. Stable for discharge from surgical standpoint f/u office 1 week pt seen with Dr. Marshall Admission and Anticipated Discharge Date Admission Date: August 19, 2024 Supervising Physician Co-Signing Physician Notes She is doing well and tolerating diet had a bowel movement She has been afebrile and pain has been controlled Her drain still putting out too much to remove at this point She is stable for discharge with p.o. antibiotics for 10 to 14 days with the drain in place He should follow-up in the clinic next week to assess drain removal Surgical sign off at this time, please call with any questions or concerns Subjective +Bm today no pain Review of Systems Constitutional: no fever and no chills Respiratory: no dyspnea Cardiovascular: no chest pain Gastrointestinal: no abdominal pain, no nausea and no vomiting Musculoskeletal: + muscle weakness Psychiatric: no confusion Physical Exam Constitutional: cooperative and comfortable; no acute distress Respiratory: normal respiratory effort and able to speak in complete sentences; no respiratory distress Cardiovascular: Rate/Rhythm: regular rate Gastrointestinal (Abdomen): Inspection/Auscultation: + abdominal surgical incision (dermabond CDI ) and + abdominal surgical drain present Psychiatric: Orientation: alert and oriented x 3 Results & Data Vital Signs (Past 12 Hours) Vital Signs Temp Pulse Resp BP Pulse Ox O2 Del Method 08/23/24 07:55 98.1 F 86 16 122/76 94 Room Air PG Care Time/CCT Total # of Minutes Spent Total Time Spent with Patient: Total time spent is greater than 50% in coordination of care (as documented) at patient's floor/unit and/or counseling patient: Coding Level of Care Code 55983 Post Operative Follow-Up Diagnoses Free intraperitoneal air K66.8
--- NOTE | 2024-08-23 14:38 | Hospitalist Progress Note ---
Date of Service August 23, 2024 Assessment & Plan (1) Peritonitis: Plan: patient presented after outpatient imaging showed signs of macroperforation and multiple intra-abdominal fluid collections along with bowel dilatation she was admitted and brought immediately to the OR by Dr Conteh there was gross purulence in the abdomen - see below peritonitis is resolved exact etiology of this episode is uncertain for today 08/23: I discussed the plan of care with Dr. Marshall and the RN at the bedside appropriate for discharge from the surgical standpoint however she remains too weak we will either need to get stronger to go home or may need rehab stay I will continue her pip-tazo through tonight which will give her 5 days of IV antibiotics then transition to oral Augmentin for 10-14 more days as discussed with Dr. Marshall. I am erring on a longer course of antibiotics because of her chronic steroids which cause immunosuppression he says the drain should remain in place today because the output is too high, is possible she may need to go home with it, follow-up with Dr. Nery Valentine next week today will change her dexamethasone back to oral, 4 mg twice daily change DVT prophylaxis to enoxaparin once daily for comfort (2) Pneumoperitoneum: Plan: s/p diagnostic laparoscopy, laparoscopic appendectomy, intra-abdominal and pelvic washout (multiple purulent fluid collections found during the surgery) - by Dr Conteh - POD #3 stable from gen surg standpoint and progressing nicely source for free air was not found during the operation --> no gastric perforation or bowel perforation discovered appendix was inflamed during the surgery, and there was a portion of small bowel that was adhesed (adhesions taken down) however there was no perforation of the appendix either NG tube discontinued 08/20 clear liquid diet started 08/20 full liquids 08/21 low fiber 08/22 cont pain meds cont IV zosyn for e.coli & klebsiella along with anaerobes growing from intra-op peritoneal fluid culture (3) Intra-abdominal fluid collection: Plan: infected fluid collections found intra-operatively intra-op culture has grown e.coli along with klebsiella - latter sensitivities pending e.coli is pansensitive cont IV zosyn (4) Periappendicitis: Plan: pathology resulted from her appendectomy path c/w periappendicitis (see path report) (5) Hypothyroidism: Plan: TSH wnl cont synthroid (6) Hx of gastric ulcer: Plan: noted no gastric abnormalities found during the surgery cont PPI wwice daily - can convert to PO PPI from IV cont pepcid (7) Metastatic lung cancer (metastasis from lung to other site): Plan: 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, spine, lymph nodes s/p whole brain radiation had been on dexamethasone 4mg QID at home in the midst of her vasogenic edema & whole brain radiation was tapering in the weeks leading up to admission - had been weaned down to BID dosing received stress dose dexamethasone vernell-operatively changed to 4 mg p.o. twice daily at this time (8) UTI (urinary tract infection): Plan: 2nd e.coli, pansensitive zosyn will more than suffice (9) Prediabetes: Plan: a1c 6% in 07/2024 with ongoing steroid use and perioperative stress her BSGs have been high add lantus add novolog SSI hopefully at discharge will not need any therapy Plan DVT proph - heparin 5000 SC TID Mild hypokalemia - replaced and resolved would continue K supplement for a few more days then stop PT/OT evals -- both advising rehab patient agreeable to rehab updated 08/21 by phone progressing Admission and Anticipated Discharge Date Admission Date: August 19, 2024 Subjective Elise is doing well she is tolerating a low fiber diet and she had a bowel movement today she denies any abdominal pain she still has abdominal drain, RN reports she is quite weak requiring 1-2 person assistance Physical Exam 2 Physical Exam: PHYSICAL EXAMINATION Last 24h vital signs reviewed, see documentation in flowsheet General: comfortable appearing, no distress HEENT: Normocephalic, atraumatic, pupils round and equal, sclerae anicteric, no conjunctival injection, moist mucus membranes Lungs: Normal respiratory effort. Clear to auscultation bilaterally. No RRW Heart: Regular rate and rhythm, no murmurs. No JVD Abdomen: Soft, nontender, nondistended. Bowel sounds present. DAVID drain mid abdomen with serosanguineous drainage Extremities: Warm, dry, well-perfused. No extremity edema. Neuro: Alert and oriented x 4, face symmetric, moves 4 extremities well Psych: Normal affect and behavior Results & Data Results & Data Vital Signs (Past 12 Hours) Vital Signs Temp Pulse Resp BP Pulse Ox O2 Del Method 08/23/24 07:55 98.1 F 86 16 122/76 94 Room Air Laboratory Results 08/22/24 05:59 08/23/24 05:52 PG Care Time/CCT Total # of Minutes Spent Total Time Spent with Patient: Total time spent is greater than 50% in coordination of care (as documented) at patient's floor/unit and/or counseling patient: Coding Level of Care Code 01005 SUB INP/OBS CARE 2/35MIN Diagnoses Peritonitis K65.9 Pneumoperitoneum K66.8 Intra-abdominal fluid collection R18.8 Periappendicitis K37 Hypothyroidism E03.9 Hx of gastric ulcer Z87.11 Metastatic lung cancer (metastasis from lung to other site) C34.90 UTI (urinary tract infection) N39.0 Prediabetes R73.03
[2024-08-23] MEDS: dexAMETHasone 4 MG TAB PO SCH (17:16)
[2024-08-24] MEDS: ENOXAPARIN INJ 40 MG/0.4 ML SYR SQ SCH (08:00)
--- NOTE | 2024-08-24 15:35 | Hospitalist Progress Note ---
Date of Service August 24, 2024 Assessment & Plan (1) Peritonitis: Plan: patient presented after outpatient imaging showed signs of macroperforation and multiple intra-abdominal fluid collections along with bowel dilatation she was admitted and brought immediately to the OR by Dr Conteh there was gross purulence in the abdomen - see below peritonitis is resolved remains on abx exact etiology of this episode uncertain (2) Pneumoperitoneum: Plan: s/p diagnostic laparoscopy, laparoscopic appendectomy, intra-abdominal and pelvic washout (multiple purulent fluid collections found during the surgery) - by Dr Conteh - POD #4 stable from gen surg standpoint source for free air was not found during the operation --> no gastric perforation or bowel perforation discovered appendix was inflamed during the surgery, and there was a portion of small bowel that was adhesed (adhesions taken down) however there was no perforation of the appendix either NG tube discontinued 08/20 clear liquid diet started 08/20 full liquids 08/21 low fiber 08/22 -- tolerating such +stools & flatus had been on IV zosyn for e.coli & klebsiella along with anaerobes as seen on intra-op peritoneal fluid culture now over to augmentin plan 14 days of Rx in total today is day #6 of abx (3) Intra-abdominal fluid collection: Plan: infected fluid collections found intra-operatively intra-op culture with e.coli along with klebsiella; today the lab reported clostridial cadaveris as well e.coli is pansensitive klebsiella with some resistance but sensitive to augmentin augmentin should cover the clostridial cadaveris plan 14 days in total if IV/PO abx today is day #6 of abx (4) Periappendicitis: Plan: pathology resulted from her appendectomy path c/w periappendicitis (see path report) (5) Hypothyroidism: Plan: TSH wnl cont synthroid (6) Hx of gastric ulcer: Plan: noted no gastric abnormalities found during the surgery cont PPI twice daily cont pepcid (7) Metastatic lung cancer (metastasis from lung to other site): Plan: 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, spine, lymph nodes s/p whole brain radiation had been on dexamethasone 4mg QID at home in the midst of her vasogenic edema & whole brain radiation was tapering in the weeks leading up to admission - had been weaned down to BID dosing received 8mg of stress dose dexamethasone vernell-operatively then 4mg QID IV then 4mg TID IV now back to dexamethasone 4mg BID plan to wean the dexamethasone over another couple of weeks (8) UTI (urinary tract infection): Plan: 2nd e.coli, pansensitive zosyn now augmentin will suffice (9) Prediabetes: Plan: a1c 6% in 07/2024 with ongoing steroid use and perioperative stress her BSGs have been high cont lantus tighten novolog SSI - add carb coverage 1:20 hopefully at discharge will not need any therapy Plan DVT proph - heparin 5000 SC TID Mild hypokalemia - replaced and resolved would continue K supplement for a nother 1-2 more days then stop repeat BMP am PT/OT evals -- both advising rehab patient agreeable to rehab updated 08/21 by phone progressing very nicely Admission and Anticipated Discharge Date Admission Date: August 19, 2024 Subjective patient denies any abd pain, nausea, or emesis +flatus +stool no dyspnea no chest pain is willing to go to rehab post-d/c eating is fair Review of Systems Review of Systems: cv - no chest pain pulm - no dyspnea or cough - [place] out, voiding w/o difficulty Physical Exam Physical Exam: gen - looks well, pleasant, NAD, resting comfortably in bed mouth - MMM, no thrush neck - no JVD heart - RRR, s1 s2, no murmur lungs - CTA b/l abd - abd binder in place; distension resolving; nontender; BS+; drain in place ext - no edema, pulses 2+ b/l feet Results & Data Results & Data Vital Signs (Past 12 Hours) Vital Signs Temp Pulse Resp BP Pulse Ox O2 Del Method 08/24/24 14:50 36.5 C 88 18 103/69 94 Room Air 08/24/24 08:42 Room Air 08/24/24 07:30 36.7 C 89 18 116/75 95 Room Air Laboratory Results Laboratory Results - last 24 hr 08/23/24 08/23/24 08/24/24 16:53 20:30 07:50 POC Glucose 181 H 216 H 96 08/24/24 12:07 POC Glucose 207 H PG Care Time/CCT Total # of Minutes Spent Total Time Spent with Patient: Total time spent is greater than 50% in coordination of care (as documented) at patient's floor/unit and/or counseling patient: Coding Level of Care Code 71666 SUB INP/OBS CARE 235MIN Diagnoses Peritonitis K65.9 Pneumoperitoneum K66.8 Intra-abdominal fluid collection R18.8 Periappendicitis K37 Hypothyroidism E03.9 Hx of gastric ulcer Z87.11 Metastatic lung cancer (metastasis from lung to other site) C34.90 UTI (urinary tract infection) N39.0 Prediabetes R73.03
[2024-08-24] MEDS: AMOXICILLIN/CLAVULANATE 875 MG TAB PO SCH (17:38)
[2024-08-25 07:13] LABS: BUN Creatinine Ratio 31.7 (10-20); Calcium 8.7 mg/dl (8.6-10.3); Creatinine Clr Calc Pharmacy 76.3 ml/min; Potassium 4.2 mmol/L (3.5-5.1)
--- NOTE | 2024-08-25 13:45 | Hospitalist Progress Note ---
Date of Service August 25, 2024 Assessment & Plan (1) Peritonitis: Plan: 64 y/o woman who was admitted after outpatient imaging showed signs of macroperforation/pneumoperitoneum and multiple intra-abdominal fluid collections along with bowel dilatation. Went immediately to the OR and there was gross purulence in the abdomen. She is immunosuppressed because of chronic steroids for brain metastases. 08/18/24 - diagnostic laparoscopy, laparoscopic appendectomy, intra-abdominal and pelvic washout (multiple purulent fluid collections found during the surgery) - by Dr Conteh source for free air was not found during the operation --> no gastric perforation or bowel perforation discovered appendix was inflamed during the surgery, and there was a portion of small bowel that was adhesed (adhesions taken down) however there was no perforation of the appendix either. Pathology report from [facility] specimen - no perforation visible, cw periappendicitis. had been on IV zosyn for e.coli & klebsiella along with anaerobes (clostridia cadaveris) as seen on intra-op peritoneal fluid culture, changed to augmentin 08/24 plan 14 days of Rx in total still with DAVID drain mid abdomen, may have to discharge with drain. May remove when output <30 mL/24h. Last 24 output a little higher than that (2) Hypothyroidism: Plan: TSH wnl cont synthroid (3) Hx of gastric ulcer: Plan: noted no gastric abnormalities found during the surgery cont PPI twice daily cont pepcid (4) Metastatic lung cancer (metastasis from lung to other site): Plan: 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, spine, lymph nodes s/p whole brain radiation had been on dexamethasone 4mg QID at home in the midst of her vasogenic edema & whole brain radiation was tapering in the weeks leading up to admission - had been weaned down to BID dosing. Given stress dose steroids earlier in admission. continue dexamethasone 4mg BID plan to wean the dexamethasone over another couple of weeks (5) UTI (urinary tract infection): Plan: 2nd e.coli, pansensitive, treated with appropriate ABX (6) Prediabetes: Plan: a1c 6% in 07/2024 with ongoing steroid use and perioperative stress her BSGs have been high cont lantus tighten novolog SSI - added carb coverage 1:20 -reviewed BG 08/25, at goal Plan DVT proph - heparin 5000 SC TID Mild hypokalemia - replaced and resolved. Potassium 4.2 today would continue K supplement for a nother 1-2 more days then stop PT/OT manfred -- both advising rehab patient agreeable to rehab updated 08/21 by phone Admission and Anticipated Discharge Date Admission Date: August 19, 2024 Subjective Doing well, no abdominal pain, drain still in place, moved her bowels today and eating well without nausea Remains physically weak Physical Exam 2 Physical Exam: PHYSICAL EXAMINATION Last 24h vital signs reviewed, see documentation in flowsheet General: comfortable appearing, no distress HEENT: Normocephalic, atraumatic, pupils round and equal, sclerae anicteric, no conjunctival injection, moist mucus membranes Lungs: Normal respiratory effort. Clear to auscultation bilaterally. No RRW Heart: Regular rate and rhythm, no murmurs. No JVD Abdomen: Soft, nontender, nondistended. Bowel sounds present. drain with small amt serous drainage, lap incision sites healing well cdi no erythema Extremities: Warm, dry, well-perfused. No extremity edema. Neuro: Alert and oriented x 4, face symmetric, moves 4 extremities well Psych: Normal affect and behavior Results & Data Results & Data Vital Signs (Past 12 Hours) Vital Signs Temp Pulse Pulse Resp BP Pulse Ox O2 Del Method 08/25/24 11:05 97.7 F 92 H 18 127/82 95 Room Air 08/25/24 07:14 97.9 F 88 18 120/85 94 Room Air Laboratory Results 08/22/24 05:59 08/25/24 05:47 PG Care Time/CCT Total # of Minutes Spent Total Time Spent with Patient: Total time spent is greater than 50% in coordination of care (as documented) at patient's floor/unit and/or counseling patient: Coding Level of Care Code 93682 SUB INP/OBS CARE 2/35MIN Diagnoses Peritonitis K65.9 Hypothyroidism E03.9 Hx of gastric ulcer Z87.11 Metastatic lung cancer (metastasis from lung to other site) C34.90 UTI (urinary tract infection) N39.0 Prediabetes R73.03
--- NOTE | 2024-08-26 13:49 | Hospitalist Progress Note ---
Date of Service August 26, 2024 Assessment & Plan (1) Peritonitis: Plan: 64 y/o woman who was admitted after outpatient imaging showed signs of macroperforation/pneumoperitoneum and multiple intra-abdominal fluid collections along with bowel dilatation. Went immediately to the OR and there was gross purulence in the abdomen. She is immunosuppressed because of chronic steroids for brain metastases. 08/18/24 - diagnostic laparoscopy, laparoscopic appendectomy, intra-abdominal and pelvic washout (multiple purulent fluid collections found during the surgery) - by Dr Conteh source for free air was not found during the operation --> no gastric perforation or bowel perforation discovered appendix was inflamed during the surgery, and there was a portion of small bowel that was adhesed (adhesions taken down) however there was no perforation of the appendix either. Pathology report from [facility] specimen - no perforation visible, cw periappendicitis. initially on pip-tazo, e.coli & klebsiella along with anaerobes (clostridia cadaveris) as seen on intra-op peritoneal fluid culture, changed to augmentin 08/24 plan 14 days of Rx in total still with DAVID drain mid abdomen, may have to discharge with drain. May remove when output <30 mL/24h. Last 24 output 35 mL. Incisions healing well. Eating and moving bowels. Remains afebrile. follow up with Dr. 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 Given stress dose steroids earlier in admission. continue dexamethasone 4mg BID plan to wean the dexamethasone over another couple of weeks (5) UTI (urinary tract infection): Plan: 2nd e.coli, pansensitive, treated with appropriate ABX (6) Prediabetes: Plan: a1c 6% in 07/2024 with ongoing steroid use and perioperative stress her BSGs have been high cont lantus tighten novolog SSI - added carb coverage 1:20 BG at goal 08/26 Plan DVT proph - heparin 5000 SC TID Mild hypokalemia - replaced and resolved. stop K supplement PT/OT manfred -- both advising rehab patient agreeable to rehab updated in room 08/26 Admission and Anticipated Discharge Date Admission Date: August 19, 2024 Subjective denies abdominal pain and nausea, tolerating diet, now having BMs no shortness of breath remains very weak Physical Exam 2 Physical Exam: PHYSICAL EXAMINATION Last 24h vital signs reviewed, see documentation in flowsheet General: awake, in bed, visiting HEENT: Normocephalic, atraumatic, pupils round and equal, sclerae anicteric, no conjunctival injection, moist mucus membranes Lungs: Normal respiratory effort. Clear to auscultation bilaterally. No RRW Heart: Regular rate and rhythm, no murmurs. No JVD Abdomen: Soft, nontender, nondistended. Bowel sounds present. DAVID with serous drainage, lap incisions cdi no drainage or erythema Extremities: Warm, dry, well-perfused. No extremity edema. Neuro: Alert and oriented x 4, face symmetric, moves 4 extremities well Psych: Normal affect and behavior Results & Data Results & Data Vital Signs (Past 12 Hours) Vital Signs Temp Pulse Resp BP Pulse Ox O2 Del Method 08/26/24 07:33 98.1 F 92 H 20 111/76 95 Room Air Laboratory Results 08/22/24 05:59 08/25/24 05:47 PG Care Time/CCT Total # of Minutes Spent Total Time Spent with Patient: Total time spent is greater than 50% in coordination of care (as documented) at patient's floor/unit and/or counseling patient: Coding Level of Care Code 59225 SUB INP/OBS CARE 2/35MIN Diagnoses Peritonitis K65.9 Hypothyroidism E03.9 Hx of gastric ulcer Z87.11 Metastatic lung cancer (metastasis from lung to other site) C34.90 UTI (urinary tract infection) N39.0 Prediabetes R73.03
[2024-08-27] MEDS: PANTOprazole 40 MG TAB PO SCH (10:17)
--- NOTE | 2024-08-27 15:42 | Hospitalist Progress Note ---
Date of Service August 27, 2024 Assessment & Plan (1) Peritonitis: Plan: 64 y/o woman who was admitted after outpatient imaging showed signs of macroperforation/pneumoperitoneum and multiple intra-abdominal fluid collections along with bowel dilatation. Went immediately to the OR and there was gross purulence in the abdomen. She is immunosuppressed because of chronic steroids for brain metastases. 08/18/24 - diagnostic laparoscopy, laparoscopic appendectomy, intra-abdominal and pelvic washout (multiple purulent fluid collections found during the surgery) - by Dr Conteh source for free air was not found during the operation --> no gastric perforation or bowel perforation discovered appendix was inflamed during the surgery, and there was a portion of small bowel that was adhesed (adhesions taken down) however there was no perforation of the appendix either. Pathology report from [facility] specimen - no perforation visible, cw periappendicitis. initially on pip-tazo, e.coli & klebsiella along with anaerobes (clostridia cadaveris) as seen on intra-op peritoneal fluid culture, changed to augmentin 08/24 plan 14 days of Rx in total DAVID output 10 mg last 24h. I pulled drain 08/27 Incisions healing well. Eating and moving bowels. Remains afebrile. follow up with Dr. 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 Given stress dose steroids earlier in admission. continue dexamethasone 4mg BID plan to wean the dexamethasone over another couple of weeks (5) UTI (urinary tract infection): Plan: 2nd e.coli, pansensitive, treated with appropriate ABX (6) Prediabetes: Plan: a1c 6% in 07/2024 with ongoing steroid use and perioperative stress her BSGs have been high cont lantus tighten novolog SSI - added carb coverage 1:20 reviewed BG, at goal today Plan DVT proph - enox 40 mg Mild hypokalemia - replaced and resolved. stop K supplement AM BMP PT/OT evals -- both advising rehab patient agreeable to rehab updated in room 08/26 Admission and Anticipated Discharge Date Admission Date: August 19, 2024 Subjective doing fine, no abdominal pain or nausea remains weak Physical Exam 2 Physical Exam: PHYSICAL EXAMINATION Last 24h vital signs reviewed, see documentation in flowsheet General: awake alert ate all of breakfast HEENT: Normocephalic, atraumatic, pupils round and equal, sclerae anicteric, no conjunctival injection, moist mucus membranes Lungs: Normal respiratory effort. Clear to auscultation bilaterally. No RRW Heart: Regular rate and rhythm, no murmurs. No JVD Abdomen: Soft, nontender, nondistended. Bowel sounds present. DAVID with minimal serous drainage in bulb, lap incisions cdi no drainage or erythema - unchaged Extremities: Warm, dry, well-perfused. No extremity edema. Neuro: Alert and oriented x situation, answers direct questions, face symmetric, moves 4 extremities well Psych: Normal affect and behavior Results & Data Results & Data Vital Signs (Past 12 Hours) Vital Signs Temp Pulse Resp BP Pulse Ox O2 Del Method 08/27/24 11:15 97.5 F L 87 16 111/76 96 Room Air 08/27/24 07:30 97.9 F 84 16 108/75 97 Room Air Laboratory Results 08/22/24 05:59 08/25/24 05:47 PG Care Time/CCT Total # of Minutes Spent Total Time Spent with Patient: Total time spent is greater than 50% in coordination of care (as documented) at patient's floor/unit and/or counseling patient: Coding Level of Care Code 78265 SUB INP/OBS CARE 2/35MIN Diagnoses Peritonitis K65.9 Hypothyroidism E03.9 Hx of gastric ulcer Z87.11 Metastatic lung cancer (metastasis from lung to other site) C34.90 UTI (urinary tract infection) N39.0 Prediabetes R73.03
[2024-08-28 07:29] LABS: Hematocrit (blood only) 33.8 % (37.0-47.0); Hemoglobin 11.4 g/dl (12.0-16.0); Mean Corpuscular Hemoglobin 32.2 pg (25.0-34.0); Mean Corpuscular Hgb Conc 33.7 g/dL (32.0-36.0); Mean Corpuscular Volume 95.5 fL (80.0-100.0); Mean Platelet Volume 9.6 fL (9.4-12.4); Nucleated RBC # (auto) 0.03 K/uL (0.00-0.12); Nucleated RBC % (auto) 0.3 %; Platelet Count 299 K/uL (130-400); RDW Coefficient of Variation 14.7 % (11.5-14.5); RDW Standard Deviation 50.4 fL (36.4-46.3); Red Blood Count 3.54 M/uL (4.20-5.40); White Blood Count 10.79 K/ul (4.8-10.8)
[2024-08-28 07:49] LABS: BUN Creatinine Ratio 47.2 (10-20); Calcium 8.6 mg/dl (8.6-10.3); Creatinine Clr Calc Pharmacy 86.4 ml/min
--- NOTE | 2024-08-28 14:16 | Hospitalist Progress Note ---
Date of Service August 28, 2024 Assessment & Plan (1) Peritonitis: Plan: 64 y/o woman who was admitted after outpatient imaging showed signs of macroperforation/pneumoperitoneum and multiple intra-abdominal fluid collections along with bowel dilatation. Went immediately to the OR and there was gross purulence in the abdomen. She is immunosuppressed because of chronic steroids for brain metastases. 08/18/24 - diagnostic laparoscopy, laparoscopic appendectomy, intra-abdominal and pelvic washout (multiple purulent fluid collections found during the surgery) - by Dr Conteh source for free air was not found during the operation --> no gastric perforation or bowel perforation discovered appendix was inflamed during the surgery, and there was a portion of small bowel that was adhesed (adhesions taken down) however there was no perforation of the appendix either. Pathology report from [facility] specimen - no perforation visible, cw periappendicitis. initially on pip-tazo, e.coli & klebsiella along with anaerobes (clostridia cadaveris) as seen on intra-op peritoneal fluid culture, changed to augmentin 08/24 surgeon recommended 10-14 days of augmentin following the course of IV antibiotics (end date 09/02 thru 09/07) DAVID - pulled drain 08/27 Incisions healing well. Eating and moving bowels. Remains afebrile. Reviewed CBC this morning WBC 10 and Hg increased. BMP unremakable nl Cr and lytes follow up with Dr. 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 Given stress dose steroids earlier in admission. continue dexamethasone 4mg BID plan to wean the dexamethasone over another couple of weeks (5) UTI (urinary tract infection): Plan: 2nd e.coli, pansensitive, treated with appropriate ABX (6) Prediabetes: Plan: a1c 6% in 07/2024 with ongoing steroid use and perioperative stress her BSGs have been high cont lantus tighten novolog SSI - added carb coverage 1:20 reviewed BG, at goal 08/28 Plan DVT proph - enox 40 mg Mild hypokalemia - replaced and resolved. Potassium normal today without supplement last few days PT/OT manfred -- both advising rehab patient agreeable to rehab updated in room 08/26 Admission and Anticipated Discharge Date Admission Date: August 19, 2024 Subjective Elise continues to do well no abdominal pain no nausea moving her bowels eating well Physical Exam 2 Physical Exam: PHYSICAL EXAMINATION Last 24h vital signs reviewed, see documentation in flowsheet General: awake and just finished visiting with a friend HEENT: Normocephalic, atraumatic, pupils round and equal, sclerae anicteric, no conjunctival injection, moist mucus membranes Lungs: Normal respiratory effort. Clear to auscultation bilaterally. No RRW Heart: Regular rate and rhythm, no murmurs. No JVD Abdomen: Soft, nontender, nondistended. Bowel sounds present. lower abdominal dressing clean dry and intact Extremities: Warm, dry, well-perfused. No extremity edema. Neuro: Alert and oriented x situation, answers direct questions, face symmetric, moves 4 extremities well Psych: Normal affect and behavior Results & Data Results & Data Vital Signs (Past 12 Hours) Vital Signs Temp Pulse Resp BP Pulse Ox O2 Del Method 08/28/24 07:24 98.1 F 83 16 118/74 95 Room Air Laboratory Results 08/28/24 06:38 08/28/24 06:38 PG Care Time/CCT Total # of Minutes Spent Total Time Spent with Patient: Total time spent is greater than 50% in coordination of care (as documented) at patient's floor/unit and/or counseling patient: Coding Level of Care Code 19340 SUB INP/OBS CARE 2/35MIN Diagnoses Peritonitis K65.9 Hypothyroidism E03.9 Hx of gastric ulcer Z87.11 Metastatic lung cancer (metastasis from lung to other site) C34.90 UTI (urinary tract infection) N39.0 Prediabetes R73.03
[2024-08-28] MEDS: ACETAMINOPHEN 500 MG TAB PO PRN (20:45)
--- NOTE | 2024-08-29 08:22 | Communication Note ---
<Statement entered by Aaron Conteh, DO - 08/29/24 18:50> This case was discussed with the surgical PA and I agree with this plan Date of Service: August 29, 2024 Patient seen/examined this AM. Tolerating diet. Pain controlled. Abdomen soft, non tender. Incisions c/d/i. DAVID drain has been removed over the weekend. Continue dry gauze/tape dressing and change daily until incision is healed and no longer leaking fluid. Pt is awaiting placement. May follow up with Dr. Carlitos Valentine in 1-2 weeks time.
--- NOTE | 2024-08-29 17:50 | Hospitalist Progress Note ---
Date of Service August 29, 2024 Assessment & Plan (1) Peritonitis: Plan: 64 y/o woman who was admitted after outpatient imaging showed signs of macroperforation/pneumoperitoneum and multiple intra-abdominal fluid collections along with bowel dilatation. Went immediately to the OR and there was gross purulence in the abdomen. She is immunosuppressed because of chronic steroids for brain metastases. 08/18/24 - diagnostic laparoscopy, laparoscopic appendectomy, intra-abdominal and pelvic washout (multiple purulent fluid collections found during the surgery) - by Dr Conteh source for free air was not found during the operation --> no gastric perfora tion or bowel perforation discovered appendix was inflamed during the surgery, and there was a portion of small bowel that was adhesed (adhesions taken down) however there was no perforation of the appendix either. Pathology report from [facility] specimen - no perforation visible, cw periappendicitis. initially on pip-tazo, e.coli & klebsiella along with anaerobes (clostridia cadaveris) as seen on intra-op peritoneal fluid culture, changed to augmentin 08/24 surgeon recommended 10-14 days of augmentin following the course of IV antibiotics (end date 09/02 thru 09/07) DAVID - pulled drain 08/27 Incisions healing well. Eating and moving bowels. Remains afebrile. follow up with Dr. Conteh in 1-2 weeks Elise continues to do well and at this time is awaiting placement at inpatient rehab or SNF rehab, not strong enough to return home physically yet (2) Hypothyroidism: Plan: TSH wnl cont synthroid (3) Hx of gastric ulcer: Plan: noted no gastric abnormalities found during the surgery cont PPI twice daily cont pepcid (4) Metastatic lung cancer (metastasis from lung to other site): Plan: 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, spine, lymph nodes s/p whole brain radiation had been on dexamethasone 4mg QID at home in the midst of her vasogenic edema & whole brain radiation was tapering in the weeks leading up to admission - had been weaned down to BID dosing. Given stress dose steroids earlier in admission. continue dexamethasone 4mg BID plan to wean the dexamethasone over another couple of weeks (5) UTI (urinary tract infection): Plan: 2nd e.coli, pansensitive, treated with appropriate ABX (6) Prediabetes: Plan: a1c 6% in 07/2024 with ongoing steroid use and perioperative stress her BSGs have been high cont lantus / aspart reviewed BG, at goal 08/29 Plan DVT proph - enox 40 mg Mild hypokalemia - replaced and resolved. Potassium normal today without supplement last few days PT/OT manfred -- both advising rehab patient agreeable to rehab updated in room 08/26 Admission and Anticipated Discharge Date Admission Date: August 19, 2024 Subjective doing fine and no new issues no abdominal pain eating well moving bowels, remains very weak feels a little bit better Physical Exam Physical Exam: PHYSICAL EXAMINATION Last 24h vital signs reviewed, see documentation in flowsheet General: awake and alert lying in bed HEENT: Normocephalic, atraumatic, pupils round and equal, sclerae anicteric, no conjunctival injection, moist mucus membranes Lungs: Normal respiratory effort. Clear to auscultation bilaterally. No RRW Heart: Regular rate and rhythm, no murmurs. No JVD Abdomen: Soft, nontender, nondistended. Bowel sounds present. midline lower abdomen drain site has crusted over, no erythema no drainage on the dressing. other laparoscopy sites healing well Extremities: Warm, dry, well-perfused. No extremity edema. Neuro: Alert and oriented x situation, answers direct questions, face symmetric, moves 4 extremities well Psych: Normal affect and behavior Results & Data Results & Data Vital Signs (Past 12 Hours) Vital Signs Temp Pulse Resp BP Pulse Ox O2 Del Method 08/29/24 14:55 98.6 F 89 16 114/77 97 Room Air 08/29/24 07:23 98.4 F 93 H 16 107/72 96 Room Air PG Care Time/CCT Total # of Minutes Spent Total Time Spent with Patient: Total time spent is greater than 50% in coordination of care (as documented) at patient's floor/unit and/or counseling patient: Coding Level of Care Code 85132 SUB INP/OBS CARE 09/24MIN Diagnoses Peritonitis K65.9 Hypothyroidism E03.9 Hx of gastric ulcer Z87.11 Metastatic lung cancer (metastasis from lung to other site) C34.90 UTI (urinary tract infection) N39.0 Prediabetes R73.03
--- NOTE | 2024-08-30 08:20 | Hospitalist Progress Note ---
Date of Service August 30, 2024 Assessment & Plan (1) Peritonitis: Plan: 64 y/o woman who was admitted after outpatient imaging showed signs of macroperforation/pneumoperitoneum and multiple intra-abdominal fluid collections along with bowel dilatation. Went immediately to the OR and there was gross purulence in the abdomen. Immunosuppressed because of chronic steroids for brain metastases. s/p diagnostic laparoscopy, laparoscopic appendectomy, intra-abdominal and pelvic washout (multiple purulent fluid collections found during the surgery) - by Dr Conteh on 08/18/24 -source for free air was not found during the operation --> no gastric perforation or bowel perforation discovered -appendix was inflamed during the surgery, and there was a portion of small bowel that was adhesed (adhesions taken down) however there was no perforation of the appendix either. Pathology report from [facility] specimen - no perforation visible, cw periappendicitis. Zosyn IV initially Cx from OR w/ e.coli & klebsiella along with anaerobes (clostridia cadaveris) Changed to augmentin 08/24 -surgeon recommended 10-14 days of augmentin following the course of IV antibiotics (end date 09/02 thru 09/07) DAVID pulled 08/27 Incision healing, eating/drinking and moving bowels. Afebrile. Surgery f/u [facility] 1-2 weeks PPI increased to BID given hx gastric ulcer and on prednisone for metastatic disease as well as lovenox sq for DVT prophylaxis. continue pepcid. Electrolytes/hypokalemia stable. Mag wnl >2 Dispo: wanting rehab, still reporting too weak to return home but improving daily with therapy. CM following and ref to [facility] in place, [facility] denied. 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 Given stress dose steroids earlier in admission. continue dexamethasone 4mg BID plan to wean the dexamethasone over another couple of weeks (5) UTI (urinary tract infection): Plan: 2nd e.coli, pansensitive, treated with appropriate ABX (6) Prediabetes: Plan: a1c 6% in 07/2024 with ongoing steroid use and perioperative stress her BSGs have been high cont lantus / aspart, monitor BSGs - acceptable Plan DVT proph - Lovenox SQ as above PT/OT rec rehab, CM following and [facility] ref in place. Dc when bed available planned Admission and Anticipated Discharge Date Admission Date: August 19, 2024 Subjective Eval this morning, just got done working with therapy. Ambulation 70ft x 2 , little winded following but improving daily. DIscussed pain, reports under control. No increased abdominal pain. [facility] denied but ref to [facility] in place. Discussed if continued improvement if wanting to go home vs rehab and she reports feeling her legs too weak to go home at this point/still wanting to pursue rehab at this time. Physical Exam 2 Physical Exam: General: 64yo female sitting up in bed, just got done working with rehab, fatigued appearing but reporting improving HEENT: hair loss from chemo, mm improved, trachea midline Resp: even/unlabored, 96% on RA CV: incisions look well, scant crusting, no overt tenderness/guarding Psych: alert to person/place, cooperative with exam Results & Data Results & Data Vital Signs (Past 12 Hours) Vital Signs Temp Pulse Resp BP Pulse Ox O2 Del Method 08/30/24 07:09 36.5 C 86 16 102/67 96 Room Air Laboratory Results 08/30/24 08:33 08/30/24 08:33 Mag 2.1 PG Care Time/CCT Total # of Minutes Spent Total Time Spent with Patient: Total time spent is greater than 50% in coordination of care (as documented) at patient's floor/unit and/or counseling patient: Coding Level of Care Code 72790 SUB INP/OBS CARE 2/35MIN Diagnoses Peritonitis K65.9 Hypothyroidism E03.9 Hx of gastric ulcer Z87.11 Metastatic lung cancer (metastasis from lung to other site) C34.90 UTI (urinary tract infection) N39.0 Prediabetes R73.03
[2024-08-30 09:26] LABS: BUN Creatinine Ratio 41.5 (10-20); Calcium 8.6 mg/dl (8.6-10.3); Creatinine Clr Calc Pharmacy 86.4 ml/min; Magnesium 2.1 mg/dl (1.7-2.4); Potassium 3.7 mmol/L (3.5-5.1)
[2024-08-30 09:34] LABS: Hematocrit (blood only) 35.4 % (37.0-47.0); Hemoglobin 11.7 g/dl (12.0-16.0); Mean Corpuscular Hemoglobin 31.8 pg (25.0-34.0); Mean Corpuscular Hgb Conc 33.1 g/dL (32.0-36.0); Mean Corpuscular Volume 96.2 fL (80.0-100.0); Mean Platelet Volume 9.6 fL (9.4-12.4); Nucleated RBC # (auto) 0.03 K/uL (0.00-0.12); Nucleated RBC % (auto) 0.3 %; Platelet Count 269 K/uL (130-400); RDW Coefficient of Variation 15.1 % (11.5-14.5); Red Blood Count 3.68 M/uL (4.20-5.40); White Blood Count 10.74 K/ul (4.8-10.8)
[2024-08-30] MEDS: PANTOprazole 40 MG TAB PO SCH (20:19)
--- NOTE | 2024-08-31 08:02 | Hospitalist Progress Note ---
Date of Service August 31, 2024 Assessment & Plan (1) Peritonitis: Plan: 64 y/o woman who was admitted after outpatient imaging showed signs of macroperforation/pneumoperitoneum and multiple intra-abdominal fluid collections along with bowel dilatation. Went immediately to the OR and there was gross purulence in the abdomen. Immunosuppressed because of chronic steroids for brain metastases. s/p diagnostic laparoscopy, laparoscopic appendectomy, intra-abdominal and pelvic washout (multiple purulent fluid collections found during the surgery) - by Dr Conteh on 08/18/24 -source for free air was not found during the operation --> no gastric perforation or bowel perforation discovered -appendix was inflamed during the surgery, and there was a portion of small bowel that was adhesed (adhesions taken down) however there was no perforation of the appendix either. Pathology report from [facility] specimen - no perforation visible, cw periappendicitis. Zosyn IV initially Cx from OR w/ e.coli & klebsiella along with anaerobes (clostridia cadaveris) Changed to augmentin 08/24 -surgeon recommended 10-14 days of Augmentin following the course of IV antibiotics (end date 09/02 thru 09/07) DAVID pulled 08/27 Incision healing, eating/drinking and moving bowels. Afebrile. PPI to BID given hx gastric ulcer on prednisone for metastatic disease and Lovenox SQ for DVT proph Surgery f/u [facility] 1-2 weeks Dispo: wanting rehab, still reporting too weak to return home but improving daily with therapy. CM following and ref to [facility] in place, [facility] denied. 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 Given stress dose steroids earlier in admission. continue dexamethasone 4mg BID plan to wean the dexamethasone over another couple of weeks (5) UTI (urinary tract infection): Plan: 2nd e.coli, pansensitive, treated with appropriate ABX (6) Prediabetes: Plan: a1c 6% in 07/2024 with ongoing steroid use and perioperative stress her BSGs have been high cont lantus / aspart, monitor BSGs - acceptable Plan DVT proph - Lovenox SQ as above PT/OT rec rehab, CM following and [facility] ref in place. Dc when bed available planned Admission and Anticipated Discharge Date Admission Date: August 19, 2024 Supervising Physician Co-Signing Physician Notes The patient was not seen by me. The chart was reviewed. Case discussed with YEN Monson. Agree with assessment and plan Subjective Eval this morning, feeling well. Ate 100% of breakfast. No significant abdominal pain. Incisions healing well. No fever/chills, denies CP/SOB, 97% on RA. No nausea/vomiting. Reports feeling stronger little by little everyday, still wait for rehab. Ref to [facility] in place, CM following. Questions/concerns addressed at this time. Physical Exam 2 Physical Exam: General: 64yo female sitting up in bed, appears improved just got done working with rehab, fatigued appearing but reporting improving HEENT: hair loss from chemo, mm improved, trachea midline Resp: even/unlabored, no obvious wheezing/rales, on RA CV: incisions look well, abdomen soft/no overt tenderness/guarding or rebound Psych: alert to person/place, cooperative with exam Results & Data Results & Data Vital Signs (Past 12 Hours) Vital Signs Temp Pulse Resp BP Pulse Ox O2 Del Method 08/31/24 07:06 36.7 C 84 16 120/81 97 Room Air Laboratory Results 08/30/24 08:33 08/30/24 08:33 PG Care Time/CCT Total # of Minutes Spent Total Time Spent with Patient: Total time spent is greater than 50% in coordination of care (as documented) at patient's floor/unit and/or counseling patient: Coding Level of Care Code 61359 SUB INP/OBS CARE 09/24MIN Diagnoses Peritonitis K65.9 Hypothyroidism E03.9 Hx of gastric ulcer Z87.11 Metastatic lung cancer (metastasis from lung to other site) C34.90 UTI (urinary tract infection) N39.0 Prediabetes R73.03
--- NOTE | 2024-09-01 18:36 | Hospitalist Progress Note ---
Date of Service September 01, 2024 Assessment & Plan (1) Peritonitis: Plan: 64 y/o woman who was admitted after outpatient imaging showed signs of macroperforation/pneumoperitoneum and multiple intra-abdominal fluid collections along with bowel dilatation. Went immediately to the OR and there was gross purulence in the abdomen. Immunosuppressed because of chronic steroids for brain metastases. S/p diagnostic laparoscopy, laparoscopic appendectomy, intra-abdominal and pelvic washout (multiple purulent fluid collections found during the surgery) - by Dr Conteh on 08/18/24 - Source for free air was not found during the operation, no gastric perforation or bowel perforation discovered - Appendix was inflamed during the surgery, and there was a portion of small bowel that was adhesed (adhesions taken down) - Pathology report from appendix specimen --> no perforation visible, consistent with periappendicitis. Zosyn IV initially Cultures from OR w/ e.coli & klebsiella along with anaerobes (clostridia cadaveris) Initially treated with Zosyn IV, downgraded to Augmentin p.o. with last day of treatment on 09/07/2024 per discussion with surgeon Incision healing, eating/drinking and moving bowels. Afebrile. PPI to BID given hx gastric ulcer on prednisone for metastatic disease and Lovenox SQ for DVT proph Surgery f/u [facility] 1-2 weeks Dispo: wanting rehab, still reporting too weak to return home but improving daily with therapy. 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 Given stress dose steroids earlier in admission. continue dexamethasone 4mg BID plan to wean the dexamethasone over another couple of weeks (5) UTI (urinary tract infection): Plan: 2nd e.coli, pansensitive, treated with appropriate ABX (6) Prediabetes: Plan: a1c 6% in 07/2024 with ongoing steroid use and perioperative stress her BSGs have been high cont lantus / aspart, monitor BSGs - acceptable Plan DVT proph - Lovenox SQ as above PT/OT rec rehab, CM following and [facility] ref in place. Dc when bed available planned Admission and Anticipated Discharge Date Admission Date: August 19, 2024 Subjective Patient seen and evaluated at bedside. She is in good spirits. She reports she had a bowel movement today. She notes a good appetite and is sleeping well at night. She denies nausea, vomiting, abdominal pain. We discussed continuing to wait for rehab placement. She denies any acute complaints at this time. Physical Exam Physical Exam: General: No acute distress, nondiaphoretic, well-developed, well-nourished. Skin: The skin was without rashes, erythema, edema, or bruising. Cardiac: Regular rate and rhythm without murmurs gallops or rubs. Pulm: Clear to auscultation bilaterally without wheezes, rales or rhonchi. No respiratory distress. 96% on room air. Abdominal: Soft, nontender, nondistended. Bowel sounds present. Laparoscopy sites healing well. Neuro: A&O x2 (person and place). No focal neurological deficits. Results & Data Results & Data Vital Signs (Past 12 Hours) Vital Signs Temp Pulse Resp BP Pulse Ox O2 Del Method 09/01/24 14:06 97.7 F 76 16 111/74 96 Room Air 09/01/24 07:33 98.1 F 83 16 124/81 95 Room Air PG Care Time/CCT Total # of Minutes Spent Total Time Spent with Patient: Total time spent is greater than 50% in coordination of care (as documented) at patient's floor/unit and/or counseling patient: Coding Level of Care Code 25708 SUB INP/OBS CARE 09/24MIN Diagnoses Peritonitis K65.9 Hypothyroidism E03.9 Hx of gastric ulcer Z87.11 Metastatic lung cancer (metastasis from lung to other site) C34.90 UTI (urinary tract infection) N39.0 Prediabetes R73.03
[2024-09-02] MEDS ORDERED: PHARMACY GLYCEMIC MGMT CONSULT PRN (17:10)
--- NOTE | 2024-09-02 17:13 | Hospitalist Progress Note ---
Date of Service September 02, 2024 Assessment & Plan (1) Peritonitis: Plan: 64 y/o woman who was admitted after outpatient imaging showed signs of macroperforation/pneumoperitoneum and multiple intra-abdominal fluid collections along with bowel dilatation. Went immediately to the OR and there was gross purulence in the abdomen. Immunosuppressed because of chronic steroids for brain metastases. S/p diagnostic laparoscopy, laparoscopic appendectomy, intra-abdominal and pelvic washout (multiple purulent fluid collections found during the surgery) - by Dr Conteh on 08/18/24 - Source for free air was not found during the operation, no gastric perforation or bowel perforation discovered - Appendix was inflamed during the surgery, and there was a portion of small bowel that was adhesed (adhesions taken down) - Pathology report from appendix specimen --> no perforation visible, consistent with periappendicitis. Zosyn IV initially Cultures from OR w/ e.coli & klebsiella along with anaerobes (clostridia cadaveris) Initially treated with Zosyn IV, downgraded to Augmentin p.o. with last day of treatment on 09/07/2024 per discussion with surgeon Incision healing, eating/drinking and moving bowels. Afebrile. PPI to BID given hx gastric ulcer on prednisone for metastatic disease and Lovenox SQ for DVT proph Surgery f/u [facility] 1-2 weeks Dispo: wanting rehab, still reporting too weak to return home but improving daily with therapy. 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 Given stress dose steroids earlier in admission. continue dexamethasone 4mg BID plan to wean the dexamethasone over another couple of weeks (5) UTI (urinary tract infection): Plan: 2nd e.coli, pansensitive, treated with appropriate ABX (6) Prediabetes: Plan: a1c 6% in 07/2024 with ongoing steroid use and perioperative stress her BSGs have been high pharmacy glycemic consult placed Plan Discussed discharge planning with case management Consulted pharmacy glycemic management DVT proph - Lovenox SQ Dispo: Discharged to [facility] for 09/05/2024 CODE STATUS: Full code Admission and Anticipated Discharge Date Admission Date: August 19, 2024 Subjective Patient seen and evaluated bedside. She has no acute complaints at this time. She reports eating, drinking, and sleeping well. We discussed that she has been accepted to [facility] on 09/05/2024. Physical Exam Physical Exam: General: No acute distress, nondiaphoretic, well-developed, well-nourished. Skin: The skin was without rashes, erythema, edema, or bruising. Cardiac: Well-perfused, regular rate in the 80s. Pulm: Normal respiratory effort. 97% on room air. Abdominal: Laparoscopy sites healing well. Neuro: A&O x2 (person and place). No focal neurological deficits. Results & Data Results & Data Vital Signs (Past 12 Hours) Vital Signs Temp Pulse Resp BP Pulse Ox O2 Del Method 09/02/24 14:17 98.6 F 82 17 107/74 97 Room Air 09/02/24 07:17 98.1 F 82 16 112/76 95 Room Air Laboratory Results Reviewed POC glucoses - elevated PG Care Time/CCT Total # of Minutes Spent Total Time Spent with Patient: Total time spent is greater than 50% in coordination of care (as documented) at patient's floor/unit and/or counseling patient: Coding Level of Care Code 85765 SUB INP/OBS CARE 3/50MIN Diagnoses Peritonitis K65.9 Hypothyroidism E03.9 Hx of gastric ulcer Z87.11 Metastatic lung cancer (metastasis from lung to other site) C34.90 UTI (urinary tract infection) N39.0 Prediabetes R73.03
--- NOTE | 2024-09-03 14:07 | Pharmacy Report ---
Pharmacy Glycemic Short Note 2 - Date of Service September 03, 2024 - Glycemic Short BSG Results (Last 24 hours): 09/02/24 09/02/24 09/03/24 16:26 20:14 08:23 POC Glucose 242 H 138 H 117 H 09/03/24 12:10 POC Glucose 124 H OUTPATIENT ANTIDIABETIC REGIMEN: * None - diet controlled pre-diabetes HbA1c: * 6% (07/21/24) ASSESSMENT: * 64 yo F admitted on 08/18/24 secondary to perforated viscous. Pharmacy has been consulted to assist with inpatient glycemic management. Patient is a pre- diabetic as an outpatient. Please refer to outpatient regimen and most recent HbA1c above. * Patient has been on dexamethasone for some time now secondary to metastatic lung cancer. Was on 4 mg PO QID at home which has been reduced to 4 mg PO BID at our facility since 08/23/24. * Steroid-induced hyperglycemia is likely the cause of pharmacy consult last evening. Hospitalist had patient on 5 units of basal daily as well as Novolog with CF 50 and CR 20 with goal range of 120-160. Some BSGs were creeping up into the 200s over the last 48 hours. * Fasting BSG today is 117 mg/dL. Will continue with current basal dosing for now. * Novolog was tightened last evening when consult came in. Goal range was tightened as well. Will tighten CF and CR further this AM to help with steroid-induced hyperglycemia. PLAN FOR INPATIENT GLYCEMIC CONTROL: * Basal insulin * Lantus 5 units SC daily * Bolus insulin * NovoLog per scale ACHS or Q6hrs while NPO * Goal Range: Low 110 mg/dL - High 140 mg/dL * Correction Factor: 30 mg/dL/unit * Nutritional / Prandial insulin per carb ratio of 1 unit per 10 grams CHO consumed
--- NOTE | 2024-09-03 17:45 | Hospitalist Progress Note ---
Date of Service September 03, 2024 Assessment & Plan (1) Peritonitis: Plan: 64 y/o woman who was admitted after outpatient imaging showed signs of macroperforation/pneumoperitoneum and multiple intra-abdominal fluid collections along with bowel dilatation. Went immediately to the OR and there was gross purulence in the abdomen. Immunosuppressed because of chronic steroids for brain metastases. S/p diagnostic laparoscopy, laparoscopic appendectomy, intra-abdominal and pelvic washout (multiple purulent fluid collections found during the surgery) - by Dr Conteh on 08/18/24 - Source for free air was not found during the operation, no gastric perforation or bowel perforation discovered - Appendix was inflamed during the surgery, and there was a portion of small bowel that was adhesed (adhesions taken down) - Pathology report from appendix specimen --> no perforation visible, consistent with periappendicitis. Zosyn IV initially Cultures from OR w/ e.coli & klebsiella along with anaerobes (clostridia cadaveris) Initially treated with Zosyn IV, downgraded to Augmentin p.o. with last day of treatment on 09/07/2024 per discussion with surgeon Incision healing, eating/drinking and moving bowels. Afebrile. PPI to BID given hx gastric ulcer on prednisone for metastatic disease and Lovenox SQ for DVT proph Surgery f/u [facility] 1-2 weeks Dispo: wanting rehab, still reporting too weak to return home but improving daily with therapy. CM following and ref to [facility] in place, [facility] denied (2) Hypothyroidism: Plan: TSH wnl cont synthroid (3) Hx of gastric ulcer: Plan: noted no gastric abnormalities found during the surgery cont PPI twice daily, review was on once daily inpatient and given on lovenox for dvt proph will increase to BID and has been continued cont Pepcid (4) Metastatic lung cancer (metastasis from lung to other site): Plan: 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, spine, lymph nodes s/p whole brain radiation had been on dexamethasone 4mg QID at home in the midst of her vasogenic edema & whole brain radiation was tapering in the weeks leading up to admission - had been weaned down to BID dosing. Given stress dose steroids earlier in admission. continue dexamethasone 4mg BID plan to wean the dexamethasone over another couple of weeks (5) UTI (urinary tract infection): Plan: 2nd e.coli, pansensitive, treated with appropriate ABX (6) Prediabetes: Plan: a1c 6% in 07/2024 with ongoing steroid use and perioperative stress her BSGs have been high pharmacy glycemic consult placed Plan DVT proph - Lovenox SQ Dispo: Discharged to [facility] plan for 09/05/2024 CODE STATUS: Full code Admission and Anticipated Discharge Date Admission Date: August 19, 2024 Subjective Patient seen and evaluated at bedside. She had some concerns regarding the transition to rehab. I answered her questions to the best my ability, but informed her to ask case management if she still has further questions. No acute medical complaints or concerns at this time. Physical Exam Physical Exam: General: No acute distress, nondiaphoretic, well-developed, well-nourished. Skin: The skin was without rashes, erythema, edema, or bruising. Cardiac: Well-perfused, regular rate in the 80s. Pulm: Normal respiratory effort. 97% on room air. Abdominal: Laparoscopy sites healing well. Neuro: A&O x2 (person and place). No focal neurological deficits. Results & Data Results & Data Vital Signs (Past 12 Hours) Vital Signs Temp Pulse Resp BP Pulse Ox O2 Del Method 09/03/24 15:50 97.3 F L 81 18 113/79 95 Room Air 09/03/24 07:30 97.9 F 70 18 114/76 96 Room Air Laboratory Results Reviewed POC glucoses PG Care Time/CCT Total # of Minutes Spent Total Time Spent with Patient: Total time spent is greater than 50% in coordination of care (as documented) at patient's floor/unit and/or counseling patient: Coding Level of Care Code 79620 SUB INP/OBS CARE 09/24MIN Diagnoses Peritonitis K65.9 Hypothyroidism E03.9 Hx of gastric ulcer Z87.11 Metastatic lung cancer (metastasis from lung to other site) C34.90 UTI (urinary tract infection) N39.0 Prediabetes R73.03
--- NOTE | 2024-09-04 08:37 | Hospitalist Progress Note ---
Date of Service September 04, 2024 Assessment & Plan (1) Peritonitis: Plan: 64 y/o woman who was admitted after outpatient imaging showed signs of macroperforation/pneumoperitoneum and multiple intra-abdominal fluid collections along with bowel dilatation. Went immediately to the OR and there was gross purulence in the abdomen. Immunosuppressed because of chronic steroids for brain metastases. S/p diagnostic laparoscopy, laparoscopic appendectomy, intra-abdominal and pelvic washout (multiple purulent fluid collections found during the surgery) - by Dr Conteh on 08/18/24 - Source for free air was not found during the operation, no gastric perforation or bowel perforation discovered - Appendix was inflamed during the surgery, and there was a portion of small bowel that was adhesed (adhesions taken down) - Pathology report from appendix specimen --> no perforation visible, consistent with periappendicitis. Cultures from OR w/ e.coli & klebsiella along with anaerobes (clostridia cadaveris) Initially treated with Zosyn IV, downgraded to Augmentin p.o. with last day of treatment on 09/07/2024 per discussion with surgeon Incision healing, eating/drinking and moving bowels. Afebrile. PPI to BID given hx gastric ulcer on prednisone for metastatic disease and Lovenox SQ for DVT proph Surgery f/u [facility] 1-2 weeks Dispo: Accepted at [facility], anticipate discharge there on 09/05/24 (2) Hypothyroidism: Plan: TSH wnl cont synthroid (3) Hx of gastric ulcer: Plan: noted no gastric abnormalities found during the surgery cont PPI twice daily, review was on once daily inpatient and given on lovenox for dvt proph will increase to BID and has been continued cont Pepcid (4) Metastatic lung cancer (metastasis from lung to other site): Plan: 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, spine, lymph nodes s/p whole brain radiation had been on dexamethasone 4mg QID at home in the midst of her vasogenic edema & whole brain radiation was tapering in the weeks leading up to admission - had been weaned down to BID dosing. Given stress dose steroids earlier in admission. continue dexamethasone 4mg BID plan to wean the dexamethasone over another couple of weeks (5) UTI (urinary tract infection): Plan: 2nd e.coli, pansensitive, treated with appropriate ABX (6) Prediabetes: Plan: a1c 6% in 07/2024 with ongoing steroid use and perioperative stress her BSGs have been high pharmacy glycemic consult placed Plan Updated at bedside DVT proph - Lovenox SQ Dispo: Discharge to [facility] planned for 09/05/2024 CODE STATUS: Full code Admission and Anticipated Discharge Date Admission Date: August 19, 2024 Subjective Patient seen and evaluated at bedside with her present. She has no acute complaints or concerns at this time. Anticipate discharge to [facility] tomorrow, 09/05/2024. Physical Exam Physical Exam: General: No acute distress, nondiaphoretic, well-developed, well-nourished. Skin: The skin was without rashes, erythema, edema, or bruising. Cardiac: Well-perfused, regular rate in the 80s. Pulm: Normal respiratory effort. 96% on room air. Abdominal: Laparoscopy sites healing well. Neuro: A&O x2 (person and place). No focal neurological deficits. Results & Data Results & Data Vital Signs (Past 12 Hours) Vital Signs Temp Pulse Pulse Resp BP Pulse Ox O2 Del Method 09/04/24 07:59 97.9 F 74 18 126/85 96 Room Air 09/04/24 07:30 98.2 F 75 18 114/78 96 Room Air 09/03/24 22:04 98.2 F 77 14 114/77 96 Room Air Laboratory Results Reviewed POC glucoses PG Care Time/CCT Total # of Minutes Spent Total Time Spent with Patient: Total time spent is greater than 50% in coordination of care (as documented) at patient's floor/unit and/or counseling patient: Coding Level of Care Code 39028 SUB INP/OBS CARE 2/35MIN Diagnoses Peritonitis K65.9 Hypothyroidism E03.9 Hx of gastric ulcer Z87.11 Metastatic lung cancer (metastasis from lung to other site) C34.90 UTI (urinary tract infection) N39.0 Prediabetes R73.03
[2024-09-04] MEDS: LANTUS PER UNIT CHARGE SQ SCH (08:52)
--- NOTE | 2024-09-04 13:54 | Pharmacy Report ---
Pharmacy Glycemic Short Note 2 - Date of Service September 04, 2024 - Glycemic Short BSG Results (Last 24 hours): 09/03/24 09/03/24 09/03/24 16:58 17:00 20:42 POC Glucose 394 H* 203 H 133 H 09/04/24 09/04/24 07:47 11:59 POC Glucose 134 H 102 H OUTPATIENT ANTIDIABETIC REGIMEN: * None - diet controlled pre-diabetes HbA1c: * 6% (07/21/24) ASSESSMENT: 09/04: * Elise received 19 units of insulin yesterday, 5 basal + 14 bolus. BSGs were: 126-059-004-133 mg/dL. * Fasting BSG increased to 134 mg/dL. Increased basal this AM. * Had tightened Novolog parameters yesterday morning. Lunchtime BSG trended down below goal to 102 mg/dL today. Will loosen carb ratio. 09/03: * 64 yo F admitted on 08/18/24 secondary to perforated viscous. Pharmacy has been consulted to assist with inpatient glycemic management. Patient is a pre- diabetic as an outpatient. Please refer to outpatient regimen and most recent HbA1c above. * Patient has been on dexamethasone for some time now secondary to metastatic lung cancer. Was on 4 mg PO QID at home which has been reduced to 4 mg PO BID at our facility since 08/23/24. * Steroid-induced hyperglycemia is likely the cause of pharmacy consult last evening. Hospitalist had patient on 5 units of basal daily as well as Novolog with CF 50 and CR 20 with goal range of 120-160. Some BSGs were creeping up into the 200s over the last 48 hours. * Fasting BSG today is 117 mg/dL. Will continue with current basal dosing for now. * Novolog was tightened last evening when consult came in. Goal range was tightened as well. Will tighten CF and CR further this AM to help with steroid-induced hyperglycemia. PLAN FOR INPATIENT GLYCEMIC CONTROL: * Basal insulin * Lantus 8 units SC daily * Bolus insulin * NovoLog per scale ACHS or Q6hrs while NPO * Goal Range: Low 110 mg/dL - High 140 mg/dL * Correction Factor: 30 mg/dL/unit * Nutritional / Prandial insulin per carb ratio of 1 unit per 12 grams CHO consumed
[2024-09-05 08:43] VITALS: BP 104/71; RESP 18; TEMP 98.4; O2SAT 96
[2024-09-05 10:43] VITALS: PULSE 78
--- NOTE | 2024-09-05 18:49 | Discharge Summary ---
Discharge Summary Date of Service September 05, 2024 Principal Dx & Hospital Course #1 = Principal Diagnosis (1) Peritonitis: 64 y/o woman who was admitted after outpatient imaging showed signs of macroperforation/pneumoperitoneum and multiple intra-abdominal fluid collections along with bowel dilatation. Went immediately to the OR and there was gross purulence in the abdomen. Immunosuppressed because of chronic steroids for brain metastases. S/p diagnostic laparoscopy, laparoscopic appendectomy, intra-abdominal and pelvic washout (multiple purulent fluid collections found during the surgery) - by Dr Conteh on 08/18/24 - Source for free air was not found during the operation, no gastric perforation or bowel perforation discovered - Appendix was inflamed during the surgery, and there was a portion of small bowel that was adhesed (adhesions taken down) - Pathology report from appendix specimen --> no perforation visible, consistent with periappendicitis. Cultures from OR w/ e.coli & klebsiella along with anaerobes (clostridia cada veris) Initially treated with Zosyn IV, downgraded to Augmentin p.o. with last day of treatment on 09/07/2024 per discussion with surgeon Incision healing, eating/drinking and moving bowels. Afebrile. 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 Given stress dose steroids earlier in admission. continue dexamethasone 4mg BID plan to wean the dexamethasone over another couple of weeks (5) UTI (urinary tract infection): 2nd e.coli, pansensitive, treated with appropriate ABX (6) Prediabetes: a1c 6% in 07/2024, no diabetic regimen at home with ongoing steroid use and perioperative stress her BSGs have been high discharged on Lantus 8 units daily; suspect will not need insulin after weaned off steroids Plan Discharged to [facility] 09/05/2024 CODE STATUS: Full code Notes For Next Care Provider Monitor blood sugars, adjust diabetic regimen as needed Medication Changes From Visit Augmentin through 09/07/2024 Lantus 8 units daily Admission HPI Per Admitting Provider The patient is a 64-year-old female with a past medical history including hypothyroidism, GERD, hyperlipidemia, migraine, B12 deficiency, lung cancer, and outpatient testing concerning for possible bowel perforation. Further imaging in the ED this evening showed pneumoperitoneum, perforated bowel, elevated lactic acid, and leukocytosis. Patient was taken emergently to the OR by Dr. Conteh, with plans to admit to medical telemetry postsurgery. Discharge Exam General: No acute distress, nondiaphoretic, well-developed, well-nourished. Skin: The skin was without rashes, erythema, edema, or bruising. Cardiac: Well-perfused, regular rate in the 80s. Pulm: Normal respiratory effort. 96% on room air. Abdominal: Laparoscopy sites healing well. Neuro: A&O x2 (person and place). No focal neurological deficits. Discharge Plan Discharge Items Patient Disposition: Transfer Detention Fac Reason For Visit: BOWEL PERFORATION Discharge Diagnosis: Perforated bowel with peritonitis Activity: Per Instructions section Lifting: No more than 10 pounds Exercise/Sports: Wait until after follow-up appointment Non-emergency contact: Surgeon Call non-emergency contact if: you have any medication questions, your symptoms worsen, your temperature is above 101.5, your wound has increased redness, your wound has increased drainage and your wound pain has increased Follow-up/Referrals: Pro,Manjit Fischer MD [Primary Care Provider] - aAron Conteh DO [Physician] - (call office for follow up in 1 week for check up and drain removal) Diet: Carb Consistent or DM2 and Low Fiber Addtl Attending Provider Instructions: Mrs. Schumacher, You were admitted to the hospital after outpatient imaging showed signs of bowel perforation and multiple intra-abdominal fluid collections. You had extensive abdominal surgery with Dr. Conteh on 08/18/2024. You have recovered well from surgery. Your blood sugars have been elevated, though your A1c was 6.0% which is indicative of prediabetes. However, due to the steroids your blood sugars have been more elevated. You have been covered Upon discharge from the hospital: * Continue taking Augmentin (oral antibiotic) twice daily with meals until 09/07/2024. * Follow a low fiber diet and advance as tolerated. * Continue Lantus (insulin glargine) 8 units daily. This is a long-acting insulin. Monitor your blood sugars and bring these results to your PCP appointment. * Continue your other home medications as prescribed. * Follow general surgery's recommendations listed below. * Follow-up with general surgery outpatient as scheduled. * Follow-up with your PCP in 1-2 weeks. It was a pleasure taking care of you while you were in the hospital, Amber Barrios PA-C Addtl Email Developer Provider Instructions: FROM GENERAL SURGERY: You have surgical glue called dermabond on your surgical site incisions. You may shower with this on. This will tend to come off within a couple of weeks. Do not pick at it. Please care for your DAVID drain as you have been instructed prior to discharge from the hospital. Empty drain 2-3x/daily and record output, bring a log with you to the office. Otherwise keep drain to bulb suction. Continue all of your antibiotics as directed. Pending Studies at Discharge: No Stand-Alone Forms: My [facility] Skilled Items Patient informed of condition?: Yes DNR: No Discharge Level of Care: Acute rehab Communicable Disease: No Discharge Prognosis: Stable Lines: None Urinary Catheter: No Medications and DC Order Prescriptions: New amoxicillin-pot clavulanate 875-125 mg Tablet 1 tab PO BIDM Qty: 4 0RF insulin glargine [Lantus Solostar U-100 Insulin] 100 unit/mL (3 mL) insulin pen 8 unit subcut DAILY Qty: 15 0RF Continued ahjobgyumj-bdxpymudgiden-gscz 50-325-40 mg tablet See Rx Instructions PO DAILY PRN (Reason: pain) Qty: 30 0RF Rx Instructions: 1-2 tablets PO daily PRN; fluticasone propionate [Flonase Allergy Relief] 50 mcg/actuation spray,suspension 2 spray intranasal DAILY PRN (Reason: allergy symptoms) Qty: 3 3RF Rx Instructions: administer into each nostril omeprazole 20 mg capsule,delayed release(DR/EC) 20 mg PO DAILY Qty: 30 2RF famotidine [Pepcid AC] 20 mg tablet 20 mg PO QAM multivitamin Tablet 1 tab PO QAM cholecalciferol (vitamin D3) [Vitamin D3] 125 mcg (5,000 unit) Tablet 125 mcg PO QAM levothyroxine 75 mcg tablet 75 mcg PO QAM Patient Comments: QAM Changed dexamethasone 4 mg tablet 4 mg PO UD Qty: 0 0RF Rx Instructions: original: 4 mg po qid. Currently taking 4 mg BID. Continue to wean off over next few weeks Discharge Orders: Discharge Order (Routine); Ordered 09/05/24 Ordered By: Amber Barrios Admission Data Admit Date/Time: 08/19/24 01:08 Attending Provider: Dick Downing Admit Provider: Boom Ramey Primary Care Provider: Manjit Davis Other Providers: Araon Conteh; Boom Ramey; [facility]; [facility] Other Interventions: Discharge Summary Assessment (RN) Last Done: 09/05/24 10:41 Hospital Stay Data Consultations 08/18/24 19:03 Consult General Surgery Stat 08/18/24 19:04 ED Decision to Admit Stat Procedures Performed Operation Date: 08/18/24 20:00 Actual Procedures p Diagnostic laparoscopy, laparoscopic appendectomy, intra-abdominal and pelvic washout (Not Applicable) - Aaron Conteh, DO Pending Results Patient Have Any Pending Studies at Discharge: No Discharge Instructions Given to Patient (Per Discharging Provider) Mrs. Schumacher, David were admitted to the hospital after outpatient imaging showed signs of bowel perforation and multiple intra-abdominal fluid collections. You had extensive abdominal surgery with Dr. Conteh on 08/18/2024. You have recovered well from surgery. Your blood sugars have been elevated, though your A1c was 6.0% which is indicative of prediabetes. However, due to the steroids your blood sugars have been more elevated. You have been covered Upon discharge from the hospital: * Continue taking Augmentin (oral antibiotic) twice daily with meals until 09/07/2024. * Follow a low fiber diet and advance as tolerated. * Continue Lantus (insulin glargine) 8 units daily. This is a long-acting insulin. Monitor your blood sugars and bring these results to your PCP appointment. * Continue your other home medications as prescribed. * Follow general surgery's recommendations listed below. * Follow-up with general surgery outpatient as scheduled. * Follow-up with your PCP in 1-2 weeks. It was a pleasure taking care of you while you were in the hospital, Amber Barrios PA-C Total Time Total Time Spent Total Time Spent (In Minutes): Greater than 30 minutes spent completing this discharge process including direct patient care, medication reconciliation, documentation, review of labs and images, and coordination of care. Coding Level of Care Code 02940 INP/OBS DISCH >30 MIN Diagnoses Peritonitis K65.9 Hypothyroidism E03.9 Hx of gastric ulcer Z87.11 Metastatic lung cancer (metastasis from lung to other site) C34.90 UTI (urinary tract infection) N39.0 Prediabetes R73.03
== END 2024-09-05 11:07 | DRG 397 ==
LOC: ED 15:36 → OR 20:55 → 1E 08-19 01:08 → SUATTDRO 08-19 01:08 → 2N 08-19 14:48 → 3N 08-28 12:34

== ENCOUNTER 2024-11-22 15:40 | Inpatient (IN) ==
--- NOTE | 2024-11-22 16:45 | Emergency Department Note ---
Impression & Plan Seizure-like activity, Generalized weakness, Acute hypokalemia ED Provider Note HISTORY OF PRESENT ILLNESS: Patient is a 64-year-old female presenting with seizure-like activity. provides history. Reports that earlier this afternoon while trying to get the patient to the bathroom he tried to lift her up and she started having a episode in which she got very stiff and shaky. She states her whole body stiffened up and she seemed to shake and her torso and he had to get her back on the bed. Reports is loss of her whole 60 seconds. States that the patient was able to converse with him afterwards. He states that patient has a history of lung cancer with metastases to the brain. She has never had an episode like this before. Patient reports she remembers the episode. Patient denies any recent head injuries. No recent in the last week. No recent fevers. Denies any nausea or vomiting. She is on Eliquis. Patient denies any recent fevers. Denies any chest pain or shortness of breath. reports that the patient recently had a primary care provider visit and was prescribed sertraline for her depression. Reports that she just took her first dose of this yesterday. ROS: as above PHYSICAL EXAM: Constitutional: Patient appears in no acute distress. HENT: Head: Normocephalic and atraumatic. Eyes: EOMI, PERRL Mouth/Throat: Mucous membranes moist. Neck: Trachea midline. Neck supple. Cardiovascular: RRR, No murmurs, rubs or gallops. Intact distal pulses. Pulmonary/Chest: No respiratory distress. Breath sounds clear and equal bilaterally. No wheezes or rales. Abdominal: Abdomen soft, no tenderness, rebound or guarding. Musculoskeletal: No edema, tenderness or deformity noted. Skin: Warm and dry. No rash, erythema, pallor or cyanosis Psychiatric: Appropriate mood and affect for situation. Neurological: Alert and keenly responsive. CN II-XII grossly intact, moving all extremities equally and fully. MDM: - Vitals signs stable - History obtained via patient. History as above. - Chronic conditions affecting care: Metastatic lung cancer; HTN; HLD; hypothyroidism - Differential diagnoses include, but are not limited to: CVA; intracranial hemorrhage; ACS; pneumonia; viral syndrome; electrolyte abnormality; pneumonia - Order placed for continuous cardiac monitoring. At this time, monitor showed rate of 87 bpm with normal sinus rhythm, per my interpretation. - External medical records reviewed. Primary care visit note dated 11/20/2024 was reviewed. Patient was seen for protein and calorie malnutrition. She was started on sertraline for situational depression. - EKG image interpreted by myself showed normal sinus rhythm. Rate 91 bpm. QT 384. No acute ischemic changes. - Laboratory workup interpreted by myself showed normal WBC; normal INR; slight hypokalemia (K 3.2); hyponatremia (Na 134); normal creatinine; hypocalcemia (Ca 8.1); normal lipase; normal troponin - Viral respiratory panel negative - CXR image reviewed by myself is negative for pneumonia, per my interpretation. - CT head wo contrast negative for acute pathology - Discussed case with patient and her at bedside. reports concern about taking the patient home, given her weakness and he is the primary implementation consultant. Will discuss case with hospitalist service. - Discussion was had with casey saw operator about patient's case and need for admission - Hospitalist consulted for admission - Patient admitted to [facility] hospitalist service for further evaluation and management. ASSESSMENT AND PLAN: Diagnosis: Seizure-like activity; generalized weakness; acute hypokalemia Plan: Admit Past Med/Surg History Problem List Acute hypokalemia (Acute) Generalized weakness (Acute) Seizure-like activity (Acute) Situational depression Prediabetes Metastatic lung cancer (metastasis from lung to other site) Hx of gastric ulcer REASON FOR DAILY PEPCID Mass of right lung Hyperglycemia Elevated LFTs Routine gynecological examination Hypothyroidism History of colon polyps Diverticulosis Esophageal reflux Hyperthyroidism Hyperlipidemia Leukopenia Migraine headache Postmenopause atrophic vaginitis B12 deficiency No pertinent past surgical history Medical History Peritonitis Periappendicitis UTI (urinary tract infection) Intra-abdominal fluid collection Perforated bowel Pneumoperitoneum Free intraperitoneal air Daily headache Vision changes Metastasis to bone Metastasis to brain Osteoarthritis Hypothyroidism Migraine Anemia Surgical History History of laparoscopic appendectomy (08/19/24) History of esophagogastroduodenoscopy (EGD) History of colonoscopy History of tooth extraction Family History Other No family history of adverse response to anesthesia No pertinent family history Denies family history of Ovarian cancer Prostate cancer Diabetes Myocardial infarction Breast cancer Colorectal cancer Hypertension Social History Smoking Status: Never smoker Second Hand Exposure: No; Do You Dip or Chew Tobacco: No; Hx Alcohol Use: No Hx Substance Use: No Preferred Language: Yoruba Communication Ability: Effective Visual Impairment: No Limitations Hearing Ability: Normal Professor Of Biochemistry Required: No Beliefs That Will Affect Care: None marital status: Current Living Situation: Spouse current occupational status: retired Feels Safe at Home: Yes Dental Care, Regularly: Yes Physical Activity Frequency: Does not Exercise Seatbelt Use: always Assistive Devices: Walker Allergies Allergies Allergy/AdvReac Type Severity Reaction Status Date / Time No Known Allergies Allergy Verified 11/22/24 17:40 Home Meds Home Medications Medication Instructions Recorded Confirmed famotidine 20 mg tablet (Pepcid AC) 20 mg PO QAM 09/14/20 11/22/24 multivitamin 1 tab PO QAM 09/14/20 11/22/24 cholecalciferol (vitamin D3) 125 125 mcg PO QAM 06/04/21 11/22/24 mcg (5,000 unit) tablet (Vitamin D3) levothyroxine 75 mcg tablet 75 mcg PO QAM 07/21/24 11/22/24 apixaban 5 mg tablet (Eliquis) 5 mg PO BID 11/16/24 11/22/24 calcium 250 mg (citrate)-magnesium 2 tab PO DAILY 11/16/24 11/22/24 40 mg-D3 125 unit chewable tablet memantine 5 mg tablet 10 mg PO BID 11/16/24 11/22/24 omeprazole 20 mg capsule,delayed 20 mg PO DAILY 11/16/24 11/22/24 release osimertinib 80 mg tablet (Tagrisso) 80 mg PO DAILY 11/16/24 11/22/24 [id number] 1 - 2 tab PO DAILY PRN pain 11/22/24 11/22/24 50 mg-325 mg-40 mg tablet Previous Rx's Medication Instructions Recorded fluticasone propionate 50 2 spray intranasal DAILY PRN 05/13/24 mcg/actuation nasal allergy symptoms #3 multiple units spray,suspension (Flonase Allergy Relief) mirtazapine 15 mg tablet 15 mg PO DAILY #30 tabs 11/21/24 sertraline 50 mg tablet 50 mg PO DAILY #30 tabs 11/21/24 Results & Data (ED) Vital Signs Vital Signs - 24 hr 11/22/24 15:46 11/22/24 15:49 11/22/24 16:47 Temperature 36.5 C Temperature Source Oral Pulse Rate 92 H 78 89 Respiratory Rate 15 15 16 Respiratory Effort / Characteristics Non-Labored Respiratory Depth Normal Respiratory Pattern Regular Blood Pressure 106/83 103/83 98/78 L Blood Pressure Mean 94 89 82 Pulse Oximetry 100 99 100 Oxygen Delivery Method Room Air Sepsis Recent Fever Within 48 Hours No Sepsis New/Unexplained Change in Mental Status No Sepsis Action Taken by Nursing No Action Required 11/22/24 17:13 11/22/24 17:56 11/22/24 21:35 Temperature Temperature Source Pulse Rate 89 87 Respiratory Rate Respiratory Effort / Characteristics Respiratory Depth Respiratory Pattern Blood Pressure Blood Pressure Mean Pulse Oximetry 100 Oxygen Delivery Method Room Air Sepsis Recent Fever Within 48 Hours Sepsis New/Unexplained Change in Mental Status Sepsis Action Taken by Nursing Laboratory Data 11/22/24 16:11 11/22/24 16:11 Lab Results 11/22/24 11/22/24 Range/Units 16:11 17:08 WBC 5.36 (4.8-10.8) K/ul RBC 3.46 L (4.20-5.40) M/uL Hgb 11.1 L (12.0-16.0) g/dl Hct 34.2 L (37.0-47.0) % MCV 98.8 (80.0-100.0) fL MCH 32.1 (25.0-34.0) pg MCHC 32.5 (32.0-36.0) g/dL RDW Std Deviation 57.2 H (36.4-46.3) fL RDW Coeff of Melodie 15.8 H (11.5-14.5) % Plt Count 346 (130-400) K/uL MPV 10.2 (9.4-12.4) fL Immature Gran % (Auto) 0.4 % Neut % (Auto) 79.6 % Lymph % (Auto) 11.4 % Gibson % (Auto) 8.0 % Eos % (Auto) 0.4 % Baso % (Auto) 0.2 % Neut # (Auto) 4.27 (1.40-6.50) K/uL Lymph # (Auto) 0.61 L (1.20-3.40) K/uL Gibson # (Auto) 0.43 (0.11-0.59) K/uL Eos # (Auto) 0.02 (0.00-0.50) K/uL Baso # (Auto) 0.01 (0.00-0.20) K/uL Immature Gran # (Auto) 0.02 (0.01-0.20) K/uL PT 12.1 H (9.0-12.0) Seconds INR 1.1 (0.9-1.1) Sodium 134 L (136-145) mmol/L Potassium 3.2 L (3.5-5.1) mmol/L Chloride 99 (98-107) mmol/L Carbon Dioxide 29 (21-32) mmol/L Anion Gap 6 (3-11) BUN 33 H (6-23) mg/dl Creatinine 0.70 (0.6-1.2) mg/dl Est Cr Clr Drug Dosing 65.4 ml/min eGFR 95.32 BUN/Creatinine Ratio 47.1 H (10-20) Glucose 146 H (70-99(Fasting)) mg/dl Calcium 8.1 L (8.6-10.3) mg/dl Magnesium 1.9 (1.7-2.4) mg/dl Total Bilirubin 0.4 (0.2-1.0) mg/dl AST 16 (13-39) U/L ALT 21 (7-52) U/L Alkaline Phosphatase 363 H (34-104) U/L Troponin I High Sens 6.1 (0-14) pg/ml Total Protein 5.1 L (6.0-8.3) gm/dl Albumin 2.4 L (3.4-5.0) gm/dl Globulin 2.7 (2.5-4.0) gm/dl Albumin/Globulin Ratio 0.9 (0.9-2) Lipase 17 (11-82) U/L Adenovirus (PCR) Not Detected (NotDetected) B. pertussis DNA (PCR) Not Detected (NotDetected) B.parapertussis DNA PCR Not Detected (NotDetected) C. pneumoniae DNA (PCR) Not Detected (NotDetected) Coronavirus OC43 (PCR) Not Detected (NotDetected) Coronavirus HKU1 (PCR) Not Detected (NotDetected) Coronavirus 229E (PCR) Not Detected (NotDetected) SARS-CoV-2 (PCR) Not Detected (NotDetected) Coronavirus NL63 (PCR) Not Detected (NotDetected) Human Metapneumovir PCR Not Detected (NotDetected) Influenza Type A (PCR) Not Detected (NotDetected) Influenza Type B (PCR) Not Detected (NotDetected) M. pneumoniae (PCR) Not Detected (NotDetected) Parainfluenza 1 (PCR) Not Detected (NotDetected) Parainfluenza 2 (PCR) Not Detected (NotDetected) Parainfluenza 3 (PCR) Not Detected (NotDetected) Parainfluenza 4 (PCR) Not Detected (NotDetected) RSV (PCR) Not Detected (NotDetected) Entero/Rhino (PCR) Not Detected (NotDetected) Imaging Data Radiologist's Impression: Head CT 11/22/24 15:55 EXAMINATION: Head CT without CLINICAL HISTORY: Seizure, history of cancer with brain mets PRIORS: Brain MRI 11/09/2024 TECHNIQUE: Contiguous axial images were obtained through the head without the use of intravenous contrast. Sagittal and coronal reformations are supplied. FINDINGS: Age appropriate parenchymal volume is noted. [place]-white differentiation is preserved. No edema or midline shift. Allowing for noncontrast enhanced technique, no large mass or vasogenic edema. No midline shift. Diffuse periventricular deep white matter lucency representing small vessel occlusive disease. No intra-axial or extra-axial hemorrhage. Ventricles are normal in size and configuration. Brainstem and cerebellum have a normal appearance. Calvarium unremarkable. Paranasal sinuses and mastoid air cells are well-pneumatized. Globes are intact. No retrobulbar abnormality. IMPRESSION: No CT evidence of an acute intracranial abnormality. Electronically signed by Dora Simms 11-22-2024 5:28 PM Chest X-Ray 11/22/24 15:56 INDICATION: Seizure. TECHNIQUE: Frontal radiograph of the chest. COMPARISON: None. FINDINGS: The cardiomediastinal silhouette and pulmonary vasculature appear within normal limits. Right upper lobe mass appears unchanged. No infiltrate, pleural effusion or pneumothorax. No acute osseous abnormality evident. IMPRESSION: No acute cardiopulmonary process.Right upper lobe mass appears unchanged. Electronically signed by Doc Sharp 11-22-2024 5:23 PM Discharge Plan Visit Data Chief Complaint: Seizure Stated Complaint: Seizure ED Provider: Anisa Haines Discharge Problem: Seizure-like activity, Generalized weakness, Acute hypokalemia Forms Stand Alone Forms: My [facility] [place] Prescriptions Prescriptions: No Action omeprazole 20 mg capsule,delayed release(DR/EC) 20 mg PO DAILY Ca citrate-mag citrate-vit D3 250 mg-40 mg- 125 unit tablet,chewable 2 tab PO DAILY Tagrisso 80 mg tablet 80 mg PO DAILY memantine 5 mg tablet 10 mg PO BID Eliquis 5 mg tablet 5 mg PO BID fluticasone propionate [Flonase Allergy Relief] 50 mcg/actuation spray,suspension 2 spray intranasal DAILY PRN (Reason: allergy symptoms) Qty: 3 3RF Rx Instructions: administer into each nostril famotidine [Pepcid AC] 20 mg tablet 20 mg PO QAM multivitamin Tablet 1 tab PO QAM mirtazapine 15 mg tablet 15 mg PO DAILY Qty: 30 0RF sertraline 50 mg tablet 50 mg PO DAILY Qty: 30 2RF Rx Instructions: ORDERED 11/21/24, NOT SURE IF STARTED YET. start with 1/2 tablet daily for 2 weeks, then increase to one tablet daily. cholecalciferol (vitamin D3) [Vitamin D3] 125 mcg (5,000 unit) Tablet 125 mcg PO QAM [id number]-[id number] 50-325-40 mg tablet 1 - 2 tab PO DAILY PRN (Reason: pain) Rx Instructions: 1-2 tablets PO daily PRN; levothyroxine 75 mcg tablet 75 mcg PO QAM Patient Comments: QAM Referrals Referrals: Pro,Manjit Fischer MD [Primary Care Provider] -
[2024-11-22 17:00] LABS: Albumin Globulin Ratio 0.9 (0.9-2); Albumin Level 2.4 gm/dl (3.4-5.0); BUN Creatinine Ratio 47.1 (10-20); Bilirubin,Total 0.4 mg/dl (0.2-1.0); Calcium 8.1 mg/dl (8.6-10.3); Creatinine Clr Calc Pharmacy 65.4 ml/min; Globulin 2.7 gm/dl (2.5-4.0); Magnesium 1.9 mg/dl (1.7-2.4); Potassium 3.2 mmol/L (3.5-5.1); Total Protein 5.1 gm/dl (6.0-8.3)
[2024-11-22 17:07] LABS: Troponin I High Sensitivity 6.1 pg/ml (0-14)
[2024-11-22 17:10] LABS: INR 1.1 (0.9-1.1); Prothrombin Time 12.1 Seconds (9.0-12.0)
--- NOTE | 2024-11-22 17:24 | XRay Report ---
INDICATION: Seizure. TECHNIQUE: Frontal radiograph of the chest. COMPARISON: None. FINDINGS: The cardiomediastinal silhouette and pulmonary vasculature appear within normal limits. Right upper lobe mass appears unchanged. No infiltrate, pleural effusion or pneumothorax. No acute osseous abnormality evident. IMPRESSION: No acute cardiopulmonary process.Right upper lobe mass appears unchanged. Electronically signed by Doc Sharp 11-22-2024 5:23 PM
--- NOTE | 2024-11-22 17:29 | CT Scan Report ---
EXAMINATION: Head CT without CLINICAL HISTORY: Seizure, history of cancer with brain mets PRIORS: Brain MRI 11/09/2024 TECHNIQUE: Contiguous axial images were obtained through the head without the use of intravenous contrast. Sagittal and coronal reformations are supplied. FINDINGS: Age appropriate parenchymal volume is noted. [place]-white differentiation is preserved. No edema or midline shift. Allowing for noncontrast enhanced technique, no large mass or vasogenic edema. No midline shift. Diffuse periventricular deep white matter lucency representing small vessel occlusive disease. No intra-axial or extra-axial hemorrhage. Ventricles are normal in size and configuration. Brainstem and cerebellum have a normal appearance. Calvarium unremarkable. Paranasal sinuses and mastoid air cells are well-pneumatized. Globes are intact. No retrobulbar abnormality. IMPRESSION: No CT evidence of an acute intracranial abnormality. Electronically signed by Dora Simms 11-22-2024 5:28 PM
[2024-11-22 17:51] LABS: Basophils # (auto) 0.01 K/uL (0.00-0.20); Basophils % (auto) 0.2 %; Eosinophils # (auto) 0.02 K/uL (0.00-0.50); Eosinophils % (auto) 0.4 %; Hematocrit (blood only) 34.2 % (37.0-47.0); Hemoglobin 11.1 g/dl (12.0-16.0); Immature Granulocytes # (auto) 0.02 K/uL (0.01-0.20); Immature Granulocytes % (auto) 0.4 %; Lymphocytes # (auto) 0.61 K/uL (1.20-3.40); Lymphocytes % (auto) 11.4 %; Mean Corpuscular Hemoglobin 32.1 pg (25.0-34.0); Mean Corpuscular Hgb Conc 32.5 g/dL (32.0-36.0); Mean Corpuscular Volume 98.8 fL (80.0-100.0); Mean Platelet Volume 10.2 fL (9.4-12.4); Monocytes # (auto) 0.43 K/uL (0.11-0.59); Neutrophils # (auto) 4.27 K/uL (1.40-6.50); Neutrophils % (auto) 79.6 %; Platelet Count 346 K/uL (130-400); RDW Coefficient of Variation 15.8 % (11.5-14.5); RDW Standard Deviation 57.2 fL (36.4-46.3); Red Blood Count 3.46 M/uL (4.20-5.40); White Blood Count 5.36 K/ul (4.8-10.8)
[2024-11-22 18:45] LABS: Adenovirus PCR Not Detected (NotDetected); Bordetella parapertussis PCR Not Detected (NotDetected); Bordetella pertussis PCR Not Detected (NotDetected); Chlamydia pneumoniae PCR Not Detected (NotDetected); Coronavirus 229E PCR Not Detected (NotDetected); Coronavirus CoV-2 (COVID19)PCR Not Detected (NotDetected); Coronavirus HKU1 PCR Not Detected (NotDetected); Coronavirus NL63 PCR Not Detected (NotDetected); Coronavirus OC43PCR Not Detected (NotDetected); Human Metapneumovirus PCR Not Detected (NotDetected); Influenza A PCR Not Detected (NotDetected); Influenza B PCR Not Detected (NotDetected); Mycoplasma pneumoniae PCR Not Detected (NotDetected); Parainfluenza Virus 1 PCR Not Detected (NotDetected); Parainfluenza Virus 2 PCR Not Detected (NotDetected); Parainfluenza Virus 3 PCR Not Detected (NotDetected); Parainfluenza Virus 4 PCR Not Detected (NotDetected); Respiratory Syncytial VirusPCR Not Detected (NotDetected); Rhinovirus/Enterovirus PCR Not Detected (NotDetected)
--- NOTE | 2024-11-22 23:07 | History & Physical Report ---
Date of Service November 22, 2024 Assessment & Plan (1) Pulmonary embolism and infarction: (2) Acute hypokalemia: (3) Seizure-like activity: (4) Metastatic lung cancer (metastasis from lung to other site): (5) Mass of right lung: Plan The patient is a 64-year-old female with past medical history including situational depression, prediabetes, metastatic lung cancer to brain, history of gastric ulcer, right upper lung mass, hypothyroidism, GERD, hyperlipidemia, migraine and B12 deficiency.The patient was brought to the emergency department due to witnessed seizure-like activity by her , as he was trying to get the patient to the bathroom, attempting to lift her up and she started to get very stiff and shaky. He reports that she continues to be somewhat confused at this time in the ED, and is not back to what he considers her baseline. He reports the entire episode lasted about 60 seconds. She has known history of lung cancer with metastases to brain, and has a PET/CT scheduled for 11/24. She has undergone radiation therapy with Dr. Michael, and MRI from 11/01 is noted improvement in brain metastases. She has not had any previous history of seizures or seizure-like activity. The has also reported concerns regarding patient having increasing heart rate and intermittently low blood pressure at the same time. He notes that she had been started on Eliquis for right lower extremity DVT about 2 weeks ago, and has been faithful about taking the Eliquis. Did her tachycardia and borderline blood pressure, we then ordered a CTA PE protocol, which showed filling defect within the left pulmonary artery, right upper lobe pulmonary artery and left upper lobe pulmonary artery branch, indicating acute thromboembolism. The spiculated mass in the right upper lobe was neoplastic in etiology reduced in size. Sclerotic lesion seen in multiple thoracic vertebrae likely metastatic, increased as compared to prior study. A patch of peripheral groundglass opacities with noted anterior segment left upper lobe, considered an evolving infarct. #Pulmonary embolism and infarction/right lower extremity DVT history from 11/01/2024- Patient had reportedly been on Eliquis for 2 weeks. Due to symptoms of tachycardia and borderline blood pressure, CTA PE protocol was ordered, with results showing new PEs/PIs Will hold Eliquis at this time Start heparin low-dose no bolus. DVT study from 11/01 was only of right lower extremity Will leave up to oncology as to whether to repeat and perform study of both lower extremities Consult Dr. Dutta Consult vascular surgery Dr. Lino for consideration of IVC filter #Metastatic lung cancer to brain and other sites- Patient has a PET/CT scheduled for 11/24 Most recent MRI brain from 11/09/2024. Status post radiotherapy and compared to the last MRI study dated 07/21/2024 the current examination reveals: No hyperacute or acute infarctions could be detected. Imaging features consistent with the consequences of small vessel disease. The comparison is consistent with a remarkable reduction of the number and size of the previously noted metastatic nodules, which is consistent with a good response to therapy and current residual metastatic deposits. Multiple microbleeds. Consult medical oncology Dr. Dutta Consult radiation oncology Dr. Michael Continue osimertinib #Electrolyte disturbances- Potassium 3.2 on admission Placed on NSS + KCl 20 mill equivalents at 100 mL/h x 2 L Magnesium 1.9 on admission Give magnesium sulfate 1 g IV Patient has had an issue with low calcium, per her , negating some treatments that she has scheduled. Calcium 8.1 with albumin not completely correctable. Give calcium gluconate 1 g IV #Hypotension- Given albumin 50 g IV IV fluids as noted above #Seizure-like activity- CT head without acute findings Unable to order MRI due to unavailability of MRI We will leave further evaluation such as EEG and MRI of brain up to oncology Of note, respiratory [employer] testing negative Chronic medical conditions: Hypothyroidism-continue levothyroxine GERD-continue famotidine and omeprazole/pantoprazole History of Present Illness Chief Complaint: The patient was brought to the emergency department due to witnessed seizure- like activity by her , as he was trying to get the patient to the bathroom, attempting to lift her up and she started to get very stiff and shaky. He reports that she continues to be somewhat confused at this time in the ED, and is not back to what he considers her baseline. He reports the entire episode lasted about 60 seconds. She has known history of lung cancer with metastases to brain, and has a PET/CT scheduled for 11/24. She has undergone radiation therapy with Dr. Michael, and MRI from 11/01 is noted improvement in brain metastases. She has not had any previous history of seizures or seizure-like activity. Primary Care Provider: Manjit Davis MD The patient is a 64-year-old female with past medical history including situational depression, prediabetes, metastatic lung cancer to brain, history of gastric ulcer, right upper lung mass, hypothyroidism, GERD, hyperlipidemia, migraine and B12 deficiency.The patient was brought to the emergency department due to witnessed seizure-like activity by her , as he was trying to get the patient to the bathroom, attempting to lift her up and she started to get very stiff and shaky. He reports that she continues to be somewhat confused at this time in the ED, and is not back to what he considers her baseline. He reports the entire episode lasted about 60 seconds. She has known history of lung cancer with metastases to brain, and has a PET/CT scheduled for 11/24. She has undergone radiation therapy with Dr. Michael, and MRI from 11/01 is noted improvement in brain metastases. She has not had any previous history of seizures or seizure-like activity. The has also reported concerns regarding patient having increasing heart rate and intermittently low blood pressure at the same time. He notes that she had been started on Eliquis for right lower extremity DVT about 2 weeks ago, and has been faithful about taking the Eliquis. Did her tachycardia and borderline blood pressure, we then ordered a CTA PE protocol, which showed filling defect within the left pulmonary artery, right upper lobe pulmonary artery and left upper lobe pulmonary artery branch, indicating acute thromboembolism. The spiculated mass in the right upper lobe was neoplastic in etiology reduced in size. Sclerotic lesion seen in multiple thoracic vertebrae likely metastatic, increased as compared to prior study. A patch of peripheral groundglass opacities with noted anterior segment left upper lobe, considered an evolving infarct. Allergies Allergy/AdvReac Type Severity Reaction Status Date / Time No Known Allergies Allergy Verified 11/22/24 17:40 Home Medications Medication Instructions Recorded Confirmed Type famotidine 20 mg tablet (Pepcid AC) 20 mg PO QAM 09/14/20 11/22/24 History multivitamin 1 tab PO QAM 09/14/20 11/22/24 History cholecalciferol (vitamin D3) 125 125 mcg PO QAM 06/04/21 11/22/24 History mcg (5,000 unit) tablet (Vitamin D3) fluticasone propionate 50 2 spray intranasal DAILY PRN 05/13/24 11/22/24 Rx mcg/actuation nasal allergy symptoms #3 multiple units spray,suspension (Flonase Allergy Relief) levothyroxine 75 mcg tablet 75 mcg PO QAM 07/21/24 11/22/24 History apixaban 5 mg tablet (Eliquis) 5 mg PO BID 11/16/24 11/22/24 History calcium 250 mg (citrate)-magnesium 2 tab PO DAILY 11/16/24 11/22/24 History 40 mg-D3 125 unit chewable tablet memantine 5 mg tablet 10 mg PO BID 11/16/24 11/22/24 History omeprazole 20 mg capsule,delayed 20 mg PO DAILY 11/16/24 11/22/24 History release osimertinib 80 mg tablet (Tagrisso) 80 mg PO DAILY 11/16/24 11/22/24 History mirtazapine 15 mg tablet 15 mg PO DAILY #30 tabs 11/21/24 11/22/24 Rx sertraline 50 mg tablet 50 mg PO DAILY #30 tabs 11/21/24 11/22/24 Rx xzgsjsdnid-ijkqxgtzjhuub-hibvofrp 1 - 2 tab PO DAILY PRN pain 11/22/24 11/22/24 History 50 mg-325 mg-40 mg tablet Past Med/Surg History Problem List Pulmonary embolism and infarction Acute hypokalemia (Acute) Generalized weakness (Acute) Seizure-like activity (Acute) Situational depression Prediabetes Metastatic lung cancer (metastasis from lung to other site) Hx of gastric ulcer REASON FOR DAILY PEPCID Mass of right lung Hyperglycemia Elevated LFTs Routine gynecological examination Hypothyroidism History of colon polyps Diverticulosis Esophageal reflux Hyperthyroidism Hyperlipidemia Leukopenia Migraine headache Postmenopause atrophic vaginitis B12 deficiency No pertinent past surgical history Medical History Peritonitis Periappendicitis UTI (urinary tract infection) Intra-abdominal fluid collection Perforated bowel Pneumoperitoneum Free intraperitoneal air Daily headache Vision changes Metastasis to bone Metastasis to brain Osteoarthritis Hypothyroidism Migraine Anemia Surgical History History of laparoscopic appendectomy (08/19/24) History of esophagogastroduodenoscopy (EGD) History of colonoscopy History of tooth extraction Family History Other No family history of adverse response to anesthesia No pertinent family history Denies family history of Ovarian cancer Prostate cancer Diabetes Myocardial infarction Breast cancer Colorectal cancer Hypertension Social History Smoking Status: Unknown if ever smoked Second Hand Exposure: No; Do You Dip or Chew Tobacco: No; Tobacco Cessation Education Requested by Patient: No Hx Alcohol Use: No Hx Substance Use: No Preferred Language: Polish Communication Ability: Effective Visual Impairment: No Limitations Hearing Ability: Normal Pacu Rn Required: No Beliefs That Will Affect Care: None marital status: Current Living Situation: Spouse current occupational status: retired Other Information That Helps Us Care for You: No Feels Safe at Home: Yes Safety Concerns: Feels Safe At This Time Dental Care, Regularly: Yes Physical Activity Frequency: Does not Exercise Seatbelt Use: always Assistive Devices: Glasses and Walker Review of Systems Review of Systems: Information is primarily supplied by the , as the patient was having issues with significant fatigue, and was intermittently confused. Physical Exam Physical Exam: The patient is awake, intermittently confused, noted weight loss, normocephalic and atraumatic, lying in bed and in no acute distress. HEENT--PERRL, EOMI, mucous membranes and oropharynx mildly dry. Neck--supple. No JVD. No bruits. Thyroid normal, trachea midline, no adenopathy. Heart--normal S1 and S2. No murmurs, rubs or gallops. Lungs--clear bilaterally, no respiratory distress, no accessory muscle use. Abdomen--normal bowel sounds and soft. Nontender. Nondistended, no hernias or masses, no organomegaly. Extremities--no cyanosis or clubbing. Lower extremities with 1+ pitting edema Dermatologic--normal skin turgor, normal color, no abnormal lymph nodes, no rash. Neurologic--cranial nerves II through XII grossly intact. Rheumatologic--limited exam due to fatigue and confusion Psychiatric-- intermittently confused. Results & Data Results & Data Vital Signs (Past 12 Hours) Vital Signs Temp Pulse Resp BP Pulse Ox O2 Del Method 11/22/24 21:35 87 11/22/24 17:56 89 11/22/24 17:13 100 Room Air 11/22/24 16:47 89 16 98/78 L 100 11/22/24 15:49 36.5 C 78 15 103/83 99 Room Air 11/22/24 15:46 92 H 15 106/83 100 Laboratory Results Laboratory Results WBC 5.36 K/ul (4.8-10.8) 11/22/24 16:11 RBC 3.46 M/uL (4.20-5.40) L 11/22/24 16:11 Hgb 11.1 g/dl (12.0-16.0) L 11/22/24 16:11 Hct 34.2 % (37.0-47.0) L 11/22/24 16:11 MCV 98.8 fL (80.0-100.0) 11/22/24 16:11 MCH 32.1 pg (25.0-34.0) 11/22/24 16:11 MCHC 32.5 g/dL (32.0-36.0) 11/22/24 16:11 RDW Std Deviation 57.2 fL (36.4-46.3) H 11/22/24 16:11 RDW Coeff of Melodie 15.8 % (11.5-14.5) H 11/22/24 16:11 Plt Count 346 K/uL (130-400) 11/22/24 16:11 MPV 10.2 fL (9.4-12.4) 11/22/24 16:11 Immature Gran % (Auto) 0.4 % 11/22/24 16:11 Neut % (Auto) 79.6 % 11/22/24 16:11 Lymph % (Auto) 11.4 % 11/22/24 16:11 [place] % (Auto) 8.0 % 11/22/24 16:11 Eos % (Auto) 0.4 % 11/22/24 16:11 Baso % (Auto) 0.2 % 11/22/24 16:11 Neut # (Auto) 4.27 K/uL (1.40-6.50) 11/22/24 16:11 Lymph # (Auto) 0.61 K/uL (1.20-3.40) L 11/22/24 16:11 [place] # (Auto) 0.43 K/uL (0.11-0.59) 11/22/24 16:11 Eos # (Auto) 0.02 K/uL (0.00-0.50) 11/22/24 16:11 Baso # (Auto) 0.01 K/uL (0.00-0.20) 11/22/24 16:11 Immature Gran # (Auto) 0.02 K/uL (0.01-0.20) 11/22/24 16:11 PT 12.1 Seconds (9.0-12.0) H 11/22/24 16:11 INR 1.1 (0.9-1.1) 11/22/24 16:11 Sodium 134 mmol/L (136-145) L 11/22/24 16:11 Potassium 3.2 mmol/L (3.5-5.1) L 11/22/24 16:11 Chloride 99 mmol/L (98-107) 11/22/24 16:11 Carbon Dioxide 29 mmol/L (21-32) 11/22/24 16:11 Anion Gap 6 (3-11) 11/22/24 16:11 BUN 33 mg/dl (6-23) H 11/22/24 16:11 Creatinine 0.70 mg/dl (0.6-1.2) 11/22/24 16:11 Est Cr Clr Drug Dosing 65.4 ml/min 11/22/24 16:11 eGFR 95.32 11/22/24 16:11 BUN/Creatinine Ratio 47.1 (10-20) H 11/22/24 16:11 Glucose 146 mg/dl (70-99(Fasting)) H 11/22/24 16:11 Calcium 8.1 mg/dl (8.6-10.3) L 11/22/24 16:11 Magnesium 1.9 mg/dl (1.7-2.4) 11/22/24 16:11 Total Bilirubin 0.4 mg/dl (0.2-1.0) 11/22/24 16:11 AST 16 U/L (13-39) 11/22/24 16:11 ALT 21 U/L (7-52) 11/22/24 16:11 Alkaline Phosphatase 363 U/L (34-104) H 11/22/24 16:11 Troponin I High Sens 6.1 pg/ml (0-14) 11/22/24 16:11 Total Protein 5.1 gm/dl (6.0-8.3) L 11/22/24 16:11 Albumin 2.4 gm/dl (3.4-5.0) L 11/22/24 16:11 Globulin 2.7 gm/dl (2.5-4.0) 11/22/24 16:11 Albumin/Globulin Ratio 0.9 (0.9-2) 11/22/24 16:11 Lipase 17 U/L (11-82) 11/22/24 16:11 Adenovirus (PCR) Not Detected (NotDetected) 11/22/24 17:08 B. pertussis DNA (PCR) Not Detected (NotDetected) 11/22/24 17:08 B.parapertussis DNA PCR Not Detected (NotDetected) 11/22/24 17:08 C. pneumoniae DNA (PCR) Not Detected (NotDetected) 11/22/24 17:08 Coronavirus OC43 (PCR) Not Detected (NotDetected) 11/22/24 17:08 Coronavirus HKU1 (PCR) Not Detected (NotDetected) 11/22/24 17:08 Coronavirus 229E (PCR) Not Detected (NotDetected) 11/22/24 17:08 SARS-CoV-2 (PCR) Not Detected (NotDetected) 11/22/24 17:08 Coronavirus NL63 (PCR) Not Detected (NotDetected) 11/22/24 17:08 Human Metapneumovir PCR Not Detected (NotDetected) 11/22/24 17:08 Influenza Type A (PCR) Not Detected (NotDetected) 11/22/24 17:08 Influenza Type B (PCR) Not Detected (NotDetected) 11/22/24 17:08 M. pneumoniae (PCR) Not Detected (NotDetected) 11/22/24 17:08 Parainfluenza 1 (PCR) Not Detected (NotDetected) 11/22/24 17:08 Parainfluenza 2 (PCR) Not Detected (NotDetected) 11/22/24 17:08 Parainfluenza 3 (PCR) Not Detected (NotDetected) 11/22/24 17:08 Parainfluenza 4 (PCR) Not Detected (NotDetected) 11/22/24 17:08 RSV (PCR) Not Detected (NotDetected) 11/22/24 17:08 Entero/Rhino (PCR) Not Detected (NotDetected) 11/22/24 17:[address] 11/22/24 15:55 EXAMINATION: Head CT without CLINICAL HISTORY: Seizure, history of cancer with brain mets PRIORS: Brain MRI 11/09/2024 TECHNIQUE: Contiguous axial images were obtained through the head without the use of intravenous contrast. Sagittal and coronal reformations are supplied. FINDINGS: Age appropriate parenchymal volume is noted. [place]-white differentiation is preserved. No edema or midline shift. Allowing for noncontrast enhanced technique, no large mass or vasogenic edema. No midline shift. Diffuse periventricular deep white matter lucency representing small vessel occlusive disease. No intra-axial or extra-axial hemorrhage. Ventricles are normal in size and configuration. Brainstem and cerebellum have a normal appearance. Calvarium unremarkable. Paranasal sinuses and mastoid air cells are well-pneumatized. Globes are intact. No retrobulbar abnormality. IMPRESSION: No CT evidence of an acute intracranial abnormality. Electronically signed by Dora Simms 11-22-2024 5:28 PM Chest X-Ray 11/22/24 15:56 INDICATION: Seizure. TECHNIQUE: Frontal radiograph of the chest. COMPARISON: None. FINDINGS: The cardiomediastinal silhouette and pulmonary vasculature appear within normal limits. Right upper lobe mass appears unchanged. No infiltrate, pleural effusion or pneumothorax. No acute osseous abnormality evident. IMPRESSION: No acute cardiopulmonary process.Right upper lobe mass appears unchanged. Electronically signed by Doc Sharp 11-22-2024 5:23 PM Chest CTA 11/22/24 22:45 EXAM: CT angio chest PE protocol CLINICAL HISTORY: PE TECHNIQUE: Contiguous axial images were obtained from the neck base through the upper abdomen following intravenous administration of iodinated contrast material. Angiographic images were processed, 3D MIP images were acquired for interpretation. If IV contrast material had not been administered, the likelihood of detecting abnormalities relevant to the patient's condition would have been substantially decreased. Coronal and sagittal 3-D MIPs were likewise performed and indicated to increase the sensitivity of detectin diffuse clinically relevant pathology. CT scan was performed according to ALARA (as low as reasonable achievable). 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 FINDINGS: Adequate contrast bolus Filling defect noted within left pulmonary artery, right upper lobe pulmonary artery and left upper lobe pulmonary artery branch The central airways are patent. A spiculated 2.2 cm mass is noted in right upper lobe. A patch of peripheral ground glass opacities is noted in anterior segment of left upper lobe The lungs are otherwise clear. No pleural effusion. The heart and aortaare of normal size and configuration. There are no appreciable coronary artery and aortic atherosclerotic calcifications. No pericardial effusion is identified. The thyroid is unremarkable. No mediastinal, hilar, or axillary lymphadenopathy is noted. Sclerotic lesions seen in multiple thoracic vertebrae- likely metastatic, increased as compared to prior study. IMPRESSION: 1 Filling defect noted within left pulmonary artery, right upper lobe pulmonary artery and left upper lobe pulmonary artery branch: Acute thromboembolism (No features of pulmonary strain): New finding 2 A spiculated mass in right upper lobe: Neoplastic etiology: reduced in size A patch of peripheral ground glass opacities is noted in anterior segment of left upper lobe: Evolving infarct: New finding 3. Sclerotic lesions seen in multiple thoracic vertebrae- likely metastatic, increased as compared to prior study. Electronically signed by Agusto Segovia 11-23-2024 03:17 AM Code Status & VTE Plan Code Status Full code VTE Prophylaxis Plan VTE Prophylaxis will be ordered: Yes PG Care Time/CCT Total # of Minutes Spent Total Time Spent with Patient: Total time spent is greater than 50% in coordination of care (as documented) at patient's floor/unit and/or counseling patient: Coding Level of Care Code 51961 INT INP/OBS CARE 3/75MIN Diagnoses Pulmonary embolism and infarction I26.99 Acute hypokalemia E87.6 Seizure-like activity R56.9 Metastatic lung cancer (metastasis from lung to other site) C34.90 Mass of right lung R91.8
[2024-11-22] MEDS: OPTIRAY 320 125ml IV ONE (23:13)
[2024-11-22] MEDS: MAGNESIUM SULFATE / D5W 1 GM/100 ML BAG IV ONE (23:44)
[2024-11-22] MEDS: ALBUMIN 25% 25 GM/100 ML VIAL IV SCH (23:44)
[2024-11-22] MEDS: CALCIUM GLUCONATE 1,000 MG/60 ML BAG IV STA (23:44)
[2024-11-22] MEDS: NSS + 20MEQ KCL 20 MEQ/1,000 ML BAG IV SCH (23:44)
[2024-11-23] MEDS ORDERED: BUTALBITAL/ACETAMIN/CAFFEINE TAB PO PRN (00:53)
[2024-11-23] MEDS ORDERED: ONDANSETRON INJ 2 MG/ML 2 ML VIAL IV PRN (00:53)
[2024-11-23] MEDS ORDERED: FLUTICASONE PROPIONATE NA SPR 16 GM BTL NAE PRN (00:53)
--- NOTE | 2024-11-23 03:17 | CT Scan Report ---
EXAM: CT angio chest PE protocol CLINICAL HISTORY: PE TECHNIQUE: Contiguous axial images were obtained from the neck base through the upper abdomen following intravenous administration of iodinated contrast material. Angiographic images were processed, 3D MIP images were acquired for interpretation. If IV contrast material had not been administered, the likelihood of detecting abnormalities relevant to the patient's condition would have been substantially decreased. Coronal and sagittal 3-D MIPs were likewise performed and indicated to increase the sensitivity of detectin diffuse clinically relevant pathology. CT scan was performed according to ALARA (as low as reasonable achievable). 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 FINDINGS: Adequate contrast bolus Filling defect noted within left pulmonary artery, right upper lobe pulmonary artery and left upper lobe pulmonary artery branch The central airways are patent. A spiculated 2.2 cm mass is noted in right upper lobe. A patch of peripheral ground glass opacities is noted in anterior segment of left upper lobe The lungs are otherwise clear. No pleural effusion. The heart and aortaare of normal size and configuration. There are no appreciable coronary artery and aortic atherosclerotic calcifications. No pericardial effusion is identified. The thyroid is unremarkable. No mediastinal, hilar, or axillary lymphadenopathy is noted. Sclerotic lesions seen in multiple thoracic vertebrae- likely metastatic, increased as compared to prior study. IMPRESSION: 1 Filling defect noted within left pulmonary artery, right upper lobe pulmonary artery and left upper lobe pulmonary artery branch: Acute thromboembolism (No features of pulmonary strain): New finding 2 A spiculated mass in right upper lobe: Neoplastic etiology: reduced in size A patch of peripheral ground glass opacities is noted in anterior segment of left upper lobe: Evolving infarct: New finding 3. Sclerotic lesions seen in multiple thoracic vertebrae- likely metastatic, increased as compared to prior study. Electronically signed by Agusto Segovia 11-23-2024 03:17 AM
[2024-11-23] MEDS: HEPARIN 25000 UNIT/500 ML D5W 25,000 UNITS/500 ML BAG IV SCH (04:08)
[2024-11-23] MEDS: Heparin IV Adult Wt-Based Standard *NO* INITIAL Bolus Protocol IV STA (04:09)
[2024-11-23] MEDS: LEVOTHYROXINE SODIUM 75 MCG TABLET PO SCH (04:11)
[2024-11-23 07:07] LABS: Albumin Globulin Ratio 1.6 (0.9-2); Albumin Level 2.9 gm/dl (3.4-5.0); Bilirubin,Total 0.5 mg/dl (0.2-1.0); Calcium 7.5 mg/dl (8.6-10.3); Creatinine Clr Calc Pharmacy 91.6 ml/min; Globulin 1.8 gm/dl (2.5-4.0); Magnesium 2.1 mg/dl (1.7-2.4); Potassium 2.9 mmol/L (3.5-5.1); Total Protein 4.7 gm/dl (6.0-8.3)
[2024-11-23 07:33] LABS: Eosinophils # (auto) 0.08 K/uL (0.00-0.50); Eosinophils % (auto) 2.1 %; Hematocrit (blood only) 25.1 % (37.0-47.0); Hemoglobin 8.2 g/dl (12.0-16.0); Immature Granulocytes # (auto) 0.02 K/uL (0.01-0.20); Immature Granulocytes % (auto) 0.5 %; Lymphocytes # (auto) 0.51 K/uL (1.20-3.40); Lymphocytes % (auto) 13.1 %; Mean Corpuscular Hemoglobin 32.5 pg (25.0-34.0); Mean Corpuscular Hgb Conc 32.7 g/dL (32.0-36.0); Mean Corpuscular Volume 99.6 fL (80.0-100.0); Mean Platelet Volume 10.3 fL (9.4-12.4); Monocytes # (auto) 0.32 K/uL (0.11-0.59); Monocytes % (auto) 8.2 %; Neutrophils # (auto) 2.97 K/uL (1.40-6.50); Neutrophils % (auto) 76.1 %; Platelet Count 245 K/uL (130-400); RDW Coefficient of Variation 15.8 % (11.5-14.5); RDW Standard Deviation 58.1 fL (36.4-46.3); Red Blood Count 2.52 M/uL (4.20-5.40)
[2024-11-23 07:46] LABS: INR 1.2 (0.9-1.1)
[2024-11-23 08:46] LABS: Partial Thromboplastin Ratio > 4.9
[2024-11-23 08:47] LABS: Partial Thromboplastin Time > 139 Seconds (21-31)
[2024-11-23] MEDS ORDERED: APIXABAN 5 MG TABLET PO SCH (09:00)
--- NOTE | 2024-11-23 09:50 | Electrocardiogram Report ---
Test Reason : Blood Pressure : */* mmHG Vent. Rate : 91 BPM Atrial Rate : 91 BPM P-R Int : 130 ms QRS Dur : 88 ms QT Int : 384 ms P-R-T Axes : 74 5 63 degrees QTcB Int : 472 ms Poor data quality, interpretation may be adversely affected Normal sinus rhythm Nonspecific ST and T wave abnormality Abnormal ECG When compared with ECG of 18-Aug-2024 15:52, Nonspecific T wave abnormality now evident in Inferior leads Nonspecific T wave abnormality, worse in Anterolateral leads Confirmed by Manjit Comer ([id number]) on 11/23/2024 9:50:22 AM Referred By: Confirmed By: Manjit Cmoer
[2024-11-23] MEDS: CHOLECALCIFEROL 125 MCG (5,000 UNITS) TAB PO SCH (10:06)
[2024-11-23] MEDS: MIRTAZAPINE TAB 15 MG TAB PO SCH (10:06)
[2024-11-23] MEDS: CALCIUM CITRATE 950 MG TAB PO SCH (10:06)
[2024-11-23] MEDS: PANTOprazole 40 MG TAB PO SCH (10:07)
[2024-11-23] MEDS: SERTRALINE HCL 50 MG TABLET PO SCH (10:07)
[2024-11-23] MEDS: MEMANTINE HCL 10 MG TAB PO SCH (10:07)
[2024-11-23] MEDS: MULTIVITAMIN TAB PO SCH (10:07)
[2024-11-23] MEDS: POTASSIUM CHLORIDE / WTR 10 MEQ/100 ML PLCT IV SCH ×2 (10:10→12:16)
[2024-11-23] MEDS: FAMOTIDINE 20 MG TAB PO SCH (10:10)
[2024-11-23] MEDS: POTASSIUM CHLORIDE CRTAB 20 MEQ TABCR PO STA (10:33)
[2024-11-23 10:49] LABS: ANTI-Xa, UFH(UnfractionatedHep > 1.50 IU/ml (0.3-0.7)
--- NOTE | 2024-11-23 11:59 | Radiation OncologyConsultation ---
Date of Consultation November 23, 2024 Assessment & Plan (1) Metastasis to brain: Plan ATTENDING ADDENDUM Assessment: Ms. Schumacher is a 64-year-old female who presents with a diagnosis of metastatic lung cancer. The patient previously received whole brain radiation therapy (3000 cGy, 10 fractions, 08/08/2024). In the outpatient setting, the patient had a recent MRI of the brain which does show a significant positive response with significant reduction in most cancer of the brain. The patient has been recently admitted to the hospital and we have been asked to comment on the role of further radiation therapy. The patient did have a CT of the head without contrast which did not show any acute intracranial abnormalities. Currently, the patient is doing better overall and appears stable. Plan: 1. No role for radiation therapy at this point. 2. If there is significant concern for a neurologic process, either MRI of the brain or CT head with contrast can be completed. 3. If there are new findings from any further neuroimaging studies, please contact us and this can be reviewed to make any further recommendations regarding intracranial disease. 4. Palliative care referral was placed in the outpatient setting and can be also considered in the inpatient setting. 5. Please call us with any further questions or concerns. History of Present Illness Reason for Consultation: Radiation oncology patient who has completed SBRT of the brain. Requesting Physician: Joshua Contreras MD Attending Physician: Joshua Contreras MD History of Present Illness May to July 2024. Patient has dark spots in her vision. 07/21/2024. Patient presents emergency room due to changes in vision. Patient admitted to hospital for further workup and evaluation. 07/21/2024. MRI brain. 1. Numerous enhancing parenchymal lesions which measure up to 1.6 cm with mild associated vasogenic edema. The findings are consistent with metastatic disease, several of which are hemorrhagic with a small amount of blood products. Oncology consultation is recommended. 2. 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 3. Several enhancing calvarial metastases. 07/21/2024. CT chest. 1. 3.3 x 3.2 cm spiculated right upper lobe mass consistent with a primary lung cancer. 2. Several mildly enlarged pathologic right hilar lymph nodes. 3. Multiple lytic thoracic spine metastases with subtle pathologic fractures of T6 and T10. 07/21/2024. CT of abdomen/pelvis. 1. Please refer to the same day chest CT for discussion of the primary bronchogenic carcinoma of the right upper lobe. 2. Nonspecific borderline enlarged periportal lymph nodes. 3. Multifocal osteolytic skeletal metastasis with subtle pathologic fractures at T10 and L1. No significant vertebral body height loss or retropulsion. 4. Incidental findings as above. 07/21/2024. CT head without contrast. 1. Intracranial metastasis measuring up to 1.6 cm with mild surrounding vasogenic edema, better seen on the same-day brain MRI. 2. No midline shift, hydrocephalus or large intraparenchymal hemorrhage identified. 3. Foci of hemorrhage associated with the metastatic lesions better seen on MRI. 4. Lytic calvarial metastasis. 07/21/2024. MRI cervical spine. 1. Cervical spondylosis changes with multilevel disc osteophyte complex and neural foraminal narrowing with nerve root impingement as described above. 2. Focal enhancing plaque like lesion is noted along the posterior part of thoracic spinal cord at the level of T4-T5 level. -Possibility of neoplastic lesion/metastasis. 3. T1 and T2 hypointense lesions seen in T2, T3 and T6 vertebral bodies, with enhancement post contrast. T1 and T2 hypointense lesion with enhancement also seen in spinous process of C3 vertebra.- likely metastatic. 07/21/2024. MRI thoracic spine. 1. Nodular, intramedullary enhancing lesion of size 12 x 4.5 mm (CC x AP) is noted at T5-T6 level. Cord edema is noted around the lesion. Findings likely suggestive of metastasis. 2. Nodular enhancement is noted along the surface of the distal spinal cord and conus medullaris. 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 3. Multiple, variable sized, enhancing lesions are noted involving multiple thoracic vertebrae as described, likely suggestive of metastasis. 07/21/2024. MRI of lumbar spine. 1. Multiple, variable sized, enhancing lesions involving all lumbar and visualized thoracic and sacral vertebrae as described above. Likely metastases. 2. Degenerative changes as described above. 3. Posterior disc bulges at multiple levels the neural compression as described above. 07/22/2024. Pulmonary consultation. Dr. Bright. Recommendation is to proceed with biopsy to confirm tissue diagnosis. 07/22/2024. Radiation oncology consultation. Complete staging workup. Recommend palliative whole brain radiation therapy. 07/22/2024. Bronchoscopy with EBUS. 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 08/08/2024. Status post completion of whole brain radiation therapy. She received 3000 cGy. Treatment completed in 10 fractions. 08/18/2024. Diagnostic laparoscopic examination. Laparoscopic appendectomy, intra-abdominal pelvic washout. 09/05/2024. Hospital discharge. 10/25/2024. Surgical follow-up. Ongoing issues with decreased appetite. Patient initially seen due to abnormal PET/CT showing perforation. Slow recuperation post appendectomy. 10/26/2024. Medical oncology follow-up (Dr. Dutta) postoperative pain is now resolving. Some issues with memory. Brain MRI is scheduled. Plan for PET/CT. 11/01/2024. Medical oncology follow-up. Concerning for DVT. Venous Doppler ordered. 11/01/2024. Venous Doppler shows extensive occlusive deep venous thrombosis from the right groin through the calf. Greater saphenous and gastrocnemius vein occlusion of greater than 5 cm. 11/07/2024. Medical oncology follow-up. Patient has been placed on Eliquis for the DVT. Continues to have issue with her memory since completing the radiation therapy. Patient was started on Namenda. 11/09/2024. Brain MRI. 1. Status post-radiotherapy and compared to the last MRI study dated 07/21/2024. The current examination reveals: 2. No hyperacute or acute infarctions could be detected. 3. Imaging features consistent with the consequences of small vessel disease, e.g., hypertensive and/or diabetic vasculopathy. Possible augmentation by radiotherapy. 4. Multiple Variable-sized randomly dispersed cerebral and cerebellar parenchymal enhancing nodules are seen; the largest is located in the right frontal parsagittal location, measuring 14 mm in diameter. 5. Multple microbleeds. 6. The comparison is consistent with a remarkable reduction of the number and sizes of the previously noted metastatic nodules, which is consistent with a good response to therapy and current residual metastatic deposit. Strict follow- up is recommended. 11/16/2024. Radiation oncology follow-up. Patient has had ongoing issues with fatigue and poor appetite. This began soon after completing the radiation therapy. She denies any issues with headaches. She had been on dexamethasone. This is now complete. Her has a good understanding of medication. He knew that the dexamethasone helpful swallowing but also can cause decrease in muscle mass. She continues on the Progresso. She is very somnolent and falls asleep easily. She did fall sustaining a contusion to her forehead prior to the MRI. She is now on Eliquis for the DVTs. Her assisted in all activities of daily living. He must help her to stand and pivot in order to go from the wheelchair to the toilet. Due to the patient's lethargy, weakness, poor appetite and poor performance status a palliative care consult was placed. Will continue to monitor the brain with recheck MRIs. An MRI was ordered for in 3 months for follow-up afterward. 11/22/2024. Emergency room evaluation due to seizure-like activities, generalized weakness and acute hypokalemia. Patient was being helped by her to go to the bathroom. She became very stiff and shaking. It was reported that she became very stiff and then had shaking. She was brought to the emergency room for evaluation. 11/22/2024. CT of the head without contrast. No CT evidence of any acute intracranial abnormality. 11/22/2024. Chest x-ray. No acute cardiopulmonary process. Right upper lobe mass appears unchanged. 11/22/2024. Chest CTA. 1 Filling defect noted within left pulmonary artery, right upper lobe pulmonary artery and left upper lobe pulmonary artery branch: Acute thromboembolism (No features of pulmonary strain): New finding 2. A spiculated mass in right upper lobe: Neoplastic etiology: reduced in size A patch of peripheral ground glass opacities is noted in anterior segment of left upper lobe: Evolving infarct: New finding 3. Sclerotic lesions seen in multiple thoracic vertebrae- likely metastatic, increased as compared to prior study. 10/26/2024. Radiation oncology follow-up. The patient is looking improved today compared to her follow-up visit on 11/16/2024. She is awake and alert. Showing no somnolence. She is eating her lunch. She denies any problems with headaches. She does not recall being brought to the emergency room. She denies shortness of breath. She is now on heparin therapy. Allergies Allergy/AdvReac Type Severity Reaction Status Date / Time No Known Allergies Allergy Verified 11/22/24 17:40 Home Medications Medication Instructions Recorded Confirmed Type famotidine 20 mg tablet (Pepcid AC) 20 mg PO QAM 09/14/20 11/22/24 History multivitamin 1 tab PO QAM 09/14/20 11/22/24 History cholecalciferol (vitamin D3) 125 125 mcg PO QAM 06/04/21 11/22/24 History mcg (5,000 unit) tablet (Vitamin D3) fluticasone propionate 50 2 spray intranasal DAILY PRN 05/13/24 11/22/24 Rx mcg/actuation nasal allergy symptoms #3 multiple units spray,suspension (Flonase Allergy Relief) levothyroxine 75 mcg tablet 75 mcg PO QAM 07/21/24 11/22/24 History apixaban 5 mg tablet (Eliquis) 5 mg PO BID 11/16/24 11/22/24 History calcium 250 mg (citrate)-magnesium 2 tab PO DAILY 11/16/24 11/22/24 History 40 mg-D3 125 unit chewable tablet memantine 5 mg tablet 10 mg PO BID 11/16/24 11/22/24 History omeprazole 20 mg capsule,delayed 20 mg PO DAILY 11/16/24 11/22/24 History release osimertinib 80 mg tablet (Tagrisso) 80 mg PO DAILY 11/16/24 11/22/24 History mirtazapine 15 mg tablet 15 mg PO DAILY #30 tabs 11/21/24 11/22/24 Rx sertraline 50 mg tablet 50 mg PO DAILY #30 tabs 11/21/24 11/22/24 Rx xqghceqbik-fsrsykaucttll-vmlcrsez 1 - 2 tab PO DAILY PRN pain 11/22/24 11/22/24 History 50 mg-325 mg-40 mg tablet Patient History Medical History Peritonitis Periappendicitis UTI (urinary tract infection) Intra-abdominal fluid collection Perforated bowel Pneumoperitoneum Free intraperitoneal air Daily headache Vision changes Metastasis to bone Metastasis to brain Osteoarthritis Hypothyroidism Migraine Anemia Surgical History History of laparoscopic appendectomy (08/19/24) History of esophagogastroduodenoscopy (EGD) History of colonoscopy History of tooth extraction Family History Other No family history of adverse response to anesthesia No pertinent family history Denies family history of Ovarian cancer Prostate cancer Diabetes Myocardial infarction Breast cancer Colorectal cancer Hypertension Social History Smoking Status: Unknown if ever smoked Second Hand Exposure: No; Do You Dip or Chew Tobacco: No; Hx Alcohol Use: No Hx Substance Use: No Preferred Language: Bolivian Communication Ability: Effective Visual Impairment: No Limitations Hearing Ability: Normal Major Account Manager Required: No Beliefs That Will Affect Care: None marital status: Current Living Situation: Spouse current occupational status: retired Feels Safe at Home: Yes Dental Care, Regularly: Yes Physical Activity Frequency: Does not Exercise Seatbelt Use: always Assistive Devices: Hospital Bed, Walker and Wheelchair Radiation History Diagnosis: 07/2024. Unknown primary. Metastatic cancer. Favor lung primary. 07/22/2024. Bronchoscopy with biopsies. Biopsy show adenocarcinoma right upper lobe. Treatment: 08/08/2024. Status post completion of whole brain radiation therapy. She received 3000 cGy. Treatment completed in 10 fractions. Review of Systems Review of Systems: 13 point review of system completed and is negative other than what is in the history of present illness. Physical Exam Physical Exam: Ecchymotic area of the right frontal region has improved. Contusion is much smaller. Ecchymosis is fading. Constitutional: WD/WN, vitals as above Eyes: PERRL, conjunctivae normal, anicteric sclerae ENMT: Ears: no hearing impairment Neck: trachea midline, no thyromegaly Respiratory: normal respiratory effort, lungs clear to auscultation Auscultation: lungs clear to auscultation bilaterally Cardiovascular: RRR, no murmur, no edema Gastrointestinal (Abdomen): normal bowel sounds, soft, nontender, no hepatosplenomegaly Skin: no rashes, warm and dry Psychiatric: A+Ox3, euthymic affect Results (Rad Onc) Imaging Studies: were reviewed and pertinent findings noted in HPI Time Spent Midlevel I spent [15] minutes in preparation for this follow up evaluation including reviewing all the clinical records, reviewing laboratory studies, pathology reports and imaging results. I spent [20] minutes with direct face to face interaction with the patient and/or family including performing a physical exam and answering all questions. I spent [10] minutes documenting this patient's visit. Attending I spent 10 minutes reviewing this patient's cases with the mid-level provider including reviewing all the clinical records, reviewing laboratory studies, pathology reports and imaging results. I spent 10 minutes documenting this patient's visit. PG Care Time/CCT Total # of Minutes Spent Total Time Spent with Patient: Total time spent is greater than 50% in coordination of care (as documented) at patient's floor/unit and/or counseling patient: Coding [place] [address] IN/OBS CONSULT LVL 4,60M Patient Type Established History Problem Focused Exam Problem Focused Medical Decision Making Low Complexity Diagnoses Metastasis to brain C79.31
--- NOTE | 2024-11-23 12:00 | Hospitalist Progress Note ---
Date of Service November 23, 2024 Assessment & Plan (1) Pulmonary embolism and infarction: (2) Acute hypokalemia: (3) Seizure-like activity: (4) Metastatic lung cancer (metastasis from lung to other site): (5) Mass of right lung: Plan: primary lung ca site (RUL) Plan 64yo female with stage 4 lung cancer with mets to the brain & bone, history of gastric ulcer, hypothyroidism, GERD, hyperlipidemia, migraine and B12 deficiency. Presented with 60 second seizure-like event with stiffness & shaking. Witnessed by . Following the event patient was confused. #Seizure-like activity - CT head without acute findings Unable to order MRI due to unavailability of MRI EEG negative for seizure activity however, given the presence of brain mets, description of the event, and the ensuing confusion would Rx as seizure Thus, keppra 500mg BID added neuro consult requested & recs appreciated CT head recommended for tomorrow to ensure no progression of microbleeds #Pulmonary embolism and infarction/RLE DVT (dx: 11/01/2024) - Patient had reportedly been on Eliquis for 2 weeks. CTA chest this admission with b/l PEs and pulmonary infarction RYLEY. Eliquis placed on hold by admitting team. Placed on heparin drip. 2 questions to answer - with "microbleed" on MRI brain is it safe to anticoagulate; second, if anticoagulation is permissible do we consider the Eliquis a "treatment failure" and switch to lovenox ? Will have neurology see her to determine safety of anticoagulation in setting of microbleed seen on recent brain MRI. Vascular was consulted; they will be on stand-by in the event she needs IVC filter. Oncology consulted re: opinion about anticoagulation. #Metastatic lung cancer to brain and bone - Patient has a PET/CT scheduled for 11/24/24 as outpatient She is s/p whole brain radiation x 10 fractions Most recent MRI brain from 11/09/2024 - in comparison to MRI dated 07/21/2024 - remarkable reduction of the number and size of the previously noted metastatic nodules, which is consistent with a good response to therapy and current residual metastatic deposits. Multiple microbleeds again seen. Continue osimertinib Await oncology consultation Appreciate rad onc consult - nothing acute from their standpoint #Hypokalemia - Still low this am - give KCL 10meq IV x 5 bags with repeat K level this afternoon now wnl #Hypotension- s/p albumin & IV fluids - improved #acute metabolic encephalopathy - 2nd to seizure? 2nd to ongoing memory loss from brain mets, radiation, etc? viki added cont namenda #tachycardia - Likely 2nd to PEs but check echo due to low-normal BPs, etc. if low-normal BPs continue consider cortisol level as patient was on dexamethasone (high-dose) up until sometime in August 2024 Chronic medical conditions: Hypothyroidism-continue levothyroxine; TSH in October 2024 was wnl GERD-continue famotidine and PPI left message for pt's on his [facility] 11/23/24 Admission and Anticipated Discharge Date Admission Date: November 22, 2024 Subjective tele overnight wnl patient resting in bed comfortably during the visit she initially told me she "was awake" for the full shaking event at home but then she couldn't recall the details of the event denies any dizziness, lightheadedness, dyspnea, pleuritic chest pain, or dyspnea on exertion denies headache Review of Systems Review of Systems: cv - no chest pain, no orthopnea pulm - no cough GI - no N/V Physical Exam Physical Exam: gen - thin, NAD, resting comfortably in bed head - alopecia mouth - MMM neck - no JVD heart - RR, s1 s2, borderline tachy, 1/6 NANI LSB lungs - CTA b/l abd - soft NT ND BS+ ext - right leg is larger than left leg; 2+ pitting edema right foot and most of right rubin; trace edema left foot psych - awake/alert, poor historian Results & Data Results & Data Vital Signs (Past 12 Hours) Vital Signs Temp Pulse Pulse Resp BP BP Pulse Ox 11/23/24 11:28 91 H 11/23/24 10:38 36.3 C L 96 H 19 105/72 93 11/23/24 07:07 36.3 C L 93 H 18 96/65 L 95 11/23/24 04:09 81 11/23/24 04:09 81 11/23/24 03:04 36.6 C 81 16 100/70 99 11/23/24 02:19 11/23/24 01:12 87 1 L 11/23/24 00:53 36.6 C 81 18 114/78 99 11/23/24 00:39 94 H 13 11/23/24 00:21 36.7 C 86 19 94/69 L 96 11/23/24 00:17 84 13 O2 Del Method 11/23/24 11:28 11/23/24 10:38 Room Air 11/23/24 07:07 Room Air 11/23/24 04:09 11/23/24 04:09 11/23/24 03:04 Room Air 11/23/24 02:19 Room Air 11/23/24 01:12 11/23/24 00:53 Room Air 11/23/24 00:39 11/23/24 00:21 Room Air 11/23/24 00:17 Laboratory Results Laboratory Results - last 24 hr 11/22/24 11/23/24 11/23/24 17:08 06:22 09:50 WBC 3.90 L RBC 2.52 L Hgb 8.2 L D Hct 25.1 L MCV 99.6 MCH 32.5 MCHC 32.7 RDW Std Deviation 58.1 H RDW Coeff of Melodie 15.8 H Plt Count 245 MPV 10.3 Immature Gran % (Auto) 0.5 Neut % (Auto) 76.1 Lymph % (Auto) 13.1 Hudson % (Auto) 8.2 Eos % (Auto) 2.1 Baso % (Auto) 0.0 Neut # (Auto) 2.97 Lymph # (Auto) 0.51 L Hudson # (Auto) 0.32 Eos # (Auto) 0.08 Baso # (Auto) 0.00 Immature Gran # (Auto) 0.02 PT 13.0 H INR 1.2 H APTT > 139 H* PTT Ratio > 4.9 Heparin Anti-Xa, Unfract > 1.50 H* Sodium 135 L Potassium 2.9 L Chloride 102 Carbon Dioxide 27 Anion Gap 6 BUN 26 H Creatinine 0.50 L Est Cr Clr Drug Dosing 91.6 eGFR 103.38 BUN/Creatinine Ratio 52.0 H Glucose 132 H Calcium 7.5 L Magnesium 2.1 Total Bilirubin 0.5 AST 13 ALT 12 Alkaline Phosphatase 222 H Total Protein 4.7 L Albumin 2.9 L Globulin 1.8 L Albumin/Globulin Ratio 1.6 Adenovirus (PCR) Not Detected B. pertussis DNA (PCR) Not Detected B.parapertussis DNA PCR Not Detected C. pneumoniae DNA (PCR) Not Detected Coronavirus OC43 (PCR) Not Detected Coronavirus HKU1 (PCR) Not Detected Coronavirus 229E (PCR) Not Detected SARS-CoV-2 (PCR) Not Detected Coronavirus NL63 (PCR) Not Detected Human Metapneumovir PCR Not Detected Influenza Type A (PCR) Not Detected Influenza Type B (PCR) Not Detected M. pneumoniae (PCR) Not Detected Parainfluenza 1 (PCR) Not Detected Parainfluenza 2 (PCR) Not Detected Parainfluenza 3 (PCR) Not Detected Parainfluenza 4 (PCR) Not Detected RSV (PCR) Not Detected Entero/Rhino (PCR) Not Detected 11/23/24 11/23/24 11/23/24 12:56 12:57 15:52 WBC RBC Hgb 9.1 L Hct 28.0 L MCV MCH MCHC RDW Std Deviation RDW Coeff of Melodie Plt Count MPV Immature Gran % (Auto) Neut % (Auto) Lymph % (Auto) Hudson % (Auto) Eos % (Auto) Baso % (Auto) Neut # (Auto) Lymph # (Auto) Hudson # (Auto) Eos # (Auto) Baso # (Auto) Immature Gran # (Auto) PT INR APTT PTT Ratio Heparin Anti-Xa, Unfract 1.23 H* 0.77 H* Sodium Potassium 4.0 D Chloride Carbon Dioxide Anion Gap BUN Creatinine Est Cr Clr Drug Dosing eGFR BUN/Creatinine Ratio Glucose Calcium Magnesium Total Bilirubin AST ALT Alkaline Phosphatase Total Protein Albumin Globulin Albumin/Globulin Ratio Adenovirus (PCR) B. pertussis DNA (PCR) B.parapertussis DNA PCR C. pneumoniae DNA (PCR) Coronavirus OC43 (PCR) Coronavirus HKU1 (PCR) Coronavirus 229E (PCR) SARS-CoV-2 (PCR) Coronavirus NL63 (PCR) Human Metapneumovir PCR Influenza Type A (PCR) Influenza Type B (PCR) M. pneumoniae (PCR) Parainfluenza 1 (PCR) Parainfluenza 2 (PCR) Parainfluenza 3 (PCR) Parainfluenza 4 (PCR) RSV (PCR) Entero/Rhino (PCR) Diagnostic Findings Chest CTA 11/22/24 22:45 EXAM: CT angio chest PE protocol CLINICAL HISTORY: PE TECHNIQUE: Contiguous axial images were obtained from the neck base through the upper abdomen following intravenous administration of iodinated contrast material. Angiographic images were processed, 3D MIP images were acquired for interpretation. If IV contrast material had not been administered, the likelihood of detecting abnormalities relevant to the patient's condition would have been substantially decreased. Coronal and sagittal 3-D MIPs were likewise performed and indicated to increase the sensitivity of detectin diffuse clinically relevant pathology. CT scan was performed according to ALARA (as low as reasonable achievable). COMPARISON: 12:44:05 CHARGE AUTHORIZER. FINDINGS: Adequate contrast bolus Filling defect noted within left pulmonary artery, right upper lobe pulmonary artery and left upper lobe pulmonary artery branch The central airways are patent. A spiculated 2.2 cm mass is noted in right upper lobe. A patch of peripheral ground glass opacities is noted in anterior segment of left upper lobe The lungs are otherwise clear. No pleural effusion. The heart and aortaare of normal size and configuration. There are no appreciable coronary artery and aortic atherosclerotic calcifications. No pericardial effusion is identified. The thyroid is unremarkable. No mediastinal, hilar, or axillary lymphadenopathy is noted. Sclerotic lesions seen in multiple thoracic vertebrae- likely metastatic, increased as compared to prior study. IMPRESSION: 1 Filling defect noted within left pulmonary artery, right upper lobe pulmonary artery and left upper lobe pulmonary artery branch: Acute thromboembolism (No features of pulmonary strain): New finding 2 A spiculated mass in right upper lobe: Neoplastic etiology: reduced in size A patch of peripheral ground glass opacities is noted in anterior segment of left upper lobe: Evolving infarct: New finding 3. Sclerotic lesions seen in multiple thoracic vertebrae- likely metastatic, increased as compared to prior study. Electronically signed by Agusto Segovia 11-23-2024 03:17 AM PG Care Time/CCT Total # of Minutes Spent Total Time Spent with Patient: Total time spent is greater than 50% in coordination of care (as documented) at patient's floor/unit and/or counseling patient: Coding Level of Care Code 66557 SUB INP/OBS CARE 3/50MIN Diagnoses Pulmonary embolism and infarction I26.99 Acute hypokalemia E87.6 Seizure-like activity R56.9 Metastatic lung cancer (metastasis from lung to other site) C34.90 Mass of right lung R91.8
[2024-11-23] MEDS: levETIRAcetam 500 MG TAB PO SCH (12:16)
[2024-11-23] MEDS: ceFAZolin 2000MG 2,000 MG/15 ML SYR IV ONE (12:17)
--- NOTE | 2024-11-23 12:53 | Neurology Consultation ---
Date of Consultation November 23, 2024 History of Present Illness Attending Physician: Joshua Contreras MD History of Present Illness S: pt with known brain mets from lung and s/p brain XRT and chemo, who had seizure like event yesterday. pt suddenly started to shake and got stiff and had this for a minute and return to baseline with mild confusion afterwards. no tongue biting or bowel/bladder loss. eyes were opened and rolled back. pt without prior seizures. pt has been followed by oncology for her cancer and brain mets and was started on eliquis for DVT 2 weeks ago. known small microbleed in her brain, has been stable since july 2024 and recent mri brain early this month. CT head from yesterday stable, no sign of new head bleed. pt currently doing well and stable. mild confusion. admission HPI: The patient is a 64-year-old female with past medical history including situational depression, prediabetes, metastatic lung cancer to brain, history of gastric ulcer, right upper lung mass, hypothyroidism, GERD, hyperlipidemia, migraine and B12 deficiency.The patient was brought to the emergency department due to witnessed seizure-like activity by her , as he was trying to get the patient to the bathroom, attempting to lift her up and she started to get very stiff and shaky. He reports that she continues to be somewhat confused at this time in the ED, and is not back to what he considers her baseline. He reports the entire episode lasted about 60 seconds. She has known history of lung cancer with metastases to brain, and has a PET/CT scheduled for 11/24. She has undergone radiation therapy with Dr. Michael, and MRI from 11/01 is noted improvement in brain metastases. She has not had any previous history of seizures or seizure-like activity. The has also reported concerns regarding patient having increasing heart rate and intermittently low blood pressure at the same time. He notes that she had been started on Eliquis for right lower extremity DVT about 2 weeks ago, and has been faithful about taking the Eliquis. Did her tachycardia and borderline blood pressure, we then ordered a CTA PE protocol, which showed filling defect within the left pulmonary artery, right upper lobe pulmonary artery and left upper lobe pulmonary artery branch, indicating acute thromboembolism. The spiculated mass in the right upper lobe was neoplastic in etiology reduced in size. Sclerotic lesion seen in multiple thoracic vertebrae likely metastatic, increased as compared to prior study. A patch of peripheral groundglass opacities with noted anterior segment left upper lobe, considered an evolving infarct. Allergies Allergy/AdvReac Type Severity Reaction Status Date / Time No Known Allergies Allergy Verified 11/22/24 17:40 Home Medications Medication Instructions Recorded Confirmed Type famotidine 20 mg tablet (Pepcid AC) 20 mg PO QAM 09/14/20 11/22/24 History multivitamin 1 tab PO QAM 09/14/20 11/22/24 History cholecalciferol (vitamin D3) 125 125 mcg PO QAM 06/04/21 11/22/24 History mcg (5,000 unit) tablet (Vitamin D3) fluticasone propionate 50 2 spray intranasal DAILY PRN 05/13/24 11/22/24 Rx mcg/actuation nasal allergy symptoms #3 multiple units spray,suspension (Flonase Allergy Relief) levothyroxine 75 mcg tablet 75 mcg PO QAM 07/21/24 11/22/24 History apixaban 5 mg tablet (Eliquis) 5 mg PO BID 11/16/24 11/22/24 History calcium 250 mg (citrate)-magnesium 2 tab PO DAILY 11/16/24 11/22/24 History 40 mg-D3 125 unit chewable tablet memantine 5 mg tablet 10 mg PO BID 11/16/24 11/22/24 History omeprazole 20 mg capsule,delayed 20 mg PO DAILY 11/16/24 11/22/24 History release osimertinib 80 mg tablet (Tagrisso) 80 mg PO DAILY 11/16/24 11/22/24 History mirtazapine 15 mg tablet 15 mg PO DAILY #30 tabs 11/21/24 11/22/24 Rx sertraline 50 mg tablet 50 mg PO DAILY #30 tabs 11/21/24 11/22/24 Rx tbbovsnafx-ihgkwnhowgywf-lpmgzibe 1 - 2 tab PO DAILY PRN pain 11/22/24 11/22/24 History 50 mg-325 mg-40 mg tablet Patient History Medical History Peritonitis Periappendicitis UTI (urinary tract infection) Intra-abdominal fluid collection Perforated bowel Pneumoperitoneum Free intraperitoneal air Daily headache Vision changes Metastasis to bone Metastasis to brain Osteoarthritis Hypothyroidism Migraine Anemia Surgical History History of laparoscopic appendectomy (08/19/24) History of esophagogastroduodenoscopy (EGD) History of colonoscopy History of tooth extraction Family History Other No family history of adverse response to anesthesia No pertinent family history Denies family history of Ovarian cancer Prostate cancer Diabetes Myocardial infarction Breast cancer Colorectal cancer Hypertension Social History Smoking Status: Unknown if ever smoked Second Hand Exposure: No; Do You Dip or Chew Tobacco: No; Hx Alcohol Use: No Hx Substance Use: No Preferred Language: Serbian Communication Ability: Effective Visual Impairment: No Limitations Hearing Ability: Normal [employer] Lieutenant Required: No Beliefs That Will Affect Care: None marital status: Current Living Situation: Spouse current occupational status: retired Feels Safe at Home: Yes Dental Care, Regularly: Yes Physical Activity Frequency: Does not Exercise Seatbelt Use: always Assistive Devices: Glasses and Walker Exam (Neuro) Physical Exam: HEENT: normocephalic grossly Neuro: Mental: Alert, knew month but she thought it is 1964, knew president Marcell and name of the [facility] , fluent speech, normal comprehension, no apraxia, no L/R confusion, no neglect, follows command very well. CN: PERRL, Full EOM, symmetric face, midline T/U/P, grossly full ROM neck Motor: No abnormal movements, normal tone, 5/5 t/o bilaterally Coord: intact grossly. Impression: 64 yo female with known brain mets from lung with seizure like event 11/22/2024 in setting of now new PE and recent DVT, hypokalemia and dehydration. Pt has known prior microbleed in the brain, which has been stable since jul 2024. There is no suggestion she is having new bleed (CT head negative) from Elqiuis tx started2 weeks ago. She likely had seizure from several factors including metabolic disorders (hypokalemia), dehydration, known brain mets, new PE. Recommendations: start keppra 500mg IV/PO bid EEG done, reviewed, normal study without epileptic discharges. correct metabolic disorders. check for infection including UA get repeat non-con CT head tomorrow morning (MRI scanner is down currently), if no change, from neuro stand point ok to restart Eliquis and continue tx for new PE and DVT, unless Oncology has different opinion. pt on heparin drips. no clear need for urgent MRI again as she had it done just few weeks ago. seizure precautions. Oncology service consulted. vascular surgery consult for possible IVC filter pending. Chart reviewed I have spent more than 50% educating patient about potential diagnosis and neurological evaluation and coordinating care with patient's treatment team. Total time spent (including chart review and coordination of care): 60 min (this includes chart review). Results & Data Vital Signs (Past 12 Hours) Vital Signs Temp Pulse Pulse Resp BP Pulse Ox O2 Del Method 11/23/24 11:28 91 H 11/23/24 10:38 36.3 C L 96 H 19 105/72 93 Room Air 11/23/24 07:07 36.3 C L 93 H 18 96/65 L 95 Room Air 11/23/24 04:09 81 11/23/24 04:09 81 11/23/24 03:04 36.6 C 81 16 100/70 99 Room Air 11/23/24 02:19 Room Air 11/23/24 01:12 87 1 L PG Care Time/CCT Total # of Minutes Spent Total Time Spent with Patient: Total time spent is greater than 50% in coordination of care (as documented) at patient's floor/unit and/or counseling patient: Coding Level of Care Code 53606 IN/OBS CONSULT LVL 4,60M
--- NOTE | 2024-11-23 13:05 | Electroencephalogram ---
EEG Procedure Note Date of Service November 23, 2024 Start / End Times Start Time: 1216 End Time: 1236 Referring Physician irais jameson History seizure, brain mets Home Medication List Medication Instructions Recorded Confirmed Type famotidine 20 mg tablet (Pepcid AC) 20 mg PO QAM 09/14/20 11/22/24 History multivitamin 1 tab PO QAM 09/14/20 11/22/24 History cholecalciferol (vitamin D3) 125 125 mcg PO QAM 06/04/21 11/22/24 History mcg (5,000 unit) tablet (Vitamin D3) fluticasone propionate 50 2 spray intranasal DAILY PRN 05/13/24 11/22/24 Rx mcg/actuation nasal allergy symptoms #3 multiple units spray,suspension (Flonase Allergy Relief) levothyroxine 75 mcg tablet 75 mcg PO QAM 07/21/24 11/22/24 History apixaban 5 mg tablet (Eliquis) 5 mg PO BID 11/16/24 11/22/24 History calcium 250 mg (citrate)-magnesium 2 tab PO DAILY 11/16/24 11/22/24 History 40 mg-D3 125 unit chewable tablet memantine 5 mg tablet 10 mg PO BID 11/16/24 11/22/24 History omeprazole 20 mg capsule,delayed 20 mg PO DAILY 11/16/24 11/22/24 History release osimertinib 80 mg tablet (Tagrisso) 80 mg PO DAILY 11/16/24 11/22/24 History mirtazapine 15 mg tablet 15 mg PO DAILY #30 tabs 11/21/24 11/22/24 Rx sertraline 50 mg tablet 50 mg PO DAILY #30 tabs 11/21/24 11/22/24 Rx xmgkkxbrtx-szsdocumvkimr-xqloxumt 1 - 2 tab PO DAILY PRN pain 11/22/24 11/22/24 History 50 mg-325 mg-40 mg tablet Inpatient Medication List Calcium Citrate (Calcium Citrate 950 Mg Tab) 950 mg PO DAILY ROQUE Stop: 12/23/24 08:59 Last Admin: 11/23/24 10:06 Dose: 950 mg Documented By: LENORA Famotidine (Famotidine 20 Mg Tab) 20 mg PO QAM ROQUE Stop: 12/23/24 08:59 Last Admin: 11/23/24 10:10 Dose: 20 mg Documented By: LENORA Potassium Chloride/Sodium Chloride (Normal Saline W/20 Meq Kcl) 20 meq in 1,000 mls @ 100 mls/hr IV .Q10H ROQUE Stop: 11/23/24 18:59 Last Admin: 11/23/24 10:53 Dose: 100 mls/hr Documented By: Infusion: 11/23/24 09:44 Dose: Infused Documented By: Admin: 11/22/24 23:44 Dose: 100 mls/hr Documented By: LINCOLN Heparin Sodium/Dextrose (Heparin 66349 Unit/500 Ml D5w) 25,000 units in 500 mls @ 0 mls/hr IV .Q0M ORQUE; Protocol Stop: 12/23/24 04:14 Last Titration: 11/23/24 11:04 Dose: 0 units/hr, 0 mls/hr Documented By: LENORA Co-signed By: MYRON Titration: 11/23/24 07:28 Dose: 950 units/hr, 19 mls/hr Documented By: LENORA Co-signed By: DONALD Admin: 11/23/24 04:08 Dose: 950 units/hr, 19 mls/hr Documented By: DONALD Co-signed By: MISTY Potassium Chloride (K Sher / Wtr) 10 meq in 100 mls @ 100 mls/hr IV Q1H ROQUE Stop: 11/23/24 13:44 Last Admin: 11/23/24 12:16 Dose: 100 mls/hr Documented By: LENORA Levetiracetam (Levetiracetam 500 Mg Tab) 500 mg PO BID ROQUE Stop: 12/23/24 10:54 Last Admin: 11/23/24 12:16 Dose: 500 mg Documented By: LENORA Levothyroxine Sodium (Levothyroxine Sodium 75 Mcg Tablet) 75 mcg PO DAILYBB ROQUE Stop: 12/23/24 06:29 Last Admin: 11/23/24 04:11 Dose: 75 mcg Documented By: DONALD Memantine (Memantine Hcl 10 Mg Tab) 10 mg PO BID ROQUE Stop: 12/23/24 08:59 Last Admin: 11/23/24 10:07 Dose: 10 mg Documented By: LENORA Mirtazapine (Mirtazapine Tab 15 Mg Tab) 15 mg PO DAILY ROQUE Stop: 12/23/24 08:59 Last Admin: 11/23/24 10:06 Dose: 15 mg Documented By: LENORA Miscellaneous (Osimertinib [Tagrisso] 80 Mg - Order Awaiting Action) 1 each N/A QS ROQUE Stop: 12/23/24 07:59 Last Admin: 11/23/24 10:06 Dose: Not Given Documented By: LENORA Multivitamins (Multivitamin Tab) 1 tab PO QAM ROQUE Stop: 12/23/24 08:59 Last Admin: 11/23/24 10:07 Dose: 1 tab Documented By: LENORA Pantoprazole Sodium (Pantoprazole 40 Mg Tab) 40 mg PO DAILY ROQUE Stop: 12/23/24 08:59 Last Admin: 11/23/24 10:07 Dose: 40 mg Documented By: LENORA Sertraline HCl (Sertraline Hcl 50 Mg Tablet) 50 mg PO DAILY ROQUE Stop: 12/23/24 08:59 Last Admin: 11/23/24 10:07 Dose: 50 mg Documented By: LENORA Vitamin D (Cholecalciferol 125 Mcg (5,000 Units) Tab) 125 mcg PO QAM ROQUE Stop: 12/23/24 08:59 Last Admin: 11/23/24 10:06 Dose: 125 mcg Documented By: LENORA Discontinued Medications Heparin Sodium/Dextrose (Heparin Iv Adult Wt-Based Standard *No* Initial Bolus Protocol) 1 each IV ONE STA; Protocol Stop: 11/23/24 03:47 Last Admin: 11/23/24 04:09 Dose: 1 each Documented By: DONALD Magnesium Sulfate/Dextrose (Magnesium Sulfate / D5w) 1 gm in 100 mls @ 50 mls/hr IV ONE ONE Stop: 11/23/24 00:45 Last Infusion: 11/23/24 01:55 Dose: Infused Documented By: Admin: 11/22/24 23:44 Dose: 50 mls/hr Documented By: LINCOLN Albumin Human (Albumin 25%) 25 gm in 100 mls @ 50 mls/hr IV Q2H [facility] Stop: 11/23/24 02:59 Last Infusion: 11/23/24 04:02 Dose: Infused Documented By: Admin: 11/23/24 01:59 Dose: 50 mls/hr Documented By: Infusion: 11/23/24 01:55 Dose: Infused Documented By: Admin: 11/22/24 23:44 Dose: 50 mls/hr Documented By: LINCOLN Calcium Gluconate () 1,000 mg in 60 mls @ 240 mls/hr IV NOW STA Stop: 11/22/24 23:04 Last Infusion: 11/23/24 00:09 Dose: Infused Documented By: Admin: 11/22/24 23:44 Dose: 240 mls/hr Documented By: LINCOLN Potassium Chloride (K Sher / Wtr) 10 meq in 100 mls @ 100 mls/hr IV Q1H ROQUE Stop: 11/23/24 09:44 Last Infusion: 11/23/24 12:19 Dose: Infused Documented By: Admin: 11/23/24 10:57 Dose: 100 mls/hr Documented By: Infusion: 11/23/24 10:57 Dose: Infused Documented By: Admin: 11/23/24 10:10 Dose: 100 mls/hr Documented By: LENORA Cefazolin Sodium (Ancef 2000mg) 2,000 mg in 15 mls @ 3.75 mls/min IV PREOP ONE; Protocol Stop: 11/23/24 12:03 Last Admin: 11/23/24 12:17 Dose: Not Given Documented By: LENORA Ioversol (Optiray 320 125ml) 79 ml IV ONCE ONE Stop: 11/22/24 23:14 Last Admin: 11/22/24 23:13 Dose: 79 ml Documented By: SPENCER Potassium Chloride (Potassium Chloride Crtab 20 Meq Tabcr) 40 meq PO NOW STA Stop: 11/23/24 07:38 Last Admin: 11/23/24 10:33 Dose: Not Given Documented By: LENORA Description This is a 21 electrode EEG with a single channel dedicated to limited EKG. The electrodes were placed in accordance with the International 10-20 system. Interpretation This is a 21 electrode EEG with a single channel dedicated to limited EKG. The electrodes were placed in accordance with the International 10-20 system. There is a posterior dominant rhythm of 9 Hz which is symmetrically distributed and attenuates with eye opening. There is a normal anterior to posterior organization. Photic stimulation: unremarkable Hyperventilation performed: ___x unremarkable; __ not performed. There is no focal slowing. No epileptiform abnormalities. Sleep stage: _x_ not achieved, ___drowsy state, ___ Stage II, ___ REM stage achieved. Interpretation Normal-appearing awake/sleep EEG. A normal EEG does not completely exclude a diagnosis of epilepsy. [facility] EEG Procedure Codes Indication for Procedure (1) Seizure-like activity: Neurology Neurology: 47828 EEG include record awake & drowsy
[2024-11-23 13:30] LABS: Hemoglobin 9.1 g/dl (12.0-16.0)
--- NOTE | 2024-11-23 14:15 | XCELERA ---
[id number]
[2024-11-23 14:25] LABS: ANTI-Xa, UFH(UnfractionatedHep 1.23 IU/ml (0.3-0.7)
[2024-11-23 16:52] LABS: ANTI-Xa, UFH(UnfractionatedHep 0.77 IU/ml (0.3-0.7)
[2024-11-23 19:10] LABS: ANTI-Xa, UFH(UnfractionatedHep 0.64 IU/ml (0.3-0.7)
[2024-11-23] MEDS: OSIMERTINIB MESYLATE PO SCH (21:40)
[2024-11-24 03:20] LABS: ANTI-Xa, UFH(UnfractionatedHep 0.76 IU/ml (0.3-0.7)
[2024-11-24 08:20] LABS: Basophils # (auto) 0.01 K/uL (0.00-0.20); Basophils % (auto) 0.2 %; Eosinophils # (auto) 0.02 K/uL (0.00-0.50); Eosinophils % (auto) 0.3 %; Hematocrit (blood only) 30.2 % (37.0-47.0); Hemoglobin 9.8 g/dl (12.0-16.0); Immature Granulocytes # (auto) 0.03 K/uL (0.01-0.20); Immature Granulocytes % (auto) 0.5 %; Lymphocytes # (auto) 0.53 K/uL (1.20-3.40); Lymphocytes % (auto) 8.7 %; Mean Corpuscular Hemoglobin 32.2 pg (25.0-34.0); Mean Corpuscular Hgb Conc 32.5 g/dL (32.0-36.0); Mean Corpuscular Volume 99.3 fL (80.0-100.0); Mean Platelet Volume 10.1 fL (9.4-12.4); Monocytes # (auto) 0.38 K/uL (0.11-0.59); Monocytes % (auto) 6.3 %; Neutrophils # (auto) 5.11 K/uL (1.40-6.50); Platelet Count 294 K/uL (130-400); RDW Coefficient of Variation 15.9 % (11.5-14.5); RDW Standard Deviation 58.5 fL (36.4-46.3); Red Blood Count 3.04 M/uL (4.20-5.40); White Blood Count 6.08 K/ul (4.8-10.8)
[2024-11-24 08:38] LABS: BUN Creatinine Ratio 38.5 (10-20); Calcium 7.2 mg/dl (8.6-10.3); Creatinine Clr Calc Pharmacy 117.4 ml/min; Potassium 3.3 mmol/L (3.5-5.1)
--- NOTE | 2024-11-24 08:53 | CT Scan Report ---
CT head/brain wo con CLINICAL HISTORY: brain mets, eval ICH. TECHNIQUE: Multiple axial CT images of the head were obtained without contrast. A dose lowering tech nique was utilized adhering to the principles of ALARA. CT DOSE: 547.75 mGy.cm COMPARISON: 11/22/2024 CT through 11/09/2024 MRI FINDINGS: No intracranial hemorrhage seen by CT. No mass effect, midline shift, or hydrocephalus. Sta ble mild chronic small vessel ischemic changes. Stable small area of focal hypodensity medial lower r ight frontal lobe. Visualized paranasal sinuses are clear. No skull fracture seen. IMPRESSION: Stable exam. No acute findings seen. ACT 112: Negative or not required by law. The above report was generated using voice recognition software. It may contain grammatical, syntax o r spelling errors. Electronically signed by: Dave Elliott M.D. 11/24/2024 8:51 AM
[2024-11-24] MEDS ORDERED: OSIMERTINIB MESYLATE PO SCH (09:00)
--- NOTE | 2024-11-24 09:08 | Neurology Progress Note ---
Date of Service November 24, 2024 Assessment & Plan (1) Seizure-like activity: Admission and Anticipated Discharge Date Admission Date: November 22, 2024 Subjective pt not in room. CT head this morning stable. Results & Data Vital Signs (Past 12 Hours) Vital Signs Temp Pulse Pulse Resp BP Pulse Ox O2 Del Method 11/24/24 08:19 89 11/24/24 07:37 36.3 C L 98 H 19 98/64 L 94 Room Air 11/24/24 02:59 36.6 C 101 H 20 124/82 94 Room Air 11/23/24 22:25 Room Air 11/23/24 22:10 36.4 C L 102 H 18 105/74 98 Room Air 11/23/24 22:09 105 H Exam (Neuro) Physical Exam: Neuro: exam deferred. pt not in room. Impression: 64 yo female with known brain mets from lung with seizure like event 11/22/2024 in setting of now new PE and recent DVT, hypokalemia and dehydration. Pt has known prior microbleed in the brain, which has been stable since jul 2024. There is no suggestion she is having new bleed (CT head negative) from Elqiuis tx started2 weeks ago. She likely had seizure from several factors including metabolic disorders (hypokalemia), dehydration, known brain mets, new PE. CT repeat this morning normal, no bleed, no acute changes. 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 correct metabolic disorders. repeat CT head stable, ok from neuro stand point to restart Eliquis and continue tx for PE and DVT call again if new question. Chart reviewed I have spent more than 50% educating patient about potential diagnosis and neurological evaluation and coordinating care with patient's treatment team. Total time spent (including chart review and coordination of care): 25 min (this includes chart review). PG Care Time/CCT Total # of Minutes Spent Total Time Spent with Patient: Total time spent is greater than 50% in coordination of care (as documented) at patient's floor/unit and/or counseling patient: Coding Level of Care Code 93579 SUB INP/OBS CARE 09/24MIN Diagnoses Seizure-like activity R56.9
[2024-11-24] MEDS: POTASSIUM CHLORIDE PWD 20 MEQ PACK PO SCH (09:40)
[2024-11-24 10:10] LABS: ANTI-Xa, UFH(UnfractionatedHep 0.67 IU/ml (0.3-0.7)
--- NOTE | 2024-11-24 11:12 | Hospitalist Progress Note ---
Date of Service November 24, 2024 Assessment & Plan (1) Pulmonary embolism and infarction: (2) Acute hypokalemia: (3) Seizure-like activity: (4) Metastatic lung cancer (metastasis from lung to other site): (5) Mass of right lung: Plan: primary lung ca site (RUL) Plan 64yo female with stage 4 lung cancer with mets to the brain & bone, history of gastric ulcer, hypothyroidism, GERD, hyperlipidemia, migraine and B12 deficiency. Presented with 60 second seizure-like event with stiffness & shaking. Witnessed by . During the event she was not responding to her name being called and her eyes "rolled back." Following the event patient was confused. #Seizure-like activity - CT head without acute findings x 2; no ICH seen Unable to order MRI due to unavailability of MRI EEG negative for seizure activity however, given the presence of brain mets, description of the event, and the ensuing confusion would Rx as seizure Thus, keppra 500mg BID added neuro consult/recs appreciated #Pulmonary embolism and infarction/RLE DVT (dx: 11/01/2024) - Patient had reportedly been on Eliquis for 2 weeks prior to admission. CTA chest this admission with b/l PEs and pulmonary infarction RYLEY. Eliquis placed on hold by admitting team. Placed on heparin drip. Neurology consulted; no contraindication to anticoagulation. Microbleeds on MRI seen in 07/2024; same microbleeds seen again on 10/2024 MRI brain; microbleeds unchanged and no new areas of concern. Vascular was consulted; they will be on stand-by in the event she needs IVC filter. Oncology consulted re: opinion about anticoagulation. In my opinion I don't believe she had an "Eliquis failure" as pt's reports she had dyspnea 3-4 weeks ago. I suspect if a CTA chest had been done around the time that her DVTs were found pulmonary emboli likely would have been identified then. I can't prove the above but that is my suspicion. Would favor resuming Eliquis and not changing to lovenox or other anticoagulant. With that said await Dr Dutta's opinion. Cont heparin drip while waiting for Dr Dutta's consult. #Metastatic lung cancer to brain and bone - Patient had a PET/CT scheduled for 11/24/24 as outpatient - canceled She is s/p whole brain radiation x 10 fractions Most recent MRI brain from 11/09/2024 - in comparison to MRI dated 07/21/2024 - remarkable reduction of the number and size of the previously noted metastatic nodules, which is consistent with a good response to therapy and current residual metastatic deposits. Multiple microbleeds again seen but unchanged. Continue osimertinib Await oncology consultation Appreciate rad onc consult - nothing acute from their standpoint #Hypokalemia - Still low this am - KCL powder 20meq BID BMP am #Hypotension- s/p albumin & IV fluids - improved cortisol level wnl echo with preserved EF; no valvular disease H/H acceptable #acute metabolic encephalopathy - 2nd to seizure? 2nd to ongoing memory loss from brain mets, radiation, etc? viki added cont namenda #tachycardia - Likely 2nd to PEs but checked echo due to low-normal BPs, etc - echo essentially wnl cortisol level wnl H/H acceptable Chronic medical conditions: Hypothyroidism-continue levothyroxine; TSH in October 2024 was wnl GERD-continue famotidine and PPI #liquid stools - c diff negative KUB x-rays obtained due to abd distension - copious rectal stool, and small/large bowel dilatation likely mild ileus with fecal impaction suspect liquid stool is overflow stool will give dulcolax suppos x 1 to try & clean out the rectum left message for pt's on his voicemail 11/23/24 updated pt's extensively at bedside today, 11/24 PT/OT evals to ensure she can stand, pivot, and transfer Admission and Anticipated Discharge Date Admission Date: November 22, 2024 Subjective patient was very sleepy during the visit today pt's was at bedside I updated the pt's with test results, plan of care, etc. Mr Schumacher states that Ms Schumacher has not been walking/ambulating for several months with minimal activity she has been dyspneic for 3-4 weeks she is able to stand, pivot, and transfer - but she needs her to help her do this appetite very, very poor sleeping much of the day at home and at night as well confused on many days with poor memory per staff is having frequent liquid stools reports she is incontinent of both bowel/bladder Review of Systems Review of Systems: Unobtainable due to cognitive status Physical Exam Physical Exam: gen - thin, NAD, sleepy today head - alopecia mouth - MMM neck - no JVD heart - RR, s1 s2, borderline tachy, 1/6 NANI LSB lungs - CTA b/l abd - distended - moderate; but nontender; BS+; no masses; no HSM ext - right leg is larger than left leg; 2+ pitting edema right foot/rubin; trace edema left foot psych - lethargic today Results & Data Results & Data Vital Signs (Past 12 Hours) Vital Signs Temp Pulse Pulse Resp BP Pulse Ox O2 Del Method 11/24/24 09:28 Room Air 11/24/24 08:19 89 11/24/24 07:37 36.3 C L 98 H 19 98/64 L 94 Room Air 11/24/24 02:59 36.6 C 101 H 20 124/82 94 Room Air Laboratory Results Laboratory Results - last 24 hr 11/23/24 11/23/24 11/23/24 12:56 12:57 15:52 WBC RBC Hgb 9.1 L Hct 28.0 L MCV MCH MCHC RDW Std Deviation RDW Coeff of Melodie Plt Count MPV Immature Gran % (Auto) Neut % (Auto) Lymph % (Auto) [place] % (Auto) Eos % (Auto) Baso % (Auto) Neut # (Auto) Lymph # (Auto) [place] # (Auto) Eos # (Auto) Baso # (Auto) Immature Gran # (Auto) Heparin Anti-Xa, Unfract 1.23 H* 0.77 H* Sodium Potassium 4.0 D Chloride Carbon Dioxide Anion Gap BUN Creatinine Est Cr Clr Drug Dosing eGFR BUN/Creatinine Ratio Glucose Calcium Cortisol AM Sample Stl C. cayetanensis PCR Stool Rotavirus A PCR Stl Adenov F 40/41 PCR Stool Astrovirus (PCR) Stool Campylobacter PCR Stl C. diff Tox B Gene Stool Cryptosporidium PCR Stl E.coli Shiga Tox PCR Stool E coli O157 PCR Stl Enterotoxigenic E PCR Stool EPEC (PCR) Stool EAEC (PCR) Stl E. histolytica PCR Stool Giardia Lamblia PCR Stool Salmonella PCR Stool Sapovirus (PCR) Stl P. shigelloides PCR Stl Shigella/EIEC PCR St Y.enterocolitica PCR Stool Vibrio (PCR) Stl Vibrio cholerae PCR Stl Norovirus GI/GII PCR 11/23/24 11/24/2411/24/25 18:32 01:33 01:45 WBC RBC Hgb Hct MCV MCH MCHC RDW Std Deviation RDW Coeff of Melodie Plt Count MPV Immature Gran % (Auto) Neut % (Auto) Lymph % (Auto) [place] % (Auto) Eos % (Auto) Baso % (Auto) Neut # (Auto) Lymph # (Auto) [place] # (Auto) Eos # (Auto) Baso # (Auto) Immature Gran # (Auto) Heparin Anti-Xa, Unfract 0.64 0.76 H* Sodium Potassium Chloride Carbon Dioxide Anion Gap BUN Creatinine Est Cr Clr Drug Dosing eGFR BUN/Creatinine Ratio Glucose Calcium Cortisol AM Sample Stl C. cayetanensis PCR Cancelled Stool Rotavirus A PCR Cancelled Stl Adenov F 40 PCR Cancelled Stool Astrovirus (PCR) Cancelled Stool Campylobacter PCR Cancelled Stl C. diff Tox B Gene Negative Cdiff Gene Stool Cryptosporidium PCR Cancelled Stl E.coli Shiga Tox PCR Cancelled Stool E coli O157 PCR Cancelled Stl Enterotoxigenic E PCR Cancelled Stool EPEC (PCR) Cancelled Stool EAEC (PCR) Cancelled Stl E. histolytica PCR Cancelled Stool Giardia Lamblia PCR Cancelled Stool Salmonella PCR Cancelled Stool Sapovirus (PCR) Cancelled Stl P. shigelloides PCR Cancelled Stl Shigella/EIEC PCR Cancelled St Y.enterocolitica PCR Cancelled Stool Vibrio (PCR) Cancelled Stl Vibrio cholerae PCR Cancelled Stl Norovirus GI/GII PCR Cancelled 11/24/24 11/24/24 07:45 09:44 WBC 6.08 RBC 3.04 L Hgb 9.8 L Hct 30.2 L MCV 99.3 MCH 32.2 MCHC 32.5 RDW Std Deviation 58.5 H RDW Coeff of Melodie 15.9 H Plt Count 294 MPV 10.1 Immature Gran % (Auto) 0.5 Neut % (Auto) 84.0 Lymph % (Auto) 8.7 [place] % (Auto) 6.3 Eos % (Auto) 0.3 Baso % (Auto) 0.2 Neut # (Auto) 5.11 Lymph # (Auto) 0.53 L [place] # (Auto) 0.38 Eos # (Auto) 0.02 Baso # (Auto) 0.01 Immature Gran # (Auto) 0.03 Heparin Anti-Xa, Unfract 0.67 Sodium 139 Potassium 3.3 L Chloride 111 H Carbon Dioxide 24 Anion Gap 4 BUN 15 Creatinine 0.39 L Est Cr Clr Drug Dosing 117.4 eGFR 109.76 BUN/Creatinine Ratio 38.5 H Glucose 123 H Calcium 7.2 L Cortisol AM Sample 27.35 H Stl C. cayetanensis PCR Stool Rotavirus A PCR Stl Adenov F 40/41 PCR Stool Astrovirus (PCR) Stool Campylobacter PCR Stl C. diff Tox B Gene Stool Cryptosporidium PCR Stl E.coli Shiga Tox PCR Stool E coli O157 PCR Stl Enterotoxigenic E PCR Stool EPEC (PCR) Stool EAEC (PCR) Stl E. histolytica PCR Stool Giardia Lamblia PCR Stool Salmonella PCR Stool Sapovirus (PCR) Stl P. shigelloides PCR Stl Shigella/EIEC PCR St Y.enterocolitica PCR Stool Vibrio (PCR) Stl Vibrio cholerae PCR Stl Norovirus GI/GII PCR Diagnostic Findings Head CT 11/24/24 08:00 CT head/brain wo con CLINICAL HISTORY: brain mets, eval ICH. TECHNIQUE: Multiple axial CT images of the head were obtained without contrast. A dose lowering technique was utilized adhering to the principles of ALARA. CT DOSE: 547.75 mGy.cm COMPARISON: 11/22/2024 CT through 11/09/2024 MRI FINDINGS: No intracranial hemorrhage seen by CT. No mass effect, midline shift, or hydrocephalus. Stable mild chronic small vessel ischemic changes. Stable small area of focal hypodensity medial lower right frontal lobe. Visualized paranasal sinuses are clear. No skull fracture seen. IMPRESSION: Stable exam. No acute findings seen. ACT 112: Negative or not required by law. The above report was generated using voice recognition software. It may contain grammatical, syntax or spelling errors. Electronically signed by: Dave Elliott M.D. 11/24/2024 8:51 AM PG Care Time/CCT Total # of Minutes Spent Total Time Spent with Patient: Total time spent is greater than 50% in coordination of care (as documented) at patient's floor/unit and/or counseling patient: Coding Level of Care Code 93619 SUB INP/OBS CARE 3/50MIN Diagnoses Pulmonary embolism and infarction I26.99 Acute hypokalemia E87.6 Seizure-like activity R56.9 Metastatic lung cancer (metastasis from lung to other site) C34.90 Mass of right lung R91.8
--- NOTE | 2024-11-24 12:42 | XRay Report ---
KUB HISTORY: abd distension; ileus? impaction? COMPARISON STUDY: 07/21/2024 FINDINGS: There is mild diffuse colonic and small bowel distention. The rectum is moderately distende d with stool. Otherwise there is mild to moderate retained stool. No gross free air. IMPRESSION: 1. Rectum is moderately distended with stool. 2. Mild diffuse bowel distention otherwise. ACT 112: Negative or not required by law. The above report was generated using voice recognition software. It may contain grammatical, syntax o r spelling errors. Electronically signed by: Dave Elliott M.D. 11/24/2024 12:41 PM
[2024-11-24] MEDS: bisacodyL 10 MG SUPP PR STA (13:46)
[2024-11-25 07:02] LABS: ANTI-Xa, UFH(UnfractionatedHep 0.62 IU/ml (0.3-0.7)
[2024-11-25 07:05] LABS: BUN Creatinine Ratio 41.9 (10-20); Calcium 7.6 mg/dl (8.6-10.3); Creatinine Clr Calc Pharmacy 106.5 ml/min; Potassium 3.3 mmol/L (3.5-5.1)
[2024-11-25] MEDS: POTASSIUM CHLORIDE PWD 20 MEQ PACK PO SCH (08:06)
[2024-11-25 09:57] LABS: Adenovirus F 40/41 PCR Not Detected (NotDetected); Astrovirus PCR Not Detected (NotDetected); Campylobacter PCR Not Detected (NotDetected); Cryptosporidium PCR Not Detected (NotDetected); Cyclospora cayetanensis PCR Not Detected (NotDetected); Entamoeba histolytica PCR Not Detected (NotDetected); Enteroaggregative E.coli(EAEC) Not Detected (NotDetected); Enteropathogenic E.coli (EPEC) Not Detected (NotDetected); Enterotoxigenic E.coli (ETEC) Not Detected (NotDetected); Giardia lamblia PCR Not Detected (NotDetected); Norovirus GI/GII PCR Not Detected (NotDetected); Plesiomonas shigelloides PCR Not Detected (NotDetected); Rotavirus A PCR Not Detected (NotDetected); Salmonella PCR Not Detected (NotDetected); Sapovirus PCR Not Detected (NotDetected); Shiga-like Toxin E.coli (STEC) Not Detected (NotDetected); Shigella/Enteroinvasive E.coli Not Detected (NotDetected); Vibrio cholerae PCR Not Detected (NotDetected); Vibrio species PCR Not Detected (NotDetected); Yersinia enterocolitica PCR Not Detected (NotDetected)
--- NOTE | 2024-11-25 17:34 | Hospitalist Progress Note ---
Date of Service November 25, 2024 Assessment & Plan (1) Pulmonary embolism and infarction: (2) Acute hypokalemia: (3) Seizure-like activity: (4) Metastatic lung cancer (metastasis from lung to other site): (5) Mass of right lung: Plan: primary lung ca site (RUL) Plan 64yo female with stage 4 lung cancer with mets to the brain & bone, history of gastric ulcer, hypothyroidism, GERD, hyperlipidemia, migraine and B12 deficiency. Presented with 60 second seizure-like event with stiffness & shaking. Witnessed by . During the event she was not responding to her name being called and her eyes "rolled back." Following the event patient was confused. #Seizure-like activity - high suspicion for actual seizure - CT head without acute findings x 2; no ICH seen Unable to order MRI due to unavailability of MRI but just had MRI a few weeks ago (mets were improved on that MRI vs prior MRI) EEG negative for seizure activity however, given the presence of brain mets, description of the event, and the ensuing confusion would Rx as seizure cont keppra 500mg BID neuro consult/recs appreciated #Pulmonary embolism and infarction/RLE DVT (dx: 11/01/2024) - Patient had reportedly been on Eliquis for 2 weeks prior to admission. CTA chest this admission with b/l PEs and pulmonary infarction RYLEY. Neurology consulted; no contraindication to anticoagulation. Microbleeds on MRI seen in 07/2024; same microbleeds seen again on 10/2024 MRI brain; microbleeds unchanged and no new areas of concern. Vascular was consulted; they will be on stand-by in the event she needs IVC filter. Oncology consulted re: opinion about anticoagulation. In my opinion I don't believe she had an "Eliquis failure" as pt's reports she had dyspnea 3-4 weeks ago. I suspect if a CTA chest had been done around the time that her DVTs were found pulmonary emboli likely would have been identified then. I can't prove the above but that is my suspicion. Would favor resuming Eliquis and not changing to lovenox or other anticoagulant. Dr Dutta from oncology saw patient in consult today. He agrees we can simply resume Eliquis. Thus, stop heparin drip tonight and resume Eliquis 5mg BID at that time. Will cancel vascular surgery consult; no need for IVC filter. #Metastatic lung cancer to brain and bone - Patient had a PET/CT scheduled for 11/24/24 as outpatient - canceled She is s/p whole brain radiation x 10 fractions Most recent MRI brain from 11/09/2024 - in comparison to MRI dated 07/21/2024 - remarkable reduction of the number and size of the previously noted metastatic nodules, which is consistent with a good response to therapy and current residual metastatic deposits. Multiple microbleeds again seen but unchanged. Continue osimertinib Appreciate rad onc consult - nothing acute from their standpoint Appreciate onc consult Prognosis is very poor with her failure to thrive, worsening memory/mentation, worsening functional status, etc #Hypokalemia - Still low this am - KCL powder - increase to 20meq TID BMP am Mag in am #Hypotension- s/p albumin & IV fluids - improved cortisol level wnl echo with preserved EF; no valvular disease H/H acceptable #acute metabolic encephalopathy - 2nd to seizure? 2nd to ongoing memory loss from brain mets, radiation, etc? latter probably the larger culprit cont namenda #tachycardia - Likely 2nd to PEs but checked echo due to low-normal BPs, etc - echo essentially wnl cortisol level wnl H/H acceptable Chronic medical conditions: Hypothyroidism-continue levothyroxine; TSH in October 2024 was wnl GERD-continue famotidine and PPI #liquid stools - c diff negative stool Bio[employer] negative KUB x-rays obtained due to abd distension - copious rectal stool, and small/large bowel dilatation likely mild ileus with fecal impaction suspect liquid stool is overflow stool she had large amounts of stool output today some of which was formed her abd distension was improved on exam impaction was the likely culprit extensively updated at bedside today care d/w vascular surgery care d/w oncology consider palliative care consult while here dispo - likely SNF Admission and Anticipated Discharge Date Admission Date: November 22, 2024 Subjective tele overnight wnl NSR or mild sinus tach only last pm Dign[place]ield rectal tube placed for ongoing liquid stools then today she had a large amount of formed stool leak around the tube and the tube came out on its own pt seen by Dr Dutta today -- he feels we can resume Eliquis for DVT/PE rather than change to other agent therapy evaluated patient today and feels she would benefit from placement she was 2+ mod assist to get to standing position I communicated this to her ; he too is worried about his ability to care for her at home Review of Systems Review of Systems: gen - reports she ate well today CV - denies pain pulm - denies dyspnea GI - denies pain or N/V Physical Exam Physical Exam: gen - thin, NAD, more awake today head - alopecia mouth - MMM neck - no JVD heart - RRR, s1 s2, 1/6 NANI LSB lungs - CTA b/l, no rales abd - soft, distension resolved, NT; BS+; no masses; no HSM ext - right leg is larger than left leg; 2+ pitting edema right foot/rubin; trace edema left foot skin - contact dermatitis on occiput of skull; same rash on posterior right upper arm; rash on posterior legs, RLE>LLE Results & Data Results & Data Vital Signs (Past 12 Hours) Vital Signs Temp Pulse Pulse Resp BP Pulse Ox O2 Del Method 11/25/24 16:00 36.6 C 84 18 115/86 96 Room Air 11/25/24 14:35 103 H 11/25/24 11:00 36.7 C 74 20 105/75 95 Room Air 11/25/24 08:59 83 11/25/24 07:00 36.6 C 86 18 97/66 L 96 Room Air Laboratory Results Laboratory Results - last 24 hr 11/25/24 11/25/24 05:14 06:58 Heparin Anti-Xa, Unfract 0.62 Sodium 141 Potassium 3.3 L Chloride 112 H Carbon Dioxide 25 Anion Gap 4 BUN 18 Creatinine 0.43 L Est Cr Clr Drug Dosing 106.5 eGFR 107.20 BUN/Creatinine Ratio 41.9 H Glucose 128 H Calcium 7.6 L Stl C. cayetanensis PCR Not Detected Stool Rotavirus A PCR Not Detected Stl Adenov F 40/41 PCR Not Detected Stool Astrovirus (PCR) Not Detected Stool Campylobacter PCR Not Detected Stool Cryptosporidium PCR Not Detected Stl E.coli Shiga Tox PCR Not Detected Stl Enterotoxigenic E PCR Not Detected Stool EPEC (PCR) Not Detected Stool EAEC (PCR) Not Detected Stl E. histolytica PCR Not Detected Stool Giardia Lamblia PCR Not Detected Stool Salmonella PCR Not Detected Stool Sapovirus (PCR) Not Detected Stl P. shigelloides PCR Not Detected Stl Shigella/EIEC PCR Not Detected St Y.enterocolitica PCR Not Detected Stool Vibrio (PCR) Not Detected Stl Vibrio cholerae PCR Not Detected Stl Norovirus GI/GII PCR Not Detected PG Care Time/CCT Total # of Minutes Spent Total Time Spent with Patient: Total time spent is greater than 50% in coordination of care (as documented) at patient's floor/unit and/or counseling patient: Coding Level of Care Code 92118 SUB INP/OBS CARE 3/50MIN Diagnoses Pulmonary embolism and infarction I26.99 Acute hypokalemia E87.6 Seizure-like activity R56.9 Metastatic lung cancer (metastasis from lung to other site) C34.90 Mass of right lung R91.8
[2024-11-25] MEDS: APIXABAN 5 MG TABLET PO SCH (22:02)
[2024-11-25] MEDS: TRIAMCINOLONE ACET 0.1% CR 80 GM TUBE EXT SCH (22:04)
[2024-11-26 07:18] LABS: BUN Creatinine Ratio 47.2 (10-20); Calcium 7.9 mg/dl (8.6-10.3); Creatinine Clr Calc Pharmacy 86.4 ml/min; Potassium 3.9 mmol/L (3.5-5.1)
[2024-11-26] MEDS: POTASSIUM CHLORIDE PWD 20 MEQ PACK PO SCH (07:57)
[2024-11-26] MEDS: FLUCONAZOLE 50 MG TAB PO ONE (14:17)
--- NOTE | 2024-11-26 14:40 | Hospitalist Progress Note ---
Date of Service November 26, 2024 Assessment & Plan (1) Pulmonary embolism and infarction: (2) Acute hypokalemia: (3) Seizure-like activity: (4) Metastatic lung cancer (metastasis from lung to other site): (5) Mass of right lung: Plan: primary lung ca site (RUL) (6) Vaginitis: (7) Urinary retention: Plan 64yo female with stage 4 lung cancer with mets to the brain & bone, history of gastric ulcer, hypothyroidism, GERD, hyperlipidemia, migraine and B12 deficiency. Presented with 60 second seizure-like event with stiffness & shaking. Witnessed by . During the event she was not responding to her name being called and her eyes "rolled back." Following the event patient was confused. #Seizure-like activity - high suspicion for actual seizure - CT head without acute findings x 2; no ICH seen EEG negative for seizure activity however, given the presence of brain mets, description of the event, and the ensuing confusion would Rx as seizure cont keppra 500mg BID neuro consult/recs appreciated repeat MRI brain deferred -- just had MRI brain on 11/09 & this showed treatment response to whole brain radiation #Pulmonary embolism and infarction/RLE DVT (dx: 11/01/2024) - Patient had reportedly been on Eliquis for 2 weeks prior to admission. CTA chest this admission with b/l PEs and pulmonary infarction RYLEY. Neurology consulted; no contraindication to anticoagulation. Microbleeds on MRI seen in 07/2024; same microbleeds seen again on 10/2024 MRI brain; microbleeds unchanged and no new areas of concern. Vascular was consulted; they will be on stand-by in the event she needs IVC filter. Oncology consulted re: opinion about anticoagulation. In my opinion I don't believe she had an "Eliquis failure" as pt's reports she had dyspnea 3-4 weeks ago. I suspect if a CTA chest had been done around the time that her DVTs were found pulmonary emboli likely would have been identified then. I can't prove the above but that is my suspicion. Would favor resuming Eliquis and not changing to lovenox or other anticoagulant. Dr Dutta from oncology saw patient in consult. He agrees we can simply resume Eliquis. 11/25 - heparin drip stopped, Eliquis 5mg BID resumed. vascular surgery consult canceled; no need for IVC filter. #Metastatic lung cancer to brain and bone - Patient had a PET/CT scheduled for 11/24/24 as outpatient - canceled She is s/p whole brain radiation x 10 fractions Most recent MRI brain from 11/09/2024 - in comparison to MRI dated 07/21/2024 - remarkable reduction of the number and size of the previously noted metastatic nodules, which is consistent with a good response to therapy and current residual metastatic deposits. Multiple microbleeds again seen but unchanged & stable. Continue osimertinib Appreciate rad onc consult - nothing acute from their standpoint Appreciate onc consult - nothing acute to do at this time Prognosis is very poor with her failure to thrive, worsening memory/mentation, worsening functional status, etc Strongly consider palliative care consult while here #Hypokalemia - resolved; lower KCL to 20meq daily mag level wnl #Hypotension- resolved s/p albumin & IV fluids early in the admission cortisol level wnl echo with preserved EF; no valvular disease H/H acceptable #acute metabolic encephalopathy - 2nd to ongoing memory loss from brain mets, radiation, etc? recent suspected seizure probably played a role as well in mental status when she first was admitted cont namenda #tachycardia - Likely 2nd to PEs but checked echo due to low-normal BPs, etc - echo essentially wnl cortisol level wnl H/H acceptable at times when she seems anxious she also has tachycardia no obvious pain Chronic medical conditions: Hypothyroidism-continue levothyroxine; TSH in October 2024 was wnl GERD-continue famotidine and PPI #liquid stools - c diff negative stool BioFire negative KUB x-rays obtained due to abd distension - copious rectal stool, and small/large bowel dilatation likely mild ileus with fecal impaction impaction resolved abdominal distension resolved #vaginitis - diflucan 150mg x 1 if no resolution then will test for BV #contact dermatitis - cont triamcinolone cream 0.1% TID in thin amounts to problem areas #urinary retention - likely due to central causes (brain mets, altered MS/cognitive impairment, etc) will place quevedo check u/a - r/o UTI contributing to retention extensively updated at bedside 11/25 will connect with pt's again this weekend consider palliative care consult while here dispo - likely SNF; OT eval advised rehab/placement agrees that she is too weak to be at home Admission and Anticipated Discharge Date Admission Date: November 22, 2024 Subjective tele overnight - NSR or sinus tach low 100s during the visit she was resting comfortably in bed didn't eat much breakfast but had decent lunch denies any N/V/abd pain still have loose stools incontinent of bowel/bladder per staff has a vaginal discharge as well [place] in [place] Review of Systems Review of Systems: cv - no chest pain pulm - no dyspnea or cough GI - no pain - denies dysuria neuro - no witnessed seizure activity Physical Exam Physical Exam: gen - thin, NAD, looks similar to yesterday head - alopecia mouth - MM dry today neck - no JVD heart - RR, tachy, s1 s2, 1/6 NANI LSB lungs - CTA b/l, no rales abd - soft, distension resolved, NT; BS+; no masses; no HSM ext - right leg is larger than left leg; 2+ pitting edema right foot/rubin; trace edema left foot skin - contact dermatitis on occiput of skull; same rash on posterior right upper arm; rash on posterior legs, RLE>LLE - modestly improved today Results & Data Results & Data Vital Signs (Past 12 Hours) Vital Signs Temp Pulse Pulse Resp BP BP Pulse Ox 11/26/24 12:16 36.6 C 116 H 20 122/88 92 11/26/24 07:58 36.4 C L 93 H 20 95/64 L 98 11/26/24 07:10 86 11/26/24 03:25 36.6 C 91 H 18 139/93 97 O2 Del Method 11/26/24 12:16 Room Air 11/26/24 07:58 Room Air 11/26/24 07:10 11/26/24 03:25 Room Air Laboratory Results Laboratory Results - last 24 hr 11/26/24 06:05 Sodium 142 Potassium 3.9 Chloride 113 H Carbon Dioxide 26 Anion Gap 3 BUN 25 H Creatinine 0.53 L Est Cr Clr Drug Dosing 86.4 eGFR 101.94 BUN/Creatinine Ratio 47.2 H Glucose 141 H Calcium 7.9 L Magnesium 2.0 PG Care Time/CCT Total # of Minutes Spent Total Time Spent with Patient: Total time spent is greater than 50% in coordination of care (as documented) at patient's floor/unit and/or counseling patient: Coding Level of Care Code 52256 SUB INP/OBS CARE 50MIN Diagnoses Pulmonary embolism and infarction I26.99 Acute hypokalemia E87.6 Seizure-like activity R56.9 Metastatic lung cancer (metastasis from lung to other site) C34.90 Mass of right lung R91.8 Vaginitis N76.0 Urinary retention R33.9
[2024-11-26 18:22] LABS: Amorphous Sediment Urine Present (None Prsent); Appearance Urine Turbid (Clear); Bacteria Urine Automated 4+ (None Seen); Bilirubin Urine 1+ (Negative); Blood Urine Negative (Negative); Color Urine Dark Yellow; Glucose Urine UA Negative (Negative); Ketones Urine Negative (Negative); Leukocyte Esterase Urine 1+ (Negative); Nitrite Urine Positive (Negative); Protein Urine 1+ (Negative); RBC Urine Automated 0-2 /hpf (0-2); Specific Gravity Urine 1.018 (1.000-1.030); Urobilinogen Urine Negative (Negative); WBC Urine Automated 21-50 /hpf (0-5)
[2024-11-26] MEDS: cefTRIAXone SODIUM 1,000 MG/50 ML BAG IV SCH (19:34)
[2024-11-26] MEDS: ACETAMINOPHEN 325 MG TAB PO PRN (19:42)
[2024-11-27] MEDS: SODIUM CHLOR 0.45% + 20MEQ KCL 20 MEQ/1,000 ML BAG IV SCH (08:17)
[2024-11-27] MEDS: SODIUM CHLORIDE 0.9% 500 ML IV ONE (14:27)
--- NOTE | 2024-11-27 15:42 | Hospitalist Progress Note ---
Date of Service November 27, 2024 Assessment & Plan (1) Pulmonary embolism and infarction: (2) Acute hypokalemia: (3) Seizure-like activity: (4) Metastatic lung cancer (metastasis from lung to other site): (5) Mass of right lung: Plan: primary lung ca site (RUL) (6) Vaginitis: (7) Urinary retention: (8) UTI (urinary tract infection): Plan 64yo female with stage 4 lung cancer with mets to the brain & bone, history of gastric ulcer, hypothyroidism, GERD, hyperlipidemia, migraine and B12 deficiency. Presented with 60 second seizure-like event with stiffness & shaking. Witnessed by . During the event she was not responding to her name being called and her eyes "rolled back." Following the event patient was confused. #Suspected Seizure - CT head without acute findings x 2; no ICH seen EEG negative for seizure activity however, given the presence of brain mets, description of the event, and the ensuing confusion would Rx as seizure cont keppra 500mg BID neuro consult/recs appreciated repeat MRI brain deferred -- just had MRI brain on 11/09 & this showed treatment response to whole brain radiation #Pulmonary embolism and infarction/RLE DVT (dx: 11/01/2024) - Patient had reportedly been on Eliquis for 2 weeks prior to admission. CTA chest this admission with b/l PEs and pulmonary infarction RYLEY. Neurology consulted; no contraindication to anticoagulation. Microbleeds on MRI seen in 07/2024; same microbleeds seen again on 10/2024 MRI brain; microbleeds unchanged and no new areas of concern. Oncology consulted re: opinion about anticoagulation. In my opinion I don't believe she had an "Eliquis failure" as pt's reports she had dyspnea 3-4 weeks ago. I suspect if a CTA chest had been done around the time that her DVTs were found pulmonary emboli likely would have been identified then. Dr Dutta from oncology saw patient in consult. He agrees we can simply resume Eliquis. 11/25 - heparin drip stopped, Eliquis 5mg BID resumed. vascular surgery consult canceled; no need for IVC filter. #Metastatic lung cancer to brain and bone - Patient had a PET/CT scheduled for 11/24/24 as outpatient - canceled She is s/p whole brain radiation x 10 fractions Most recent MRI brain from 11/09/2024 - in comparison to MRI dated 07/21/2024 - remarkable reduction of the number and size of the previously noted metastatic nodules, which is consistent with a good response to therapy and current residual metastatic deposits. Multiple microbleeds again seen but unchanged & stable. Continue osimertinib Appreciate rad onc consult - nothing acute from their standpoint Appreciate onc consult - nothing acute to do at this time Prognosis is very poor with her failure to thrive, worsening memory/mentation, worsening functional status, etc See separate note re: lengthy discussion today with about goals of care, code status, prognosis, etc. Obtain palliative care consult tomorrow #Hypokalemia - resolved BMP am for stability cont K supplement IV fluids also contain KCL #Hypotension- resolved s/p albumin & IV fluids early in the admission cortisol level wnl echo with preserved EF; no valvular disease H/H acceptable #acute metabolic encephalopathy - 2nd to ongoing memory loss from brain mets, radiation, etc recent suspected seizure probably played a role as well in mental status when she first was admitted cont namenda #tachycardia - Likely 2nd to PEs but checked echo due to low-normal BPs, etc - echo essentially wnl cortisol level wnl H/H acceptable at times when she seems anxious she also has tachycardia no obvious pain current tachycardia may be worse due to dehydration/volume depletion cont IV fluids #liquid stools - c diff negative stool BioFire negative KUB x-rays obtained due to abd distension - copious rectal stool, and small/large bowel dilatation likely had mild ileus with fecal impaction impaction resolved abdominal distension resolved #vaginitis - diflucan 150mg x 1 if no resolution then will test for BV #contact dermatitis - cont triamcinolone cream 0.1% TID in thin amounts to problem areas #urinary retention - likely due to central causes (brain mets, altered MS/cognitive impairment, etc) placed quevedo 11/26 urine cx growing e.coli - on rocephin #UTI - urine cx with e.coli cont rocephin f/u on final result tomorrow plan 7 days of Rx Chronic medical conditions: Hypothyroidism-continue levothyroxine; TSH in October 2024 was wnl GERD-continue famotidine and PPI extensively updated today, 11/27 see separate note re: goals of care discussion, etc dispo - likely SNF Admission and Anticipated Discharge Date Admission Date: November 22, 2024 Subjective tele overnight - HRs 90s during rest/sleep; low 100s to as high as 120s while awake during the visit the pt's was at bedside she ate poorly at breakfast, and she wasn't sure if she was hungry for lunch denied pain in any location no dyspnea no abd pain denies pruritis Review of Systems Review of Systems: neuro - no headache; no reported seizures cv - no chest pain GI - no abd pain Physical Exam Physical Exam: gen - thin, NAD, lying comfortably in bed mouth - MM dry neck - no JVD heart - RR, tachy, s1 s2, 1/6 NANI LSB lungs - CTA b/l, no rales or wheeze abd - soft, ND, NT; BS+; no masses; no HSM ext - right leg is larger than left leg; 2+ pitting edema right foot/rubin; trace edema left foot Results & Data Results & Data Vital Signs (Past 12 Hours) Vital Signs Temp Pulse Pulse Resp BP Pulse Ox O2 Del Method 11/27/24 15:02 37.0 C 111 H 17 118/64 96 Room Air 11/27/24 10:48 36.5 C 112 H 17 120/89 98 Room Air 11/27/24 09:39 126 H 11/27/24 08:11 36.5 C 112 H 19 108/71 97 Room Air 11/27/24 07:35 97 H 11/27/24 07:35 Room Air PG Care Time/CCT Total # of Minutes Spent Total Time Spent with Patient: Total time spent is greater than 50% in coordination of care (as documented) at patient's floor/unit and/or counseling patient: Coding Level of Care Code 29073 SUB INP/OBS CARE 2/35MIN Diagnoses Pulmonary embolism and infarction I26.99 Acute hypokalemia E87.6 Seizure-like activity R56.9 Metastatic lung cancer (metastasis from lung to other site) C34.90 Mass of right lung R91.8 Vaginitis N76.0 Urinary retention R33.9 UTI (urinary tract infection) N39.0
--- NOTE | 2024-11-27 15:43 | Advance Care Plan Prog Note ---
Advanced Care Planning Note Date of Discussion November 27, 2024 ACP Discussion Diagnoses requiring ACP discussion: stage 4 lung cancer with brain metastases, severe failure to thrive, worsening cognitive impairment A [id number] discussion with the patient's , Demarcus Schumacher, regarding the patient's advanced care planning took place during this hospitalization on the above date. The discussion included the explanation and discussion of advance directives and associated forms/documents, as well as the patient's current code status. We also discussed at length the patient's medical conditions (both acute and chronic), general prognosis, treatment options, and goals of care. The following summarizes the discussion: * code status and patient's advanced directives; Mr Schumacher believes her advanced directives list DNR/DNI status; he plans to look for the document at home and bring a copy to the hospital. Even without the advanced directives Mr Schumacher believes Elise would NOT want CPR/intubation/mech ventilation, etc. * palliative care/hospice - when to transition to such, etc. 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 [employer] * discussed obtaining formal palliative care consult during this stay * Mr Schumacher mentioned they have met with palliative care in the clinic before Advance Care Planning/Goals of Care Will attempt to fill out an AD and/or POLST with the pt prior to d/c, Continue current evaluation & management of any acute/chronic issues, Will continue to support the patient/family and Will continue to discuss both short- and long-te rm goals of care Status Resuscitation Status Full Code Total Time A total of 30 minutes was spent on this discussion, including counseling, answering questions, and completing, if any, pertinent advanced care planning forms/documents.
[2024-11-28 06:30] LABS: Hematocrit (blood only) 27.8 % (37.0-47.0); Mean Corpuscular Hemoglobin 31.6 pg (25.0-34.0); Mean Corpuscular Hgb Conc 32.4 g/dL (32.0-36.0); Mean Corpuscular Volume 97.5 fL (80.0-100.0); Mean Platelet Volume 10.5 fL (9.4-12.4); Platelet Count 238 K/uL (130-400); RDW Coefficient of Variation 16.4 % (11.5-14.5); RDW Standard Deviation 58.9 fL (36.4-46.3); Red Blood Count 2.85 M/uL (4.20-5.40)
[2024-11-28 06:58] LABS: BUN Creatinine Ratio 46.5 (10-20); Calcium 7.5 mg/dl (8.6-10.3); Creatinine Clr Calc Pharmacy 106.5 ml/min; Potassium 4.1 mmol/L (3.5-5.1)
[2024-11-28] MEDS: ceFAZolin 2000MG 2,000 MG/15 ML SYR IV SCH (08:57)
[2024-11-28] MEDS: MENTHOL-ZINC OXIDE 360 APPLN/120 GM TUBE EXT SCH (08:59)
--- NOTE | 2024-11-28 11:46 | Palliative Care Consultation ---
Date of Consultation November 28, 2024 Assessment & Plan (1) Generalized weakness: (2) Intermittent confusion: (3) Metastatic adenocarcinoma to brain: (4) Metastatic lung cancer (metastasis from lung to other site): (5) Palliative care by specialist: Introduced Palliative Medicine and explained our role in patient's care. Patient and/or family were receptive to palliative services for goals of care discussions. Reviewed we are different from hospice, a home health nurse visiting service. Plan Elise has intermittent confusion and some limited insight into her disease. In my discussion with her and her sister at the bedside, Elise indicates that her understanding of her cancer is "to get out of the hospital" and continue getting treatment. She was able to tell me that she is not receiving systemic chemotherapy and so far has only been on an oral regimen. She further adds that there is no plans at this time for systemic chemo because the current treatment she is on, Tagrisso (oral chemo), is "killing the cancer and I am going to be fine." I called Mr. Schumacher and got his answering machine. I left a message requesting a call back and asked for a family meeting tomorrow at the bedside at 9:30 AM. I asked that he call my office back to confirm this time. I await confirmation from Mr. Schumacher with regards to whether or not a meeting tomorrow at 930 will work for his schedule. Please note that this is not a confirmed meeting at this time. Thank you for allowing us to participate in the ongoing care of this patient. Please page with any additional concerns. 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 Cancer was diagnosed 07/22/2024. She has been on a plan of palliative systemic chemo with carboplatin, pemetrexed and pembrolizumab. Whole brain radiation was completed 07/23 through 08/04/2024. She takes Tagrisso 80 mg p.o. daily. She is a lifetime non-smoker. PMH includes hypertension, hypocalcemia, DVT, hypothyroid, bone mets, brain mets, radiation therapy associated memory loss. She has had some cancer related weight loss. She is seen at bedside with her sister. She denies any acute pain or dyspnea. She admits to some memory loss and states that she believes this is due to her radiation. She has a diminished appetite but states that this is overall chronic. She has been taking Remeron but does not feel it has been substantially helpful. Denies any overt nausea, vomiting, diarrhea or constipation. States her appetite is generally "not great" and she adds that she is tired of being in the hospital and does not care for the food options here. She states "I am overdue for some home-cooked food." Allergies Allergy/AdvReac Type Severity Reaction Status Date / Time No Known Allergies Allergy Verified 11/22/24 17:40 Home Medications Medication Instructions Recorded Confirmed Type famotidine 20 mg tablet (Pepcid AC) 20 mg PO QAM 09/14/20 11/22/24 History multivitamin 1 tab PO QAM 09/14/20 11/22/24 History cholecalciferol (vitamin D3) 125 125 mcg PO QAM 06/04/21 11/22/24 History mcg (5,000 unit) tablet (Vitamin D3) fluticasone propionate 50 2 spray intranasal DAILY PRN 05/13/24 11/22/24 Rx mcg/actuation nasal allergy symptoms #3 multiple units spray,suspension (Flonase Allergy Relief) levothyroxine 75 mcg tablet 75 mcg PO QAM 07/21/24 11/22/24 History apixaban 5 mg tablet (Eliquis) 5 mg PO BID 11/16/24 11/22/24 History calcium 250 mg (citrate)-magnesium 2 tab PO DAILY 11/16/24 11/22/24 History 40 mg-D3 125 unit chewable tablet memantine 5 mg tablet 10 mg PO BID 11/16/24 11/22/24 History omeprazole 20 mg capsule,delayed 20 mg PO DAILY 11/16/24 11/22/24 History release osimertinib 80 mg tablet (Tagrisso) 80 mg PO DAILY 11/16/24 11/22/24 History mirtazapine 15 mg tablet 15 mg PO DAILY #30 tabs 11/21/24 11/22/24 Rx sertraline 50 mg tablet 50 mg PO DAILY #30 tabs 11/21/24 11/22/24 Rx xxlwtaeugv-qderpjhascnpm-gmtwyook 1 - 2 tab PO DAILY PRN pain 11/22/24 11/22/24 History 50 mg-325 mg-40 mg tablet Patient History Medical History Peritonitis Periappendicitis UTI (urinary tract infection) Intra-abdominal fluid collection Perforated bowel Pneumoperitoneum Free intraperitoneal air Daily headache Vision changes Metastasis to bone Metastasis to brain Osteoarthritis Hypothyroidism Migraine Anemia Surgical History History of laparoscopic appendectomy (08/19/24) History of esophagogastroduodenoscopy (EGD) History of colonoscopy History of tooth extraction Family History Other No family history of adverse response to anesthesia No pertinent family history Denies family history of Ovarian cancer Prostate cancer Diabetes Myocardial infarction Breast cancer Colorectal cancer Hypertension Social History Smoking Status: Unknown if ever smoked Second Hand Exposure: No; Do You Dip or Chew Tobacco: No; Hx Alcohol Use: No Hx Substance Use: No Preferred Language: Barbadian Communication Ability: Effective Visual Impairment: No Limitations Hearing Ability: Normal Engineering Research Manager Required: No Beliefs That Will Affect Care: None marital status: Current Living Situation: Spouse current occupational status: retired Feels Safe at Home: Yes Dental Care, Regularly: Yes Physical Activity Frequency: Does not Exercise Seatbelt Use: always Assistive Devices: Hospital Bed, Walker and Wheelchair Review of Systems Review of Systems: All systems reviewed & are unremarkable except as noted in Subjective Physical Exam Physical Exam: Chronically ill-appearing female, lying supine in bed. She is awake and alert. No acute distress is noted. Chemo related alopecia. Bitemporal wasting noted. She is able to follow simple commands but does often drift off topic and become confused at times. Respiratory effort is normal. There is no wheeze, rales or rhonchi. Heart tones S1-S2, tachycardic with an apical rate of 114. Abdomen soft, benign. Bowel sounds noted. Generalized weakness. Skin is pale but warm. Results & Data Vital Signs (Past 12 Hours) Vital Signs Temp Pulse Pulse Resp BP Pulse Ox O2 Del Method 11/28/24 11:19 36.5 C 114 H 19 113/80 97 Room Air 11/28/24 08:16 36.2 C L 107 H 21 116/84 94 Room Air 11/28/24 03:55 36.6 C 101 H 17 104/66 97 Room Air 11/28/24 00:42 100 H Laboratory Results 11/28/24 11/26/24 11/26/24 Range/Units 05:30 15:27 06:05 WBC 13.30 H (4.8-10.8) K/ul RBC 2.85 L (4.20-5.40) M/uL Hgb 9.0 L (12.0-16.0) g/dl Hct 27.8 L (37.0-47.0) % MCV 97.5 (80.0-100.0) fL MCH 31.6 (25.0-34.0) pg MCHC 32.4 (32.0-36.0) g/dL RDW Std Deviation 58.9 H (36.4-46.3) fL RDW Coeff of Melodie 16.4 H (11.5-14.5) % Plt Count 238 (130-400) K/uL MPV 10.5 (9.4-12.4) fL Immature Gran % (Auto) % Neut % (Auto) % Lymph % (Auto) % [place] % (Auto) % Eos % (Auto) % Baso % (Auto) % Neut # (Auto) (1.40-6.50) K/uL Lymph # (Auto) (1.20-3.40) K/uL [place] # (Auto) (0.11-0.59) K/uL Eos # (Auto) (0.00-0.50) K/uL Baso # (Auto) (0.00-0.20) K/uL Immature Gran # (Auto) (0.01-0.20) K/uL PT (9.0-12.0) Seconds INR (0.9-1.1) APTT (21-31) Seconds PTT Ratio Heparin Anti-Xa, Unfract (0.3-0.7) IU/ml Sodium 139 142 (136-145) mmol/L Potassium 4.1 3.9 (3.5-5.1) mmol/L Chloride 114 H 113 H (98-107) mmol/L Carbon Dioxide 21 26 (21-32) mmol/L Anion Gap 4 3 (3-11) BUN 20 25 H (6-23) mg/dl Creatinine 0.43 L 0.53 L (0.6-1.2) mg/dl Est Cr Clr Drug Dosing 106.5 86.4 ml/min eGFR 107.20 101.94 BUN/Creatinine Ratio 46.5 H 47.2 H (10-20) Glucose 122 H 141 H (70-99(Fasting)) mg/dl Calcium 7.5 L 7.9 L (8.6-10.3) mg/dl Magnesium 2.0 (1.7-2.4) mg/dl Total Bilirubin (0.2-1.0) mg/dl AST (13-39) U/L ALT (7-52) U/L Alkaline Phosphatase (34-104) U/L Troponin I High Sens (0-14) pg/ml Total Protein (6.0-8.3) gm/dl Albumin (3.4-5.0) gm/dl Globulin (2.5-4.0) gm/dl Albumin/Globulin Ratio (0.9-2) Lipase (11-82) U/L Cortisol AM Sample (6.2-22.6) mcg/dl Urine Color Dark Yellow Urine Appearance Turbid A (Clear) Urine pH 8.0 H (4.5-7.5) Ur Specific [place] 1.018 (1.000-1.030) Urine Protein 1+ H (Negative) Urine Glucose (UA) Negative (Negative) Urine Ketones Negative (Negative) Urine Blood Negative (Negative) Urine Nitrite Positive A (Negative) Urine Bilirubin 1+ H (Negative) Urine Urobilinogen Negative (Negative) Ur Leukocyte Esterase 1+ H (Negative) Urine WBC (Auto) 21-50 H (0-5) /hpf Urine RBC (Auto) 0-2 (0-2) /hpf U Hyaline Cast (Auto) 11-20 H (0-2) /lpf U Epithel Cells (Auto) 6-10 H (0-2) /hpf Urine Bacteria (Auto) 4+ H (None Seen) Amorphous Sediment Present A (None Prsent) Stl C. cayetanensis PCR Stool Rotavirus A PCR Stl Adenov F 40/41 PCR Stool Astrovirus (PCR) Stool Campylobacter PCR Stl C. diff Tox B Gene (Neg) Stool Cryptosporidium PCR Stl E.coli Shiga Tox PCR Stool E coli O157 PCR Stl Enterotoxigenic E PCR Stool EPEC (PCR) Stool EAEC (PCR) Stl E. histolytica PCR Stool Giardia Lamblia PCR Stool Salmonella PCR Stool Sapovirus (PCR) Stl P. shigelloides PCR Stl Shigella/EIEC PCR St Y.enterocolitica PCR Stool Vibrio (PCR) Stl Vibrio cholerae PCR Stl Norovirus GI/GII PCR Adenovirus (PCR) (NotDetected) B. pertussis DNA (PCR) (NotDetected) B.parapertussis DNA PCR (NotDetected) C. pneumoniae DNA (PCR) (NotDetected) Coronavirus OC43 (PCR) (NotDetected) Coronavirus HKU1 (PCR) (NotDetected) Coronavirus 229E (PCR) (NotDetected) SARS-CoV-2 (PCR) (NotDetected) Coronavirus NL63 (PCR) (NotDetected) Human Metapneumovir PCR (NotDetected) Influenza Type A (PCR) (NotDetected) Influenza Type B (PCR) (NotDetected) M. pneumoniae (PCR) (NotDetected) Parainfluenza 1 (PCR) (NotDetected) Parainfluenza 2 (PCR) (NotDetected) Parainfluenza 3 (PCR) (NotDetected) Parainfluenza 4 (PCR) (NotDetected) RSV (PCR) (NotDetected) Entero/Rhino (PCR) (NotDetected) 11/25/24 11/25/24 11/24/24 Range/Units 06:58 05:14 09:44 WBC (4.8-10.8) K/ul RBC (4.20-5.40) M/uL Hgb (12.0-16.0) g/dl Hct (37.0-47.0) % MCV (80.0-100.0) fL MCH (25.0-34.0) pg MCHC (32.0-36.0) g/dL RDW Std Deviation (36.4-46.3) fL RDW Coeff of Melodie (11.5-14.5) % Plt Count (130-400) K/uL MPV (9.4-12.4) fL Immature Gran % (Auto) % Neut % (Auto) % Lymph % (Auto) % [place] % (Auto) % Eos % (Auto) % Baso % (Auto) % Neut # (Auto) (1.40-6.50) K/uL Lymph # (Auto) (1.20-3.40) K/uL [place] # (Auto) (0.11-0.59) K/uL Eos # (Auto) (0.00-0.50) K/uL Baso # (Auto) (0.00-0.20) K/uL Immature Gran # (Auto) (0.01-0.20) K/uL PT (9.0-12.0) Seconds INR (0.9-1.1) APTT (21-31) Seconds PTT Ratio Heparin Anti-Xa, Unfract 0.62 0.67 (0.3-0.7) IU/ml Sodium 141 (136-145) mmol/L Potassium 3.3 L (3.5-5.1) mmol/L Chloride 112 H (98-107) mmol/L Carbon Dioxide 25 (21-32) mmol/L Anion Gap 4 (3-11) BUN 18 (6-23) mg/dl Creatinine 0.43 L (0.6-1.2) mg/dl Est Cr Clr Drug Dosing 106.5 ml/min eGFR 107.20 BUN/Creatinine Ratio 41.9 H (10-20) Glucose 128 H (70-99(Fasting)) mg/dl Calcium 7.6 L (8.6-10.3) mg/dl Magnesium (1.7-2.4) mg/dl Total Bilirubin (0.2-1.0) mg/dl AST (13-39) U/L ALT (7-52) U/L Alkaline Phosphatase (34-104) U/L Troponin I High Sens (0-14) pg/ml Total Protein (6.0-8.3) gm/dl Albumin (3.4-5.0) gm/dl Globulin (2.5-4.0) gm/dl Albumin/Globulin Ratio (0.9-2) Lipase (11-82) U/L Cortisol AM Sample (6.2-22.6) mcg/dl Urine Color Urine Appearance (Clear) Urine pH (4.5-7.5) Ur Specific [place] (1.000-1.030) Urine Protein (Negative) Urine Glucose (UA) (Negative) Urine Ketones (Negative) Urine Blood (Negative) Urine Nitrite (Negative) Urine Bilirubin (Negative) Urine Urobilinogen (Negative) Ur Leukocyte Esterase (Negative) Urine WBC (Auto) (0-5) /hpf Urine RBC (Auto) (0-2) /hpf U Hyaline Cast (Auto) (0-2) /lpf U Epithel Cells (Auto) (0-2) /hpf Urine Bacteria (Auto) (None Seen) Amorphous Sediment (None Prsent) Stl C. cayetanensis PCR Not Detected Stool Rotavirus A PCR Not Detected Stl Adenov F 40/41 PCR Not Detected Stool Astrovirus (PCR) Not Detected Stool Campylobacter PCR Not Detected Stl C. diff Tox B Gene (Neg) Stool Cryptosporidium PCR Not Detected Stl E.coli Shiga Tox PCR Not Detected Stool E coli O157 PCR Stl Enterotoxigenic E PCR Not Detected Stool EPEC (PCR) Not Detected Stool EAEC (PCR) Not Detected Stl E. histolytica PCR Not Detected Stool Giardia Lamblia PCR Not Detected Stool Salmonella PCR Not Detected Stool Sapovirus (PCR) Not Detected Stl P. shigelloides PCR Not Detected Stl Shigella/EIEC PCR Not Detected St Y.enterocolitica PCR Not Detected Stool Vibrio (PCR) Not Detected Stl Vibrio cholerae PCR Not Detected Stl Norovirus GI/GII PCR Not Detected Adenovirus (PCR) (NotDetected) B. pertussis DNA (PCR) (NotDetected) B.parapertussis DNA PCR (NotDetected) C. pneumoniae DNA (PCR) (NotDetected) Coronavirus OC43 (PCR) (NotDetected) Coronavirus HKU1 (PCR) (NotDetected) Coronavirus 229E (PCR) (NotDetected) SARS-CoV-2 (PCR) (NotDetected) Coronavirus NL63 (PCR) (NotDetected) Human Metapneumovir PCR (NotDetected) Influenza Type A (PCR) (NotDetected) Influenza Type B (PCR) (NotDetected) M. pneumoniae (PCR) (NotDetected) Parainfluenza 1 (PCR) (NotDetected) Parainfluenza 2 (PCR) (NotDetected) Parainfluenza 3 (PCR) (NotDetected) Parainfluenza 4 (PCR) (NotDetected) RSV (PCR) (NotDetected) Entero/Rhino (PCR) (NotDetected) 11/24/24 11/24/24 11/24/24 Range/Units 07:45 01:45 01:33 WBC 6.08 (4.8-10.8) K/ul RBC 3.04 L (4.20-5.40) M/uL Hgb 9.8 L (12.0-16.0) g/dl Hct 30.2 L (37.0-47.0) % MCV 99.3 (80.0-100.0) fL MCH 32.2 (25.0-34.0) pg MCHC 32.5 (32.0-36.0) g/dL RDW Std Deviation 58.5 H (36.4-46.3) fL RDW Coeff of Melodie 15.9 H (11.5-14.5) % Plt Count 294 (130-400) K/uL MPV 10.1 (9.4-12.4) fL Immature Gran % (Auto) 0.5 % Neut % (Auto) 84.0 % Lymph % (Auto) 8.7 % [place] % (Auto) 6.3 % Eos % (Auto) 0.3 % Baso % (Auto) 0.2 % Neut # (Auto) 5.11 (1.40-6.50) K/uL Lymph # (Auto) 0.53 L (1.20-3.40) K/uL [place] # (Auto) 0.38 (0.11-0.59) K/uL Eos # (Auto) 0.02 (0.00-0.50) K/uL Baso # (Auto) 0.01 (0.00-0.20) K/uL Immature Gran # (Auto) 0.03 (0.01-0.20) K/uL PT (9.0-12.0) Seconds INR (0.9-1.1) APTT (21-31) Seconds PTT Ratio Heparin Anti-Xa, Unfract 0.76 H* (0.3-0.7) IU/ml Sodium 139 (136-145) mmol/L Potassium 3.3 L (3.5-5.1) mmol/L Chloride 111 H (98-107) mmol/L Carbon Dioxide 24 (21-32) mmol/L Anion Gap 4 (3-11) BUN 15 (6-23) mg/dl Creatinine 0.39 L (0.6-1.2) mg/dl Est Cr Clr Drug Dosing 117.4 ml/min eGFR 109.76 BUN/Creatinine Ratio 38.5 H (10-20) Glucose 123 H (70-99(Fasting)) mg/dl Calcium 7.2 L (8.6-10.3) mg/dl Magnesium (1.7-2.4) mg/dl Total Bilirubin (0.2-1.0) mg/dl AST (13-39) U/L ALT (7-52) U/L Alkaline Phosphatase (34-104) U/L Troponin I High Sens (0-14) pg/ml Total Protein (6.0-8.3) gm/dl Albumin (3.4-5.0) gm/dl Globulin (2.5-4.0) gm/dl Albumin/Globulin Ratio (0.9-2) Lipase (11-82) U/L Cortisol AM Sample 27.35 H (6.2-22.6) mcg/dl Urine Color Urine Appearance (Clear) Urine pH (4.5-7.5) Ur Specific [place] (1.000-1.030) Urine Protein (Negative) Urine Glucose (UA) (Negative) Urine Ketones (Negative) Urine Blood (Negative) Urine Nitrite (Negative) Urine Bilirubin (Negative) Urine Urobilinogen (Negative) Ur Leukocyte Esterase (Negative) Urine WBC (Auto) (0-5) /hpf Urine RBC (Auto) (0-2) /hpf U Hyaline Cast (Auto) (0-2) /lpf U Epithel Cells (Auto) (0-2) /hpf Urine Bacteria (Auto) (None Seen) Amorphous Sediment (None Prsent) Stl C. cayetanensis PCR Cancelled Stool Rotavirus A PCR Cancelled Stl Adenov F 40/41 PCR Cancelled Stool Astrovirus (PCR) Cancelled Stool Campylobacter PCR Cancelled Stl C. diff Tox B Gene Negative Cdiff Gene (Neg) Stool Cryptosporidium PCR Cancelled Stl E.coli Shiga Tox PCR Cancelled Stool E coli O157 PCR Cancelled Stl Enterotoxigenic E PCR Cancelled Stool EPEC (PCR) Cancelled Stool EAEC (PCR) Cancelled Stl E. histolytica PCR Cancelled Stool Giardia Lamblia PCR Cancelled Stool Salmonella PCR Cancelled Stool Sapovirus (PCR) Cancelled Stl P. shigelloides PCR Cancelled Stl Shigella/EIEC PCR Cancelled St Y.enterocolitica PCR Cancelled Stool Vibrio (PCR) Cancelled Stl Vibrio cholerae PCR Cancelled Stl Norovirus GI/GII PCR Cancelled Adenovirus (PCR) (NotDetected) B. pertussis DNA (PCR) (NotDetected) B.parapertussis DNA PCR (NotDetected) C. pneumoniae DNA (PCR) (NotDetected) Coronavirus OC43 (PCR) (NotDetected) Coronavirus HKU1 (PCR) (NotDetected) Coronavirus 229E (PCR) (NotDetected) SARS-CoV-2 (PCR) (NotDetected) Coronavirus NL63 (PCR) (NotDetected) Human Metapneumovir PCR (NotDetected) Influenza Type A (PCR) (NotDetected) Influenza Type B (PCR) (NotDetected) M. pneumoniae (PCR) (NotDetected) Parainfluenza 1 (PCR) (NotDetected) Parainfluenza 2 (PCR) (NotDetected) Parainfluenza 3 (PCR) (NotDetected) Parainfluenza 4 (PCR) (NotDetected) RSV (PCR) (NotDetected) Entero/Rhino (PCR) (NotDetected) 11/23/24 11/23/24 11/23/24 Range/Units 18:32 15:52 12:57 WBC (4.8-10.8) K/ul RBC (4.20-5.40) M/uL Hgb (12.0-16.0) g/dl Hct (37.0-47.0) % MCV (80.0-100.0) fL MCH (25.0-34.0) pg MCHC (32.0-36.0) g/dL RDW Std Deviation (36.4-46.3) fL RDW Coeff of Melodie (11.5-14.5) % Plt Count (130-400) K/uL MPV (9.4-12.4) fL Immature Gran % (Auto) % Neut % (Auto) % Lymph % (Auto) % [place] % (Auto) % Eos % (Auto) % Baso % (Auto) % Neut # (Auto) (1.40-6.50) K/uL Lymph # (Auto) (1.20-3.40) K/uL [place] # (Auto) (0.11-0.59) K/uL Eos # (Auto) (0.00-0.50) K/uL Baso # (Auto) (0.00-0.20) K/uL Immature Gran # (Auto) (0.01-0.20) K/uL PT (9.0-12.0) Seconds INR (0.9-1.1) APTT (21-31) Seconds PTT Ratio Heparin Anti-Xa, Unfract 0.64 0.77 H* 1.23 H* (0.3-0.7) IU/ml Sodium (136-145) mmol/L Potassium (3.5-5.1) mmol/L Chloride (98-107) mmol/L Carbon Dioxide (21-32) mmol/L Anion Gap (3-11) BUN (6-23) mg/dl Creatinine (0.6-1.2) mg/dl Est Cr Clr Drug Dosing ml/min eGFR BUN/Creatinine Ratio (10-20) Glucose (70-99(Fasting)) mg/dl Calcium (8.6-10.3) mg/dl Magnesium (1.7-2.4) mg/dl Total Bilirubin (0.2-1.0) mg/dl AST (13-39) U/L ALT (7-52) U/L Alkaline Phosphatase (34-104) U/L Troponin I High Sens (0-14) pg/ml Total Protein (6.0-8.3) gm/dl Albumin (3.4-5.0) gm/dl Globulin (2.5-4.0) gm/dl Albumin/Globulin Ratio (0.9-2) Lipase (11-82) U/L Cortisol AM Sample (6.2-22.6) mcg/dl Urine Color Urine Appearance (Clear) Urine pH (4.5-7.5) Ur Specific [place] (1.000-1.030) Urine Protein (Negative) Urine Glucose (UA) (Negative) Urine Ketones (Negative) Urine Blood (Negative) Urine Nitrite (Negative) Urine Bilirubin (Negative) Urine Urobilinogen (Negative) Ur Leukocyte Esterase (Negative) Urine WBC (Auto) (0-5) /hpf Urine RBC (Auto) (0-2) /hpf U Hyaline Cast (Auto) (0-2) /lpf U Epithel Cells (Auto) (0-2) /hpf Urine Bacteria (Auto) (None Seen) Amorphous Sediment (None Prsent) Stl C. cayetanensis PCR Stool Rotavirus A PCR Stl Adenov F 40/41 PCR Stool Astrovirus (PCR) Stool Campylobacter PCR Stl C. diff Tox B Gene (Neg) Stool Cryptosporidium PCR Stl E.coli Shiga Tox PCR Stool E coli O157 PCR Stl Enterotoxigenic E PCR Stool EPEC (PCR) Stool EAEC (PCR) Stl E. histolytica PCR Stool Giardia Lamblia PCR Stool Salmonella PCR Stool Sapovirus (PCR) Stl P. shigelloides PCR Stl Shigella/EIEC PCR St Y.enterocolitica PCR Stool Vibrio (PCR) Stl Vibrio cholerae PCR Stl Norovirus GI/GII PCR Adenovirus (PCR) (NotDetected) B. pertussis DNA (PCR) (NotDetected) B.parapertussis DNA PCR (NotDetected) C. pneumoniae DNA (PCR) (NotDetected) Coronavirus OC43 (PCR) (NotDetected) Coronavirus HKU1 (PCR) (NotDetected) Coronavirus 229E (PCR) (NotDetected) SARS-CoV-2 (PCR) (NotDetected) Coronavirus NL63 (PCR) (NotDetected) Human Metapneumovir PCR (NotDetected) Influenza Type A (PCR) (NotDetected) Influenza Type B (PCR) (NotDetected) M. pneumoniae (PCR) (NotDetected) Parainfluenza 1 (PCR) (NotDetected) Parainfluenza 2 (PCR) (NotDetected) Parainfluenza 3 (PCR) (NotDetected) Parainfluenza 4 (PCR) (NotDetected) RSV (PCR) (NotDetected) Entero/Rhino (PCR) (NotDetected) 11/23/24 11/23/24 11/23/24 Range/Units 12:56 09:50 06:22 WBC 3.90 L (4.8-10.8) K/ul RBC 2.52 L (4.20-5.40) M/uL Hgb 9.1 L 8.2 L D (12.0-16.0) g/dl Hct 28.0 L 25.1 L (37.0-47.0) % MCV 99.6 (80.0-100.0) fL MCH 32.5 (25.0-34.0) pg MCHC 32.7 (32.0-36.0) g/dL RDW Std Deviation 58.1 H (36.4-46.3) fL RDW Coeff of Melodie 15.8 H (11.5-14.5) % Plt Count 245 (130-400) K/uL MPV 10.3 (9.4-12.4) fL Immature Gran % (Auto) 0.5 % Neut % (Auto) 76.1 % Lymph % (Auto) 13.1 % [place] % (Auto) 8.2 % Eos % (Auto) 2.1 % Baso % (Auto) 0.0 % Neut # (Auto) 2.97 (1.40-6.50) K/uL Lymph # (Auto) 0.51 L (1.20-3.40) K/uL [place] # (Auto) 0.32 (0.11-0.59) K/uL Eos # (Auto) 0.08 (0.00-0.50) K/uL Baso # (Auto) 0.00 (0.00-0.20) K/uL Immature Gran # (Auto) 0.02 (0.01-0.20) K/uL PT 13.0 H (9.0-12.0) Seconds INR 1.2 H (0.9-1.1) APTT > 139 H* (21-31) Seconds PTT Ratio > 4.9 Heparin Anti-Xa, Unfract > 1.50 H* (0.3-0.7) IU/ml Sodium 135 L (136-145) mmol/L Potassium 4.0 D 2.9 L (3.5-5.1) mmol/L Chloride 102 (98-107) mmol/L Carbon Dioxide 27 (21-32) mmol/L Anion Gap 6 (3-11) BUN 26 H (6-23) mg/dl Creatinine 0.50 L (0.6-1.2) mg/dl Est Cr Clr Drug Dosing 91.6 ml/min eGFR 103.38 BUN/Creatinine Ratio 52.0 H (10-20) Glucose 132 H (70-99(Fasting)) mg/dl Calcium 7.5 L (8.6-10.3) mg/dl Magnesium 2.1 (1.7-2.4) mg/dl Total Bilirubin 0.5 (0.2-1.0) mg/dl AST 13 (13-39) U/L ALT 12 (7-52) U/L Alkaline Phosphatase 222 H (34-104) U/L Troponin I High Sens (0-14) pg/ml Total Protein 4.7 L (6.0-8.3) gm/dl Albumin 2.9 L (3.4-5.0) gm/dl Globulin 1.8 L (2.5-4.0) gm/dl Albumin/Globulin Ratio 1.6 (0.9-2) Lipase (11-82) U/L Cortisol AM Sample (6.2-22.6) mcg/dl Urine Color Urine Appearance (Clear) Urine pH (4.5-7.5) Ur Specific [place] (1.000-1.030) Urine Protein (Negative) Urine Glucose (UA) (Negative) Urine Ketones (Negative) Urine Blood (Negative) Urine Nitrite (Negative) Urine Bilirubin (Negative) Urine Urobilinogen (Negative) Ur Leukocyte Esterase (Negative) Urine WBC (Auto) (0-5) /hpf Urine RBC (Auto) (0-2) /hpf U Hyaline Cast (Auto) (0-2) /lpf U Epithel Cells (Auto) (0-2) /hpf Urine Bacteria (Auto) (None Seen) Amorphous Sediment (None Prsent) Stl C. cayetanensis PCR Stool Rotavirus A PCR Stl Adenov F 40/41 PCR Stool Astrovirus (PCR) Stool Campylobacter PCR Stl C. diff Tox B Gene (Neg) Stool Cryptosporidium PCR Stl E.coli Shiga Tox PCR Stool E coli O157 PCR Stl Enterotoxigenic E PCR Stool EPEC (PCR) Stool EAEC (PCR) Stl E. histolytica PCR Stool Giardia Lamblia PCR Stool Salmonella PCR Stool Sapovirus (PCR) Stl P. shigelloides PCR Stl Shigella/EIEC PCR St Y.enterocolitica PCR Stool Vibrio (PCR) Stl Vibrio cholerae PCR Stl Norovirus GI/GII PCR Adenovirus (PCR) (NotDetected) B. pertussis DNA (PCR) (NotDetected) B.parapertussis DNA PCR (NotDetected) C. pneumoniae DNA (PCR) (NotDetected) Coronavirus OC43 (PCR) (NotDetected) Coronavirus HKU1 (PCR) (NotDetected) Coronavirus 229E (PCR) (NotDetected) SARS-CoV-2 (PCR) (NotDetected) Coronavirus NL63 (PCR) (NotDetected) Human Metapneumovir PCR (NotDetected) Influenza Type A (PCR) (NotDetected) Influenza Type B (PCR) (NotDetected) M. pneumoniae (PCR) (NotDetected) Parainfluenza 1 (PCR) (NotDetected) Parainfluenza 2 (PCR) (NotDetected) Parainfluenza 3 (PCR) (NotDetected) Parainfluenza 4 (PCR) (NotDetected) RSV (PCR) (NotDetected) Entero/Rhino (PCR) (NotDetected) 11/22/24 11/22/24 Range/Units 17:08 16:11 WBC 5.36 (4.8-10.8) K/ul RBC 3.46 L (4.20-5.40) M/uL Hgb 11.1 L (12.0-16.0) g/dl Hct 34.2 L (37.0-47.0) % MCV 98.8 (80.0-100.0) fL MCH 32.1 (25.0-34.0) pg MCHC 32.5 (32.0-36.0) g/dL RDW Std Deviation 57.2 H (36.4-46.3) fL RDW Coeff of Melodie 15.8 H (11.5-14.5) % Plt Count 346 (130-400) K/uL MPV 10.2 (9.4-12.4) fL Immature Gran % (Auto) 0.4 % Neut % (Auto) 79.6 % Lymph % (Auto) 11.4 % [place] % (Auto) 8.0 % Eos % (Auto) 0.4 % Baso % (Auto) 0.2 % Neut # (Auto) 4.27 (1.40-6.50) K/uL Lymph # (Auto) 0.61 L (1.20-3.40) K/uL [place] # (Auto) 0.43 (0.11-0.59) K/uL Eos # (Auto) 0.02 (0.00-0.50) K/uL Baso # (Auto) 0.01 (0.00-0.20) K/uL Immature Gran # (Auto) 0.02 (0.01-0.20) K/uL PT 12.1 H (9.0-12.0) Seconds INR 1.1 (0.9-1.1) APTT (21-31) Seconds PTT Ratio Heparin Anti-Xa, Unfract (0.3-0.7) IU/ml Sodium 134 L (136-145) mmol/L Potassium 3.2 L (3.5-5.1) mmol/L Chloride 99 (98-107) mmol/L Carbon Dioxide 29 (21-32) mmol/L Anion Gap 6 (3-11) BUN 33 H (6-23) mg/dl Creatinine 0.70 (0.6-1.2) mg/dl Est Cr Clr Drug Dosing 65.4 ml/min eGFR 95.32 BUN/Creatinine Ratio 47.1 H (10-20) Glucose 146 H (70-99(Fasting)) mg/dl Calcium 8.1 L (8.6-10.3) mg/dl Magnesium 1.9 (1.7-2.4) mg/dl Total Bilirubin 0.4 (0.2-1.0) mg/dl AST 16 (13-39) U/L ALT 21 (7-52) U/L Alkaline Phosphatase 363 H (34-104) U/L Troponin I High Sens 6.1 (0-14) pg/ml Total Protein 5.1 L (6.0-8.3) gm/dl Albumin 2.4 L (3.4-5.0) gm/dl Globulin 2.7 (2.5-4.0) gm/dl Albumin/Globulin Ratio 0.9 (0.9-2) Lipase 17 (11-82) U/L Cortisol AM Sample (6.2-22.6) mcg/dl Urine Color Urine Appearance (Clear) Urine pH (4.5-7.5) Ur Specific [place] (1.000-1.030) Urine Protein (Negative) Urine Glucose (UA) (Negative) Urine Ketones (Negative) Urine Blood (Negative) Urine Nitrite (Negative) Urine Bilirubin (Negative) Urine Urobilinogen (Negative) Ur Leukocyte Esterase (Negative) Urine WBC (Auto) (0-5) /hpf Urine RBC (Auto) (0-2) /hpf U Hyaline Cast (Auto) (0-2) /lpf U Epithel Cells (Auto) (0-2) /hpf Urine Bacteria (Auto) (None Seen) Amorphous Sediment (None Prsent) Stl C. cayetanensis PCR Stool Rotavirus A PCR Stl Adenov F 40/41 PCR Stool Astrovirus (PCR) Stool Campylobacter PCR Stl C. diff Tox B Gene (Neg) Stool Cryptosporidium PCR Stl E.coli Shiga Tox PCR Stool E coli O157 PCR Stl Enterotoxigenic E PCR Stool EPEC (PCR) Stool EAEC (PCR) Stl E. histolytica PCR Stool Giardia Lamblia PCR Stool Salmonella PCR Stool Sapovirus (PCR) Stl P. shigelloides PCR Stl Shigella/EIEC PCR St Y.enterocolitica PCR Stool Vibrio (PCR) Stl Vibrio cholerae PCR Stl Norovirus GI/GII PCR Adenovirus (PCR) Not Detected (NotDetected) B. pertussis DNA (PCR) Not Detected (NotDetected) B.parapertussis DNA PCR Not Detected (NotDetected) C. pneumoniae DNA (PCR) Not Detected (NotDetected) Coronavirus OC43 (PCR) Not Detected (NotDetected) Coronavirus HKU1 (PCR) Not Detected (NotDetected) Coronavirus 229E (PCR) Not Detected (NotDetected) SARS-CoV-2 (PCR) Not Detected (NotDetected) Coronavirus NL63 (PCR) Not Detected (NotDetected) Human Metapneumovir PCR Not Detected (NotDetected) Influenza Type A (PCR) Not Detected (NotDetected) Influenza Type B (PCR) Not Detected (NotDetected) M. pneumoniae (PCR) Not Detected (NotDetected) Parainfluenza 1 (PCR) Not Detected (NotDetected) Parainfluenza 2 (PCR) Not Detected (NotDetected) Parainfluenza 3 (PCR) Not Detected (NotDetected) Parainfluenza 4 (PCR) Not Detected (NotDetected) RSV (PCR) Not Detected (NotDetected) Entero/Rhino (PCR) Not Detected (NotDetected) Diagnostic Findings Head CT 11/22/24 15:55 EXAMINATION: Head CT without CLINICAL HISTORY: Seizure, history of cancer with brain mets PRIORS: Brain MRI 11/09/2024 TECHNIQUE: Contiguous axial images were obtained through the head without the use of intravenous contrast. Sagittal and coronal reformations are supplied. FINDINGS: Age appropriate parenchymal volume is noted. [place]-white differentiation is preserved. No edema or midline shift. Allowing for noncontrast enhanced technique, no large mass or vasogenic edema. No midline shift. Diffuse periventricular deep white matter lucency representing small vessel occlusive disease. No intra-axial or extra-axial hemorrhage. Ventricles are normal in size and configuration. Brainstem and cerebellum have a normal appearance. Calvarium unremarkable. Paranasal sinuses and mastoid air cells are well-pneumatized. Globes are intact. No retrobulbar abnormality. IMPRESSION: No CT evidence of an acute intracranial abnormality. Electronically signed by Dora Simms 11-22-2024 5:28 PM Chest X-Ray 11/22/24 15:56 INDICATION: Seizure. TECHNIQUE: Frontal radiograph of the chest. COMPARISON: None. FINDINGS: The cardiomediastinal silhouette and pulmonary vasculature appear within normal limits. Right upper lobe mass appears unchanged. No infiltrate, pleural effusion or pneumothorax. No acute osseous abnormality evident. IMPRESSION: No acute cardiopulmonary process.Right upper lobe mass appears unchanged. Electronically signed by Doc Sharp 11-22-2024 5:23 PM Chest CTA 11/22/24 22:45 EXAM: CT angio chest PE protocol CLINICAL HISTORY: PE TECHNIQUE: Contiguous axial images were obtained from the neck base through the upper abdomen following intravenous administration of iodinated contrast material. Angiographic images were processed, 3D MIP images were acquired for interpretation. If IV contrast material had not been administered, the likelihood of detecting abnormalities relevant to the patient's condition would have been substantially decreased. Coronal and sagittal 3-D MIPs were likewise performed and indicated to increase the sensitivity of detectin diffuse clinically relevant pathology. CT scan was performed according to ALARA (as low as reasonable achievable). COMPARISON: 12:44:05 SHUTTLE FINAL INSPECTOR. FINDINGS: Adequate contrast bolus Filling defect noted within left pulmonary artery, right upper lobe pulmonary artery and left upper lobe pulmonary artery branch The central airways are patent. A spiculated 2.2 cm mass is noted in right upper lobe. A patch of peripheral ground glass opacities is noted in anterior segment of left upper lobe The lungs are otherwise clear. No pleural effusion. The heart and aortaare of normal size and configuration. There are no appreciable coronary artery and aortic atherosclerotic calcifications. No pericardial effusion is identified. The thyroid is unremarkable. No mediastinal, hilar, or axillary lymphadenopathy is noted. Sclerotic lesions seen in multiple thoracic vertebrae- likely metastatic, increased as compared to prior study. IMPRESSION: 1 Filling defect noted within left pulmonary artery, right upper lobe pulmonary artery and left upper lobe pulmonary artery branch: Acute thromboembolism (No features of pulmonary strain): New finding 2 A spiculated mass in right upper lobe: Neoplastic etiology: reduced in size A patch of peripheral ground glass opacities is noted in anterior segment of left upper lobe: Evolving infarct: New finding 3. Sclerotic lesions seen in multiple thoracic vertebrae- likely metastatic, increased as compared to prior study. Electronically signed by Agusto Segovia 11-23-2024 03:[address] 11/24/24 08:00 CT head/brain wo con CLINICAL HISTORY: brain mets, eval ICH. TECHNIQUE: Multiple axial CT images of the head were obtained without contrast. A dose lowering technique was utilized adhering to the principles of ALARA. CT DOSE: 547.75 mGy.cm COMPARISON: 11/22/2024 CT through 11/09/2024 MRI FINDINGS: No intracranial hemorrhage seen by CT. No mass effect, midline shift, or hydrocephalus. Stable mild chronic small vessel ischemic changes. Stable small area of focal hypodensity medial lower right frontal lobe. Visualized paranasal sinuses are clear. No skull fracture seen. IMPRESSION: Stable exam. No acute findings seen. ACT 112: Negative or not required by law. The above report was generated using voice recognition software. It may contain grammatical, syntax or spelling errors. Electronically signed by: Dave Elliott M.D. 11/24/2024 8:51 AM KUB X-Ray 11/24/24 11:10 KUB HISTORY: abd distension; ileus? impaction? COMPARISON STUDY: 07/21/2024 FINDINGS: There is mild diffuse colonic and small bowel distention. The rectum is moderately distended with stool. Otherwise there is mild to moderate retained stool. No gross free air. IMPRESSION: 1. Rectum is moderately distended with stool. 2. Mild diffuse bowel distention otherwise. ACT 112: Negative or not required by law. The above report was generated using voice recognition software. It may contain grammatical, syntax or spelling errors. Electronically signed by: Dave Elliott M.D. 11/24/2024 12:41 PM PG Care Time/CCT Total # of Minutes Spent Total Time Spent with Patient: Total time spent is greater than 50% in coordination of care (as documented) at patient's floor/unit and/or counseling patient: I spent 65 minutes overall addressing this case: 15 min in medical data review/discussion with referring provider(s) and/or preparation for the visit 20 min in direct interaction with the patient/exam 00 min in Advance Care Planning/Goals of Care discussions as detailed above in note (must be >16min) 15 min in subsequent review and synthesis of assessment and plan 15 min communicating with other providers regarding the patient's case: primary team [place] [address] IN/OBS CONSULT LVL 4,60M Patient Type New History Comprehensive Exam Comprehensive Medical Decision Making High Complexity Diagnoses Generalized weakness R53.1 Intermittent confusion R41.0 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
[2024-11-28] MEDS: SODIUM CHLORIDE 0.9% 500 ML IV SCH (14:00)
--- NOTE | 2024-11-28 19:32 | Hospitalist Progress Note ---
Date of Service November 28, 2024 Assessment & Plan (1) Pulmonary embolism and infarction: (2) Acute hypokalemia: (3) Seizure-like activity: (4) Metastatic lung cancer (metastasis from lung to other site): (5) Mass of right lung: Plan: primary lung ca site (RUL) (6) Vaginitis: (7) Urinary retention: (8) UTI (urinary tract infection): Plan 64yo female with stage 4 lung cancer with mets to the brain & bone, history of gastric ulcer, hypothyroidism, GERD, hyperlipidemia, migraine and B12 deficiency. Presented with 60 second seizure-like event with stiffness & shaking. Witnessed by . During the event she was not responding to her name being called and her eyes "rolled back." Following the event patient was confused. #Suspected Seizure - * CT head without acute findings x 2; no ICH seen * EEG negative for seizure activity * however, given the presence of brain mets, description of the event, and the ensuing confusion would Rx as seizure * cont keppra 500mg BID - thus far tolerating such * neuro consult/recs appreciated * repeat MRI brain deferred -- just had MRI brain on 11/09 & this showed treatment response to whole brain radiation #Pulmonary embolism and infarction/RLE DVT (dx: 11/01/2024) - * Patient had reportedly been on Eliquis for 2 weeks prior to admission when the RLE DVTs were diagnosed * CTA chest this admission with b/l PEs and pulmonary infarction RYLEY. * Neurology consulted; no contraindication to anticoagulation. Microbleeds on MRI seen in 07/2024; same microbleeds seen again on 10/2024 MRI brain; microbleeds unchanged and no new areas of concern. * Oncology consulted re: opinion about anticoagulation. * Dr Dutta agrees we can simply resume Eliquis rather than changing to lovenox, etc. * 11/25 - heparin drip stopped, Eliquis 5mg BID resumed. #Metastatic lung cancer to brain and bone - * Patient had a PET/CT scheduled for 11/24/24 as outpatient - canceled * She is s/p whole brain radiation x 10 fractions * Most recent MRI brain from 11/09/2024 - in comparison to MRI dated 07/21/2024 - remarkable reduction of the number and size of the previously noted metastatic nodules, which is consistent with a good response to therapy and current residual metastatic deposits. Multiple microbleeds again seen but unchanged & stable. * Continue osimertinib for now, but if patient transitions to hospice then will stop * Appreciate rad onc consult - nothing acute from their standpoint * Appreciate onc consult - nothing acute to do at this time * Prognosis is very poor with her failure to thrive, worsening memory/mentation, worsening functional status, development of complications (DVTs/PEs,etc) * palliative care consult requested; Dr Padilla to meet with pt & her 11/29/24 #Hypokalemia - * resolved * stop K supplement * stop KCL in fluids #Hypotension - present on admission; resolved * s/p albumin & IV fluids early in the admission * cortisol level wnl * echo with preserved EF; no valvular disease * H/H acceptable #acute metabolic encephalopathy - * 2nd to ongoing memory loss from brain mets, radiation, etc * recent suspected seizure probably played a role as well in mental status when she first was admitted * cont namenda #tachycardia - ongoing * PEs, dehydration, anxiety likely all playing a role * H/H acceptable * TSH wnl * echo wnl * simply follow #liquid stools - * c diff negative * stool BioFire negative * KUB x-rays obtained due to abd distension - copious rectal stool, and small/large bowel dilatation * once rectal stool was gone her distension resolved * eating has improved since rectal stool passed #vaginitis - * diflucan 150mg x 1 * if no resolution can repeat dilfucan again and would also test for concomitant BV #contact dermatitis - posterior legs, posterior head, posterior upper arms * cont triamcinolone cream 0.1% TID in thin amounts to problem areas #urinary retention - * likely due to central causes (brain mets, altered MS/cognitive impairment, etc) * placed quevedo 11/26 * urine cx - pansens e.coli - change rocephin to ancef, then ultimately PO keflex #UTI - * urine cx with e.coli * change rocephin to IV ancef; ultimately keflex to finish the course * today is day #3 of IV abx * plan 7 days of IV/PO abx Chronic medical conditions: Hypothyroidism-continue levothyroxine; TSH in October 2024 was wnl GERD-continue famotidine and PPI updated at bedside today, 11/28 appreciate palliative care consult - d/w Ember from palliative care team and with Dr Padilla via [place] correspondence Dr Padilla to meet with pt/pt's 11/29 dispo - likely SNF Admission and Anticipated Discharge Date Admission Date: November 22, 2024 Subjective tele - HRs 90s at rest; 100-120 while awake no acute events a little more awake/alert/sprightly today ate poorly at breakfast but ate most of lunch no dyspnea no abd pain at bedside Review of Systems Review of Systems: CV - no chest pain GI - no N/V skin - no pruritis Physical Exam Physical Exam: gen - thin, NAD, lying comfortably in bed - looks better today overall mouth - MM more moist today neck - no JVD heart - RR, tachy, s1 s2, 1/6 NANI LSB lungs - CTA b/l, no rales or wheeze abd - soft, ND, NT; BS+; no masses; no HSM ext - right leg is larger than left leg due to known DVTs; 2+ pitting edema right foot/rubin; trace-1+ edema left foot Results & Data Results & Data Vital Signs (Past 12 Hours) Vital Signs Temp Pulse Resp BP Pulse Ox O2 Del Method 11/28/24 19:12 36.9 C 104 H 18 102/78 96 Room Air 11/28/24 15:21 36.6 C 111 H 16 93/65 L 96 Room Air 11/28/24 11:19 36.5 C 114 H 19 113/80 97 Room Air 11/28/24 08:16 36.2 C L 107 H 21 116/84 94 Room Air Laboratory Results Laboratory Results - last 24 hr 11/28/24 05:30 WBC 13.30 H RBC 2.85 L Hgb 9.0 L Hct 27.8 L MCV 97.5 MCH 31.6 MCHC 32.4 RDW Std Deviation 58.9 H RDW Coeff of Melodie 16.4 H Plt Count 238 MPV 10.5 Sodium 139 Potassium 4.1 Chloride 114 H Carbon Dioxide 21 Anion Gap 4 BUN 20 Creatinine 0.43 L Est Cr Clr Drug Dosing 106.5 eGFR 107.20 BUN/Creatinine Ratio 46.5 H Glucose 122 H Calcium 7.5 L Diagnostic Findings Microbiology 11/26/24 Unknown Urine,Indwelling Cath Urine Culture - Final Escherichia coli PG Care Time/CCT Total # of Minutes Spent Total Time Spent with Patient: Total time spent is greater than 50% in coordination of care (as documented) at patient's floor/unit and/or counseling patient: Coding Level of Care Code 24985 SUB INP/OBS CARE 3/50MIN Diagnoses Pulmonary embolism and infarction I26.99 Acute hypokalemia E87.6 Seizure-like activity R56.9 Metastatic lung cancer (metastasis from lung to other site) C34.90 Mass of right lung R91.8 Vaginitis N76.0 Urinary retention R33.9 UTI (urinary tract infection) N39.0
[2024-11-29] MEDS: cephALEXin 500 MG CAP PO SCH (08:43)
--- NOTE | 2024-11-29 10:00 | Palliative Family Discussion ---
Date of Service November 29, 2024 Patient Directed Conference Time of [id number] Participants: Leandra Padilla DNP Patient participation: yes Patient Support System: marisel Tracy Other Healthcare Provider Participation: None Meeting Location: bedside Advanced Directive available: none A face to face ACP meeting was held for NATASHA WOODS. This meeting was necessary for determining the appropriate course of treatment. Topics of Discussion Topics of Discussion: 1. I met with Mr/Mrs Woods at bedside. Plan of care desired is: dc to rehab at SNF, return home with VNS support and follow up in cancer clinic for ongoing discussions to have more chemo. They want to remain a full code, she feels strongly she can get better and that her cancer can be cured. plans to have SNF transport pt to ehr 12/07/24 PETCT appointment and expressed frustration about this not being able to be done while IP. They want to know if she should stay on Tagresso daily at current dose, reduce dose or hold it for a duration of time. stated he wants to see her get stronger, be able to perform her ADLs and resume cancer treatment. I did not discuss or broach hospice as this was not in alignment with their expressed goals. Mr. Woods was very insistent about wanting her to get back to cancer clinic to assure she gets the treatments she can. He was not receptive to explore more "what if things don't get better" and I did not broach hospice. I did very gently go over that we all share the hope of SNF rehab helps her regain strength and she comes home with VNS, follows up in cancer clinic in 4-6 weeks, but that I also worry about what if this does not happen and/or rehab does not do what we hope it will do for her? In this scenario, I believe having home health nursing already in place assures her safety and the right amount of help and support for her to help him keep her at home. I did not use the word "hospice" but I did tell her that home health nursing programs can be escalated to provide higher intensity of in home support and caregiver support to help keep people where they want to be. I think VNS support at home after rehab will be important to be sure she has ongoing PT, nurses to assist with intermittent reassessment, monitor for acute symptoms/checks labs & repeat urine test etc. She did not have any other acute Pall med needs as far as symptom mgt, so I will follow more peripherally. Other Content of Meetin. Opportunity given for participants to speak and ask questions. 2. Participants were assured of attention to patient comfort. 3. Reassurance provided. 4. Support was provided for informed, good-catherine decisions. 5. Emotions expressed by family were acknowledged and addressed. 6. Follow-up Outpatient: as needed 7. Plan of Care: outlined above Thank you for allowing us to participate in the ongoing care of this patient. Please page with any additional concerns. Betzy Padilla DNP Director, Palliative Medicine
--- NOTE | 2024-11-29 16:24 | Oncology Consultation ---
Date of Consultation November 29, 2024 Assessment & Plan (1) Metastatic lung cancer (metastasis from lung to other site): Oncologically, Tagrisso remains the most appropriate treatment for this patient with metastatic lung cancer with intracranial metastatic disease. No indication for any other therapy. The patient should continue Tagrisso at the same dose. She is already shown some response to Tagrisso (2) Pulmonary embolism and infarction: . At this time my recommendation would be continuation of Eliquis as the patient has not really failed Eliquis. No other need for any kind of anticoagulant therapy. Plan continue rest of the management per hospital internal medicine, palliative medicine colleagues. 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 Numerous enhancing parenchymal lesions which measure up to 1.6 cm with mild associated vasogenic edema. The findings are consistent with metastatic disease, several of which are hemorrhagic with a small amount of blood products. Oncology consultation is recommended. 2. 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 3. Several enhancing calvarial metastases. CT chest abdomen pelvis, 07/21/2024: IMPRESSION: 1. Please refer to the same day chest CT for discussion of the primary bronchogenic carcinoma of the right upper lobe. 2. Nonspecific borderline enlarged periportal lymph nodes. 3. Multifocal osteolytic skeletal metastasis with subtle pathologic fractures at T10 and L1. No significant vertebral body height loss or retropulsion. 4. Incidental findings as above. CT chest, 07/21/2024: 1. 3.3 x 3.2 cm spiculated right upper lobe mass consistent with a primary lung cancer. 2. Several mildly enlarged pathologic right hilar lymph nodes. 3. Multiple lytic thoracic spine metastases with subtle pathologic fractures of T6 and T10. cervical spine MRI, 07/21/2024: IMPRESSION: 1. Cervical spondylosis changes with multilevel disc osteophyte complex and neural foraminal narrowing with nerve root impingement as described above. 2. Focal enhancing plaque like lesion is noted along the posterior part of thoracic spinal cord at the level of T4-T5 level. -Possibility of neoplastic lesion/metastasis. 3. T1 and T2 hypointense lesions seen in T2, T3 and T6 vertebral bodies, with enhancement post contrast. T1 and T2 hypointense lesion with enhancement also seen in spinous process of C3 vertebra.- likely metastatic. lumbar spine MRI, 07/21/2024: IMPRESSION: 1. Multiple, variable sized, enhancing lesions involving all lumbar and visualized thoracic and sacral vertebrae as described above. Likely metastases. 2. Degenerative changes as described above. 3. Posterior disc bulges at multiple levels the neural compression as described above. thoracic spine MRI, 07/21/2024: IMPRESSION: 1. Nodular, intramedullary enhancing lesion of size 12 x 4.5 mm (CC x AP) is noted at T5-T6 level. Cord edema is noted around the lesion. Findings likely suggestive of metastasis. 2. Nodular enhancement is noted along the surface of the distal spinal cord and conus medullaris. 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 3. Multiple, variable sized, enhancing lesions are noted involving multiple thoracic vertebrae as described, likely suggestive of metastasis. the patient is a very pleasant 64-year-old woman who has been admitted to [facility] after she was noted to have metastatic non-small cell lung cancer with intracranial mets treated with whole brain radiation therapy, subsequently was noted to have DVT/PE, was started on anticoagulation with Eliquis. She came to the hospital with weakness, fatigue, shakiness. She had another brain MRI which revealed improvement in brain mets. Medical oncology has been consulted to assist in management of this patient with stage IV non- small cell lung cancer currently being treated with osimertinib as the patient has an underlying EGFR mutation. Allergies Allergy/AdvReac Type Severity Reaction Status Date / Time No Known Allergies Allergy Verified 11/22/24 17:40 Home Medications Medication Instructions Recorded Confirmed Type famotidine 20 mg tablet (Pepcid AC) 20 mg PO QAM 09/14/20 11/22/24 History multivitamin 1 tab PO QAM 09/14/20 11/22/24 History cholecalciferol (vitamin D3) 125 125 mcg PO QAM 06/04/21 11/22/24 History mcg (5,000 unit) tablet (Vitamin D3) fluticasone propionate 50 2 spray intranasal DAILY PRN 05/13/24 11/22/24 Rx mcg/actuation nasal allergy symptoms #3 multiple units spray,suspension (Flonase Allergy Relief) levothyroxine 75 mcg tablet 75 mcg PO QAM 07/21/24 11/22/24 History apixaban 5 mg tablet (Eliquis) 5 mg PO BID 11/16/24 11/22/24 History calcium 250 mg (citrate)-magnesium 2 tab PO DAILY 11/16/24 11/22/24 History 40 mg-D3 125 unit chewable tablet memantine 5 mg tablet 10 mg PO BID 11/16/24 11/22/24 History omeprazole 20 mg capsule,delayed 20 mg PO DAILY 11/16/24 11/22/24 History release osimertinib 80 mg tablet (Tagrisso) 80 mg PO DAILY 11/16/24 11/22/24 History mirtazapine 15 mg tablet 15 mg PO DAILY #30 tabs 11/21/24 11/22/24 Rx sertraline 50 mg tablet 50 mg PO DAILY #30 tabs 11/21/24 11/22/24 Rx wcokakcnzd-lfcuxbenheyfx-yfkxskgq 1 - 2 tab PO DAILY PRN pain 11/22/24 11/22/24 History 50 mg-325 mg-40 mg tablet Patient History Medical History Peritonitis Periappendicitis UTI (urinary tract infection) Intra-abdominal fluid collection Perforated bowel Pneumoperitoneum Free intraperitoneal air Daily headache Vision changes Metastasis to bone Metastasis to brain Osteoarthritis Hypothyroidism Migraine Anemia Surgical History History of laparoscopic appendectomy (08/19/24) History of esophagogastroduodenoscopy (EGD) History of colonoscopy History of tooth extraction Family History Other No family history of adverse response to anesthesia No pertinent family history Denies family history of Ovarian cancer Prostate cancer Diabetes Myocardial infarction Breast cancer Colorectal cancer Hypertension Social History Smoking Status: Unknown if ever smoked Second Hand Exposure: No; Do You Dip or Chew Tobacco: No; Hx Alcohol Use: No Hx Substance Use: No Preferred Language: Georgian Communication Ability: Effective Visual Impairment: No Limitations Hearing Ability: Normal Computer Forensics Technician Required: No Beliefs That Will Affect Care: None marital status: Current Living Situation: Spouse current occupational status: retired Feels Safe at Home: Yes Dental Care, Regularly: Yes Physical Activity Frequency: Does not Exercise Seatbelt Use: always Assistive Devices: Hospital Bed, Walker and Wheelchair Review of Systems Review of Systems: All systems reviewed & are unremarkable except as noted in HPI & below Constitutional: as per Subjective / HPI Eyes: as per Subjective / HPI Ear, Nose, Mouth, Throat: as per Subjective / HPI Respiratory: as per Subjective / HPI Cardiovascular: as per Subjective / HPI Gastrointestinal: as per Subjective / HPI Genitourinary: as per Subjective / HPI Musculoskeletal: as per Subjective / HPI Integumentary: as per Subjective / HPI Physical Exam Constitutional: + acute distress and + ill appearing Eyes: PERRL ENMT: external ear and nose normal, oropharynx normal Neck: trachea midline, no thyromegaly Respiratory: normal respiratory effort, lungs clear to auscultation Cardiovascular: RRR, no murmur, no edema Gastrointestinal (Abdomen): normal bowel sounds, soft, nontender, no hepatosplenomegaly Musculoskeletal: no cyanosis or clubbing, extremities motor strength 5/5 Skin: no rashes, warm and dry Results & Data Vital Signs (Past 12 Hours) Vital Signs Temp Pulse Pulse Resp BP Pulse Ox O2 Del Method 11/29/24 15:49 36.6 C 111 H 17 118/84 97 Room Air 11/29/24 14:42 112 H 11/29/24 10:47 36.9 C 109 H 21 119/81 97 Room Air 11/29/24 08:00 99 H 11/29/24 08:00 Room Air 11/29/24 08:00 36.5 C 107 H 17 119/82 96 Room Air
--- NOTE | 2024-11-29 19:03 | Hospitalist Progress Note ---
Date of Service November 29, 2024 Assessment & Plan (1) Pulmonary embolism and infarction: (2) Acute hypokalemia: (3) Seizure-like activity: (4) Metastatic lung cancer (metastasis from lung to other site): (5) Mass of right lung: Plan: primary lung ca site (RUL) (6) Vaginitis: (7) Urinary retention: (8) UTI (urinary tract infection): Plan 64yo female with stage 4 lung cancer with mets to the brain & bone, history of gastric ulcer, hypothyroidism, GERD, hyperlipidemia, migraine and B12 deficiency. Presented with 60 second seizure-like event with stiffness & shaking. Witnessed by . During the event she was not responding to her name being called and her eyes "rolled back." Following the event patient was confused. #Suspected Seizure - * CT head without acute findings x 2; no ICH seen * EEG negative for seizure activity * however, given the presence of brain mets, description of the event, and the ensuing confusion would Rx as seizure * cont keppra 500mg BID * neuro consult/recs appreciated * repeat MRI brain deferred -- just had MRI brain on 11/09 & this showed treatment response to whole brain radiation #Pulmonary embolism and infarction/RLE DVT (dx: 11/01/2024) - * Patient had reportedly been on Eliquis for 2 weeks prior to admission when the RLE DVTs were diagnosed * CTA chest this admission with b/l PEs and pulmonary infarction RYLEY * Neurology consulted; no contraindication to anticoagulation. Recent brain MRI unchanged from 07/2024 brain MRI (microbleeds unchanged). * Oncology consulted re: opinion about anticoagulation. * Dr Dutta agrees we can simply resume Eliquis rather than changing to lovenox, etc. * 11/25 - heparin drip stopped, Eliquis 5mg BID resumed. tolerating w/o any bleeding issues. #Metastatic lung cancer to brain and bone - * Patient had a PET/CT scheduled for 11/24/24 as outpatient - canceled; rescheduled for November 2024 * She is s/p whole brain radiation x 10 fractions * Most recent MRI brain from 11/09/2024 - in comparison to MRI dated 07/21/2024 - remarkable reduction of the number and size of the previously noted metastatic nodules. Multiple microbleeds again seen but unchanged & stable. * Continue osimertinib * Appreciate rad onc consult - nothing acute from their standpoint * Appreciate onc consult - nothing acute to do at this time * Prognosis is very poor with her failure to thrive, worsening memory/mentation, worsening functional status, development of complications (DVTs/PEs,etc) * palliative care consult requested; Dr Padilla met with pt & her today; pt wishes to continue cancer treatment; no change in code status; no plans for hospice * appreciate Dr Padilla's consult & efforts #Hypokalemia - * resolved #Hypotension - present on admission; resolved * likely 2nd to hypovolemia * cortisol level wnl * echo with preserved EF; no valvular disease * H/H acceptable #acute metabolic encephalopathy - * 2nd to ongoing memory loss from brain mets, radiation, etc * recent suspected seizure probably played a role as well in mental status when she first was admitted * UTI may have been contributing * cont namenda #tachycardia - ongoing, but asymptomatic from such * PEs, dehydration, anxiety likely all playing a role * H/H acceptable * TSH wnl * echo wnl #liquid stools - * c diff negative * stool BioFire negative * could be due to Tagrisso (immune based Rx for her cancer); per Clin Pharm nearly 1/2 of people have diarrhea from this medicine * consider loperamide or colestipol #vaginitis - * diflucan 150mg x 1 * if no resolution can repeat dilfucan again and would also test for concomitant BV #contact dermatitis - posterior legs, posterior head, posterior upper arms * cont triamcinolone cream 0.1% TID in thin amounts to problem areas #urinary retention - * likely due to central causes (brain mets, altered MS/cognitive impairment, etc) * UTI likely contributed as well * placed quevedo 11/26 * urine cx - pansens e.coli #UTI - * urine cx with e.coli * rocephin, then IV ancef, and now change to keflex to finish the course * today is day #4 of Rx * plan 7 days of IV/PO abx Chronic medical conditions: Hypothyroidism-continue levothyroxine; TSH in October 2024 was wnl GERD-continue famotidine and PPI updated at bedside today appreciate palliative care consult; care d/w Dr Padilla dispo - [facility] Admission and Anticipated Discharge Date Admission Date: November 22, 2024 Subjective patient resting comfortably in bed at bedside denies any complaints eating well today energy a little better tele - NSR or sinus tach Review of Systems Review of Systems: gen - denies pain in any location cv - no chest pain pulm - no dyspnea GI - no abd pain or N/V Physical Exam Physical Exam: gen - thin, NAD, lying comfortably in bed - best she has looked since hospital admission mouth - MMM neck - no JVD heart - RR, tachy, s1 s2, 1/6 NANI LSB lungs - CTA b/l, no rales or wheeze abd - soft, ND, NT; BS+; no masses; no HSM ext - right leg is larger than left leg due to known DVTs; 2+ pitting edema right foot/rubin; 1+ edema left rubin/foot psych - awake, but poor recall/cognitive impairment Results & Data Results & Data Vital Signs (Past 12 Hours) Vital Signs Temp Pulse Pulse Resp BP Pulse Ox O2 Del Method 11/29/24 15:49 36.6 C 111 H 17 118/84 97 Room Air 11/29/24 14:42 112 H 11/29/24 10:47 36.9 C 109 H 21 119/81 97 Room Air 11/29/24 08:00 99 H 11/29/24 08:00 Room Air 11/29/24 08:00 36.5 C 107 H 17 119/82 96 Room Air Laboratory Results Microbiology 11/26/24 Unknown Urine,Indwelling Cath Urine Culture - Final Escherichia coli PG Care Time/CCT Total # of Minutes Spent Total Time Spent with Patient: Total time spent is greater than 50% in coordination of care (as documented) at patient's floor/unit and/or counseling patient: Coding Level of Care Code 17572 SUB INP/OBS CARE 2/35MIN Diagnoses Pulmonary embolism and infarction I26.99 Acute hypokalemia E87.6 Seizure-like activity R56.9 Metastatic lung cancer (metastasis from lung to other site) C34.90 Mass of right lung R91.8 Vaginitis N76.0 Urinary retention R33.9 UTI (urinary tract infection) N39.0
--- NOTE | 2024-11-30 12:20 | Hospitalist Progress Note ---
Date of Service November 30, 2024 Assessment & Plan (1) Pulmonary embolism and infarction: (2) Acute hypokalemia: (3) Seizure-like activity: (4) Metastatic lung cancer (metastasis from lung to other site): (5) Mass of right lung: Plan: primary lung ca site (RUL) (6) Vaginitis: (7) Urinary retention: (8) UTI (urinary tract infection): Plan 64yo female with stage 4 lung cancer with mets to the brain & bone, history of gastric ulcer, hypothyroidism, GERD, hyperlipidemia, migraine and B12 deficiency. Presented with 60 second seizure-like event with stiffness & shaking. Witnessed by . During the event she was not responding to her name being called and her eyes "rolled back." Following the event patient was confused. #Suspected Seizure - * CT head without acute findings x 2; no ICH seen * EEG negative for seizure activity * however, given the presence of brain mets, description of the event, and the ensuing confusion would Rx as seizure * cont keppra 500mg BID * neuro consult/recs appreciated * repeat MRI brain deferred -- just had MRI brain on 11/09 & this showed treatment response to whole brain radiation #Pulmonary embolism and infarction/RLE DVT (DVT dx: 11/01/2024) - * Patient had reportedly been on Eliquis for 2 weeks prior to admission when the RLE DVTs were diagnosed * CTA chest this admission with b/l PEs and pulmonary infarction RYLEY * Eliquis failure NOT suspected (patient had been dyspneic at home for several weeks even predating the discovery of DVTs thus PEs felt to be subacute rather than acute) * Neurology consulted; no contraindication to anticoagulation despite microbleeds on MRI brain (Recent 10/2024 brain MRI unchanged from 07/2024 brain MRI). * Oncology consulted re: opinion about anticoagulation. * Dr Dutta agrees we can simply resume Eliquis rather than changing to lovenox, etc. * 11/25 - heparin drip stopped, Eliquis 5mg BID resumed. tolerating w/o any bleeding issues. #Metastatic lung cancer to brain and bone - * Patient had a PET/CT scheduled for 11/24/24 as outpatient - canceled; rescheduled for November 2024 * She is s/p whole brain radiation x 10 fractions * Most recent MRI brain from 11/09/2024 - in comparison to MRI dated 07/21/2024 - remarkable reduction of the number and size of the previously noted metastatic nodules. Multiple microbleeds again seen but unchanged & stable. * Continue osimertinib - patient & wish to cont Rx of her cancer; no plans for hospice at this time * Appreciate rad onc consult - nothing acute from their standpoint * Appreciate onc consult - nothing acute to do at this time * Prognosis is very poor with her failure to thrive, worsening memory/mentation s/p whole brain XRT, worsening functional status, development of complications (DVTs/PEs,etc) * palliative care consult requested; Dr Padilla met with pt & her ; pt wishes to continue cancer treatment; no change in code status; no plans for hospice * appreciate Dr Padilla's consult & efforts #Hypokalemia - * had resolved, now 2.9 today * will give IV & PO supplementation today * repeat K with mag level in am tomorrow #Hypotension - present on admission; resolved * likely 2nd to hypovolemia * cortisol level wnl * echo with preserved EF; no valvular disease * H/H acceptable #acute metabolic encephalopathy - * 2nd to ongoing memory loss from brain mets, radiation, etc * recent suspected seizure probably played a role as well in mental status when she first was admitted * UTI may have been contributing * cont namenda #tachycardia - ongoing, but asymptomatic from such * PEs, dehydration, SIRS due to recent UTI, etc likely all playing a role * mild anemia could play a small role but H/H remain acceptable * TSH wnl * echo wnl * denies pain; denies anxiety * I have deferred on treating the sinus tach due to low BPs and asymptomatic state * will check a repeat TSH/FT4 to ensure no iatrogenic hyperthyroid state causing the tachycardia #liquid stools - * c diff negative * stool BioFire negative * could be due to Tagrisso (immune based Rx for her cancer); per Clin Pharm nearly 1/2 of people have diarrhea from this medicine * consider loperamide or colestipol if it worsens #vaginitis - * diflucan 150mg x 1 * if it recurs can repeat dilfucan again and would also test for concomitant BV * per staff no further vaginal d/c #contact dermatitis - posterior legs, posterior head, posterior upper arms * cont triamcinolone cream 0.1% TID in thin amounts to problem areas * back of head improved * back of arms improved #urinary retention - * likely due to central causes (brain mets, altered MS/cognitive impairment, etc) * UTI likely contributed as well * placed quevedo 11/26 * urine cx - pansens e.coli * consider voiding trial prior to transfer to rehab #UTI - * urine cx with e.coli * rocephin, then IV ancef, and now keflex to finish the course * today is day #5 of Rx * plan 7 days of IV/PO abx Chronic medical conditions: Hypothyroidism-continue levothyroxine; TSH in October 2024 was wnl; repeat TFTs GERD-continue famotidine and PPI updated by phone this PM, 11/30 appreciate palliative care consult dispo - [facility] for trial of rehab Admission and Anticipated Discharge Date Admission Date: November 22, 2024 Subjective no events overnight speaking with staff NO vaginal d/c noted rash on back legs remains but no new areas of rash tele - NSR or sinus tach; latter most common while awake; no dysrhythmia during the visit she was resting in bed denied any new complaints "I feel good" and overall feels better eating fair Review of Systems Review of Systems: CV - no chest pain pulm - no dyspnea GI - no abd pain or N/V - quevedo in place Physical Exam Physical Exam: gen - thin, NAD, lying comfortably in bed, in good spirits today mouth - MMM neck - no JVD heart - RR, tachy, s1 s2, 1/6 NANI LSB lungs - CTA b/l, no rales or wheeze abd - soft, ND, NT; BS+; no HSM ext - right leg is larger than left leg due to known DVTs - unchanged; 2+ pitting edema right foot/rubin; 1+ edema left rubin/foot psych - awake, alert, poor historian, thought blocking at times when trying to answer questions Results & Data Results & Data Vital Signs (Past 12 Hours) Vital Signs Temp Pulse Resp BP Pulse Ox O2 Del Method 11/30/24 10:21 36.4 C L 110 H 17 104/74 97 Room Air 11/30/24 08:28 111 H 18 106/78 94 Room Air 11/30/24 08:00 Room Air 11/30/24 03:11 36.7 C 110 H 18 115/70 94 Room Air Laboratory Results Laboratory Results - last 24 hr 11/30/24 12:45 WBC 12.85 H RBC 3.25 L Hgb 10.4 L Hct 31.2 L MCV 96.0 MCH 32.0 MCHC 33.3 RDW Std Deviation 57.2 H RDW Coeff of Melodie 16.1 H Plt Count 307 MPV 10.2 Sodium 137 Potassium 2.9 L Chloride 108 H Carbon Dioxide 24 Anion Gap 5 BUN 11 Creatinine 0.37 L Est Cr Clr Drug Dosing 123.7 eGFR 111.16 BUN/Creatinine Ratio 29.7 H Glucose 147 H Calcium 7.3 L PG Care Time/CCT Total # of Minutes Spent Total Time Spent with Patient: Total time spent is greater than 50% in coordination of care (as documented) at patient's floor/unit and/or counseling patient: Coding Level of Care Code 91502 SUB INP/OBS CARE 2/35MIN Diagnoses Pulmonary embolism and infarction I26.99 Acute hypokalemia E87.6 Seizure-like activity R56.9 Metastatic lung cancer (metastasis from lung to other site) C34.90 Mass of right lung R91.8 Vaginitis N76.0 Urinary retention R33.9 UTI (urinary tract infection) N39.0
[2024-11-30 13:28] LABS: Hematocrit (blood only) 31.2 % (37.0-47.0); Hemoglobin 10.4 g/dl (12.0-16.0); Mean Corpuscular Hgb Conc 33.3 g/dL (32.0-36.0); Mean Platelet Volume 10.2 fL (9.4-12.4); Platelet Count 307 K/uL (130-400); RDW Coefficient of Variation 16.1 % (11.5-14.5); RDW Standard Deviation 57.2 fL (36.4-46.3); Red Blood Count 3.25 M/uL (4.20-5.40); White Blood Count 12.85 K/ul (4.8-10.8)
[2024-11-30 13:37] LABS: BUN Creatinine Ratio 29.7 (10-20); Calcium 7.3 mg/dl (8.6-10.3); Creatinine Clr Calc Pharmacy 123.7 ml/min; Potassium 2.9 mmol/L (3.5-5.1)
[2024-11-30] MEDS: POTASSIUM CHLORIDE / WTR 10 MEQ/100 ML PLCT IV SCH (15:46)
[2024-11-30] MEDS: CALCIUM GLUCONATE 1,000 MG/60 ML BAG IV STA (15:46)
[2024-11-30] MEDS: POTASSIUM CHLORIDE CRTAB 20 MEQ TABCR PO STA (15:46)
[2024-12-01 05:55] LABS: Hemoglobin 9.4 g/dl (12.0-16.0); Mean Corpuscular Hemoglobin 32.3 pg (25.0-34.0); Mean Corpuscular Hgb Conc 33.6 g/dL (32.0-36.0); Mean Corpuscular Volume 96.2 fL (80.0-100.0); Mean Platelet Volume 10.1 fL (9.4-12.4); Platelet Count 248 K/uL (130-400); RDW Coefficient of Variation 16.2 % (11.5-14.5); RDW Standard Deviation 57.5 fL (36.4-46.3); Red Blood Count 2.91 M/uL (4.20-5.40); White Blood Count 9.16 K/ul (4.8-10.8)
[2024-12-01 06:27] LABS: BUN Creatinine Ratio 28.6 (10-20); Calcium 7.5 mg/dl (8.6-10.3); Creatinine Clr Calc Pharmacy 130.8 ml/min; Magnesium 1.6 mg/dl (1.7-2.4)
[2024-12-01 07:22] LABS: T4 Free Thyroxine 1.65 ng/dl (0.61-1.60); Thyroid Stimulating Hormone 1.154 uIu/ml (0.300-4.500)
[2024-12-01 11:03] LABS: Prealbumin 3.1 mg/dl (20-40)
--- NOTE | 2024-12-01 14:17 | Hospitalist Progress Note ---
Date of Service December 01, 2024 Assessment & Plan (1) Pulmonary embolism and infarction: (2) Acute hypokalemia: (3) Seizure-like activity: (4) Metastatic lung cancer (metastasis from lung to other site): (5) Mass of right lung: Plan: primary lung ca site (RUL) (6) Vaginitis: (7) Urinary retention: (8) UTI (urinary tract infection): Plan 64yo female with stage 4 lung cancer with mets to the brain & bone, history of gastric ulcer, hypothyroidism, GERD, hyperlipidemia, migraine and B12 deficiency. Presented with 60 second seizure-like event with stiffness & shaking. Witnessed by . During the event she was not responding to her name being called and her eyes "rolled back." Following the event patient was confused. #Suspected Seizure - * CT head without acute findings x 2; no ICH seen * EEG negative for seizure activity * however, given the presence of brain mets, description of the event, and the ensuing confusion would Rx as seizure * cont keppra 500mg BID * neuro consult/recs appreciated * repeat MRI brain deferred -- just had MRI brain on 11/09 & this showed treatment response to whole brain radiation #Pulmonary embolism and infarction/RLE DVT (DVT dx: 11/01/2024) - * Patient had reportedly been on Eliquis for 2 weeks prior to admission when the RLE DVTs were diagnosed * CTA chest this admission with b/l PEs and pulmonary infarction RYLEY * Eliquis failure NOT suspected (patient had been dyspneic at home for several weeks even predating the discovery of DVTs thus PEs felt to be subacute rather than acute) * Neurology consulted; no contraindication to anticoagulation despite microbleeds on MRI brain (Recent 10/2024 brain MRI unchanged from 07/2024 brain MRI). * Oncology consulted re: opinion about anticoagulation. * Dr Dutta agrees we can simply resume Eliquis rather than changing to lovenox, etc. * 11/25 - heparin drip stopped, Eliquis 5mg BID resumed. tolerating w/o any bleeding issues. #Metastatic lung cancer to brain and bone - * Patient had a PET/CT scheduled for 11/24/24 as outpatient - canceled; rescheduled for November 2024 * She is s/p whole brain radiation x 10 fractions * Most recent MRI brain from 11/09/2024 - in comparison to MRI dated 07/21/2024 - remarkable reduction of the number and size of the previously noted metastatic nodules. Multiple microbleeds again seen but unchanged & stable. * Continue osimertinib - patient & wish to cont Rx of her cancer; no plans for hospice at this time * Appreciate rad onc consult - nothing acute from their standpoint * Appreciate onc consult - nothing acute to do at this time * Prognosis is very poor with her failure to thrive, worsening memory/mentation s/p whole brain XRT, worsening functional status, development of complications (DVTs/PEs,etc) * palliative care consult requested; Dr Padilla met with pt & her ; pt wishes to continue cancer treatment; no change in code status; no plans for hospice * appreciate Dr Padilla's consult & efforts #Hypokalemia - * had resolved, now 2.9 today * will give IV & PO supplementation today * repeat K with mag level in am tomorrow #Hypotension - present on admission; resolved * likely 2nd to hypovolemia * cortisol level wnl * echo with preserved EF; no valvular disease * H/H acceptable #acute metabolic encephalopathy - * 2nd to ongoing memory loss from brain mets, radiation, etc * recent suspected seizure probably played a role as well in mental status when she first was admitted * UTI may have been contributing * cont namenda #tachycardia - ongoing, but asymptomatic from such * PEs, dehydration, SIRS due to recent UTI, etc likely all playing a role * mild anemia could play a small role but H/H remain acceptable * TSH wnl * echo wnl * denies pain; denies anxiety * I have deferred on treating the sinus tach due to low BPs and asymptomatic state * will check a repeat TSH/FT4 to ensure no iatrogenic hyperthyroid state causing the tachycardia #liquid stools - * c diff negative * stool BioFire negative * could be due to Tagrisso (immune based Rx for her cancer); per Clin [facility] nearly 1/2 of people have diarrhea from this medicine * consider loperamide or colestipol if it worsens #vaginitis - * diflucan 150mg x 1 * if it recurs can repeat dilfucan again and would also test for concomitant BV * per staff no further vaginal d/c #contact dermatitis - posterior legs, posterior head, posterior upper arms * cont triamcinolone cream 0.1% TID in thin amounts to problem areas * back of head improved * back of arms improved #urinary retention - * likely due to central causes (brain mets, altered MS/cognitive impairment, etc) * UTI likely contributed as well * placed quevedo 11/26 * urine cx - pansens e.coli * consider voiding trial prior to transfer to rehab #UTI - * urine cx with e.coli * rocephin, then IV ancef, and now keflex to finish the course * today is day #6 of Rx * plan 7 days of IV/PO abx Chronic medical conditions: Hypothyroidism-continue levothyroxine; TSH in October 2024 was wnl; repeat TFTs GERD-continue famotidine and PPI Left message on 's cell phone [phone] about decision to give patient IV albumin as her prealbumin is only 3 and patient has significant swelling the range is 20 to 40 mg/dL dispo - [facility] for trial of rehab Admission and Anticipated Discharge Date Admission Date: November 22, 2024 Review of Systems Eyes: CV - no chest pain pulm - no dyspnea GI - no abd pain or N/V - quevedo in place Physical Exam Physical Exam: gen - thin, NAD, lying comfortably in bed, in good spirits today mouth - MMM neck - no JVD heart - RR, tachy, s1 s2, 1/6 NANI LSB lungs - CTA b/l, no rales or wheeze abd - soft, ND, NT; BS+; no HSM ext - right leg is larger than left leg due to known DVTs - unchanged; 2+ pitting edema right foot/rubin; 1+ edema left rubin/foot psych - awake, alert, poor historian, thought blocking at times when trying to answer questions Results & Data Results & Data Vital Signs (Past 12 Hours) Vital Signs Temp Pulse Pulse Resp BP BP Pulse Ox 12/01/24 11:39 36.8 C 117 H 17 109/79 96 12/01/24 08:27 114 H 18 115/95 95 12/01/24 06:44 104 H 12/01/24 03:28 37.1 C 115 H 18 108/79 94 O2 Del Method 12/01/24 11:39 Room Air 12/01/24 08:27 Room Air 12/01/24 06:44 12/01/24 03:28 Room Air PG Care Time/CCT Total # of Minutes Spent Total Time Spent with Patient: Total time spent is greater than 50% in coordination of care (as documented) at patient's floor/unit and/or counseling patient: Coding Level of Care Code 22549 SUB INP/OBS CARE 3/50MIN Diagnoses Pulmonary embolism and infarction I26.99 Acute hypokalemia E87.6 Seizure-like activity R56.9 Metastatic lung cancer (metastasis from lung to other site) C34.90 Mass of right lung R91.8 Vaginitis N76.0 Urinary retention R33.9 UTI (urinary tract infection) N39.0 Time Spent (min) 50
[2024-12-01] MEDS: ALBUMIN 25% 25 GM/100 ML VIAL IV SCH (20:58)
--- NOTE | 2024-12-02 14:25 | Hospitalist Progress Note ---
Date of Service December 02, 2024 Assessment & Plan (1) Pulmonary embolism and infarction: (2) Acute hypokalemia: (3) Seizure-like activity: (4) Metastatic lung cancer (metastasis from lung to other site): (5) Mass of right lung: Plan: primary lung ca site (RUL) (6) Vaginitis: (7) Urinary retention: (8) UTI (urinary tract infection): Plan 64yo female with stage 4 lung cancer with mets to the brain & bone, history of gastric ulcer, hypothyroidism, GERD, hyperlipidemia, migraine and B12 deficiency. Presented with 60 second seizure-like event with stiffness & shaking. Witnessed by . During the event she was not responding to her name being called and her eyes "rolled back." Following the event patient was confused. #Suspected Seizure - * CT head without acute findings x 2; no ICH seen * EEG negative for seizure activity * however, given the presence of brain mets, description of the event, and the ensuing confusion would Rx as seizure * cont keppra 500mg BID * neuro consult/recs appreciated * repeat MRI brain deferred -- just had MRI brain on 11/09 & this showed treatment response to whole brain radiation #Pulmonary embolism and infarction/RLE DVT (DVT dx: 11/01/2024) - * Patient had reportedly been on Eliquis for 2 weeks prior to admission when the RLE DVTs were diagnosed * CTA chest this admission with b/l PEs and pulmonary infarction RYLEY * Eliquis failure NOT suspected (patient had been dyspneic at home for several weeks even predating the discovery of DVTs thus PEs felt to be subacute rather than acute) * Neurology consulted; no contraindication to anticoagulation despite microbleeds on MRI brain (Recent 10/2024 brain MRI unchanged from 07/2024 brain MRI). * Oncology consulted re: opinion about anticoagulation. * Dr Dutta agrees we can simply resume Eliquis rather than changing to lovenox, etc. * 11/25 - heparin drip stopped, Eliquis 5mg BID resumed. tolerating w/o any bleeding issues. #Metastatic lung cancer to brain and bone - * Patient had a PET/CT scheduled for 11/24/24 as outpatient - canceled; rescheduled for November 2024 * She is s/p whole brain radiation x 10 fractions * Most recent MRI brain from 11/09/2024 - in comparison to MRI dated 07/21/2024 - remarkable reduction of the number and size of the previously noted metastatic nodules. Multiple microbleeds again seen but unchanged & stable. * Continue osimertinib - patient & wish to cont Rx of her cancer; no plans for hospice at this time * Appreciate rad onc consult - nothing acute from their standpoint * Appreciate onc consult - nothing acute to do at this time * Prognosis is very poor with her failure to thrive, worsening memory/mentation s/p whole brain XRT, worsening functional status, development of complications (DVTs/PEs,etc) * palliative care consult requested; Dr Padilla met with pt & her ; pt wishes to continue cancer treatment; no change in code status; no plans for hospice * appreciate Dr Padilla's consult & efforts #Hypokalemia - * had resolved, now 2.9 today * will give IV & PO supplementation today * repeat K with mag level in am tomorrow #Hypotension - present on admission; resolved * likely 2nd to hypovolemia * cortisol level wnl * echo with preserved EF; no valvular disease * H/H acceptable #acute metabolic encephalopathy - * 2nd to ongoing memory loss from brain mets, radiation, etc * recent suspected seizure probably played a role as well in mental status when she first was admitted * UTI may have been contributing * cont namenda #tachycardia - ongoing, but asymptomatic from such * PEs, dehydration, SIRS due to recent UTI, etc likely all playing a role * mild anemia could play a small role but H/H remain acceptable * TSH wnl * echo wnl * denies pain; denies anxiety * I have deferred on treating the sinus tach due to low BPs and asymptomatic state * will check a repeat TSH/FT4 to ensure no iatrogenic hyperthyroid state causing the tachycardia #liquid stools - * c diff negative * stool BioFire negative * could be due to Tagrisso (immune based Rx for her cancer); per Clin [facility] nearly 1/2 of people have diarrhea from this medicine * consider loperamide or colestipol if it worsens #vaginitis - * diflucan 150mg x 1 * if it recurs can repeat dilfucan again and would also test for concomitant BV * per staff no further vaginal d/c #contact dermatitis - posterior legs, posterior head, posterior upper arms * cont triamcinolone cream 0.1% TID in thin amounts to problem areas * back of head improved * back of arms improved #urinary retention - * likely due to central causes (brain mets, altered MS/cognitive impairment, etc) * UTI likely contributed as well * placed quevedo 11/26 * urine cx - pansens e.coli * consider voiding trial prior to transfer to rehab #UTI - * urine cx with e.coli * rocephin, then IV ancef, and now keflex to finish the course * today is day #6 of Rx * plan 7 days of IV/PO abx Chronic medical conditions: Hypothyroidism-continue levothyroxine; TSH in October 2024 was wnl; repeat TFTs GERD-continue famotidine and PPI Patient has good response in terms of reduced swelling of the hands and fingers after receiving IV albumin dispo - [facility] for trial of rehab Admission and Anticipated Discharge Date Admission Date: November 22, 2024 Subjective Patient has received IV albumin and the swelling in her hands have significantly reduced awaiting insurance authorization for center care placement. Review of Systems Review of Systems: CV - no chest pain pulm - no dyspnea GI - no abd pain or N/V - quevedo in place Physical Exam Physical Exam: gen - thin, NAD, lying comfortably in bed, in good spirits today mouth - MMM neck - no JVD heart - RR, tachy, s1 s2, 1/6 NANI LSB lungs - CTA b/l, no rales or wheeze abd - soft, ND, NT; BS+; no HSM ext - right leg is larger than left leg due to known DVTs - unchanged; 2+ pitting edema right foot/rubin; 1+ edema left rubin/foot psych - awake, alert, poor historian, thought blocking at times when trying to answer questions Results & Data Results & Data Vital Signs (Past 12 Hours) Vital Signs Temp Pulse Pulse Resp BP BP Pulse Ox 12/02/24 11:14 36.7 C 90 18 126/87 96 12/02/24 08:42 36.4 C L 98 H 18 114/79 94 12/02/24 06:41 107 H 12/02/24 03:56 36.7 C 105 H 18 108/75 93 12/02/24 03:20 103 H O2 Del Method 12/02/24 11:14 Room Air 12/02/24 08:42 Room Air 12/02/24 06:41 12/02/24 03:56 Room Air 12/02/24 03:20 PG Care Time/CCT Total # of Minutes Spent Total Time Spent with Patient: Total time spent is greater than 50% in coordination of care (as documented) at patient's floor/unit and/or counseling patient: Coding Level of Care Code 48089 SUB INP/OBS CARE 3/50MIN Diagnoses Pulmonary embolism and infarction I26.99 Acute hypokalemia E87.6 Seizure-like activity R56.9 Metastatic lung cancer (metastasis from lung to other site) C34.90 Mass of right lung R91.8 Vaginitis N76.0 Urinary retention R33.9 UTI (urinary tract infection) N39.0
[2024-12-03 12:10] VITALS: PULSE 98; RESP 17; TEMP 98.1; O2SAT 95
[2024-12-03 12:28] VITALS: BP 114/79
--- NOTE | 2024-12-03 15:49 | Discharge Summary ---
Date of Service December 03, 2024 Admission HPI Per Admitting Provider The patient is a 64-year-old female with past medical history including situational depression, prediabetes, metastatic lung cancer to brain, history of gastric ulcer, right upper lung mass, hypothyroidism, GERD, hyperlipidemia, migraine and B12 deficiency.The patient was brought to the emergency department due to witnessed seizure-like activity by her , as he was trying to get the patient to the bathroom, attempting to lift her up and she started to get very stiff and shaky. He reports that she continues to be somewhat confused at this time in the ED, and is not back to what he considers her baseline. He reports the entire episode lasted about 60 seconds. She has known history of lung cancer with metastases to brain, and has a PET/CT scheduled for 11/24. She has undergone radiation therapy with Dr. Michael, and MRI from 11/01 is noted improvement in brain metastases. She has not had any previous history of seizures or seizure-like activity. The has also reported concerns regarding patient having increasing heart rate and intermittently low blood pressure at the same time. He notes that she had been started on Eliquis for right lower extremity DVT about 2 weeks ago, and has been faithful about taking the Eliquis. Did her tachycardia and borderline blood pressure, we then ordered a CTA PE protocol, which showed filling defect within the left pulmonary artery, right upper lobe pulmonary artery and left upper lobe pulmonary artery branch, indicating acute thromboembolism. The spiculated mass in the right upper lobe was neoplastic in etiology reduced in size. Sclerotic lesion seen in multiple thoracic vertebrae likely metastatic, increased as compared to prior study. A patch of peripheral groundglass opacities with noted anterior segment left upper lobe, considered an evolving infarct. Admission Exam (Per Admitting) Constitutional CV - no chest pain pulm - no dyspnea GI - no abd pain or N/V - quevedo was removed gen - thin, NAD, lying comfortably in bed, in good spirits today has visitors in place and she is looking forward to go out to [facility] facility mouth - MMM neck - no JVD heart - RR, tachy, s1 s2, 1/6 NANI LSB lungs - CTA b/l, no rales or wheeze abd - soft, ND, NT; BS+; no HSM ext - right leg is larger than left leg due to known DVTs - unchanged; 2+ pitting edema right foot/rubin; 1+ edema left rubin/foot psych - awake, alert, poor historian, Discharge Data Consultations 11/22/24 20:34 ED Decision to Admit Stat 11/22/24 23:06 Consult Oncology Routine Consult Radiation Oncology Routine 11/23/24 10:47 Consult Neurology Routine 11/28/24 09:27 Consult Palliative Care Routine Hospital Course (1) Pulmonary embolism and infarction: (2) Acute hypokalemia: (3) Seizure-like activity: (4) Metastatic lung cancer (metastasis from lung to other site): (5) Mass of right lung: primary lung ca site (RUL) (6) Vaginitis: (7) Urinary retention: (8) UTI (urinary tract infection): Plan 64yo female with stage 4 lung cancer with mets to the brain & bone, history of gastric ulcer, hypothyroidism, GERD, hyperlipidemia, migraine and B12 deficiency. Presented with 60 second seizure-like event with stiffness & shaking. Witnessed by . During the event she was not responding to her name being called and her eyes "rolled back." Following the event patient was confused. #Suspected Seizure - * CT head without acute findings x 2; no ICH seen * EEG negative for seizure activity * however, given the presence of brain mets, description of the event, and the ensuing confusion would Rx as seizure * cont keppra 500mg BID on discharge prescriptions are written * neuro consult/recs appreciated * repeat MRI brain deferred -- just had MRI brain on 11/09 & this showed treatment response to whole brain radiation #Pulmonary embolism and infarction/RLE DVT (DVT dx: 11/01/2024) - * Patient had reportedly been on Eliquis for 2 weeks prior to admission when the RLE DVTs were diagnosed * CTA chest this admission with b/l PEs and pulmonary infarction RYLEY * Eliquis failure NOT suspected (patient had been dyspneic at home for several weeks even predating the discovery of DVTs thus PEs felt to be subacute rather than acute) * Neurology consulted; no contraindication to anticoagulation despite microbleeds on MRI brain (Recent 10/2024 brain MRI unchanged from 07/2024 brain MRI). * Oncology consulted re: opinion about anticoagulation. * Dr Dutta agrees we can simply resume Eliquis rather than changing to lovenox, etc. * 11/25 - heparin drip stopped, Eliquis 5mg BID resumed. tolerating w/o any bleeding issues. Continue on #Metastatic lung cancer to brain and bone - * Patient had a PET/CT scheduled for 11/24/24 as outpatient - canceled; rescheduled for November 2024 * She is s/p whole brain radiation x 10 fractions * Most recent MRI brain from 11/09/2024 - in comparison to MRI dated 07/21/2024 - remarkable reduction of the number and size of the previously noted metastatic nodules. Multiple microbleeds again seen but unchanged & stable. * Continue osimertinib - patient & wish to cont Rx of her cancer; no plans for hospice at this time * Appreciate rad onc consult - nothing acute from their standpoint * Appreciate onc consult - nothing acute to do at this time * Prognosis is very poor with her failure to thrive, worsening memory/mentation s/p whole brain XRT, worsening functional status, development of complications (DVTs/PEs,etc) * palliative care consult requested; Dr Padilla met with pt & her ; pt wishes to continue cancer treatment; no change in code status; no plans for hospice * appreciate Dr Padilla's consult & efforts #Hypokalemia - * had resolved, * will give IV & PO supplementation today * #Hypotension - present on admission; resolved * likely 2nd to hypovolemia * cortisol level wnl * echo with preserved EF; no valvular disease * H/H acceptable #acute metabolic encephalopathy - * 2nd to ongoing memory loss from brain mets, radiation, etc * recent suspected seizure probably played a role as well in mental status when she first was admitted * UTI may have been contributing * cont namenda #tachycardia - ongoing, but asymptomatic from such * PEs, dehydration, SIRS due to recent UTI, etc likely all playing a role * mild anemia could play a small role but H/H remain acceptable * TSH wnl * echo wnl * denies pain; denies anxiety * I have deferred on treating the sinus tach due to low BPs and asymptomatic state * will check a repeat TSH/FT4 to ensure no iatrogenic hyperthyroid state causing the tachycardia #liquid stools - * c diff negative * stool BioFire negative * could be due to Tagrisso (immune based Rx for her cancer); per Clin Pharm nearly 1/2 of people have diarrhea from this medicine * consider loperamide or colestipol if it worsens #vaginitis - * diflucan 150mg x 1 * if it recurs can repeat dilfucan again and would also test for concomitant BV * per staff no further vaginal d/c #contact dermatitis - posterior legs, posterior head, posterior upper arms * cont triamcinolone cream 0.1% TID in thin amounts to problem areas * back of head improved * back of arms improved #urinary retention - * likely due to central causes (brain mets, altered MS/cognitive impairment, etc) * UTI likely contributed as well * placed quevedo 11/26 * urine cx - pansens e.coli * Patient finished antibiotic #UTI - * urine cx with e.coli * rocephin, then IV ancef, and now keflex to finish the course * today is day #7 of Rx * plan 7 days of IV/PO abx Chronic medical conditions: Hypothyroidism-continue levothyroxine; TSH in October 2024 was wnl; repeat TFTs GERD-continue famotidine and PPI Patient has good response in terms of reduced swelling of the hands and fingers after receiving IV albumin dispo - [facility] for trial of rehab Coding Level of Care Code 43240 INP/OBS DISCH >30 MIN Diagnoses Pulmonary embolism and infarction I26.99 Acute hypokalemia E87.6 Seizure-like activity R56.9 Metastatic lung cancer (metastasis from lung to other site) C34.90 Mass of right lung R91.8 Vaginitis N76.0 Urinary retention R33.9 UTI (urinary tract infection) N39.0
== END 2024-12-03 13:50 | DRG 175 ==
LOC: ED 15:40 → 2E 23:06 → SUATTDRO 23:06 → 2E 11-23 00:21